=== PATIENT | male | born 1975 | race Caucasian/White ===

== ENCOUNTER 2022-12-26 18:18 | Emergency (ER) | payer OTHER, SELFPAY ==
--- NOTE | ~2022-12-26 | XR_ITS ---
EXAMINATION: XR ELBOW, LEFT CLINICAL INFORMATION: Left elbow pain COMPARISON: None available. TECHNIQUE: AP, lateral, and oblique views of the left elbow. XR/XR elbow LT min 3V FINDINGS/IMPRESSION: Cortical irregularity is noted of the olecranon process with the small ossific densities and overlying soft tissue swelling. In the setting of underlying trauma findings would represent avulsion fracture. If there is no history of trauma finding would be concerning for osteomyelitis. No evidence of elbow joint effusion. No evidence of radiopaque foreign body.
[2022-12-26 18:22] VITALS: BP 140/80; PULSE 100; PULSE 98; RESP 18; TEMP 36.8; O2SAT 95; O2SAT 98; BMI 27.4
[2022-12-26 19:09] LABS: Lactic Acid 1.5 mmol/L (0.5-2.0)
[2022-12-26 19:10] LABS: MANUAL DIFF FLAG NO
[2022-12-26 19:11] LABS: Basophils Absolute Auto 0.1 X10*3/uL (0.0-0.2); Basophils Percent Auto 0.9 % (0-2); Eosinophils Absolute Auto 0.2 X10*3/uL (0.0-0.4); Eosinophils Percent Auto 3.5 % (0-4); Hematocrit 36.6 % (42.0-52.0); Hemoglobin 12.1 g/dl (14.0-18.0); Imm Gran Abs Auto 0.01 X10*3/uL (0.00-0.03); Imm Gran Pct Auto 0.2 % (0.0-0.4); Lymphocytes Absolute Auto 0.8 X10*3/uL (1.2-4.9); Lymphocytes Percent Auto 15.3 % (20-40); Mean Corpuscular HGB Conc 33.1 g/dl (31.0-36.0); Mean Corpuscular Hemoglobin 30.6 pg (27.0-33.0); Mean Corpuscular Volume 92.4 fL (80.0-98.0); Mean Platelet Volume 9.9 fL (9.4-12.4); Monocytes Absolute Auto 0.5 X10*3/uL (0.1-1.2); Monocytes Percent Auto 8.9 % (2-11); Neutrophils Absolute Auto 3.8 x10*3/uL (2.0-8.3); Neutrophils Percent Auto 71.2 % (45-73); Platelet Count 228 X10*3/uL (160-400); Red Blood Count 3.96 X10*6/uL (4.60-5.80); Red Cell Distribution Width 14.9 % (11.0-16.0); White Blood Count 5.4 X10*3/uL (4.8-10.8)
[2022-12-26 19:14] LABS: Alanine Aminotransferase 12 U/L (0-40); Albumin Level 4.3 g/dL (3.5-5.0); Alkaline Phosphatase 55 U/L (39-117); Anion Gap 15 (12-20); Aspartate Amino Transferase 15 U/L (5-37); Bilirubin Total 0.4 mg/dL (0.0-1.0); Blood Urea Nitrogen 22 mg/dL (9-16); Calcium 9.4 mg/dL (8.4-10.2); Carbon Dioxide 24 mmol/L (22-29); Chloride 106 mmol/L (96-108); Creatinine Clr Calc Pharmacy 44.5; Estimated Glomerular Filt Rate 32; Ethanol 249 mg/dL; Glucose Random 83 mg/dL (60-115); Magnesium 2.1 mg/dL (1.6-2.6); Sodium 141 mmol/L (135-145); Total Protein 6.8 g/dL (6.5-8.0)
[2022-12-26 19:16] LABS: COVID-19 Test Negative (Negative); IDNOW Serial# 08D9AD1C
--- NOTE | 2022-12-26 19:45 | MHC.EDTECH ---
Pt is highly imtoxicated and refusin labs and vitals
--- NOTE | 2022-12-26 19:59 | ED_ITS ---
HPI - Alcohol General Chief Complaint: ETOH/Substance Use Stated Complaint: etoh Time Seen by Provider: 12/26/22 18:24 Source: patient, EMS and police Mode of arrival: EMS Limitations: no limitations History of Present Illness HPI narrative: This is a 47-year-old male presenting to the emergency department with EMS and police with acute alcohol intoxication, patient was sober for 6 months, was dropped off at [facility] by a friend for detox, he was noted to be intoxicated so they called EMS to take patient to the hospital. Patient reports he had approximately 4 nips of hard liquor just prior to arrival. Denies suicidal and homicidal ideation. He is also complaining of left elbow pain, he states his left elbow was swollen, painful, red and there is pus coming out of it. He reports he hit his elbow on something a few days ago and ever since then and has been worsening. He also reports that he had surgery to this left elbow a few months ago. Patient denies visual, auditory and tactile hallucinations. Denies drugs. Denies homicidal and suicidal ideation. States he seeking detox. Related Data Previous Rx's Medication Instructions Recorded amoxicillin 875 mg-potassium 1 tab PO BID 10 days #20 tabs 12/26/22 clavulanate 125 mg tablet Allergies Allergy/AdvReac Type Severity Reaction Status Date / Time hydroxyzine [From Vistaril] Allergy Hives Verified 12/26/22 18:32 Review of Systems Review of Systems: Constitutional : No Weight loss, No Fever, No Chills, No Fatigue, No Malaise ENT/Mouth : No sore throat, No Rhinorrhea Eyes: No Eye Pain, No Swelling, No Redness Cardiovascular : No Chest Pain, No SOB, No Dyspnea on Exertion, No Orthopnea, No Edema, No Palpitations Respiratory : No Cough, No Sputum, No Wheezing Gastrointestinal : No Nausea, No Vomiting, No Diarrhea, No Constipation, No abdominal Pain, No Hematochezia, No Melena Genitourinary : No Dysuria, No Urinary Frequency, No Hematuria, Musculoskeletal : + joint pain, No Myalgias, + Joint Swelling Skin : No Skin Lesions, No rash Neuro : No Weakness, No Numbness, No Dizziness, No Headache Psych : No Anxiety/Panic, No Depression All other systems reviewed and are negative Yes all other systems are reviewed and are negative [facility] Past Medical History Attestation statement: The following information was validated with the patient. Source: old records reviewed and nursing notes reviewed Physical Exam ED Vital Signs: Vital Signs - 24 hr 12/26/22 18:22 12/26/22 20:12 Temperature 98.2 F Pulse Rate 98 Respiratory Rate 18 18 Pulse Oximetry 98 Oxygen Delivery Method Room Air BMI result Body Mass Index 27.4 vss Appearance: Alert.? Oriented X3.? No acute distress.? Head: Normocephalic, atraumatic, no step-offs or deformities Eyes: Pupils equal, round and reactive to light.? CVS: Normal heart rate and rhythm.? Pulses normal.? Respiratory: No respiratory distress.? Breath sounds normal.? Abdomen: Soft and nontender.? Skin: Skin warm and dry.? Normal skin color.? Normal skin turgor.? Extremities: No lower extremity edema.? No calf ttp. 5/5 strength to bilateral upper and lower extremities bilateral elbows with full range of motion, pain- free. Left elbow does have overlying cellulitis, warmth and what appears to be a draining abscess. Normal right elbow. 2+ radial pulses equal bilateral. No wrist drop. Back: No midline tenderness, no C-spine tenderness, full range of motion, no CVA tenderness bilaterally Neuro: Oriented X 3.? No motor deficit.? No sensory deficit. CN 2-12 intact . Ambulating with steady gait normal coordination. Course Reevaluation(s) Reevaluation #1: CBC with a normocytic anemia. This is likely patient's baseline. Chemistry with acute kidney injury. Patient requesting to leave, refusing fluids. Does not want detox. Is calling for safe ride home. My attending evaluated patient recommends Augmentin for elbow likely bursitis with overlying cellulitis. He recommends to discharge this patient home as he does not want anything done, my attending to DC him home. Educated patient on diagnosis and treatment plan, answered all question, patient verbalizes understanding. At this time patient will be discharged home, advised to return with new or worsening symptoms. Educated on worrisome signs and symptoms and when to return. At this time I feel comfortable discharge home. Patient refusing for nursing to attempt IV access again. Not allowing us to give iVF Time: 21:00 Reevaluation #2: patient now fighting with with security, screaming. Disrespectful toward staff members. Is being escorted out by security. Time: 21:01 Medical Decision Making Medical Decision Making [facility] Narrative: 1825 This is a 47-year-old male presenting with acute alcohol intoxication was found at [facility], also reporting left Mary Kay pain, swelling the past few days after hitting his elbow against something. Physical exam significant for No lower extremity edema.? No calf ttp. 5/5 strength to bilateral upper and lower extremities bilateral elbows with full range of motion, pain-free. Left elbow does have overlying cellulitis, warmth and what appears to be a draining abscess. Normal right elbow. 2+ radial pulses equal bilateral. No wrist drop. This is likely alcohol intoxication versus polysubstance abuse. Unlikely metabolic derangements. Left elbow likely cellulitis, no signs of threatened limb, septic joint. There is likely a developing abscess with overlying erythema and warmth concerning for cellulitis, no signs of gangrene. Plan at this time labs, imaging, blood cultures, lactic acid, substance use disorder evaluation Differential Diagnosis Differential Diagnoses: The differential diagnosis associated with the presentation includes This is likely alcohol intoxication versus polysubstance abuse. Unlikely metabolic derangements. Left elbow likely cellulitis, no signs of threatened limb, septic joint. There is likely a developing abscess with overlying erythema and warmth concerning for cellulitis, no signs of gangrene. Admission/Observation Consideration of admission/observation: Escalation of care including admission/observation considered Lab Data [facility] Lab Attestation statement: I reviewed the patient's lab results. 12/26/22 18:55 12/26/22 18:55 Labs: Lab Results 12/26/22 12/26/22 12/26/22 Range/Units 18:55 18:55 18:55 WBC 5.4 (4.8-10.8) X10*3/uL RBC 3.96 L (4.60-5.80) X10*6/uL Hgb 12.1 L (14.0-18.0) g/dl Hct 36.6 L (42.0-52.0) % MCV 92.4 (80.0-98.0) fL MCH 30.6 (27.0-33.0) pg MCHC 33.1 (31.0-36.0) g/dl RDW 14.9 (11.0-16.0) % Plt Count 228 (160-400) X10*3/uL MPV 9.9 (9.4-12.4) fL Immature Gran % (Auto) 0.2 (0.0-0.4) % Neut % (Auto) 71.2 (45-73) % Lymph % (Auto) 15.3 L (20-40) % [place] % (Auto) 8.9 (2-11) % Eos % (Auto) 3.5 (0-4) % Baso % (Auto) 0.9 (0-2) % Lymph # (Auto) 0.8 L (1.2-4.9) X10*3/uL [place] # (Auto) 0.5 (0.1-1.2) X10*3/uL Eos # (Auto) 0.2 (0.0-0.4) X10*3/uL Baso # (Auto) 0.1 (0.0-0.2) X10*3/uL Abs Immat Gran (auto) 0.01 (0.00-0.03) X10*3/uL Absolute Neuts (auto) 3.8 (2.0-8.3) x10*3/uL Absolute Nucleated RBC 0.000 (0.0-0.012) X10*3/uL Nucleated RBC % (auto) 0.0 (0.0-0.2) /100WBC Sodium 141 (135-145) mmol/L Potassium 4.0 (3.3-5.1) mmol/L Chloride 106 (96-108) mmol/L Carbon Dioxide 24 (22-29) mmol/L Anion Gap 15 (12-20) BUN 22 H (9-16) mg/dL Creatinine 2.17 H (0.5-1.4) mg/dL Estim Creat Clear Calc 44.5 Estimated GFR 32 Random Glucose 83 (60-115) mg/dL Lactic Acid 1.5 (0.5-2.0) mmol/L Calcium 9.4 (8.4-10.2) mg/dL Magnesium 2.1 (1.6-2.6) mg/dL Total Bilirubin 0.4 (0.0-1.0) mg/dL AST 15 (5-37) U/L ALT 12 (0-40) U/L Alkaline Phosphatase 55 (39-117) U/L Total Protein 6.8 (6.5-8.0) g/dL Albumin 4.3 (3.5-5.0) g/dL Ethyl Alcohol 249 mg/dL COVID-19 (JONNIE) (Negative) COVID-19 Clin Com 12/26/22 Range/Units 18:55 WBC (4.8-10.8) X10*3/uL RBC (4.60-5.80) X10*6/uL Hgb (14.0-18.0) g/dl Hct (42.0-52.0) % MCV (80.0-98.0) fL MCH (27.0-33.0) pg MCHC (31.0-36.0) g/dl RDW (11.0-16.0) % Plt Count (160-400) X10*3/uL MPV (9.4-12.4) fL Immature Gran % (Auto) (0.0-0.4) % Neut % (Auto) (45-73) % Lymph % (Auto) (20-40) % [place] % (Auto) (2-11) % Eos % (Auto) (0-4) % Baso % (Auto) (0-2) % Lymph # (Auto) (1.2-4.9) X10*3/uL [place] # (Auto) (0.1-1.2) X10*3/uL Eos # (Auto) (0.0-0.4) X10*3/uL Baso # (Auto) (0.0-0.2) X10*3/uL Abs Immat Gran (auto) (0.00-0.03) X10*3/uL Absolute Neuts (auto) (2.0-8.3) x10*3/uL Absolute Nucleated RBC (0.0-0.012) X10*3/uL Nucleated RBC % (auto) (0.0-0.2) /100WBC Sodium (135-145) mmol/L Potassium (3.3-5.1) mmol/L Chloride (96-108) mmol/L Carbon Dioxide (22-29) mmol/L Anion Gap (12-20) BUN (9-16) mg/dL Creatinine (0.5-1.4) mg/dL Estim Creat Clear Calc Estimated GFR Random Glucose (60-115) mg/dL Lactic Acid (0.5-2.0) mmol/L Calcium (8.4-10.2) mg/dL Magnesium (1.6-2.6) mg/dL Total Bilirubin (0.0-1.0) mg/dL AST (5-37) U/L ALT (0-40) U/L Alkaline Phosphatase (39-117) U/L Total Protein (6.5-8.0) g/dL Albumin (3.5-5.0) g/dL Ethyl Alcohol mg/dL COVID-19 (JONNIE) Negative (Negative) COVID-19 Clin Com See Note Independent Interpretation I performed an independent interpretation of an: Plain X-Ray Core Measures AMI core measures followed: Yes Measure exclusions: not indicated Critical Care Time Critical Care Time Critical Care Time: No Discharge Plan Discharge Clinical Impression: Alcoholic intoxication, Cellulitis, Bursitis of elbow, CY (acute kidney injury) Patient Disposition: Home, Self-Care Instructions: Elbow Bursitis (ED), Abuse of Alcohol (ED) Additional Instructions: Take your medications as prescribed. If you were prescribed antibiotics today, it is important that you take your medication to their entirety, do not skip any doses, do not finish them early. Follow-up with your primary care provider this week. Follow-up with the orthopedic team. Return to the emergency department with new or worsening symptoms. Such as fevers, chills, chest pain, shortness of breath, nausea, vomiting, dizziness, headache, vision changes, lethargy In case of emergency call 911 You were noted to have an acute kidney injury drink plenty of fluids and follow up with PCP for repeat labs Prescriptions: New amoxicillin-pot clavulanate 875-125 mg tablet 1 tab PO BID 10 Days Qty: 20 0RF Referrals: [facility] [Provider Group] - 2 days [facility] [Provider Group] - 3 days Stand Alone Forms: Work/School Release
[2022-12-26 20:12] VITALS: RESP 18
--- NOTE | 2022-12-26 20:58 | PC.NURSE ---
Patient being belligerent stating that there is blood from another patient in his room. He was looking at betadine swabs that were used for blood cultures. Refused blood draw from cardiovascular technologist. Patient states he hasn't been drinking found two empty nips of [place].
--- NOTE | 2022-12-26 21:06 | PC.NURSE ---
Patient refused IV (hard stick) didn't want anyone to try again MD notified. stated he could go home with antibiotics. Security called because patient became belligerent.
--- NOTE | 2022-12-26 21:14 | PC.NURSE ---
pt was using inapprop lang. loud, not willing to lower his voice or change the words he uses. security called and pt is ready for discharge.
--- NOTE | 2022-12-26 21:16 | PC.NURSE ---
pt had 2 nips that where found in his room empty. pt was searched by security and pt had them hidden in his briefs. pt has been walked out of the ed with security present. steady gait. alert oriented but verbally inappropriate with all the staff. pt refusing iv, and being diffucult with care provided.
== END 2022-12-26 21:34 | disposition home or self-care (01) ==
PROVIDERS: Physician Assistant; Emergency Provider Internal Medicine
DX: F10.220 Alcohol dependence with intoxication, uncomplicated (principal); Y90.8 Blood alcohol level of 240 mg/100 ml or more; N17.9 Acute kidney failure, unspecified; L03.114 Cellulitis of left upper limb; M70.32 Other bursitis of elbow, left elbow; Y93.9 Activity, unspecified; M25.522 Pain in left elbow; Z20.822 Contact with and (suspected) exposure to COVID-19
CPT/HCPCS: 73080; 80053; 80307; 82550; 83605; 83735; 85025; 87040; 87635; 99283; 99284

== ENCOUNTER 2022-12-27 07:19 | Inpatient (IN) | payer OTHER, SELFPAY ==
[2022-12-27 07:26] VITALS: BP 116/75; PULSE 101; RESP 18; TEMP 36.4; O2SAT 97; BMI 28.1
--- NOTE | 2022-12-27 08:19 | ED.GENADULT ---
HPI - General Adult General Chief complaint: Psychiatric Symptoms Stated complaint: evaluation? Time Seen by Provider: 12/27/22 07:33 Source: patient and RN notes reviewed Mode of arrival: ambulatory Limitations: no limitations History of Present Illness HPI narrative: This is a 47-year-old male, with a past medical history of ETOH abuse and cocaine abuse, who presents emergency department today as he is ?not feeling right in the head . Patient was seen in the emergency department yesterday, found to be in acute kidney injury however refused IV fluids and further workup and was escorted out of the emergency department. Patient reports that he recently relocated from [place] several weeks ago and has been in this area looking for a place to live with his roommate. Patient reports that he does have suicidal ideations without a plan, but reports that if he was back in [place] he would have a suicidal plan set. He denies any homicidal ideations. Denies any auditory or visual hallucinations. He admits that he has been drinking alcohol over the last couple of days, typically drinking several naps per day last drink was last night. He denies history of alcohol withdrawal and he does not feel as though he is in alcohol withdrawal right now. He admits to smoking marijuana and admits to also using cocaine several days ago. Patient reports that several months ago he fell onto his left elbow, unsure if he had a fracture but he was sent to the OR to have it drained in a hospital at [facility] in [place]. Patient reports that over the last several days he has noticed increased redness and swelling as well as some drainage expressed from the surgical site. Denies any fevers or chills. No chest pain, or shortness of breath. No abdominal pain, nausea, vomiting, diarrhea, constipation, or urinary symptoms. No other complaints or concerns at this time. MD complaint: Suicidal Ideations, ?Right elbow infection Onset (ago): day(s) Location: upper extremity Severity: moderate Quality: aching Pain Consistency: constant Relieving factors: none Exacerbating factors: none Associated symptoms: denies other symptoms Treatments prior to arrival: none Related Data Home Medications Medication Instructions Recorded Confirmed buspirone 15 mg tablet 15 mg PO BID 12/27/22 12/27/22 clonazepam 0.5 mg tablet 0.5 mg PO BID PRN anxiety 12/27/22 12/27/22 clonidine HCl 0.1 mg tablet 0.1 mg PO BID PRN Anxiety 12/27/22 12/27/22 duloxetine 60 mg capsule,delayed 60 mg PO BID 12/27/22 12/27/22 release lamotrigine 100 mg tablet 100 mg PO DAILY 12/27/22 12/27/22 lisinopril 40 mg tablet 40 mg PO DAILY 12/27/22 12/27/22 meloxicam 7.5 mg tablet 7.5 mg PO BID 12/27/22 12/27/22 quetiapine 25 mg tablet 25 mg PO BEDTIME 12/27/22 12/27/22 tizanidine 4 mg tablet 4 mg PO BID 12/27/22 12/27/22 topiramate 50 mg tablet 50 mg PO BID 12/27/22 12/27/22 Allergies Allergy/AdvReac Type Severity Reaction Status Date / Time hydroxyzine [From Vistaril] Allergy Hives Verified 12/26/22 18:32 Review of Systems Review of Systems: Constitutional: No Weight loss, No Fever, No Chills, No Night Sweats, No Fatigue, No Malaise ENT/Mouth: No Hearing loss, No Ear Pain, No Nasal Congestion, No Sinus Pain, No Hoarseness, No sore throat, No Rhinorrhea, No Swallowing Difficulty Eyes: No Eye Pain, No Swelling, No Redness, No Foreign Body, No Discharge, No Vision Changes Cardiovascular: No Chest Pain, No SOB, No Dyspnea on Exertion, No Orthopnea, No Edema, No Palpitations Respiratory: No Cough, No Sputum, No Wheezing, No Smoke Exposure, No Dyspnea Gastrointestinal: No Nausea, No Vomiting, No Diarrhea, No Constipation, No Abdominal pain, No Hematochezia, No Melena Genitourinary: No irregular bleeding, No Dysuria, No Urinary Frequency, No Hematuria, No Urinary Incontinence/retention, No Urgency, No Flank Pain, No Urinary Flow Changes, No Hesitancy Musculoskeletal: + joint pain, No Myalgias, No Joint Swelling Skin: No Skin Lesions, No rash Neuro: No Weakness, No Numbness, No Paresthesias, No Loss of Consciousness, No Dizziness, No Headache Psych: +SI, No Anxiety/Panic, No Depression, No HI/AH/VH, No Social Issues, Heme/Lymph: No Bruising, No Bleeding,No Lymphadenopathy Endocrine: No Polyuria, No Polydipsia, No Temperature Intolerance Yes all other systems are reviewed and are negative Constitutional: Constitutional: Reports as per [facility] Past Medical History Medical History HTN (hypertension) Major depression, recurrent Septic arthritis of elbow, right Social History Social History Household Members: Friend(s) Housing: Other Housing Other:: staying w friend. looking for housing Do you presently have visiting nurse or other home services: No Alcohol intake: current Alcohol intake frequency: 3 or more drinks per day Alcohol type: beer and hard liquor Patient Tobacco Use Status: Never used Tobacco Smoked in Last 30 Days: No Use of substances other than those prescribed or required for medical reasons: Yes Substance Use Type: Marijuana Substance Use Frequency: Daily Last Used Substance: Just Prior to Admission Have you been hit, kicked, punched, or otherwise hurt by someone within the past year? If so, by whom?: No Do you feel safe in your current relationship?: No Is there a partner from a previous relationship who is making you feel unsafe now?: No Are you made to feel afraid or neglected: No Advance Directives: No Advance Directives Information Provided: No Do you have thoughts of harming others: None Do you have a plan to hurt others: No Plan Recently lost weight without trying: No Eating poorly because of decreased appetite: No Nutrition Risks: No Nutritional Risk Poor oral hygiene: No Physical Exam ED Vital Signs: Vital Signs - 24 hr 12/27/22 07:26 12/27/22 11:05 Temperature 97.5 F 98.5 F Pulse Rate 101 H 97 Respiratory Rate 18 16 Blood Pressure 116/75 128/88 Pulse Oximetry 97 96 Oxygen Delivery Method Room Air Room Air BMI result Body Mass Index 28.1 Const General: cooperative, comfortable and no acute distress Orientation/consciousness: patient oriented x3 Limitations: no limitations HENMT Head: Yes normal to inspection, Yes normocephalic and Yes atraumatic Ears: hearing grossly normal bilaterally General nose exam: Normal external nose present Face and sinus: Yes normal facial exam Mouth: Normal oral and palatal mucosa present, oropharynx normal and moist mucous membranes Throat: Yes posterior oropharynx normal Eyes General: appearance normal, both eyes and all related structures Eyelids: Yes eyelids normal Conjunctivae: conjunctivae normal Sclerae: sclerae normal Pupils: Equal, round and reactive pupils present EOM: EOMs intact bilaterally Neck Neck: Yes normal visual inspection, Yes full ROM and Yes no lymphadenopathy Lymphatic: no lymphadenopathy noted Chest Chest palpation & inspection: normal inspection of the chest Resp Effort & Inspection: normal respiratory effort and able to speak in complete sentences Auscultation: clear to auscultation bilaterally, no crackles, no rales, no rhonchi and no wheezes Cardio Rate: regular rate Rhythm: regular rhythm Heart sounds: S1 normal heart sound present and S2 normal heart sound present GI Inspection: Yes normal to inspection Skin General skin exam: no rashes or lesions noted Trauma: no lacerations or abrasions Wounds: no wounds Neuro General: patient oriented x3 and moves all extremities Cranial nerves: Yes Equal, round and reactive pupils present Extrem Other: Full range of motion of the left elbow, radial pulses 2+. Sensation intact. +serosanguineous drainage expressed from wound. General: Yes normal to inspection Right upper extremity: normal to inspection Left upper extremity: normal to inspection Right lower extremity: normal to inspection Left lower extremity: normal to inspection Course Reevaluation(s) Reevaluation #1: Elevated lactic acid 3.1, white blood cell count 11.3. Creatinine improved from 2.17 yesterday to 1.52 today. BUN 26. Random glucose 58, patient given food. Patient moved from Psychiatric pod to main ED. 2 L of IV fluids, Zosyn started intravenously. 1:1 safety check placed due to suicidal ideations. Time: 09:30 Reevaluation #2: Discussed case with hospitalist, Dr. Oscar, who accepts transfer of care. Time: 09:51 Medications Administered Generic Name Dose Route Start Last Admin Trade Name Freq PRN Reason Stop Dose Admin Enoxaparin Sodium 40 mg 12/27/22 13:00 12/27/22 12:59 Enoxaparin Sodium 40 Mg/0.4 Ml Syringe SUBCUT 40 mg Q24H MURPHY Administration Sodium Chloride 1,000 mls @ 100 mls/hr 12/27/22 12:45 12/27/22 12:59 Ns IVCONT 100 mls/hr .Q10H MURPHY Administration Discontinued Medications Generic Name Dose Route Start Last Admin Trade Name Freq PRN Reason Stop Dose Admin Sodium Chloride 1,000 mls @ 999 mls/hr 12/27/22 09:22 12/27/22 10:34 Ns IVCONT 12/27/22 10:22 Infused .Q1H1M ONE Infusion Piperacillin Sod/Tazobactam 50 mls @ 100 mls/hr 12/27/22 09:20 12/27/22 10:00 Sod 3.375 gm/ Sodium Chloride IV 12/27/22 09:49 Infused ONCE ONE Infusion Vancomycin HCl 2,000 mg in 500 mls @ 250 mls/hr 12/27/22 12:45 12/27/22 15:09 Vancomycin/Ns IV 12/27/22 14:44 Infused ONCE ONE Infusion Medical Decision Making Medical Decision Making [facility] Narrative: 47-year-old male with past history of etoh and cocaine abuse, hypertension, who presents to the emergency department for feeling ?not feeling right in the head . Patient endorses SI without a plan. No HI. No auditory or visual hallucinations. On examination, patient is compliant, alert and oriented x3, vital signs within normal limits. Patient is afebrile. He also has a left elbow area erythema and tenderness, with full flexion and extension, concern for cellulitis. Patient was seen in the emergency department yesterday and was found to have a creatinine of 2.17. X-ray of the left elbow showed cortical irregularity of the olecranon process with small ossific densities in overlying soft tissue swelling. In the setting of underlying trauma findings would represent avulsion fracture. If there is no history of trauma finding would be concerning for osteomyelitis. No evidence of elbow joint effusion. No evidence of radiopaque foreign body. He refused IV fluids and became aggressive and he was escorted off the hospital property. Patient has never been seen at this hospital before therefore we are unable to determine whether not this is baseline. He was prescribed oral Augmentin however denies picking this up at the pharmacy last night after being discharged. Plan: Repeat labs, CIWA scale Differential Diagnosis Differential Diagnoses: The differential diagnosis associated with the presentation includes Depression, anxiety, suicidal ideation, homicidal ideation, left elbow osteomyelitis, cellulitis, acute kidney injury Admission/Observation Consideration of admission/observation: Escalation of care including admission/observation considered Lab Data [facility] Lab Attestation statement: I reviewed the patient's lab results. 12/27/22 08:41 12/27/22 08:41 Labs: Lab Results 12/27/22 12/27/22 12/27/22 Range/Units 08:25 08:25 08:41 WBC 11.3 H (4.8-10.8) X10*3/uL RBC 4.39 L (4.60-5.80) X10*6/uL Hgb 13.2 L (14.0-18.0) g/dl Hct 40.6 L (42.0-52.0) % MCV 92.5 (80.0-98.0) fL MCH 30.1 (27.0-33.0) pg MCHC 32.5 (31.0-36.0) g/dl RDW 15.0 (11.0-16.0) % Plt Count 248 (160-400) X10*3/uL MPV 9.8 (9.4-12.4) fL Immature Gran % (Auto) 0.4 (0.0-0.4) % Neut % (Auto) 90.4 H (45-73) % Lymph % (Auto) 4.8 L (20-40) % Luna % (Auto) 2.8 (2-11) % Eos % (Auto) 0.9 (0-4) % Baso % (Auto) 0.7 (0-2) % Lymph # (Auto) 0.5 L (1.2-4.9) X10*3/uL Luna # (Auto) 0.3 (0.1-1.2) X10*3/uL Eos # (Auto) 0.1 (0.0-0.4) X10*3/uL Baso # (Auto) 0.1 (0.0-0.2) X10*3/uL Abs Immat Gran (auto) 0.04 H (0.00-0.03) X10*3/uL Absolute Neuts (auto) 10.2 H (2.0-8.3) x10*3/uL Absolute Nucleated RBC 0.000 (0.0-0.012) X10*3/uL Nucleated RBC % (auto) 0.0 (0.0-0.2) /100WBC Smear Tech's Comments VERIFIED ESR (0-15) MM/HR PT (10.0-13.1) SEC INR (0.9-1.1) APTT (26.0-36.4) SEC Sodium (135-145) mmol/L Potassium (3.3-5.1) mmol/L Chloride (96-108) mmol/L Carbon Dioxide (22-29) mmol/L Anion Gap (12-20) BUN (9-16) mg/dL Creatinine (0.5-1.4) mg/dL Estim Creat Clear Calc Estimated GFR Random Glucose (60-115) mg/dL Lactic Acid (0.5-2.0) mmol/L Lactic Acid F/U @ 2Hr (0.5-2.0) mmol/L Calcium (8.4-10.2) mg/dL Magnesium (1.6-2.6) mg/dL Total Bilirubin (0.0-1.0) mg/dL Direct Bilirubin (0.0-0.5) mg/dL AST (5-37) U/L ALT (0-40) U/L Alkaline Phosphatase (39-117) U/L C-Reactive Protein (< or = 0.50) mg/dL Total Protein (6.5-8.0) g/dL Albumin (3.5-5.0) g/dL Lipase (8-78) U/L Urine Color Dark Yellow Urine Appearance Cloudy Urine pH 5.5 (5.0-9.0) Ur Specific [place] 1.020 (1.005-1.025) Urine Protein 30 (1+) H (Neg-Trace) mg/dL Urine Glucose (UA) Negative (Negative) mg/dL Urine Ketones Trace (Negative) mg/dL Urine Blood Negative (Negative) Urine Nitrite Negative (Negative) Ur Leukocyte Esterase Negative (Negative) Urine RBC 0-2 (0-2) /HPF Urine WBC 0-5 (0-5) /HPF Ur Squamous Epith Cells 3-5 (0-2) /HPF Urine Bacteria None Seen (None Seen) Epithelial Casts Present Hyaline Casts 11-20 (0-2) /LPF Urine Opiates Screen Not Detected (Not Detect) Urine Fentanyl Screen POSITIVE H (Not Detect) Ur Barbiturates Screen Not Detected (Not Detect) Ur Phencyclidine Scrn Not Detected (Not Detect) Ur Amphetamines Screen Not Detected (Not Detect) U Benzodiazepines Scrn Not Detected (Not Detect) Urine Cocaine Screen POSITIVE H (Not Detect) U Marijuana (THC) Screen POSITIVE H (Not Detect) Ethyl Alcohol mg/dL 12/27/22 12/27/22 12/27/22 Range/Units 08:41 08:41 08:41 WBC (4.8-10.8) X10*3/uL RBC (4.60-5.80) X10*6/uL Hgb (14.0-18.0) g/dl Hct (42.0-52.0) % MCV (80.0-98.0) fL MCH (27.0-33.0) pg MCHC (31.0-36.0) g/dl RDW (11.0-16.0) % Plt Count (160-400) X10*3/uL MPV (9.4-12.4) fL Immature Gran % (Auto) (0.0-0.4) % Neut % (Auto) (45-73) % Lymph % (Auto) (20-40) % Luna % (Auto) (2-11) % Eos % (Auto) (0-4) % Baso % (Auto) (0-2) % Lymph # (Auto) (1.2-4.9) X10*3/uL Luna # (Auto) (0.1-1.2) X10*3/uL Eos # (Auto) (0.0-0.4) X10*3/uL Baso # (Auto) (0.0-0.2) X10*3/uL Abs Immat Gran (auto) (0.00-0.03) X10*3/uL Absolute Neuts (auto) (2.0-8.3) x10*3/uL Absolute Nucleated RBC (0.0-0.012) X10*3/uL Nucleated RBC % (auto) (0.0-0.2) /100WBC Smear Tech's Comments ESR 14 (0-15) MM/HR PT 13.0 (10.0-13.1) SEC INR 1.1 (0.9-1.1) APTT 29.0 (26.0-36.4) SEC Sodium 144 (135-145) mmol/L Potassium 4.2 (3.3-5.1) mmol/L Chloride 106 (96-108) mmol/L Carbon Dioxide 22 (22-29) mmol/L Anion Gap 20 (12-20) BUN 26 H (9-16) mg/dL Creatinine 1.52 H (0.5-1.4) mg/dL Estim Creat Clear Calc 63.9 Estimated GFR 49 Random Glucose 58 L* (60-115) mg/dL Lactic Acid (0.5-2.0) mmol/L Lactic Acid F/U @ 2Hr (0.5-2.0) mmol/L Calcium 9.8 (8.4-10.2) mg/dL Magnesium 1.8 (1.6-2.6) mg/dL Total Bilirubin 0.5 (0.0-1.0) mg/dL Direct Bilirubin 0.2 (0.0-0.5) mg/dL AST 19 (5-37) U/L ALT 15 (0-40) U/L Alkaline Phosphatase 59 (39-117) U/L C-Reactive Protein 1.49 H (< or = 0.50) mg/dL Total Protein 7.4 (6.5-8.0) g/dL Albumin 4.6 (3.5-5.0) g/dL Lipase 47 (8-78) U/L Urine Color Urine Appearance Urine pH (5.0-9.0) Ur Specific [place] (1.005-1.025) Urine Protein (Neg-Trace) mg/dL Urine Glucose (UA) (Negative) mg/dL Urine Ketones (Negative) mg/dL Urine Blood (Negative) Urine Nitrite (Negative) Ur Leukocyte Esterase (Negative) Urine RBC (0-2) /HPF Urine WBC (0-5) /HPF Ur Squamous Epith Cells (0-2) /HPF Urine Bacteria (None Seen) Epithelial Casts Hyaline Casts (0-2) /LPF Urine Opiates Screen (Not Detect) Urine Fentanyl Screen (Not Detect) Ur Barbiturates Screen (Not Detect) Ur Phencyclidine Scrn (Not Detect) Ur Amphetamines Screen (Not Detect) U Benzodiazepines Scrn (Not Detect) Urine Cocaine Screen (Not Detect) U Marijuana (THC) Screen (Not Detect) Ethyl Alcohol 50 mg/dL 12/27/22 12/27/22 Range/Units 08:41 11:11 WBC (4.8-10.8) X10*3/uL RBC (4.60-5.80) X10*6/uL Hgb (14.0-18.0) g/dl Hct (42.0-52.0) % MCV (80.0-98.0) fL MCH (27.0-33.0) pg MCHC (31.0-36.0) g/dl RDW (11.0-16.0) % Plt Count (160-400) X10*3/uL MPV (9.4-12.4) fL Immature Gran % (Auto) (0.0-0.4) % Neut % (Auto) (45-73) % Lymph % (Auto) (20-40) % Luna % (Auto) (2-11) % Eos % (Auto) (0-4) % Baso % (Auto) (0-2) % Lymph # (Auto) (1.2-4.9) X10*3/uL Luna # (Auto) (0.1-1.2) X10*3/uL Eos # (Auto) (0.0-0.4) X10*3/uL Baso # (Auto) (0.0-0.2) X10*3/uL Abs Immat Gran (auto) (0.00-0.03) X10*3/uL Absolute Neuts (auto) (2.0-8.3) x10*3/uL Absolute Nucleated RBC (0.0-0.012) X10*3/uL Nucleated RBC % (auto) (0.0-0.2) /100WBC Smear Tech's Comments ESR (0-15) MM/HR PT (10.0-13.1) SEC INR (0.9-1.1) APTT (26.0-36.4) SEC Sodium (135-145) mmol/L Potassium (3.3-5.1) mmol/L Chloride (96-108) mmol/L Carbon Dioxide (22-29) mmol/L Anion Gap (12-20) BUN (9-16) mg/dL Creatinine (0.5-1.4) mg/dL Estim Creat Clear Calc Estimated GFR Random Glucose (60-115) mg/dL Lactic Acid 3.1 H* (0.5-2.0) mmol/L Lactic Acid F/U @ 2Hr 1.9 (0.5-2.0) mmol/L Calcium (8.4-10.2) mg/dL Magnesium (1.6-2.6) mg/dL Total Bilirubin (0.0-1.0) mg/dL Direct Bilirubin (0.0-0.5) mg/dL AST (5-37) U/L ALT (0-40) U/L Alkaline Phosphatase (39-117) U/L C-Reactive Protein (< or = 0.50) mg/dL Total Protein (6.5-8.0) g/dL Albumin (3.5-5.0) g/dL Lipase (8-78) U/L Urine Color Urine Appearance Urine pH (5.0-9.0) Ur Specific [place] (1.005-1.025) Urine Protein (Neg-Trace) mg/dL Urine Glucose (UA) (Negative) mg/dL Urine Ketones (Negative) mg/dL Urine Blood (Negative) Urine Nitrite (Negative) Ur Leukocyte Esterase (Negative) Urine RBC (0-2) /HPF Urine WBC (0-5) /HPF Ur Squamous Epith Cells (0-2) /HPF Urine Bacteria (None Seen) Epithelial Casts Hyaline Casts (0-2) /LPF Urine Opiates Screen (Not Detect) Urine Fentanyl Screen (Not Detect) Ur Barbiturates Screen (Not Detect) Ur Phencyclidine Scrn (Not Detect) Ur Amphetamines Screen (Not Detect) U Benzodiazepines Scrn (Not Detect) Urine Cocaine Screen (Not Detect) U Marijuana (THC) Screen (Not Detect) Ethyl Alcohol mg/dL Radiology Impression Discussion of test interpretation with radiology: I have reviewed the radiologist's reading. Radiologist Impression: X-ray of left elbow performed on 12/26/2022 at 10:52 p.m. EXAMINATION: XR ELBOW, LEFT CLINICAL INFORMATION: Left elbow pain? COMPARISON: None available.? TECHNIQUE: AP, lateral, and oblique views of the left elbow. XR/XR elbow LT min 3V FINDINGS/IMPRESSION: Cortical irregularity is noted of the olecranon process with the small ossific densities and overlying soft tissue swelling. In the setting of underlying trauma findings would represent avulsion fracture. If there is no history of trauma finding would be concerning for osteomyelitis. No evidence of elbow joint effusion. No evidence of radiopaque foreign body. ? External Record Review External record reviewed: Inpatient record, Office record, Outpatient record, Prior outpatient labs, Prior outpatient radiology, Primary care record and Outside ED record Critical Care Time Critical Care Time Critical Care Time: Yes Total Critical Care Time: 35 Attestation: I have personally provided critical care time exclusive of time spent on separately billable procedures. Time includes review of lab data, radiology results, discussion with consultants, and monitoring for potential decompensation. Intervention performed as documented. Discharge Plan Discharge Clinical Impression: Cellulitis, Acute kidney injury Patient Disposition: Admitted As Inpatient Interventions: [place]-Suicide Risk Severity Scale Last Done: 12/27/22 09:38 Admission Worksheet (ED) Last Done: 12/27/22 13:12 Discharge Date/Time: 12/27/22 13:37
[2022-12-27 08:52] LABS: Basophils Absolute Auto 0.1 X10*3/uL (0.0-0.2); Basophils Percent Auto 0.7 % (0-2); Eosinophils Absolute Auto 0.1 X10*3/uL (0.0-0.4); Eosinophils Percent Auto 0.9 % (0-4); Hematocrit 40.6 % (42.0-52.0); Hemoglobin 13.2 g/dl (14.0-18.0); Imm Gran Abs Auto 0.04 X10*3/uL (0.00-0.03); Imm Gran Pct Auto 0.4 % (0.0-0.4); Lymphocytes Absolute Auto 0.5 X10*3/uL (1.2-4.9); Lymphocytes Percent Auto 4.8 % (20-40); Mean Corpuscular HGB Conc 32.5 g/dl (31.0-36.0); Mean Corpuscular Hemoglobin 30.1 pg (27.0-33.0); Mean Corpuscular Volume 92.5 fL (80.0-98.0); Mean Platelet Volume 9.8 fL (9.4-12.4); Monocytes Absolute Auto 0.3 X10*3/uL (0.1-1.2); Monocytes Percent Auto 2.8 % (2-11); Neutrophils Absolute Auto 10.2 x10*3/uL (2.0-8.3); Neutrophils Percent Auto 90.4 % (45-73); Platelet Count 248 X10*3/uL (160-400); Red Blood Count 4.39 X10*6/uL (4.60-5.80); SCAN SMEAR FLAG 1; White Blood Count 11.3 X10*3/uL (4.8-10.8)
[2022-12-27 08:57] LABS: INTERNATIONAL NORM RATIO 1.1 (0.9-1.1)
[2022-12-27 09:05] LABS: Appearance Urine Cloudy; Color Urine Dark Yellow; Glucose Urine UA Negative (Negative); Leukocyte Esterase Urine Negative (Negative); Nitrite Urine Negative (Negative); PH 5.5 (5.0-9.0); UMIC TRIGGER UACC YES; Urine Blood Negative (Negative); Urine Ketones Trace mg/dL (Negative); Urine Protein 30 (1+) mg/dL (Neg-Trace)
[2022-12-27 09:08] LABS: MANUAL DIFF FLAG SCAN; SLIDE REVIEW VERIFIED
[2022-12-27 09:09] LABS: Lactic Acid 3.1 mmol/L (0.5-2.0)
[2022-12-27 09:14] LABS: Alanine Aminotransferase 15 U/L (0-40); Albumin Level 4.6 g/dL (3.5-5.0); Alkaline Phosphatase 59 U/L (39-117); Anion Gap 20 (12-20); Aspartate Amino Transferase 19 U/L (5-37); Bilirubin Direct 0.2 mg/dL (0.0-0.5); Bilirubin Total 0.5 mg/dL (0.0-1.0); Blood Urea Nitrogen 26 mg/dL (9-16); C Reactive Protein 1.49 mg/dL (< or = 0.50); Calcium 9.8 mg/dL (8.4-10.2); Carbon Dioxide 22 mmol/L (22-29); Chloride 106 mmol/L (96-108); Creatinine Clr Calc Pharmacy 63.9; Estimated Glomerular Filt Rate 49; Ethanol 50 mg/dL; Glucose Random 58 mg/dL (60-115); Lipase 47 U/L (8-78); Magnesium 1.8 mg/dL (1.6-2.6); Potassium 4.2 mmol/L (3.3-5.1); Sodium 144 mmol/L (135-145); Total Protein 7.4 g/dL (6.5-8.0)
[2022-12-27 09:15] LABS: Amphetamine Screen Urine Not Detected (Not Detect); Barbiturates, Urine Not Detected (Not Detect); Benzodiazepines Screen Urine Not Detected (Not Detect); Cannabinoid Screen Urine POSITIVE (Not Detect); Cocaine Screen Urine POSITIVE (Not Detect); Fentanyl, urine POSITIVE (Not Detect); Opiate Screen Urine Not Detected (Not Detect); Phencyclidine Screen Urine Not Detected (Not Detect)
[2022-12-27 09:17] LABS: Bacteria Urine None Seen (None Seen); Epith (RTE) Cast Present; RBC Urine 0-2 /HPF (0-2); WBC Urine 0-5 /HPF (0-5)
[2022-12-27 09:28] LABS: Erythrocyte Sedimentation Rate 14 MM/HR (0-15)
[2022-12-27] MEDS: Piperacillin Sodium/Tazobactam 3.375 GM in 0.9 % Sodium Chloride 50 ML IV (09:29)
[2022-12-27] MEDS: 0.9 % Sodium Chloride 1,000 ML 999 ML IVCONT (09:29)
[2022-12-27 10:49] LABS: Reflex Lactate? Lactic Acid Added
--- NOTE | 2022-12-27 10:55 | PHA.MEDREC ---
Pharmacy Consult ? Medication Reconciliation Pharmacy has completed the medication reconciliation. spoke with patient and was able to verify his medications. he was prescribed Augmentin last night upon discharge but he said he never got them. He was unsure about which pharmacy he normally uses for his prescriptions and said he did not have a preference.
[2022-12-27 11:05] VITALS: BP 128/88; PULSE 97; RESP 16; TEMP 36.9; O2SAT 96
[2022-12-27 11:30] LABS: ~Lactic Acid-LAB USE ONLY 1.9 mmol/L (0.5-2.0)
--- NOTE | 2022-12-27 12:39 | P.HPHOSP_ITS ---
History of Present Illness Date of Service: 12/27/22 Attending physician on admission: David Crowe Chief Complaint: right elbow infection, not feeling myself 47 year old male with history htn, depression, intermittent cocaine abuse, septic joint L elbow treated at [facility] 3 months ago presented to the ED for evaluation stating he is not feeling right in the head . Endorsing worsening depression and passive SI x 4 days. Denies any active plan. No current AH/VH. He was seen in the ED yesterday found to be in CY but refused IV fluids and left AMA. Patient reports that he recently relocated from [place] several weeks ago and has been in this area looking for a place to live with his roommate.? Patient reports that he does have suicidal ideations without a plan, but reports that if he was back in [place] he would have a suicidal plan set.? He denies any homicidal ideations. Has consumed 8 nips last two days but states he is not a regular drinker besides this. He smokes MJ regularly and states he snorted a few lines of cocaine but is not a regular user. Urine tox screen positive for THC, cocaine, and fentanyl. Denies opiate abuse/IVDA. No cigarettes. He is also complaining of pain in the right elbow. Several months ago was hospitalized at [facility] for what sounds like a septic left elbow based on patient history, though records have been requested. He states this healed completely but 1 week ago bumped the left elbow on a bureau and since then has had purulent drainage, increasing erythema, warmth, and swelling. Denies fevers or chills. Mild pain. States he has been using warm compresses on the area. On arrival, patient afebrile, mildly tachycardic to 101. Mild leukocytosis of 11.3. Creatinine 1.52 (baseline unknown, was 2.17 yesterday). BUN 26. Glucose 58. Lactic acid 3.1, repeat 1.9. Hepatic function within normal limits. CRP 1.49, ESR 14. Urinalysis unremarkable. X-ray of the left elbow yesterday noting cortical irregularity in the olecranon process with the small osteophytic densities and overlying soft tissue swelling. In the setting of underlying trauma findings would represent avulsion fracture otherwise concerning for osteomyelitis. No evidence of elbow joint effusion. In the ED, given 1 L IVF, and IV zosyn. Review of Systems Review of Systems: General: No fevers, malaise, unintentional weight loss HEENT: No blurred vision, diplopia. No sore throat, nasal congestion, rhinorrhea, sinus pain, ear pain Cardiovascular: No chest pain, palpitations, or leg edema Respiratory: No shortness of breath, wheezing, cough GI: No abdominal pain, nausea, vomiting, diarrhea, constipation, melena, hematochezia : No dysuria, hematuria, increased urinary frequency, decreased urinary output MSK: No myalgia, back pain. +L elbow pain, swelling, redness Neuro: No headaches, weakness, paresthesias Psych: +passive SI, +depressed Skin: No rashes or lesions PMFSH Medical History HTN (hypertension) Major depression, recurrent Septic arthritis of elbow, right Social History Alcohol intake: current Alcohol intake frequency: 3 or more drinks per day Alcohol type: beer and hard liquor Smoked in Last 30 Days: No Use of substances other than those prescribed or required for medical reasons: Yes Substance Use Type: Marijuana Advance Directives: No Advance Directives Information Provided: No Meds Allergies Allergy/AdvReac Type Severity Reaction Status Date / Time hydroxyzine [From Vistaril] Allergy Hives Verified 12/26/22 18:32 Active Medications: Current Medications Acetaminophen (Acetaminophen 325 Mg Tablet) 650 mg PO Q6H PRN PRN Reason: Pain, Mild (Pain Scale 1-3) Docusate Sodium (Docusate Sodium 100 Mg Capsule) 100 mg PO DAILY PRN PRN Reason: Constipation Enoxaparin Sodium (Enoxaparin Sodium 40 Mg/0.4 Ml Syringe) 40 mg SUBCUT Q24H MURPHY Vancomycin HCl (Vancomycin/Ns) 2,000 mg in 500 mls @ 250 mls/hr IV ONCE ONE Stop: 12/27/22 14:44 Sodium Chloride (Ns) 1,000 mls @ 100 mls/hr IVCONT .Q10H MURPHY Ondansetron HCl (Ondansetron Hcl 4 Mg/2 Ml Vial) 4 mg IVPUSH Q8H PRN PRN Reason: Nausea and Vomiting Pharmacy Consult (Consult Rx Perform Med Rec) 1 each MISCELLANE ONCE PRN PRN Reason: Consult order Pharmacy Consult (Consult Rx Vancomycin Dosing) 1 each MISCELLANE DAILY PRN PRN Reason: Consult order Sodium Chloride (0.9 % Sodium Chloride Flush 3 Ml Syringe) 3 ml IVFLUSH [facility] Home Medications Medication Instructions Recorded Confirmed Last Taken Type buspirone 15 mg tablet 15 mg PO BID 12/27/22 12/27/22 Unknown History clonazepam 0.5 mg tablet 0.5 mg PO BID PRN anxiety 12/27/22 12/27/22 Unknown History clonidine HCl 0.1 mg tablet 0.1 mg PO BID PRN Anxiety 12/27/22 12/27/22 Unknown History duloxetine 60 mg capsule,delayed 60 mg PO BID 12/27/22 12/27/22 Unknown History release lamotrigine 100 mg tablet 100 mg PO DAILY 12/27/22 12/27/22 Unknown History lisinopril 40 mg tablet 40 mg PO DAILY 12/27/22 12/27/22 Unknown History meloxicam 7.5 mg tablet 7.5 mg PO BID 12/27/22 12/27/22 Unknown History quetiapine 25 mg tablet 25 mg PO BEDTIME 12/27/22 12/27/22 Unknown History tizanidine 4 mg tablet 4 mg PO BID 12/27/22 12/27/22 Unknown History topiramate 50 mg tablet 50 mg PO BID 12/27/22 12/27/22 Unknown History Physical Exam Vital Signs and Narrative: Vital Signs: Last Vital Signs Temp 98.5 F 12/27/22 11:05 Pulse 97 12/27/22 11:05 Resp 16 12/27/22 11:05 BP 128/88 12/27/22 11:05 Pulse Ox 96 12/27/22 11:05 O2 Del Method Room Air 12/27/22 11:05 BMI result Body Mass Index 28.1 Constitutional - Awake and Alert, No apparent distress Eyes - PERRLA, EOMI Cardiovascular - S1S2, RRR, No edema Respiratory - Normal lung expansion, Normal respiratory effort, No respiratory distress, CTA bilaterally Gastrointestinal - NT / ND; +BS; No rebound or guarding Extremities - no calf tenderness bilaterally, no swelling Musculoskeletal - Full ROM left elbow with tenderness to palpation Skin - Warm/Dry. Erythema of the left olecranon with central scabbing. No purulent drainage. No fluctuance appreciated. See photo Neurological - Alert & oriented x3, 5/5 strength BUE and BLE Psychological - depressed mood, flat affect Results Labs 12/27/22 08:41 12/27/22 08:41 Labs: Laboratory Results - last 24 hr 12/27/22 12/27/22 12/27/22 08:25 08:25 08:41 MCV 92.5 MCH 30.1 MCHC 32.5 RDW 15.0 Plt Count 248 MPV 9.8 Immature Gran % (Auto) 0.4 Neut % (Auto) 90.4 H Lymph % (Auto) 4.8 L [place] % (Auto) 2.8 Eos % (Auto) 0.9 Baso % (Auto) 0.7 Lymph # (Auto) 0.5 L [place] # (Auto) 0.3 Eos # (Auto) 0.1 Baso # (Auto) 0.1 Abs Immat Gran (auto) 0.04 H Absolute Neuts (auto) 10.2 H Absolute Nucleated RBC 0.000 Nucleated RBC % (auto) 0.0 Smear Tech's Comments VERIFIED ESR PT INR APTT Anion Gap Estim Creat Clear Calc Estimated GFR Random Glucose Lactic Acid Lactic Acid F/U @ 2Hr Calcium Magnesium Total Bilirubin Direct Bilirubin AST ALT Alkaline Phosphatase C-Reactive Protein Total Protein Albumin Lipase Urine Color Dark Yellow Urine Appearance Cloudy Urine pH 5.5 Ur Specific [place] 1.020 Urine Protein 30 (1+) H Urine Glucose (UA) Negative Urine Ketones Trace Urine Blood Negative Urine Nitrite Negative Ur Leukocyte Esterase Negative Urine RBC 0-2 Urine WBC 0-5 Ur Squamous Epith Cells 3-5 Urine Bacteria None Seen Epithelial Casts Present Hyaline Casts 11-20 Urine Opiates Screen Not Detected Urine Fentanyl Screen POSITIVE H Ur Barbiturates Screen Not Detected Ur Phencyclidine Scrn Not Detected Ur Amphetamines Screen Not Detected U Benzodiazepines Scrn Not Detected Urine Cocaine Screen POSITIVE H U Marijuana (THC) Screen POSITIVE H Ethyl Alcohol 12/27/22 12/27/22 12/27/22 08:41 08:41 08:41 MCV MCH MCHC RDW Plt Count MPV Immature Gran % (Auto) Neut % (Auto) Lymph % (Auto) [place] % (Auto) Eos % (Auto) Baso % (Auto) Lymph # (Auto) [place] # (Auto) Eos # (Auto) Baso # (Auto) Abs Immat Gran (auto) Absolute Neuts (auto) Absolute Nucleated RBC Nucleated RBC % (auto) Smear Tech's Comments ESR 14 PT 13.0 INR 1.1 APTT 29.0 Anion Gap 20 Estim Creat Clear Calc 63.9 Estimated GFR 49 Random Glucose 58 L* Lactic Acid Lactic Acid F/U @ 2Hr Calcium 9.8 Magnesium 1.8 Total Bilirubin 0.5 Direct Bilirubin 0.2 AST 19 ALT 15 Alkaline Phosphatase 59 C-Reactive Protein 1.49 H Total Protein 7.4 Albumin 4.6 Lipase 47 Urine Color Urine Appearance Urine pH Ur Specific [place] Urine Protein Urine Glucose (UA) Urine Ketones Urine Blood Urine Nitrite Ur Leukocyte Esterase Urine RBC Urine WBC Ur Squamous Epith Cells Urine Bacteria Epithelial Casts Hyaline Casts Urine Opiates Screen Urine Fentanyl Screen Ur Barbiturates Screen Ur Phencyclidine Scrn Ur Amphetamines Screen U Benzodiazepines Scrn Urine Cocaine Screen U Marijuana (THC) Screen Ethyl Alcohol 50 12/27/22 12/27/22 08:41 11:11 MCV MCH MCHC RDW Plt Count MPV Immature Gran % (Auto) Neut % (Auto) Lymph % (Auto) [place] % (Auto) Eos % (Auto) Baso % (Auto) Lymph # (Auto) [place] # (Auto) Eos # (Auto) Baso # (Auto) Abs Immat Gran (auto) Absolute Neuts (auto) Absolute Nucleated RBC Nucleated RBC % (auto) Smear Tech's Comments ESR PT INR APTT Anion Gap Estim Creat Clear Calc Estimated GFR Random Glucose Lactic Acid 3.1 H* Lactic Acid F/U @ 2Hr 1.9 Calcium Magnesium Total Bilirubin Direct Bilirubin AST ALT Alkaline Phosphatase C-Reactive Protein Total Protein Albumin Lipase Urine Color Urine Appearance Urine pH Ur Specific [place] Urine Protein Urine Glucose (UA) Urine Ketones Urine Blood Urine Nitrite Ur Leukocyte Esterase Urine RBC Urine WBC Ur Squamous Epith Cells Urine Bacteria Epithelial Casts Hyaline Casts Urine Opiates Screen Urine Fentanyl Screen Ur Barbiturates Screen Ur Phencyclidine Scrn Ur Amphetamines Screen U Benzodiazepines Scrn Urine Cocaine Screen U Marijuana (THC) Screen Ethyl Alcohol Assessment and Plan (1) Cellulitis: Status: Acute (2) Acute kidney injury: Status: Acute (3) Passive suicidal ideations: Status: Acute (4) Major depression, recurrent: Status: Acute Plan 47 year old male with history htn, depression, intermittent cocaine abuse, septic joint L elbow treated at [facility] 3 months ago admitted for acute cellulitis left elbow with CY and SI #Acute cellulitis L olecranon with severe sepsis -ESR normal, CRP 1.49. WBC 11.3 (yesterday 5.4), with tachycardia with lactic acidosis and CY -XRay with possible avulsion fracture given trauma history. Low suspicion for osteomyelitis -IV cefepime and vanco (initiated 12/27) -Appreciate ID assistance -Appreciate ortho assistance. Had septic joint L elbow about 3 months ago. Notes requested from [facility] -Follow cbc, cultures #Depression with passive SI -Consult for sitter -Crisis evaluation once medically cleared -continue home meds #Acute kidney injury -related to sepsis -continue IVF -As above -Avoid nephrotoxins -Follow BMP #HTN- bp reasonably controlled -hold lisinopril in setting of sepsis and CY # intermittent cocaine abuse -declines addiction medicine consult # alcohol abuse -reports consuming 8 nips in the last 2 days but states he is not a regular drinker -will monitor on CIWA DVT prophylaxis-Lovenox Full code Patient requires inpatient stay of at least 2 midnights for management of acute cellulitis of the left olecranon with severe sepsis and depression with SI requiring IV antibiotics, close monitoring, expert consultation, and crisis evaluation once medically cleared for placement to psychiatric admission Time Spent With Patient Time: Total time managing care of this patient today ____ minutes. Quality Stroke Does the patient have a stroke diagnosis?: No VTE Prior VTE?: No VTE Risk Level:: Medical - moderate - high VTE Device Contraindication: Treatment Not Indicated VTE Drug Contraindication: N/A - Med Ordered
[2022-12-27] MEDS: vancomycin/NS 2,000 MG/500 ML PLAST..BAG 250 MG IV (12:59)
[2022-12-27] MEDS: Enoxaparin Sodium 40 MG/0.4 ML SYRINGE SUBCUT (12:59)
[2022-12-27] MEDS: 0.9 % Sodium Chloride 1,000 ML 100 ML IVCONT ×2 (12:59→22:44)
--- NOTE | 2022-12-27 13:02 | PHA.PROG ---
Admission Date/Time: December 27, 2022 12:34 Indication: Cellulitis Weight in k.183 kg Adjusted body weight in K kg [place] body weight in K.7 kg Obesity Dosing Indication % IBW: 121% Serum Creatinine - Last 168 Hours 12/27/22 08:41 Creatinine 1.52 H Estimated CrCl and GFR - Last 168 Hours 12/27/22 08:41 Estim Creat Clear Calc 63.9 Estimated GFR 49 Vancomycin Loading Dose: 2000 mg Current Vancomycin Dosing Regimen: 750 mg Q12H Date and Time for next Vancomycin Level to be drawn: 12/28 @ 1100 Pharmacist Comments on Vancomycin Plan: patient receiving load dose now, 12/27 @ 1259 Maintenance dose vanco 750 mg Q12H is scheduled to start 12/28 @ 0100 Patient currently in CY, with renal function slightly improving from yesterday in the ED (2.17). Renal function most likely to continue improve therefore pharmacy will closely monitor and adjust dose as necessary. Level scheduled prior to 3rd dose to be monitor for safety and efficacy while pharmacy is in house. Bora Santana Vancomycin dosing will take advantage of [employer] as a clinical decision support tool that uses Bayesian modeling to calculate individual patient's pharmacokinetic parameters and forecast the patient's drug concentration time course with the target goal AUC 24 range of 400 - 600 mg/L/hr.
[2022-12-27 14:01] VITALS: BMI 27.9
[2022-12-27 14:45] VITALS: BMI 28.0
[2022-12-27 15:33] VITALS: BP 140/88; PULSE 92; RESP 20; TEMP 36.8; O2SAT 96
[2022-12-27] MEDS: cefEPime HCl 2 GM in 0.9 % Sodium Chloride 50 ML IV ×2 (15:37→22:44)
[2022-12-27 15:47] VITALS: BP 140/88; PULSE 88; RESP 20; TEMP 36.6; O2SAT 98
[2022-12-27] MEDS: clonazePAM 0.5 MG TABLET PO ×2 (16:11→20:27)
[2022-12-27 19:23] VITALS: BP 136/82; PULSE 79; RESP 18; TEMP 36.3; O2SAT 98
[2022-12-27] MEDS: DULoxetine HCl 60 MG CAPSULE.DR PO (20:24)
[2022-12-27] MEDS: busPIRone HCl 5 MG TABLET 15 MG PO (20:24)
[2022-12-27] MEDS: TiZANidine HCL 4 MG TABLET PO (20:24)
[2022-12-27] MEDS: QUEtiapine Fumarate 25 MG TABLET PO (20:25)
[2022-12-27] MEDS: cloNIDine HCL 0.1 MG TABLET PO (20:26)
[2022-12-27] MEDS: Topiramate 25 MG TABLET 50 MG PO (20:27)
[2022-12-28] MEDS: vancomycin HCL 750 MG in 0.9 % Sodium Chloride 250 ML 265 MG IV (00:52)
[2022-12-28 03:57] VITALS: BP 127/80; PULSE 88; RESP 18; TEMP 36.6; O2SAT 97
[2022-12-28] MEDS: cefEPime HCl 2 GM in 0.9 % Sodium Chloride 50 ML IV (06:00)
[2022-12-28 06:25] LABS: MANUAL DIFF FLAG NO
[2022-12-28 06:28] LABS: Basophils Percent Auto 1.2 % (0-2); Eosinophils Absolute Auto 0.2 X10*3/uL (0.0-0.4); Eosinophils Percent Auto 5.9 % (0-4); Hematocrit 33.8 % (42.0-52.0); Hemoglobin 11.2 g/dl (14.0-18.0); Imm Gran Abs Auto 0.01 X10*3/uL (0.00-0.03); Imm Gran Pct Auto 0.3 % (0.0-0.4); Lymphocytes Absolute Auto 0.5 X10*3/uL (1.2-4.9); Lymphocytes Percent Auto 15.1 % (20-40); Mean Corpuscular HGB Conc 33.1 g/dl (31.0-36.0); Mean Corpuscular Hemoglobin 30.9 pg (27.0-33.0); Mean Corpuscular Volume 93.1 fL (80.0-98.0); Mean Platelet Volume 10.1 fL (9.4-12.4); Monocytes Absolute Auto 0.3 X10*3/uL (0.1-1.2); Monocytes Percent Auto 10.1 % (2-11); Neutrophils Absolute Auto 2.3 x10*3/uL (2.0-8.3); Neutrophils Percent Auto 67.4 % (45-73); Platelet Count 187 X10*3/uL (160-400); Red Blood Count 3.63 X10*6/uL (4.60-5.80); Red Cell Distribution Width 14.7 % (11.0-16.0); White Blood Count 3.4 X10*3/uL (4.8-10.8)
[2022-12-28 06:51] LABS: Chloride 110 mmol/L (96-108); Potassium 3.9 mmol/L (3.3-5.1); Sodium 140 mmol/L (135-145)
[2022-12-28 06:52] LABS: Anion Gap 12 (12-20); Blood Urea Nitrogen 20 mg/dL (9-16); Calcium 8.2 mg/dL (8.4-10.2); Carbon Dioxide 22 mmol/L (22-29); Creatinine Clr Calc Pharmacy 116.9; Estimated Glomerular Filt Rate > 60; Glucose Random 85 mg/dL (60-115)
[2022-12-28 08:00] VITALS: BP 117/75; PULSE 90; RESP 20; TEMP 36.4; O2SAT 98
[2022-12-28] MEDS: Topiramate 25 MG TABLET 50 MG PO ×2 (08:12→20:48)
[2022-12-28] MEDS: busPIRone HCl 5 MG TABLET 15 MG PO ×2 (08:12→20:48)
[2022-12-28] MEDS: DULoxetine HCl 60 MG CAPSULE.DR PO ×2 (08:12→20:49)
[2022-12-28] MEDS: TiZANidine HCL 4 MG TABLET PO ×2 (08:12→20:49)
[2022-12-28] MEDS: lamoTRIgine 100 MG TABLET PO (08:12)
--- NOTE | 2022-12-28 08:24 | P.CONOP_ITS ---
History of Present Illness HPI Consult date: 12/28/22 Chief complaint: Cellulitis R Elbow Severe Sepsis CY SI Narrative: 47 year old male with history htn, depression, intermittent cocaine abuse, left olecranon bursitis treated at [facility] 3 months ago presented to the ED for evaluation stating he is not feeling right in the head . Endorsing worsening depression and passive SI x 4 days. Denies any active plan. No current AH/VH. He was seen in the ED yesterday found to be in CY but refused IV fluids and left AMA. Patient reports that he recently relocated from [place] several weeks ago and has been in this area looking for a place to live with his roommate.? Patient reports that he does have suicidal ideations without a plan, but reports that if he was back in [place] he would have a suicidal plan set.? He denies any homicidal ideations. Has consumed 8 nips last two days but states he is not a regular drinker besides this. He smokes MJ regularly and states he snorted a few lines of cocaine but is not a regular user. Urine tox screen positive for THC, cocaine, and fentanyl. Denies opiate abuse/IVDA. No cigarettes. He is also complaining of pain in the left elbow. Several months ago was hospitalized at [facility] for what I believe is a olecranon bursa irrigation and debridement. Records have been requested. He states this healed completely but 1 week ago bumped the left elbow on a bureau and since then has had purulent drainage, increasing erythema, warmth, and swelling. He was admitted to the medicine service with orthopedic consult for further evaluation and treatment. Review of Systems Review of Systems: Yes all other systems are reviewed and are negative PMFSH Past Medical History Medical History HTN (hypertension) Major depression, recurrent Septic arthritis of elbow, right Social History Social History Household Members: Friend(s) Housing: Other Housing Other:: staying w friend. looking for housing Do you presently have visiting nurse or other home services: No Alcohol intake: current Alcohol intake frequency: 3 or more drinks per day Alcohol type: beer and hard liquor Patient Tobacco Use Status: Never used Tobacco Smoked in Last 30 Days: No Use of substances other than those prescribed or required for medical reasons: Yes Substance Use Type: Marijuana Substance Use Frequency: Daily Last Used Substance: Just Prior to Admission Currently Displaying Signs/Symptoms of Drug Intoxication Withdrawal: No Have you been hit, kicked, punched, or otherwise hurt by someone within the past year? If so, by whom?: No Do you feel safe in your current relationship?: No Is there a partner from a previous relationship who is making you feel unsafe now?: No Are you made to feel afraid or neglected: No Advance Directives: No Advance Directives Information Provided: No Do you have thoughts of harming others: None Do you have a plan to hurt others: No Plan Recently lost weight without trying: No Eating poorly because of decreased appetite: No Nutrition Risks: No Nutritional Risk Poor oral hygiene: No Meds Allergies Allergy/AdvReac Type Severity Reaction Status Date / Time hydroxyzine [From Vistaril] Allergy Hives Verified 12/26/22 18:32 Active Medications: Current Medications Acetaminophen (Acetaminophen 325 Mg Tablet) 650 mg PO Q6H PRN PRN Reason: Pain, Mild (Pain Scale 1-3) Buspirone HCl (Buspirone Hcl 5 Mg Tablet) 15 mg PO BID COUNT INCLUDES THE [facility] Last Admin: 12/28/22 08:12 Dose: 15 mg Clonazepam (Clonazepam 0.5 Mg Tablet) 0.5 mg PO BID PRN PRN Reason: anxiety Last Admin: 12/27/22 20:27 Dose: 0.5 mg Clonidine HCl (Clonidine Hcl 0.1 Mg Tablet) 0.1 mg PO BID PRN; Protocol PRN Reason: Anxiety Last Admin: 12/27/22 20:26 Dose: 0.1 mg Docusate Sodium (Docusate Sodium 100 Mg Capsule) 100 mg PO DAILY PRN PRN Reason: Constipation Duloxetine HCl (Duloxetine Hcl 60 Mg Capsule.Dr) 60 mg PO BID COUNT INCLUDES THE [facility] Last Admin: 12/28/22 08:12 Dose: 60 mg Enoxaparin Sodium (Enoxaparin Sodium 40 Mg/0.4 Ml Syringe) 40 mg SUBCUT Q24H COUNT INCLUDES THE [facility] Last Admin: 12/27/22 12:59 Dose: 40 mg Sodium Chloride (Ns) 1,000 mls @ 100 mls/hr IVCONT .Q10H COUNT INCLUDES THE [facility] Last Infusion: 12/28/22 06:31 Dose: 100 mls/hr Cefepime HCl 2 gm/ Sodium (Chloride) 50 mls @ 100 mls/hr IV Q8H COUNT INCLUDES THE [facility] Last Infusion: 12/28/22 06:31 Dose: Infused Vancomycin HCl 750 mg/ Sodium (Chloride) 265 mls @ 265 mls/hr IV Q12H COUNT INCLUDES THE [facility] Last Infusion: 12/28/22 01:53 Dose: Infused Lamotrigine (Lamotrigine 100 Mg Tablet) 100 mg PO DAILY COUNT INCLUDES THE [facility] Last Admin: 12/28/22 08:12 Dose: 100 mg Ondansetron HCl (Ondansetron Hcl 4 Mg/2 Ml Vial) 4 mg IVPUSH Q8H PRN PRN Reason: Nausea and Vomiting Pharmacy Consult (Consult Rx Perform Med Rec) 1 each MISCELLANE ONCE PRN PRN Reason: Consult order Pharmacy Consult (Consult Rx Vancomycin Dosing) 1 each MISCELLANE DAILY PRN PRN Reason: Consult order Quetiapine Fumarate (Quetiapine Fumarate 25 Mg Tablet) 25 mg PO BEDTIME COUNT INCLUDES THE [facility] Last Admin: 12/27/22 20:25 Dose: 25 mg Sodium Chloride (0.9 % Sodium Chloride Flush 3 Ml Syringe) 3 ml IVFLUSH QSHIFT COUNT INCLUDES THE [facility] Last Admin: 12/28/22 07:02 Dose: Not Given Tizanidine HCl (Tizanidine Hcl 4 Mg Tablet) 4 mg PO BID COUNT INCLUDES THE [facility] Last Admin: 12/28/22 08:12 Dose: 4 mg Topiramate (Topiramate 25 Mg Tablet) 50 mg PO BID COUNT INCLUDES THE [facility] Last Admin: 12/28/22 08:12 Dose: 50 mg Home Medications Medication Instructions Recorded Confirmed Last Taken Type buspirone 15 mg tablet 15 mg PO BID 12/27/22 12/27/22 Unknown History clonazepam 0.5 mg tablet 0.5 mg PO BID PRN anxiety 12/27/22 12/27/22 Unknown History clonidine HCl 0.1 mg tablet 0.1 mg PO BID PRN Anxiety 12/27/22 12/27/22 Unknown History duloxetine 60 mg capsule,delayed 60 mg PO BID 12/27/22 12/27/22 Unknown History release lamotrigine 100 mg tablet 100 mg PO DAILY 12/27/22 12/27/22 Unknown History lisinopril 40 mg tablet 40 mg PO DAILY 12/27/22 12/27/22 Unknown History meloxicam 7.5 mg tablet 7.5 mg PO BID 12/27/22 12/27/22 Unknown History quetiapine 25 mg tablet 25 mg PO BEDTIME 12/27/22 12/27/22 Unknown History tizanidine 4 mg tablet 4 mg PO BID 12/27/22 12/27/22 Unknown History topiramate 50 mg tablet 50 mg PO BID 12/27/22 12/27/22 Unknown History Physical Exam Vital Signs: Vital Signs: Last Vital Signs Temp 97.5 F 12/28/22 08:00 Pulse 90 12/28/22 08:00 Resp 20 12/28/22 08:00 BP 117/75 12/28/22 08:00 Pulse Ox 98 12/28/22 08:00 O2 Del Method Room Air 12/28/22 08:00 BMI result Body Mass Index 28.0 Const: General: cooperative, healthy appearing and no acute distress Resp: Effort & Inspection: normal respiratory effort and able to speak in complete sentences Cardio: Rate: regular rate Peripheral pulses: Peripheral pulses 2+ throughout GI: Palpation (GI): Soft to palpation Skin: Lesions: no lesions Rashes: no rashes Extrem: Other: Left elbow lacking about 10 degrees of full extension. Full flexion. Olecranon bursa has mild redness and clear/yellow fluid. No purulent discharge. Able to pronate and supinate. NVI. Results Labs 12/28/22 05:56 12/28/22 05:56 Labs: Abnormal lab results 12/27/22 12/27/22 12/27/22 Range/Units 08:25 08:25 08:41 WBC 11.3 H (4.8-10.8) X10*3/uL RBC 4.39 L (4.60-5.80) X10*6/uL Hgb 13.2 L (14.0-18.0) g/dl Hct 40.6 L (42.0-52.0) % Neut % (Auto) 90.4 H (45-73) % Lymph % (Auto) 4.8 L (20-40) % Eos % (Auto) (0-4) % Lymph # (Auto) 0.5 L (1.2-4.9) X10*3/uL Abs Immat Gran (auto) 0.04 H (0.00-0.03) X10*3/uL Absolute Neuts (auto) 10.2 H (2.0-8.3) x10*3/uL Chloride (96-108) mmol/L BUN (9-16) mg/dL Creatinine (0.5-1.4) mg/dL Random Glucose (60-115) mg/dL Lactic Acid (0.5-2.0) mmol/L Calcium (8.4-10.2) mg/dL C-Reactive Protein (< or = 0.50) mg/dL Urine Protein 30 (1+) H (Neg-Trace) mg/dL Urine Fentanyl Screen POSITIVE H (Not Detect) Urine Cocaine Screen POSITIVE H (Not Detect) U Marijuana (THC) Screen POSITIVE H (Not Detect) 12/27/22 12/27/22 12/28/22 Range/Units 08:41 08:41 05:56 WBC (4.8-10.8) X10*3/uL RBC (4.60-5.80) X10*6/uL Hgb (14.0-18.0) g/dl Hct (42.0-52.0) % Neut % (Auto) (45-73) % Lymph % (Auto) (20-40) % Eos % (Auto) (0-4) % Lymph # (Auto) (1.2-4.9) X10*3/uL Abs Immat Gran (auto) (0.00-0.03) X10*3/uL Absolute Neuts (auto) (2.0-8.3) x10*3/uL Chloride 110 H (96-108) mmol/L BUN 26 H 20 H (9-16) mg/dL Creatinine 1.52 H (0.5-1.4) mg/dL Random Glucose 58 L* (60-115) mg/dL Lactic Acid 3.1 H* (0.5-2.0) mmol/L Calcium 8.2 L D (8.4-10.2) mg/dL C-Reactive Protein 1.49 H (< or = 0.50) mg/dL Urine Protein (Neg-Trace) mg/dL Urine Fentanyl Screen (Not Detect) Urine Cocaine Screen (Not Detect) U Marijuana (THC) Screen (Not Detect) 12/28/22 Range/Units 05:56 WBC 3.4 L (4.8-10.8) X10*3/uL RBC 3.63 L (4.60-5.80) X10*6/uL Hgb 11.2 L (14.0-18.0) g/dl Hct 33.8 L (42.0-52.0) % Neut % (Auto) (45-73) % Lymph % (Auto) 15.1 L (20-40) % Eos % (Auto) 5.9 H (0-4) % Lymph # (Auto) 0.5 L (1.2-4.9) X10*3/uL Abs Immat Gran (auto) (0.00-0.03) X10*3/uL Absolute Neuts (auto) (2.0-8.3) x10*3/uL Chloride (96-108) mmol/L BUN (9-16) mg/dL Creatinine (0.5-1.4) mg/dL Random Glucose (60-115) mg/dL Lactic Acid (0.5-2.0) mmol/L Calcium (8.4-10.2) mg/dL C-Reactive Protein (< or = 0.50) mg/dL Urine Protein (Neg-Trace) mg/dL Urine Fentanyl Screen (Not Detect) Urine Cocaine Screen (Not Detect) U Marijuana (THC) Screen (Not Detect) H & H 12/27/22 12/28/22 Range/Units 08:41 05:56 Hgb 13.2 L 11.2 L (14.0-18.0) g/dl Hct 40.6 L 33.8 L (42.0-52.0) % Coagulation 12/27/22 Range/Units 08:41 INR 1.1 (0.9-1.1) All other labs normal. Assessment and Plan (1) Cellulitis: Status: Acute Apply dressing to the left olecranon: -Xeroform -Gauze -ABD -JASON wrap Continue IV abx No surgical intervention needed at this time No evidence of septic joint (2) Acute kidney injury: Status: Acute (3) Passive suicidal ideations: Status: Acute (4) Major depression, recurrent: Status: Acute Time Spent With Patient Time: Total time managing care of this patient today ____ minutes. Procedures Date of Service Date of Service: 12/28/22
--- NOTE | 2022-12-28 08:47 | HO.PM.IMPN ---
Subjective Subjective Date of Service: 12/28/22 Interval History: left elbow pain Physical Exam Vital Signs: Vital Signs: Last Vital Signs Temp 97.5 F 12/28/22 08:00 Pulse 90 12/28/22 08:00 Resp 20 12/28/22 08:00 BP 117/75 12/28/22 08:00 Pulse Ox 98 12/28/22 08:00 O2 Del Method Room Air 12/28/22 08:00 BMI result Body Mass Index 28.0 left elbow erythema, no obvious fluctuance Objective Data Active Medications Acetaminophen (Acetaminophen 325 Mg Tablet) 650 mg PO Q6H PRN PRN Reason: Pain, Mild (Pain Scale 1-3) Buspirone HCl (Buspirone Hcl 5 Mg Tablet) 15 mg PO BID [facility] Last Admin: 12/28/22 08:12 Dose: 15 mg Documented By: EMILE Clonazepam (Clonazepam 0.5 Mg Tablet) 0.5 mg PO BID PRN PRN Reason: anxiety Last Admin: 12/27/22 20:27 Dose: 0.5 mg Documented By: MARCE Clonidine HCl (Clonidine Hcl 0.1 Mg Tablet) 0.1 mg PO BID PRN; Protocol PRN Reason: Anxiety Last Admin: 12/27/22 20:26 Dose: 0.1 mg Documented By: MARCE Docusate Sodium (Docusate Sodium 100 Mg Capsule) 100 mg PO DAILY PRN PRN Reason: Constipation Duloxetine HCl (Duloxetine Hcl 60 Mg Capsule.Dr) 60 mg PO BID [facility] Last Admin: 12/28/22 08:12 Dose: 60 mg Documented By: EMILE Enoxaparin Sodium (Enoxaparin Sodium 40 Mg/0.4 Ml Syringe) 40 mg SUBCUT Q24H [facility] Last Admin: 12/27/22 12:59 Dose: 40 mg Documented By: STEVE Sodium Chloride (Ns) 1,000 mls @ 100 mls/hr IVCONT .Q10H [facility] Last Infusion: 12/28/22 06:31 Dose: 100 mls/hr Documented By: MARCE Cefepime HCl 2 gm/ Sodium (Chloride) 50 mls @ 100 mls/hr IV Q8H [facility] Last Infusion: 12/28/22 06:31 Dose: 0 mls/hr Documented By: MARCE Vancomycin HCl 750 mg/ Sodium (Chloride) 265 mls @ 265 mls/hr IV Q12H [facility] Last Infusion: 12/28/22 01:53 Dose: 0 mls/hr Documented By: MARCE Lamotrigine (Lamotrigine 100 Mg Tablet) 100 mg PO DAILY [facility] Last Admin: 12/28/22 08:12 Dose: 100 mg Documented By: EMILE Ondansetron HCl (Ondansetron Hcl 4 Mg/2 Ml Vial) 4 mg IVPUSH Q8H PRN PRN Reason: Nausea and Vomiting Pharmacy Consult (Consult Rx Perform Med Rec) 1 each MISCELLANE ONCE PRN PRN Reason: Consult order Pharmacy Consult (Consult Rx Vancomycin Dosing) 1 each MISCELLANE DAILY PRN PRN Reason: Consult order Quetiapine Fumarate (Quetiapine Fumarate 25 Mg Tablet) 25 mg PO BEDTIME [facility] Last Admin: 12/27/22 20:25 Dose: 25 mg Documented By: MARCE Sodium Chloride (0.9 % Sodium Chloride Flush 3 Ml Syringe) 3 ml IVFLUSH QSHIFT [facility] Last Admin: 12/28/22 07:02 Dose: Not Given Documented By: EMILE Non-Admin Reason: IV Running Tizanidine HCl (Tizanidine Hcl 4 Mg Tablet) 4 mg PO BID [facility] Last Admin: 12/28/22 08:12 Dose: 4 mg Documented By: EMILE Topiramate (Topiramate 25 Mg Tablet) 50 mg PO BID [facility] Last Admin: 12/28/22 08:12 Dose: 50 mg Documented By: EMILE Labs 12/28/22 05:56 12/28/22 05:56 Labs: Laboratory Results - last 24 hr 12/27/22 12/27/22 12/27/22 08:25 08:25 08:41 MCV 92.5 MCH 30.1 MCHC 32.5 RDW 15.0 Plt Count 248 MPV 9.8 Immature Gran % (Auto) 0.4 Neut % (Auto) 90.4 H Lymph % (Auto) 4.8 L [place] % (Auto) 2.8 Eos % (Auto) 0.9 Baso % (Auto) 0.7 Lymph # (Auto) 0.5 L [place] # (Auto) 0.3 Eos # (Auto) 0.1 Baso # (Auto) 0.1 Abs Immat Gran (auto) 0.04 H Absolute Neuts (auto) 10.2 H Absolute Nucleated RBC 0.000 Nucleated RBC % (auto) 0.0 Smear Tech's Comments VERIFIED ESR PT INR APTT Anion Gap Estim Creat Clear Calc Estimated GFR Random Glucose Lactic Acid Lactic Acid F/U @ 2Hr Calcium Magnesium Total Bilirubin Direct Bilirubin AST ALT Alkaline Phosphatase C-Reactive Protein Total Protein Albumin Lipase Urine Color Dark Yellow Urine Appearance Cloudy Urine pH 5.5 Ur Specific [place] 1.020 Urine Protein 30 (1+) H Urine Glucose (UA) Negative Urine Ketones Trace Urine Blood Negative Urine Nitrite Negative Ur Leukocyte Esterase Negative Urine RBC 0-2 Urine WBC 0-5 Ur Squamous Epith Cells 3-5 Urine Bacteria None Seen Epithelial Casts Present Hyaline Casts 11-20 Urine Opiates Screen Not Detected Urine Fentanyl Screen POSITIVE H Ur Barbiturates Screen Not Detected Ur Phencyclidine Scrn Not Detected Ur Amphetamines Screen Not Detected U Benzodiazepines Scrn Not Detected Urine Cocaine Screen POSITIVE H U Marijuana (THC) Screen POSITIVE H Ethyl Alcohol 12/27/22 12/27/22 12/27/22 08:41 08:41 08:41 MCV MCH MCHC RDW Plt Count MPV Immature Gran % (Auto) Neut % (Auto) Lymph % (Auto) [place] % (Auto) Eos % (Auto) Baso % (Auto) Lymph # (Auto) [place] # (Auto) Eos # (Auto) Baso # (Auto) Abs Immat Gran (auto) Absolute Neuts (auto) Absolute Nucleated RBC Nucleated RBC % (auto) Smear Tech's Comments ESR 14 PT 13.0 INR 1.1 APTT 29.0 Anion Gap 20 Estim Creat Clear Calc 63.9 Estimated GFR 49 Random Glucose 58 L* Lactic Acid Lactic Acid F/U @ 2Hr Calcium 9.8 Magnesium 1.8 Total Bilirubin 0.5 Direct Bilirubin 0.2 AST 19 ALT 15 Alkaline Phosphatase 59 C-Reactive Protein 1.49 H Total Protein 7.4 Albumin 4.6 Lipase 47 Urine Color Urine Appearance Urine pH Ur Specific [place] Urine Protein Urine Glucose (UA) Urine Ketones Urine Blood Urine Nitrite Ur Leukocyte Esterase Urine RBC Urine WBC Ur Squamous Epith Cells Urine Bacteria Epithelial Casts Hyaline Casts Urine Opiates Screen Urine Fentanyl Screen Ur Barbiturates Screen Ur Phencyclidine Scrn Ur Amphetamines Screen U Benzodiazepines Scrn Urine Cocaine Screen U Marijuana (THC) Screen Ethyl Alcohol 50 05/14/23 05/14/23 05/15/23 08:41 11:11 05:56 MCV MCH MCHC RDW Plt Count MPV Immature Gran % (Auto) Neut % (Auto) Lymph % (Auto) [place] % (Auto) Eos % (Auto) Baso % (Auto) Lymph # (Auto) [place] # (Auto) Eos # (Auto) Baso # (Auto) Abs Immat Gran (auto) Absolute Neuts (auto) Absolute Nucleated RBC Nucleated RBC % (auto) Smear Tech's Comments ESR PT INR APTT Anion Gap 12 Estim Creat Clear Calc 116.9 Estimated GFR > 60 Random Glucose 85 Lactic Acid 3.1 H* Lactic Acid F/U @ 2Hr 1.9 Calcium 8.2 L D Magnesium Total Bilirubin Direct Bilirubin AST ALT Alkaline Phosphatase C-Reactive Protein Total Protein Albumin Lipase Urine Color Urine Appearance Urine pH Ur Specific [place] Urine Protein Urine Glucose (UA) Urine Ketones Urine Blood Urine Nitrite Ur Leukocyte Esterase Urine RBC Urine WBC Ur Squamous Epith Cells Urine Bacteria Epithelial Casts Hyaline Casts Urine Opiates Screen Urine Fentanyl Screen Ur Barbiturates Screen Ur Phencyclidine Scrn Ur Amphetamines Screen U Benzodiazepines Scrn Urine Cocaine Screen U Marijuana (THC) Screen Ethyl Alcohol 12/28/22 05:56 MCV 93.1 MCH 30.9 MCHC 33.1 RDW 14.7 Plt Count 187 MPV 10.1 Immature Gran % (Auto) 0.3 Neut % (Auto) 67.4 Lymph % (Auto) 15.1 L [place] % (Auto) 10.1 Eos % (Auto) 5.9 H Baso % (Auto) 1.2 Lymph # (Auto) 0.5 L [place] # (Auto) 0.3 Eos # (Auto) 0.2 Baso # (Auto) 0.0 Abs Immat Gran (auto) 0.01 Absolute Neuts (auto) 2.3 Absolute Nucleated RBC 0.000 Nucleated RBC % (auto) 0.0 Smear Tech's Comments ESR PT INR APTT Anion Gap Estim Creat Clear Calc Estimated GFR Random Glucose Lactic Acid Lactic Acid F/U @ 2Hr Calcium Magnesium Total Bilirubin Direct Bilirubin AST ALT Alkaline Phosphatase C-Reactive Protein Total Protein Albumin Lipase Urine Color Urine Appearance Urine pH Ur Specific [place] Urine Protein Urine Glucose (UA) Urine Ketones Urine Blood Urine Nitrite Ur Leukocyte Esterase Urine RBC Urine WBC Ur Squamous Epith Cells Urine Bacteria Epithelial Casts Hyaline Casts Urine Opiates Screen Urine Fentanyl Screen Ur Barbiturates Screen Ur Phencyclidine Scrn Ur Amphetamines Screen U Benzodiazepines Scrn Urine Cocaine Screen U Marijuana (THC) Screen Ethyl Alcohol Assessment and Plan (1) Cellulitis: Status: Acute Plan 47 year old male with history htn, depression, intermittent cocaine abuse, septic joint L elbow treated at [facility] 3 months ago admitted for acute cellulitis left elbow with CY and SI Acute cellulitis L olecranon (doubt sepsis) -XRay with possible avulsion fracture given trauma history. Low suspicion for osteomyelitis -IV vanco (initiated 12/27) ID eval ortho appreciated, no evidence of septic joint Depression with passive SI sitter -Crisis evaluation once medically cleared lamictal, seroquel, buspar Acute kidney injury resolved HTN hodling acei for cy intermittent cocaine abuse -declines addiction medicine consult alcohol dependence reports consuming 8 nips in the last 2 days but states he is not a regular drinker monitor on CIWA DVT prophylaxis-Lovenox Full code reason for continued hospitalization:iv abx for cellulitis, concern for progression to sepsis Time Spent With Patient Time: Total time managing care of this patient today ____ minutes. Quality Stroke Does the patient have a stroke diagnosis?: No VTE Prior VTE?: No VTE Risk Level:: Medical - moderate - high VTE Device Contraindication: Treatment Not Indicated VTE Drug Contraindication: N/A - Med Ordered
[2022-12-28] MEDS: 0.9 % Sodium Chloride 1,000 ML 100 ML IVCONT ×2 (10:43→20:49)
[2022-12-28 11:41] LABS: Vancomycin Random 11.4 mcg/mL (15-20)
--- NOTE | 2022-12-28 11:48 | HE.PHANOTE ---
Vancomcying Dosing Level 11.4 today. Scr has improved from 1.52 to 0.83. With improvement in renal function, at current regimen patient is subtherapetuic once at steady state. Will increase dose to vancomycin 1250 mg Q12H. Expected AUC 485 with a trough of 14.7. Sana SantanaD
--- NOTE | 2022-12-28 11:49 | MHC.CM.PN ---
Met w/pt to review d/c planning needs: pt states he came to [place] from [place] w/a friend to look for housing approximately one month ago but hasn't been successful. He states he was working with [facility] for respite programs and placement when he was brought to [facility] for ? SI - subsequently he needed medical admission for a chronic elbow infection. Pt quiet, guarded, very concerned w/missing cell phone and wallet. Call placed to [facility] for assistance - [employer] customer service number given to pt for missing phone. Per discussion w/MD at rounds, pt will need psych consult once medically cleared and possible inpt psych placement. Pt w/unknown PCP in [place], no services and no DME. Declined HCP completion at this time. CM to follow for finalization of d/c needs. IMM in chart
[2022-12-28] MEDS: Enoxaparin Sodium 40 MG/0.4 ML SYRINGE SUBCUT (12:32)
[2022-12-28] MEDS: vancomycin HCL 1,250 MG in 0.9 % Sodium Chloride 250 ML 166.67 MG IV (12:32)
--- NOTE | 2022-12-28 14:20 | W.PM.IDCN ---
History of Present Illness Data of Consult Service Date: 12/28/22 Requesting physician: David Crowe Primary Care Provider: Unknown Physician HPI Reason for consult: cellulitis right elbow He presents with acute alcohol intoxication on 12/26 and complained pus from left elbow. He was discharged on po Augmentin. He comes back on 12/27 and said elbow still painful. He had CY and says he pulled out some bone from his elbow. He said he had surgery at [facility] (records pending) but there is no hardware in place. XRay is unremarkable for osteomyelitis. He has no fever or chills and WBC is 11.3 He was started on Vancomycin and now says area less red. Review of Systems Review of Systems: Yes all other systems are reviewed and are negative PMFSH Past Medical History Medical History HTN (hypertension) Major depression, recurrent Septic arthritis of elbow, right Family History Family history: reviewed and not pertinent Social History Social History Household Members: Friend(s) Housing: Other Housing Other:: staying w friend. looking for housing Do you presently have visiting nurse or other home services: No Alcohol intake: current Alcohol intake frequency: 3 or more drinks per day Alcohol type: beer and hard liquor Patient Tobacco Use Status: Never used Tobacco Smoked in Last 30 Days: No Use of substances other than those prescribed or required for medical reasons: Yes Substance Use Type: Marijuana Substance Use Frequency: Daily Last Used Substance: Just Prior to Admission Currently Displaying Signs/Symptoms of Drug Intoxication Withdrawal: No Have you been hit, kicked, punched, or otherwise hurt by someone within the past year? If so, by whom?: No Do you feel safe in your current relationship?: No Is there a partner from a previous relationship who is making you feel unsafe now?: No Are you made to feel afraid or neglected: No Advance Directives: No Advance Directives Information Provided: No Do you have thoughts of harming others: None Do you have a plan to hurt others: No Plan Recently lost weight without trying: No Eating poorly because of decreased appetite: No Nutrition Risks: No Nutritional Risk Poor oral hygiene: No service: No Current occupational status: unemployed Meds Allergies Allergy/AdvReac Type Severity Reaction Status Date / Time hydroxyzine [From Vistaril] Allergy Hives Verified 12/26/22 18:32 Active Medications: Current Medications Acetaminophen (Acetaminophen 325 Mg Tablet) 650 mg PO Q6H PRN PRN Reason: Pain, Mild (Pain Scale 1-3) Buspirone HCl (Buspirone Hcl 5 Mg Tablet) 15 mg PO BID [facility] Last Admin: 12/28/22 08:12 Dose: 15 mg Clonazepam (Clonazepam 0.5 Mg Tablet) 0.5 mg PO BID PRN PRN Reason: anxiety Last Admin: 12/27/22 20:27 Dose: 0.5 mg Clonidine HCl (Clonidine Hcl 0.1 Mg Tablet) 0.1 mg PO BID PRN; Protocol PRN Reason: Anxiety Last Admin: 12/27/22 20:26 Dose: 0.1 mg Docusate Sodium (Docusate Sodium 100 Mg Capsule) 100 mg PO DAILY PRN PRN Reason: Constipation Duloxetine HCl (Duloxetine Hcl 60 Mg Capsule.Dr) 60 mg PO BID [facility] Last Admin: 12/28/22 08:12 Dose: 60 mg Enoxaparin Sodium (Enoxaparin Sodium 40 Mg/0.4 Ml Syringe) 40 mg SUBCUT Q24H [facility] Last Admin: 12/28/22 12:32 Dose: 40 mg Sodium Chloride (Ns) 1,000 mls @ 100 mls/hr IVCONT .Q10H [facility] Last Admin: 12/28/22 10:43 Dose: 100 mls/hr Vancomycin HCl 1,250 mg/ (Sodium Chloride) 250 mls @ 166.667 mls/hr IV Q12H [facility] Last Admin: 12/28/22 12:32 Dose: 166.67 mls/hr Lamotrigine (Lamotrigine 100 Mg Tablet) 100 mg PO DAILY [facility] Last Admin: 12/28/22 08:12 Dose: 100 mg Naproxen (Naproxen 500 Mg Tablet) 500 mg PO BID [facility] Ondansetron HCl (Ondansetron Hcl 4 Mg/2 Ml Vial) 4 mg IVPUSH Q8H PRN PRN Reason: Nausea and Vomiting Pharmacy Consult (Consult Rx Perform Med Rec) 1 each MISCELLANE ONCE PRN PRN Reason: Consult order Pharmacy Consult (Consult Rx Vancomycin Dosing) 1 each MISCELLANE DAILY PRN PRN Reason: Consult order Quetiapine Fumarate (Quetiapine Fumarate 25 Mg Tablet) 25 mg PO BEDTIME [facility] Last Admin: 12/27/22 20:25 Dose: 25 mg Sodium Chloride (0.9 % Sodium Chloride Flush 3 Ml Syringe) 3 ml IVFLUSH QSHIFT [facility] Last Admin: 12/28/22 07:02 Dose: Not Given Tizanidine HCl (Tizanidine Hcl 4 Mg Tablet) 4 mg PO BID [facility] Last Admin: 12/28/22 08:12 Dose: 4 mg Topiramate (Topiramate 25 Mg Tablet) 50 mg PO BID [facility] Last Admin: 12/28/22 08:12 Dose: 50 mg Home Medications Medication Instructions Recorded Confirmed Last Taken Type buspirone 15 mg tablet 15 mg PO BID 12/27/22 12/27/22 Unknown History clonazepam 0.5 mg tablet 0.5 mg PO BID PRN anxiety 12/27/22 12/27/22 Unknown History clonidine HCl 0.1 mg tablet 0.1 mg PO BID PRN Anxiety 12/27/22 12/27/22 Unknown History duloxetine 60 mg capsule,delayed 60 mg PO BID 12/27/22 12/27/22 Unknown History release lamotrigine 100 mg tablet 100 mg PO DAILY 12/27/22 12/27/22 Unknown History lisinopril 40 mg tablet 40 mg PO DAILY 12/27/22 12/27/22 Unknown History meloxicam 7.5 mg tablet 7.5 mg PO BID 12/27/22 12/27/22 Unknown History quetiapine 25 mg tablet 25 mg PO BEDTIME 12/27/22 12/27/22 Unknown History tizanidine 4 mg tablet 4 mg PO BID 12/27/22 12/27/22 Unknown History topiramate 50 mg tablet 50 mg PO BID 12/27/22 12/27/22 Unknown History Physical Exam Vital Signs: Vital Signs: Last Vital Signs Temp 97.5 F 12/28/22 08:00 Pulse 90 12/28/22 08:00 Resp 20 12/28/22 08:00 BP 117/75 12/28/22 08:00 Pulse Ox 98 12/28/22 08:00 O2 Del Method Room Air 12/28/22 08:00 BMI result Body Mass Index 28.0 Const: General: cooperative HEENT: Head: Yes normal to inspection Face and sinus: Yes normal facial exam Mouth: Normal oral and palatal mucosa present Teeth and gingiva: dentition normal Eyes: General: appearance normal, both eyes and all related structures Pupils: Equal, round and reactive pupils present Resp: Effort & Inspection: normal respiratory effort Cardio: Rate: regular rate Rhythm: regular rhythm GI: Palpation (GI): Soft to palpation and nontender : General: Yes no CVA tenderness Back/Spine/Pelvis: Back: no CVA tenderness Skin: General skin exam: no rashes or lesions noted Neuro: General: moves all extremities Cranial nerves: Yes Equal, round and reactive pupils present Extrem: Other: left elbow slight erythema Psych: Appearance: grossly normal Results Labs 12/28/22 05:56 12/28/22 05:56 Labs: Short CBC 12/28/22 Range/Units 05:56 WBC 3.4 L (4.8-10.8) X10*3/uL Hgb 11.2 L (14.0-18.0) g/dl Hct 33.8 L (42.0-52.0) % Plt Count 187 (160-400) X10*3/uL BMP 12/28/22 05:56 Sodium 140 Potassium 3.9 Chloride 110 H Carbon Dioxide 22 BUN 20 H Creatinine 0.83 Calcium 8.2 L D Microbiology Microbiology Results: Microbiology 12/27/22 08:41 Blood - Venous Blood Culture - Preliminary No growth after 24 hours. Assessment and Plan (1) Cellulitis: Status: Acute There is no active abscess or osteomyelitis seen Orthopedics reported no surgical intervention needed. Plan Change ot po Doxycycline for two weeks. If fails to improve on oral MRI evaluated bone infection. Time Spent With Patient Time: Total time managing care of this patient today ____ minutes.
[2022-12-28 16:00] VITALS: BP 145/60; PULSE 90; RESP 20; TEMP 37.2; O2SAT 100
[2022-12-28 20:00] VITALS: BP 162/96; PULSE 66; RESP 18; TEMP 36.8; O2SAT 100
[2022-12-28] MEDS: cloNIDine HCL 0.1 MG TABLET PO (20:48)
[2022-12-28] MEDS: clonazePAM 0.5 MG TABLET PO (20:48)
[2022-12-28] MEDS: QUEtiapine Fumarate 25 MG TABLET PO (23:33)
[2022-12-29] MEDS: vancomycin HCL 1,250 MG in 0.9 % Sodium Chloride 250 ML 166.67 MG IV (00:41)
[2022-12-29 04:00] VITALS: BP 139/98; PULSE 77; RESP 18; TEMP 36.6; O2SAT 98
[2022-12-29 06:53] LABS: Hematocrit 33.3 % (42.0-52.0); Mean Corpuscular Hemoglobin 30.8 pg (27.0-33.0); Mean Corpuscular Volume 93.3 fL (80.0-98.0); Mean Platelet Volume 10.3 fL (9.4-12.4); Platelet Count 179 X10*3/uL (160-400); Red Blood Count 3.57 X10*6/uL (4.60-5.80); Red Cell Distribution Width 14.3 % (11.0-16.0); White Blood Count 3.3 X10*3/uL (4.8-10.8)
[2022-12-29 07:11] LABS: Anion Gap 13 (12-20); Blood Urea Nitrogen 8 mg/dL (9-16); Calcium 8.8 mg/dL (8.4-10.2); Carbon Dioxide 23 mmol/L (22-29); Chloride 111 mmol/L (96-108); Creatinine Clr Calc Pharmacy 115.5; Estimated Glomerular Filt Rate > 60; Glucose Fasting 91 mg/dL (60-99); Potassium 4.2 mmol/L (3.3-5.1); Sodium 143 mmol/L (135-145)
[2022-12-29 07:57] VITALS: BP 151/100; PULSE 75; RESP 20; TEMP 36.6; O2SAT 100
--- NOTE | 2022-12-29 08:53 | HO.PM.IMPN ---
Subjective Subjective Date of Service: 12/29/22 Interval History: sI Physical Exam Vital Signs: Vital Signs: Last Vital Signs Temp 97.8 F 12/29/22 07:57 Pulse 75 12/29/22 07:57 Resp 20 12/29/22 07:57 BP 151/100 H 12/29/22 07:57 Pulse Ox 100 12/29/22 07:57 O2 Del Method Room Air 12/29/22 07:57 BMI result Body Mass Index 28.0 Const: General: cooperative HEENT: Head: Yes normal to inspection Face and sinus: Yes normal facial exam Mouth: Normal oral and palatal mucosa present Teeth and gingiva: dentition normal Eyes: General: appearance normal, both eyes and all related structures Pupils: Equal, round and reactive pupils present Resp: Effort & Inspection: normal respiratory effort Cardio: Rate: regular rate Rhythm: regular rhythm GI: Palpation (GI): Soft to palpation and nontender : General: Yes no CVA tenderness Back/Spine/Pelvis: Back: no CVA tenderness Skin: General skin exam: no rashes or lesions noted Neuro: General: moves all extremities Cranial nerves: Yes Equal, round and reactive pupils present Extrem: Other: left elbow slight erythema Psych: Appearance: grossly normal Objective Data Active Medications Acetaminophen (Acetaminophen 325 Mg Tablet) 650 mg PO Q6H PRN PRN Reason: Pain, Mild (Pain Scale 1-3) Buspirone HCl (Buspirone Hcl 5 Mg Tablet) 15 mg PO BID [facility] Last Admin: 12/28/22 20:48 Dose: 15 mg Documented By: JELANI Clonazepam (Clonazepam 0.5 Mg Tablet) 0.5 mg PO BID PRN PRN Reason: anxiety Last Admin: 12/28/22 20:48 Dose: 0.5 mg Documented By: JELANI Clonidine HCl (Clonidine Hcl 0.1 Mg Tablet) 0.1 mg PO BID PRN; Protocol PRN Reason: Anxiety Last Admin: 12/28/22 20:48 Dose: 0.1 mg Documented By: JELANI Docusate Sodium (Docusate Sodium 100 Mg Capsule) 100 mg PO DAILY PRN PRN Reason: Constipation Duloxetine HCl (Duloxetine Hcl 60 Mg Capsule.Dr) 60 mg PO BID [facility] Last Admin: 12/28/22 20:49 Dose: 60 mg Documented By: JELANI Enoxaparin Sodium (Enoxaparin Sodium 40 Mg/0.4 Ml Syringe) 40 mg SUBCUT Q24H [facility] Last Admin: 12/28/22 12:32 Dose: 40 mg Documented By: EMILE Sodium Chloride (Ns) 1,000 mls @ 100 mls/hr IVCONT .Q10H [facility] Last Infusion: 12/29/22 02:53 Dose: 100 mls/hr Documented By: JELANI Vancomycin HCl 1,250 mg/ (Sodium Chloride) 250 mls @ 166.667 mls/hr IV Q12H [facility] Last Infusion: 12/29/22 02:52 Dose: 0 mls/hr Documented By: JELANI Lamotrigine (Lamotrigine 100 Mg Tablet) 100 mg PO DAILY [facility] Last Admin: 12/28/22 08:12 Dose: 100 mg Documented By: EMILE Naproxen (Naproxen 500 Mg Tablet) 500 mg PO BID [facility] Last Admin: 12/28/22 20:50 Dose: Not Given Documented By: JELANI Non-Admin Reason: Patient Refused Ondansetron HCl (Ondansetron Hcl 4 Mg/2 Ml Vial) 4 mg IVPUSH Q8H PRN PRN Reason: Nausea and Vomiting Pharmacy Consult (Consult Rx Perform Med Rec) 1 each MISCELLANE ONCE PRN PRN Reason: Consult order Pharmacy Consult (Consult Rx Vancomycin Dosing) 1 each MISCELLANE DAILY PRN PRN Reason: Consult order Quetiapine Fumarate (Quetiapine Fumarate 25 Mg Tablet) 25 mg PO BEDTIME [facility] Last Admin: 12/28/22 23:33 Dose: 25 mg Documented By: AVERY Sodium Chloride (0.9 % Sodium Chloride Flush 3 Ml Syringe) 3 ml IVFLUSH QSHIFT [facility] Last Admin: 12/29/22 07:14 Dose: Not Given Documented By: EMILE Non-Admin Reason: IV Running Tizanidine HCl (Tizanidine Hcl 4 Mg Tablet) 4 mg PO BID [facility] Last Admin: 12/28/22 20:49 Dose: 4 mg Documented By: JELANI Topiramate (Topiramate 25 Mg Tablet) 50 mg PO BID [facility] Last Admin: 12/28/22 20:48 Dose: 50 mg Documented By: JELANI Labs 12/29/22 06:38 12/29/22 06:38 Labs: Laboratory Results - last 24 hr 12/28/22 12/29/22 12/29/22 11:14 06:38 06:38 MCV 93.3 MCH 30.8 MCHC 33.0 RDW 14.3 Plt Count 179 MPV 10.3 Absolute Nucleated RBC 0.000 Nucleated RBC % (auto) 0.0 Anion Gap 13 Estim Creat Clear Calc 115.5 Estimated GFR > 60 Fasting Glucose 91 Calcium 8.8 D Random Vancomycin 11.4 L Microbiology Microbiology Results: Microbiology 12/27/22 08:41 Blood Culture - Preliminary Blood - Venous No growth after 24 hours. Assessment and Plan (1) Cellulitis: Status: Acute Plan 47 year old male with history htn, depression, intermittent cocaine abuse, septic joint L elbow treated at [facility] 3 months ago admitted for acute cellulitis left elbow with CY and SI Acute cellulitis L olecranon (doubt sepsis) -XRay with possible avulsion fracture given trauma history. Low suspicion for osteomyelitis was on IV vanco (initiated 12/27) ID appreciated, will change to po doxy for 2 weeks, mri if no improvement ortho appreciated, no evidence of septic joint Depression with passive SI sitter -Crisis evaluation (medically cleared) lamictal, seroquel, buspar Acute kidney injury resolved HTN hodling acei for cy intermittent cocaine abuse -declines addiction medicine consult alcohol dependence reports consuming 8 nips in the last 2 days but states he is not a regular drinker monitor on CIWA DVT prophylaxis-Lovenox Full code reason for continued hospitalization: crisis eval Time Spent With Patient Time: Total time managing care of this patient today ____ minutes. Quality Stroke Does the patient have a stroke diagnosis?: No VTE Prior VTE?: No VTE Risk Level:: Medical - moderate - high VTE Device Contraindication: Treatment Not Indicated VTE Drug Contraindication: N/A - Med Ordered
[2022-12-29] MEDS: DULoxetine HCl 60 MG CAPSULE.DR PO ×2 (09:06→22:02)
[2022-12-29] MEDS: lamoTRIgine 100 MG TABLET PO (09:06)
[2022-12-29] MEDS: Topiramate 25 MG TABLET 50 MG PO ×2 (09:06→22:02)
[2022-12-29] MEDS: busPIRone HCl 5 MG TABLET 15 MG PO ×2 (09:06→22:03)
[2022-12-29] MEDS: Doxycycline Monohydrate 100 MG CAPSULE PO ×2 (09:06→22:03)
[2022-12-29] MEDS: TiZANidine HCL 4 MG TABLET PO ×2 (09:06→22:01)
[2022-12-29] MEDS: lisinopriL 40 MG TABLET PO (10:34)
[2022-12-29] MEDS: Enoxaparin Sodium 40 MG/0.4 ML SYRINGE SUBCUT (12:09)
--- NOTE | 2022-12-29 13:40 | MHC.CARE ---
Patient evaluated by CARE Team and will need inpatient psychiatric treatment, he is voluntary for an admission and currently not on a Section 12A. and RN updated
[2022-12-29] MEDS: clonazePAM 0.5 MG TABLET PO (15:24)
[2022-12-29] MEDS: cloNIDine HCL 0.1 MG TABLET PO (15:24)
[2022-12-29] MEDS: 0.9 % Sodium Chloride Flush 3 ML SYRINGE IVFLUSH (15:25)
[2022-12-29 15:31] VITALS: BP 148/91; PULSE 68; RESP 18; TEMP 36.8; O2SAT 97
--- NOTE | 2022-12-29 17:46 | MHC.CARE ---
Inpatient unit unable to accommodate patient admission today.
[2022-12-29 19:20] VITALS: BP 147/96; PULSE 70; RESP 18; TEMP 36.6; O2SAT 97
[2022-12-29] MEDS: QUEtiapine Fumarate 25 MG TABLET PO (23:37)
--- NOTE | 2022-12-30 | ECG_ITS ---
Test Reason : baseline, pending discharge Blood Pressure : / mmHG Vent. Rate : 066 BPM Atrial Rate : 066 BPM P-R Int : 136 ms QRS Dur : 096 ms QT Int : 432 ms P-R-T Axes : 035 018 037 degrees QTc Int : 452 ms Normal sinus rhythm Normal ECG No previous ECGs available Referred By: Jackie Austin Electronically Signed By:Oliver Daniels
[2022-12-30] MEDS: 0.9 % Sodium Chloride Flush 3 ML SYRINGE IVFLUSH ×2 (00:10→07:17)
[2022-12-30] MEDS: cloNIDine HCL 0.1 MG TABLET PO (00:10)
[2022-12-30] MEDS: clonazePAM 0.5 MG TABLET PO (00:10)
[2022-12-30 04:00] VITALS: BP 131/90; PULSE 72; RESP 18; TEMP 36.6; O2SAT 97
[2022-12-30] MEDS: Doxycycline Monohydrate 100 MG CAPSULE PO (07:15)
[2022-12-30] MEDS: busPIRone HCl 5 MG TABLET 15 MG PO (07:15)
[2022-12-30] MEDS: TiZANidine HCL 4 MG TABLET PO (07:15)
[2022-12-30] MEDS: DULoxetine HCl 60 MG CAPSULE.DR PO (07:15)
[2022-12-30] MEDS: NaPROXEN 500 MG TABLET PO (07:15)
[2022-12-30] MEDS: lamoTRIgine 100 MG TABLET PO (07:16)
[2022-12-30] MEDS: Topiramate 25 MG TABLET 50 MG PO (07:16)
[2022-12-30] MEDS: lisinopriL 40 MG TABLET PO (07:16)
[2022-12-30 07:40] VITALS: BP 132/88; PULSE 68; RESP 18; TEMP 36.1; O2SAT 97
--- NOTE | 2022-12-30 07:57 | PM.PNORT ---
Subjective Subjective Date of Service: 12/30/22 Interval history: Patient sitting in bed comfortably. C/o left elbow pain. Rosalino wrap applied. No additional complaints Physical Exam Vital Signs: Vital Signs: Last Vital Signs Temp 97.0 F 12/30/22 07:40 Pulse 68 12/30/22 07:40 Resp 18 12/30/22 07:40 BP 132/88 12/30/22 07:40 Pulse Ox 97 12/30/22 07:40 O2 Del Method Room Air 12/30/22 07:40 BMI result Body Mass Index 28.0 Const: General: cooperative, healthy appearing and no acute distress Resp: Effort & Inspection: normal respiratory effort and able to speak in complete sentences Cardio: Rate: regular rate Peripheral pulses: Peripheral pulses 2+ throughout GI: Palpation (GI): Soft to palpation Skin: Lesions: no lesions Rashes: no rashes Extrem: Other: Left elbow lacking about 10 degrees of full extension. Full flexion. Olecranon bursa erythema redness and clear/yellow fluid. No purulent discharge. Able to pronate and supinate. NVI. Procedures Date of Service Date of Service: 12/30/22 Progress Note: A&P Assessment and plan (1) Cellulitis: Status: Acute Assessment and Plan: Continue PO abx Pain management as appropriate Work on ROM Wash with saline hydrogen peroxide solution No additional orthopedic intervention needed at this time - December f/u in the out patient office (2) Acute kidney injury: Status: Acute (3) Passive suicidal ideations: Status: Acute (4) Major depression, recurrent: Status: Acute Time Spent With Patient Time: Total time managing care of this patient today ____ minutes. Quality Stroke Does the patient have a stroke diagnosis?: No VTE Prior VTE?: No VTE Risk Level:: Medical - moderate - high VTE Device Contraindication: Treatment Not Indicated VTE Drug Contraindication: N/A - Med Ordered
--- NOTE | 2022-12-30 09:34 | PC.NURSE ---
Left Elbow Dressing changed, no drainage, no odor, slight tenderness, 2/10, sridevi wound red. Tolerated well.
[2022-12-30 09:36] LABS: COVID-19 Test Negative (Negative); IDNOW Serial# BCCEAD1C
--- NOTE | 2022-12-30 12:01 | P.DS_ITS ---
DS: Providers Provider Date of Service: 12/30/22 Date of admission: 12/27/22 12:34 Primary care physician: Unknown Physician Consults: 12/27/22 12:32 Consult for Sitter Routine Reason for consultation: passive si Consult to Orthopedics Routine Consulting Provider: [facility] [place] Orthopedic Surgeons Reason for consultation: cellulitis R elbow w/ septic joint treated surgically 3m ago at [facility] 12/27/22 12:37 Consult to Infectious Diseases Routine Consulting Provider: [facility] [place] Infectious Disease Reason for consultation: cellulitis R elbow w/ septic joint treated surgically 3m ago at [facility] 12/29/22 07:53 Consult to Crisis Stat Reason for consultation: SI, medically cleared DS: Diagnosis Discharge Diagnosis (1) Cellulitis: Status: Acute (2) Acute kidney injury: Status: Acute (3) Passive suicidal ideations: Status: Acute (4) Major depression, recurrent: Status: Acute DS: Summary Hospital Course Hospital Course: Admission note HPI 47 year old male with history htn, depression, intermittent cocaine abuse, septic joint L elbow treated at [facility] 3 months ago presented to the ED for evaluation stating he is not feeling right in the head . Endorsing worsening depression and passive SI x 4 days. Denies any active plan. No current AH/VH. He was seen in the ED yesterday found to be in CY but refused IV fluids and left AMA. Patient reports that he recently relocated from [place] several weeks ago and has been in this area looking for a place to live with his roommate.? Patient reports that he does have suicidal ideations without a plan, but reports that if he was back in [place] he would have a suicidal plan set.? He denies any homicidal ideations. Has consumed 8 nips last two days but states he is not a regular drinker besides this. He smokes MJ regularly and states he snorted a few lines of cocaine but is not a regular user. Urine tox screen positive for THC, cocaine, and fentanyl. Denies opiate abuse/IVDA. No cigarettes. He is also complaining of pain in the right elbow. Several months ago was hospitalized at [facility] for what sounds like a septic left elbow based on patient history, though records have been requested. He states this healed completely but 1 week ago bumped the left elbow on a bureau and since then has had purulent drainage, increasing erythema, warmth, and swelling. Denies fevers or chills. Mild pain. States he has been using warm compresses on the area.? On arrival, patient afebrile, mildly tachycardic to 101.? Mild leukocytosis of 11.3.? Creatinine 1.52 (baseline unknown, was 2.17 yesterday). BUN 26.? Glucose 58.? Lactic acid 3.1, repeat 1.9.? Hepatic function within normal limits.? CRP 1.49, ESR 14.? Urinalysis unremarkable.? X-ray of the left elbow yesterday noting cortical irregularity in the olecranon process with the small osteophytic densities and overlying soft tissue swelling.? In the setting of underlying trauma findings would represent avulsion fracture otherwise concerning for osteomyelitis.? No evidence of elbow joint effusion. In the ED, given 1 L IVF, and IV zosyn. Hospital course Admitted for acute cellulitis L olecranon as XRay with possible avulsion fracture given trauma history. Low suspicion for osteomyelitis. Evaluated by Orthopedic team who recommended local care and PO antibiotics as no evidence of septic joint. treated with IV vancomycin on admission. evaluated by ID who recommended to change to po doxy for 2 weeks. to be finished by 01/11. Depression with passive SI has a sitter in his room. evaluated by Crisis team who recommended inpatient psych admission. Continue lamictal, seroquel, buspar Acute kidney injury Presented with Cr of 2.17. improved back to normal baseline with IV fluids. likely a result of dehydration. Hx of alcohol dependence. 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 Monitored on [facility] with no evidence of withdrawal. Time Spent with Patient Time attestation: Total time managing care of this patient today ____ minutes. Discharge coordination time: Greater than 30 minutes Quality: Safe Use of Opioids Does Pt have an Active Cancer Diagnosis on the Problem List?: No Quality: Stroke Does the patient have a stroke diagnosis?: No Physical Exam Vital Signs: Vital Signs: Last Vital Signs Temp 97.0 F 12/30/22 07:40 Pulse 68 12/30/22 07:40 Resp 18 12/30/22 07:40 BP 132/88 12/30/22 07:40 Pulse Ox 97 12/30/22 07:40 O2 Del Method Room Air 12/30/22 07:40 BMI result Body Mass Index 28.0 Const: Other: Constitutional : Awake, interactive, not in distress Neck : Normal inspection, Supple Cardiovascular : RRR, no JVP, no lower extremity edema Respiratory : good bilateral air entry, no crackles, wheezes or rhonchi Gastrointestinal: soft, lax, Normal bowel sounds, Non tender Skin : Warm, Dry, left elbow in dressing with less erythema and no purulency. Neurological : Alert & oriented x3, No focal deficit Psych: has insight, no hallucination, fluent with no pressure of speech DS: Data Data Completed and Pending Labs on day of discharge: Laboratory Results - last 24 hr 12/30/22 09:10 COVID-19 (JONNIE) Negative COVID-19 Clin Com See Note Preliminary micro results at discharge 12/27/22 08:41 Blood Culture - Preliminary Blood - Venous No growth after 48 hours. Discharge Plan Discharge Patient Disposition: Xfer Psychiatric Hosp Referrals: Physician,Unknown J [Primary Care Provider] - 1 Week Discharge Medications: Continued quetiapine 25 mg tablet 25 mg PO BEDTIME clonidine HCl 0.1 mg tablet 0.1 mg PO BID PRN (Reason: Anxiety) tizanidine 4 mg tablet 4 mg PO BID clonazepam 0.5 mg tablet 0.5 mg PO BID PRN (Reason: anxiety) meloxicam 7.5 mg tablet 7.5 mg PO BID lisinopril 40 mg tablet 40 mg PO DAILY lamotrigine 100 mg tablet 100 mg PO DAILY buspirone 15 mg tablet 15 mg PO BID topiramate 50 mg tablet 50 mg PO BID duloxetine 60 mg capsule,delayed release(DR/EC) 60 mg PO BID Discharge Orders: Discharge Order (Routine); Ordered 12/30/22 Ordered By: Jackie Austin Activity on Discharge: As tolerated Stand Alone Forms: Patient Portal Discharge page Discharge Date/Time: 12/30/22 14:35
--- NOTE | 2022-12-30 12:03 | MHC.CM.PN ---
per rounds pt being placed by psych pt is ready for dc when bed avlaiable
[2022-12-30] MEDS: Enoxaparin Sodium 40 MG/0.4 ML SYRINGE SUBCUT (13:12)
== END 2022-12-30 14:35 | DRG 603 ==
LOC: HO.ED 09:47 → HO.EDOVER 12:44 → HO.S3 12:54 → HO.EDOVER 13:14 → HO.S3 14:35
PROVIDERS: Internal Medicine; Physician Assistant Medical; Admitting Provider Physician Assistant; Emergency Provider Emergency Medicine; Visit Provider Student in an Organized Health Care Education/Training Program
DX: L03.114 Cellulitis of left upper limb (principal); N17.9 Acute kidney failure, unspecified; R45.851 Suicidal ideations; F33.9 Major depressive disorder, recurrent, unspecified; I10 Essential (primary) hypertension; Y90.2 Blood alcohol level of 40-59 mg/100 ml; F14.10 Cocaine abuse, uncomplicated; F10.20 Alcohol dependence, uncomplicated; E86.0 Dehydration; Z79.899 Other long term (current) drug therapy
CPT/HCPCS: 36415; 80048; 80076; 80202; 80307; 81001; 81003; 83605; 83690; 83735; 85025; 85027; 85610; 85652; 85730; 86140; 87040; 87635; 93005; 99285; J0692; J1650; J2543; J3370; J3371; S9485

== ENCOUNTER 2022-12-30 15:54 | Inpatient (IN) | payer OTHER, SELFPAY ==
[2022-12-30 16:30] VITALS: BP 165/100; PULSE 77; TEMP 36.3
[2022-12-30] MEDS: clonazePAM 0.5 MG TABLET PO ×2 (16:33→22:27)
--- NOTE | 2022-12-30 18:38 | PC.ADMIT ---
Pt is a 47 year old male admitted from [facility] for SI with plan and depression. Pt is anxious and depressed. Pt is A+OX3. Pt is COVID negative, tox screen positive for opiates, cocaine, THC, and alcohol (BAL of 50). Pt had been hospitalized for cellulitis of the left elbow and was on IV antibiotics on S3. Pt reported falling and cutting arm open, cut got infected badly, had a surgery to reduce the infection, which then got reinfected. Pt has been cleared by MD and ortho for his arm. Pt has xeroform, gauze, abd, and jason wrap for the left elbow cellulitis. Pt is now on doxycycline 100 mg PO for the cellulitis. Pt said he is going through a lot, feeling useless and depressed since his breakup (together for 28 years) 6 months ago. Pt also states thinking about his ex is a trigger to him. Pt can seek out help when needed, reports passive SI. Pt has a history of IPLOC, 2 in , and CSS this year. Pt has a hx of substance and alcohol abuse. Pt is calm and cooperative with a flat, sad affect. During admission pt is tearful at times. Pt states he can come to staff if he needs help, is endorsing SI or HI. Pt has had no behavioral concerns, and doesn't use assistive devices. Pt is on 5 minute checks for JASON wrap and vague passive SI. MD aware of admission, orders placed, monitor for safety and begin treatment plan.
[2022-12-30 18:59] VITALS: BP 127/90; PULSE 82
[2022-12-30] MEDS: DULoxetine HCl 60 MG CAPSULE.DR PO (20:18)
[2022-12-30] MEDS: busPIRone HCl 5 MG TABLET 15 MG PO (20:18)
[2022-12-30] MEDS: Doxycycline Monohydrate 100 MG CAPSULE PO (20:19)
[2022-12-30] MEDS: TiZANidine HCL 4 MG TABLET PO (20:19)
[2022-12-30] MEDS: Topiramate 25 MG TABLET 50 MG PO (20:19)
[2022-12-30 22:23] VITALS: BP 146/96; PULSE 68
[2022-12-30] MEDS: QUEtiapine Fumarate 25 MG TABLET PO (22:27)
[2022-12-30] MEDS: cloNIDine HCL 0.1 MG TABLET PO (22:27)
[2022-12-31] MEDS: lamoTRIgine 100 MG TABLET PO (08:06)
[2022-12-31] MEDS: Doxycycline Monohydrate 100 MG CAPSULE PO ×2 (08:06→20:24)
[2022-12-31] MEDS: busPIRone HCl 5 MG TABLET 15 MG PO ×2 (08:06→20:24)
[2022-12-31] MEDS: lisinopriL 40 MG TABLET PO (08:06)
[2022-12-31] MEDS: DULoxetine HCl 60 MG CAPSULE.DR PO ×2 (08:06→20:24)
[2022-12-31] MEDS: TiZANidine HCL 4 MG TABLET PO ×2 (08:07→20:24)
[2022-12-31] MEDS: Topiramate 25 MG TABLET 50 MG PO ×2 (08:07→20:24)
[2022-12-31 09:37] VITALS: BP 124/88; PULSE 82; RESP 18; TEMP 36.1; O2SAT 99
[2022-12-31] MEDS: clonazePAM 0.5 MG TABLET PO ×2 (11:16→22:28)
[2022-12-31] MEDS: cloNIDine HCL 0.1 MG TABLET PO ×2 (11:16→22:28)
--- NOTE | 2022-12-31 13:51 | P.HPPS_ITS ---
HPI Date of Service: 12/31/22 Chief Complaint: depression Sources of Information: patient interviewed, chart reviewed and crisis/core team assessment reviewed HPI Subjective Notes: Brooke Warning and Conditional Voluntary Healthcare Proxy: No Guardianship: No Medical Problems Affecting Mental Status: No Narrative: 47 yo male, self presented with elbow pain, increase in depression and SI. Several stressors. It was found that he had a cellulitis of his elbow and was medically admitted for antibiotics and treatment of CY. He will take doxycycline until 01/11/23. In interview today, pt is forthcoming and tearful, I am feeling like I have nothing to give, like I am useless. Reports a 28 years marital breakup, with 3 kids, 29,25, 17 and 2 grandchildren, 7 and 2. I need the help, I am unsafe out there. Reports precipitous separation at [facility] from partner, missed holidays with children and grandchildren and is moving to this area to begin again. Will have a female room-mate. Stresses this is friends only, no romantic relationship whatsoever. Currently all of the holidays and celebrations are difficult, Easter, Mother's Day, son to graduate from high school next month and he is missing being a part of it all. 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 States he hopes to find peace in live, start over and feel like I did five years ago. It has been a bad few years. 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 Social History: Born in [place], raised in [place]. Graduated high school 1990. Has worked in various jobs but is now disabled due to back and neck injuries. Dad when pt was 15, Mom in 2007. One brother whom he is estranged from. 28 years-, she found someone else . 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 Trauma History: Affirms Diagnostics Vital Signs (24Hr): Vital Signs - 24 hr 12/30/22 16:30 12/30/22 18:59 12/30/22 22:23 Temperature 97.3 F Pulse Rate 77 82 68 Respiratory Rate Blood Pressure 165/100 H 127/90 H 146/96 H Pulse Oximetry Oxygen Delivery Method 12/31/22 09:37 Temperature 96.9 F Pulse Rate 82 Respiratory Rate 18 Blood Pressure 124/88 Pulse Oximetry 99 Oxygen Delivery Method Room Air Meds/Allergies Meds Home Medications Medication Instructions Recorded Confirmed Type buspirone 15 mg tablet 15 mg PO BID 12/27/22 12/27/22 History clonazepam 0.5 mg tablet 0.5 mg PO BID PRN anxiety 12/27/22 12/27/22 History clonidine HCl 0.1 mg tablet 0.1 mg PO BID PRN Anxiety 12/27/22 12/27/22 History duloxetine 60 mg capsule,delayed 60 mg PO BID 12/27/22 12/27/22 History release lamotrigine 100 mg tablet 100 mg PO DAILY 12/27/22 12/27/22 History lisinopril 40 mg tablet 40 mg PO DAILY 12/27/22 12/27/22 History meloxicam 7.5 mg tablet 7.5 mg PO BID 12/27/22 12/27/22 History quetiapine 25 mg tablet 25 mg PO BEDTIME 12/27/22 12/27/22 History tizanidine 4 mg tablet 4 mg PO BID 12/27/22 12/27/22 History topiramate 50 mg tablet 50 mg PO BID 12/27/22 12/27/22 History Allergies Allergies Allergy/AdvReac Type Severity Reaction Status Date / Time hydroxyzine [From Vistaril] Allergy Hives Verified 12/26/22 18:32 Mental Status Exam Mental Status Exam Patient Appearance: Appropriate Patient Orientation: Person, Place, Time and Situation Level of Consciousness: Alert Patient Behavior: Appropriate, Talkative, Cooperative and Good Eye Contact Mood Description: Depressed Affect Description: Flat Patient Cognition Impaired: No Ability to Follow Directions: Good Speech Pattern: Spontaneous Speech Memory Description: Intact Hallucinations: None Delusions: Not Present Perceptual Disturbances: Derealization Thought Process: Distracted and Rumination Thought Content: positive for Circumstantial and positive for Perseveration Depressive Symptoms: Increased Irritability, Crying Spells and Thoughts of /Suicide Judgement: Fair Assessment & Plan Assessment & Plan (1) Major depression, recurrent: Status: Acute Code(s): F33.9 - Major depressive disorder, recurrent, unspecified (2) Alcohol use disorder: Status: Acute Code(s): F10.90 - Alcohol use, unspecified, uncomplicated (3) Cannabis use disorder: Status: Acute Code(s): F12.90 - Cannabis use, unspecified, uncomplicated Plan 47 yo male, history of alcohol use disorder, with sobriety until brief relapse 12/25, cannabis use disorder and recurrent major depression as a result of the loss of a 28 year marriage in Jun 2022. Pt with SI, feelings of hopelessness. Pt in process of moving to this area to begin his life again, has a room-mate who is looking for an apartment and is wanting to pursue treatment to gain strength to make this change and begin to live again. Plan: Continue current regime today, as pt has found it helpful. Will connect with OP team to review. Collateral contact Local resource planning as pt is moving to the area. Patient educated on: medication risk/benefits and therapeutic strategies Informed Consent: understands Reason for continued inpatient stay Substantial Risk for: harm to self, inability to function and rapid decompensation Statement Statement: I have reviewed the history and physical and performed a pertinent examination on my patient. No changes have occurred unless specified. If the History and Physical was not performed prior to admission, the Hospitalist's service will be consulted for completing the admission physical. Time Spent With Patient Time: Total time managing care of this patient today ____ minutes.
--- NOTE | 2022-12-31 16:38 | PC.NURSE ---
Wound dressing changed, cleaned with normal saline, dressed with gauze and xeroform with stockinette over. Wound has no drainage, no redness no s/s of infection. Skin is intact.
[2022-12-31] MEDS: NaPROXEN 500 MG TABLET PO (20:23)
[2022-12-31 22:15] VITALS: BP 137/94; PULSE 65; TEMP 36.4
[2022-12-31] MEDS: QUEtiapine Fumarate 25 MG TABLET PO (22:28)
[2023-01-01] MEDS: QUEtiapine Fumarate 25 MG TABLET PO (01:15)
[2023-01-01] MEDS: TiZANidine HCL 4 MG TABLET PO ×2 (08:03→20:37)
[2023-01-01] MEDS: lisinopriL 40 MG TABLET PO (08:04)
[2023-01-01] MEDS: busPIRone HCl 5 MG TABLET 15 MG PO ×2 (08:04→20:37)
[2023-01-01] MEDS: lamoTRIgine 100 MG TABLET PO (08:04)
[2023-01-01] MEDS: Topiramate 25 MG TABLET 50 MG PO ×2 (08:04→20:37)
[2023-01-01] MEDS: DULoxetine HCl 60 MG CAPSULE.DR PO ×2 (08:04→20:37)
[2023-01-01] MEDS: Doxycycline Monohydrate 100 MG CAPSULE PO ×2 (08:04→20:37)
[2023-01-01 08:17] VITALS: BP 124/77; PULSE 92; RESP 18; TEMP 36.6; O2SAT 99
--- NOTE | 2023-01-01 10:10 | HO.PSYCHPN ---
Subjective Subjective Date of Service: 01/01/23 Reason For Visit: depression Subjective Notes: Conditional Voluntary and 3 Day Healthcare Proxy: No Guardianship: No Medical Problems Affecting Mental Status: No Interim History: Reviewed in team. TDN to 01/06. Pt believes he has found an apartment with his friend and needs to interview next week and apply. He reports feeling some relief of sx-Seroquel increase last night he found helpful. Full review of regime, efficacy. Discussed augmentation-found Lamictal and Cymbalta very helpful. Discussed Lamictal titration and he will consider. Reviewed previous hospital stays, what was useful and what was not. Reviewed group attendance and focus for the weekend. Discussed [facility] and a possible referral. Talking about the importance of structure to help him move forward. Medication Compliance: Yes Side effects from medications: No Attending Groups: Yes Review of Systems Acute medical concerns: No Medical Review of Systems: unchanged Mental Status Exam Mental Status Exam Patient Appearance: Appropriate Patient Orientation: Person, Place, Time and Situation Level of Consciousness: Alert Patient Behavior: Appropriate, Talkative, Cooperative and Good Eye Contact Mood Description: Depressed Affect Description: Flat Patient Cognition Impaired: No Ability to Follow Directions: Good Speech Pattern: Spontaneous Speech Memory Description: Intact Hallucinations: None Delusions: Not Present Perceptual Disturbances: Derealization Thought Process: Distracted and Rumination Thought Content: positive for Circumstantial and positive for Perseveration Depressive Symptoms: Increased Irritability, Crying Spells and Thoughts of /Suicide (denies) Judgement: Fair Diagnostics Vital Signs (24Hr): Vital Signs - 24 hr 12/31/22 22:15 01/01/23 08:17 Temperature 97.6 F 97.9 F Pulse Rate 65 92 Respiratory Rate 18 Blood Pressure 137/94 H 124/77 Pulse Oximetry 99 Oxygen Delivery Method Room Air Medications Medications Current Medications Acetaminophen (Acetaminophen 325 Mg Tablet) 650 mg PO Q6H PRN PRN Reason: Pain, Mild (Pain Scale 1-3) Al Hydroxide/Mg Hydroxide (Magnesium Hydrox/Alum Hydrox 30 Ml Oral.Susp) 30 ml PO Q6H PRN PRN Reason: Heartburn/Nausea Buspirone HCl (Buspirone Hcl 5 Mg Tablet) 15 mg PO BID MURPHY Last Admin: 01/01/23 08:04 Dose: 15 mg Clonazepam (Clonazepam 0.5 Mg Tablet) 0.5 mg PO BID PRN PRN Reason: anxiety Last Admin: 12/31/22 22:28 Dose: 0.5 mg Clonidine HCl (Clonidine Hcl 0.1 Mg Tablet) 0.1 mg PO BID PRN; Protocol PRN Reason: Anxiety Last Admin: 12/31/22 22:28 Dose: 0.1 mg Docusate Sodium (Docusate Sodium 100 Mg Capsule) 100 mg PO DAILY PRN PRN Reason: Constipation Doxycycline Monohydrate (Doxycycline Monohydrate 100 Mg Capsule) 100 mg PO Q12H [facility] Last Admin: 01/01/23 08:04 Dose: 100 mg Duloxetine HCl (Duloxetine Hcl 60 Mg Capsule.Dr) 60 mg PO BID [facility] Last Admin: 01/01/23 08:04 Dose: 60 mg Lamotrigine (Lamotrigine 100 Mg Tablet) 100 mg PO DAILY [facility] Last Admin: 01/01/23 08:04 Dose: 100 mg Lisinopril (Lisinopril 40 Mg Tablet) 40 mg PO DAILY [facility]; Protocol Last Admin: 01/01/23 08:04 Dose: 40 mg Magnesium Hydroxide (Milk Of Magnesia 30 Ml Oral.Susp) 30 ml PO DAILY PRN PRN Reason: Constipation Naproxen (Naproxen 500 Mg Tablet) 500 mg PO BID [facility] Last Admin: 01/01/23 08:05 Dose: Not Given Nicotine Polacrilex (Nicotine Polacrilex 2 Mg Gum) 4 mg BUCCAL Q2H PRN PRN Reason: Nicotine Cravings Quetiapine Fumarate (Quetiapine Fumarate 25 Mg Tablet) 25 mg PO BEDTIME@2300 [facility] Last Admin: 12/31/22 22:28 Dose: 25 mg Quetiapine Fumarate (Quetiapine Fumarate 25 Mg Tablet) 25 mg PO BEDTIME PRN PRN Reason: insomnia Last Admin: 01/01/23 01:15 Dose: 25 mg Tizanidine HCl (Tizanidine Hcl 4 Mg Tablet) 4 mg PO BID [facility] Last Admin: 01/01/23 08:03 Dose: 4 mg Topiramate (Topiramate 25 Mg Tablet) 50 mg PO BID [facility] Last Admin: 01/01/23 08:04 Dose: 50 mg Trazodone HCl (Trazodone Hcl 50 Mg Tablet) 50 mg PO BEDTIME MRX1 PRN PRN Reason: Insomnia Allergies Allergies Allergy/AdvReac Type Severity Reaction Status Date / Time hydroxyzine [From Vistaril] Allergy Hives Verified 12/26/22 18:32 Assessment & Plan Assessment & Plan (1) Major depression, recurrent: Status: Acute Code(s): F33.9 - Major depressive disorder, recurrent, unspecified (2) Alcohol use disorder: Status: Acute Code(s): F10.90 - Alcohol use, unspecified, uncomplicated (3) Cannabis use disorder: Status: Acute Code(s): F12.90 - Cannabis use, unspecified, uncomplicated Plan 47 yo male, history of alcohol use disorder, with sobriety until brief relapse 12/25, cannabis use disorder and recurrent major depression as a result of the loss of a 28 year marriage in Jun 2022. Pt with SI, feelings of hopelessness. Pt in process of moving to this area to begin his life again, has a room-mate who is looking for an apartment and is wanting to pursue treatment to gain strength to make this change and begin to live again. Plan: Continue current regime today, as pt has found it helpful. Will connect with OP team to review. Collateral contact Local resource planning as pt is moving to the area. 01/01/23: Increase Seroquel to 50 mg HS with 25 mg HS prn. Three day notice to 01/06/23. Patient educated on: medication risk/benefits and therapeutic strategies Informed Consent: understands Reason for continued inpatient stay Substantial Risk for: rapid decompensation Time Spent With Patient Time: Total time managing care of this patient today ____ minutes.
[2023-01-01 16:33] VITALS: BP 138/99; PULSE 87; TEMP 36.1
[2023-01-01] MEDS: cloNIDine HCL 0.1 MG TABLET PO ×2 (16:35→22:28)
[2023-01-01] MEDS: clonazePAM 0.5 MG TABLET PO ×2 (16:35→22:29)
[2023-01-01] MEDS: NaPROXEN 500 MG TABLET PO (20:37)
[2023-01-01 22:26] VITALS: BP 128/82; PULSE 83
[2023-01-01] MEDS: QUEtiapine Fumarate 50 MG TABLET PO (22:28)
[2023-01-01] MEDS: traZODone HCL 50 MG TABLET PO (23:48)
[2023-01-02] MEDS: QUEtiapine Fumarate 25 MG TABLET PO (03:50)
[2023-01-02] MEDS: clonazePAM 0.5 MG TABLET PO ×3 (03:50→22:50)
[2023-01-02] MEDS: TiZANidine HCL 4 MG TABLET PO ×2 (08:41→20:45)
[2023-01-02] MEDS: busPIRone HCl 5 MG TABLET 15 MG PO ×2 (08:41→20:47)
[2023-01-02] MEDS: Doxycycline Monohydrate 100 MG CAPSULE PO ×2 (08:41→20:45)
[2023-01-02] MEDS: lisinopriL 40 MG TABLET PO (08:41)
[2023-01-02] MEDS: lamoTRIgine 100 MG TABLET PO (08:42)
[2023-01-02] MEDS: Topiramate 25 MG TABLET 50 MG PO ×2 (08:42→20:45)
[2023-01-02] MEDS: NaPROXEN 500 MG TABLET PO ×2 (08:42→20:46)
[2023-01-02] MEDS: DULoxetine HCl 60 MG CAPSULE.DR PO ×2 (08:42→20:47)
[2023-01-02 08:45] VITALS: BP 122/86; PULSE 92; RESP 18; TEMP 36.4; O2SAT 99
--- NOTE | 2023-01-02 08:57 | P.PNPSI_ITS ---
Subjective Subjective Date of Service: 01/02/23 Reason For Visit: depression Subjective Notes: Conditional Voluntary and 3 Day Interim History: Pt seen, reviewed with the team. Finds Seroquel helpful, recent increase for sleep Discussed [facility]- will fill out paperwork Pt has signed a three day notice as he has apartments to view next week and is wanting to secure his housing. Medication Compliance: Yes Side effects from medications: No Attending Groups: Yes Review of Systems Acute medical concerns: No Medical Review of Systems: unchanged Mental Status Exam Mental Status Exam Patient Appearance: Appropriate Patient Orientation: Person, Place, Time and Situation Level of Consciousness: Alert Patient Behavior: Appropriate, Talkative, Cooperative and Good Eye Contact Mood Description: Depressed Affect Description: Flat Patient Cognition Impaired: No Ability to Follow Directions: Good Speech Pattern: Spontaneous Speech Memory Description: Intact Hallucinations: None Delusions: Not Present Perceptual Disturbances: Derealization Thought Process: Distracted and Rumination Thought Content: positive for Circumstantial and positive for Perseveration Depressive Symptoms: Increased Irritability, Crying Spells and Thoughts of /Suicide (denies) Judgement: Fair Diagnostics Vital Signs (24Hr): Vital Signs - 24 hr 01/01/23 16:33 01/01/23 22:26 01/02/23 08:45 Temperature 97 F 97.6 F Pulse Rate 87 83 92 Respiratory Rate 18 Blood Pressure 138/99 H 128/82 122/86 Pulse Oximetry 99 Oxygen Delivery Method Room Air Medications Medications Current Medications Acetaminophen (Acetaminophen 325 Mg Tablet) 650 mg PO Q6H PRN PRN Reason: Pain, Mild (Pain Scale 1-3) Al Hydroxide/Mg Hydroxide (Magnesium Hydrox/Alum Hydrox 30 Ml Oral.Susp) 30 ml PO Q6H PRN PRN Reason: Heartburn/Nausea Buspirone HCl (Buspirone Hcl 5 Mg Tablet) 15 mg PO BID [facility] Last Admin: 01/02/23 08:41 Dose: 15 mg Clonazepam (Clonazepam 0.5 Mg Tablet) 0.5 mg PO TID PRN PRN Reason: anxiety Last Admin: 01/02/23 03:50 Dose: 0.5 mg Clonidine HCl (Clonidine Hcl 0.1 Mg Tablet) 0.1 mg PO BID PRN; Protocol PRN Reason: Anxiety Last Admin: 01/01/23 22:28 Dose: 0.1 mg Docusate Sodium (Docusate Sodium 100 Mg Capsule) 100 mg PO DAILY PRN PRN Reason: Constipation Doxycycline Monohydrate (Doxycycline Monohydrate 100 Mg Capsule) 100 mg PO Q12H [facility] Last Admin: 01/02/23 08:41 Dose: 100 mg Duloxetine HCl (Duloxetine Hcl 60 Mg Capsule.Dr) 60 mg PO BID [facility] Last Admin: 01/02/23 08:42 Dose: 60 mg Lamotrigine (Lamotrigine 100 Mg Tablet) 100 mg PO DAILY [facility] Last Admin: 01/02/23 08:42 Dose: 100 mg Lisinopril (Lisinopril 40 Mg Tablet) 40 mg PO DAILY [facility]; Protocol Last Admin: 01/02/23 08:41 Dose: 40 mg Magnesium Hydroxide (Milk Of Magnesia 30 Ml Oral.Susp) 30 ml PO DAILY PRN PRN Reason: Constipation Naproxen (Naproxen 500 Mg Tablet) 500 mg PO BID [facility] Last Admin: 01/02/23 08:42 Dose: 500 mg Nicotine Polacrilex (Nicotine Polacrilex 2 Mg Gum) 4 mg BUCCAL Q2H PRN PRN Reason: Nicotine Cravings Quetiapine Fumarate (Quetiapine Fumarate 25 Mg Tablet) 25 mg PO BEDTIME PRN PRN Reason: insomnia Last Admin: 01/02/23 03:50 Dose: 25 mg Quetiapine Fumarate (Quetiapine Fumarate 50 Mg Tablet) 50 mg PO BEDTIME@2300 [facility] Last Admin: 01/01/23 22:28 Dose: 50 mg Tizanidine HCl (Tizanidine Hcl 4 Mg Tablet) 4 mg PO BID [facility] Last Admin: 01/02/23 08:41 Dose: 4 mg Topiramate (Topiramate 25 Mg Tablet) 50 mg PO BID [facility] Last Admin: 01/02/23 08:42 Dose: 50 mg Trazodone HCl (Trazodone Hcl 50 Mg Tablet) 50 mg PO BEDTIME MRX1 PRN PRN Reason: Insomnia Last Admin: 01/01/23 23:48 Dose: 50 mg Allergies Allergies Allergy/AdvReac Type Severity Reaction Status Date / Time hydroxyzine [From Vistaril] Allergy Hives Verified 12/26/22 18:32 Assessment & Plan Assessment & Plan (1) Major depression, recurrent: Status: Acute Code(s): F33.9 - Major depressive disorder, recurrent, unspecified (2) Alcohol use disorder: Status: Acute Code(s): F10.90 - Alcohol use, unspecified, uncomplicated (3) Cannabis use disorder: Status: Acute Code(s): F12.90 - Cannabis use, unspecified, uncomplicated Plan 47 yo male, history of alcohol use disorder, with sobriety until brief relapse 12/25, cannabis use disorder and recurrent major depression as a result of the loss of a 28 year marriage in Jun 2022. Pt with SI, feelings of hopelessness. Pt in process of moving to this area to begin his life again, has a room-mate who is looking for an apartment and is wanting to pursue treatment to gain strength to make this change and begin to live again. Plan: Continue current regime today, as pt has found it helpful. Will connect with OP team to review. Collateral contact Local resource planning as pt is moving to the area. 01/01/23: Increase Seroquel to 50 mg HS with 25 mg HS prn. Three day notice to 01/06/23. 01/02/23: Continue current plan Patient educated on: therapeutic strategies and other Informed Consent: understands Reason for continued inpatient stay Substantial Risk for: rapid decompensation Time Spent With Patient Time: Total time managing care of this patient today ____ minutes.
[2023-01-02 16:30] VITALS: BP 142/94; PULSE 86; TEMP 36.4; O2SAT 99
[2023-01-02] MEDS: cloNIDine HCL 0.1 MG TABLET PO ×2 (16:48→22:51)
--- NOTE | 2023-01-02 21:31 | PC.NURSE ---
pt wound dressing on left elbow changed with gauze and sterile dressing on 01/02 at 1800. pt wound is healing and there is no drainage. pt reports no pain.
[2023-01-02] MEDS: QUEtiapine Fumarate 50 MG TABLET PO (22:52)
[2023-01-03] MEDS: QUEtiapine Fumarate 25 MG TABLET PO (02:29)
[2023-01-03] MEDS: traZODone HCL 50 MG TABLET PO (02:29)
[2023-01-03 06:00] VITALS: BP 103/65; PULSE 80; RESP 18
[2023-01-03] MEDS: NaPROXEN 500 MG TABLET PO ×2 (08:22→20:53)
[2023-01-03] MEDS: Topiramate 25 MG TABLET 50 MG PO ×2 (08:22→20:53)
[2023-01-03] MEDS: Doxycycline Monohydrate 100 MG CAPSULE PO ×2 (08:23→20:53)
[2023-01-03] MEDS: TiZANidine HCL 4 MG TABLET PO ×2 (08:23→20:53)
[2023-01-03] MEDS: busPIRone HCl 5 MG TABLET 15 MG PO ×2 (08:23→20:53)
[2023-01-03] MEDS: lamoTRIgine 100 MG TABLET PO (08:23)
[2023-01-03] MEDS: DULoxetine HCl 60 MG CAPSULE.DR PO ×2 (08:23→20:53)
[2023-01-03] MEDS: lisinopriL 40 MG TABLET PO (08:23)
[2023-01-03 18:00] VITALS: BP 127/80; PULSE 79; TEMP 36.6; O2SAT 99
--- NOTE | 2023-01-03 18:04 | P.PNPSI_ITS ---
Subjective Subjective Date of Service: 01/03/23 Reason For Visit: depression Subjective Notes: Conditional Voluntary and 3 Day Healthcare Proxy: No Guardianship: No Medical Problems Affecting Mental Status: No Interim History: Reviewed with team. Well engaged and participating in the milieu No issues of concern today Three day notice to 01/06 Medication Compliance: Yes Side effects from medications: No Attending Groups: Yes Review of Systems Acute medical concerns: No Medical Review of Systems: unchanged Mental Status Exam Mental Status Exam Patient Appearance: Appropriate Patient Orientation: Person, Place, Time and Situation Level of Consciousness: Alert Patient Behavior: Appropriate, Talkative, Cooperative and Good Eye Contact Mood Description: Depressed Affect Description: Flat Patient Cognition Impaired: No Ability to Follow Directions: Good Speech Pattern: Spontaneous Speech Memory Description: Intact Hallucinations: None Delusions: Not Present Perceptual Disturbances: Derealization Thought Process: Distracted and Rumination Thought Content: positive for Circumstantial and positive for Perseveration Depressive Symptoms: Increased Irritability, Crying Spells and Thoughts of /Suicide (denies) Judgement: Fair Diagnostics Vital Signs (24Hr): Vital Signs - 24 hr 01/03/23 06:00 Pulse Rate 80 Respiratory Rate 18 Blood Pressure 103/65 Oxygen Delivery Method Room Air Medications Medications Current Medications Acetaminophen (Acetaminophen 325 Mg Tablet) 650 mg PO Q6H PRN PRN Reason: Pain, Mild (Pain Scale 1-3) Al Hydroxide/Mg Hydroxide (Magnesium Hydrox/Alum Hydrox 30 Ml Oral.Susp) 30 ml PO Q6H PRN PRN Reason: Heartburn/Nausea Buspirone HCl (Buspirone Hcl 5 Mg Tablet) 15 mg PO BID [facility] Last Admin: 01/03/23 08:23 Dose: 15 mg Clonazepam (Clonazepam 0.5 Mg Tablet) 0.5 mg PO TID PRN PRN Reason: anxiety Last Admin: 01/02/23 22:50 Dose: 0.5 mg Clonidine HCl (Clonidine Hcl 0.1 Mg Tablet) 0.1 mg PO BID PRN; Protocol PRN Reason: Anxiety Last Admin: 01/02/23 22:51 Dose: 0.1 mg Docusate Sodium (Docusate Sodium 100 Mg Capsule) 100 mg PO DAILY PRN PRN Reason: Constipation Doxycycline Monohydrate (Doxycycline Monohydrate 100 Mg Capsule) 100 mg PO Q12H [facility] Last Admin: 01/03/23 08:23 Dose: 100 mg Duloxetine HCl (Duloxetine Hcl 60 Mg Capsule.Dr) 60 mg PO BID [facility] Last Admin: 01/03/23 08:23 Dose: 60 mg Lamotrigine (Lamotrigine 100 Mg Tablet) 100 mg PO DAILY [facility] Last Admin: 01/03/23 08:23 Dose: 100 mg Lisinopril (Lisinopril 40 Mg Tablet) 40 mg PO DAILY [facility]; Protocol Last Admin: 01/03/23 08:23 Dose: 40 mg Magnesium Hydroxide (Milk Of Magnesia 30 Ml Oral.Susp) 30 ml PO DAILY PRN PRN Reason: Constipation Naproxen (Naproxen 500 Mg Tablet) 500 mg PO BID [facility] Last Admin: 01/03/23 08:22 Dose: 500 mg Nicotine Polacrilex (Nicotine Polacrilex 2 Mg Gum) 4 mg BUCCAL Q2H PRN PRN Reason: Nicotine Cravings Quetiapine Fumarate (Quetiapine Fumarate 25 Mg Tablet) 25 mg PO BEDTIME PRN PRN Reason: insomnia Last Admin: 01/03/23 02:29 Dose: 25 mg Quetiapine Fumarate (Quetiapine Fumarate 50 Mg Tablet) 50 mg PO BEDTIME@2300 [facility] Last Admin: 01/02/23 22:52 Dose: 50 mg Tizanidine HCl (Tizanidine Hcl 4 Mg Tablet) 4 mg PO BID [facility] Last Admin: 01/03/23 08:23 Dose: 4 mg Topiramate (Topiramate 25 Mg Tablet) 50 mg PO BID [facility] Last Admin: 01/03/23 08:22 Dose: 50 mg Trazodone HCl (Trazodone Hcl 50 Mg Tablet) 50 mg PO BEDTIME MRX1 PRN PRN Reason: Insomnia Last Admin: 01/03/23 02:29 Dose: 50 mg Allergies Allergies Allergy/AdvReac Type Severity Reaction Status Date / Time hydroxyzine [From Vistaril] Allergy Hives Verified 12/26/22 18:32 Assessment & Plan Assessment & Plan (1) Major depression, recurrent: Status: Acute Code(s): F33.9 - Major depressive disorder, recurrent, unspecified (2) Alcohol use disorder: Status: Acute Code(s): F10.90 - Alcohol use, unspecified, uncomplicated (3) Cannabis use disorder: Status: Acute Code(s): F12.90 - Cannabis use, unspecified, uncomplicated Plan 47 yo male, history of alcohol use disorder, with sobriety until brief relapse 12/25, cannabis use disorder and recurrent major depression as a result of the loss of a 28 year marriage in Jun 2022. Pt with SI, feelings of hopelessness. Pt in process of moving to this area to begin his life again, has a room-mate who is looking for an apartment and is wanting to pursue treatment to gain strength to make this change and begin to live again. Plan: Continue current regime today, as pt has found it helpful. Will connect with OP team to review. Collateral contact Local resource planning as pt is moving to the area. 01/01/23: Increase Seroquel to 50 mg HS with 25 mg HS prn. Three day notice to 01/06/23. 01/03/23: Continue current regime and plan of care Informed Consent: understands Reason for continued inpatient stay Substantial Risk for: rapid decompensation Time Spent With Patient Time: Total time managing care of this patient today ____ minutes.
[2023-01-03] MEDS: cloNIDine HCL 0.1 MG TABLET PO ×2 (18:33→23:03)
[2023-01-03] MEDS: clonazePAM 0.5 MG TABLET PO ×2 (18:34→23:03)
--- NOTE | 2023-01-03 19:53 | PC.NURSE ---
left elbow wound dressing changed on 01/03/23 on 1800. wound is not draining, wound is pink and intact and healing nicely. pt reports no pain from the wound.
[2023-01-03] MEDS: QUEtiapine Fumarate 50 MG TABLET PO (23:03)
[2023-01-04] MEDS: QUEtiapine Fumarate 25 MG TABLET PO (01:44)
[2023-01-04] MEDS: traZODone HCL 50 MG TABLET PO ×3 (01:44→23:35)
[2023-01-04 08:20] VITALS: BP 116/66; PULSE 87; RESP 18; TEMP 36.1; O2SAT 99
[2023-01-04] MEDS: NaPROXEN 500 MG TABLET PO ×2 (08:33→20:53)
[2023-01-04] MEDS: TiZANidine HCL 4 MG TABLET PO ×2 (08:34→20:54)
[2023-01-04] MEDS: Doxycycline Monohydrate 100 MG CAPSULE PO ×2 (08:34→20:54)
[2023-01-04] MEDS: lisinopriL 40 MG TABLET PO (08:34)
[2023-01-04] MEDS: DULoxetine HCl 60 MG CAPSULE.DR PO ×2 (08:34→20:54)
[2023-01-04] MEDS: Topiramate 25 MG TABLET 50 MG PO ×2 (08:35→20:54)
[2023-01-04] MEDS: busPIRone HCl 5 MG TABLET 15 MG PO ×2 (08:35→20:53)
[2023-01-04] MEDS: lamoTRIgine 100 MG TABLET PO (08:35)
--- NOTE | 2023-01-04 10:28 | P.PNPSI_ITS ---
Subjective Subjective Date of Service: 01/04/23 Reason For Visit: depression Interim History: Met with patient; discussed with team pt says mood is better, though he's still depressed; no SI; pt shared hx that resulted in depressive episode; pt shared plans he's working on for after-care. Given continued depression, discussed meds and pt agrees to increase in Lamictal to 150mg. Also discussed struggles with insomnia; he agrees to switch to scheduled Trazodone (and prn) to see if this can help instead of Seroquel (due to preferred side-effect/risk profile) Mental Status Exam Mental Status Exam Patient Appearance: Appropriate Patient Orientation: Person, Place, Time and Situation Level of Consciousness: Alert Patient Behavior: Appropriate, Talkative, Cooperative and Good Eye Contact Mood Description: Depressed (but better ) Affect Description: Depressed Patient Cognition Impaired: No Ability to Follow Directions: Good Speech Pattern: Spontaneous Speech Memory Description: Intact Hallucinations: None Delusions: Not Present Perceptual Disturbances: Derealization Thought Process: Distracted and Goal Oriented Thought Content: positive for Intact (No SI/HI) Judgement: Fair Diagnostics Vital Signs (24Hr): Vital Signs - 24 hr 01/03/23 18:00 01/04/23 08:20 Temperature 98 F 97.0 F Pulse Rate 79 87 Respiratory Rate 18 Blood Pressure 127/80 116/66 Pulse Oximetry 99 99 Oxygen Delivery Method Room Air Room Air Medications Medications Current Medications Acetaminophen (Acetaminophen 325 Mg Tablet) 650 mg PO Q6H PRN PRN Reason: Pain, Mild (Pain Scale 1-3) Al Hydroxide/Mg Hydroxide (Magnesium Hydrox/Alum Hydrox 30 Ml Oral.Susp) 30 ml PO Q6H PRN PRN Reason: Heartburn/Nausea Buspirone HCl (Buspirone Hcl 5 Mg Tablet) 15 mg PO BID [facility] Last Admin: 01/04/23 08:35 Dose: 15 mg Clonazepam (Clonazepam 0.5 Mg Tablet) 0.5 mg PO TID PRN PRN Reason: anxiety Last Admin: 01/03/23 23:03 Dose: 0.5 mg Clonidine HCl (Clonidine Hcl 0.1 Mg Tablet) 0.1 mg PO BID PRN; Protocol PRN Reason: Anxiety Last Admin: 01/03/23 23:03 Dose: 0.1 mg Docusate Sodium (Docusate Sodium 100 Mg Capsule) 100 mg PO DAILY PRN PRN Reason: Constipation Doxycycline Monohydrate (Doxycycline Monohydrate 100 Mg Capsule) 100 mg PO Q12H [facility] Last Admin: 01/04/23 08:34 Dose: 100 mg Duloxetine HCl (Duloxetine Hcl 60 Mg Capsule.Dr) 60 mg PO BID [facility] Last Admin: 01/04/23 08:34 Dose: 60 mg Lamotrigine (Lamotrigine 100 Mg Tablet) 100 mg PO DAILY [facility] Last Admin: 01/04/23 08:35 Dose: 100 mg Lisinopril (Lisinopril 40 Mg Tablet) 40 mg PO DAILY [facility]; Protocol Last Admin: 01/04/23 08:34 Dose: 40 mg Magnesium Hydroxide (Milk Of Magnesia 30 Ml Oral.Susp) 30 ml PO DAILY PRN PRN Reason: Constipation Naproxen (Naproxen 500 Mg Tablet) 500 mg PO BID [facility] Last Admin: 01/04/23 08:33 Dose: 500 mg Nicotine Polacrilex (Nicotine Polacrilex 2 Mg Gum) 4 mg BUCCAL Q2H PRN PRN Reason: Nicotine Cravings Quetiapine Fumarate (Quetiapine Fumarate 25 Mg Tablet) 25 mg PO BEDTIME PRN PRN Reason: insomnia Last Admin: 01/04/23 01:44 Dose: 25 mg Quetiapine Fumarate (Quetiapine Fumarate 50 Mg Tablet) 50 mg PO BEDTIME@2300 [facility] Last Admin: 01/03/23 23:03 Dose: 50 mg Tizanidine HCl (Tizanidine Hcl 4 Mg Tablet) 4 mg PO BID [facility] Last Admin: 01/04/23 08:34 Dose: 4 mg Topiramate (Topiramate 25 Mg Tablet) 50 mg PO BID [facility] Last Admin: 01/04/23 08:35 Dose: 50 mg Trazodone HCl (Trazodone Hcl 50 Mg Tablet) 50 mg PO BEDTIME MRX1 PRN PRN Reason: Insomnia Last Admin: 01/04/23 01:44 Dose: 50 mg Allergies Allergies Allergy/AdvReac Type Severity Reaction Status Date / Time hydroxyzine [From Vistaril] Allergy Hives Verified 12/26/22 18:32 Assessment & Plan Assessment & Plan (1) Major depression, recurrent: Status: Acute Code(s): F33.9 - Major depressive disorder, recurrent, unspecified (2) Alcohol use disorder: Status: Acute Code(s): F10.90 - Alcohol use, unspecified, uncomplicated (3) Cannabis use disorder: Status: Acute Code(s): F12.90 - Cannabis use, unspecified, uncomplicated Plan 47 yo male, history of alcohol use disorder, with sobriety until brief relapse 12/25, cannabis use disorder and recurrent major depression as a result of the loss of a 28 year marriage in Jun 2022. Pt with SI, feelings of hopelessness. Pt in process of moving to this area to begin his life again, has a room-mate who is looking for an apartment and is wanting to pursue treatment to gain strength to make this change and begin to live again. Plan: Continue current regime today, as pt has found it helpful. Will connect with OP team to review. Collateral contact Local resource planning as pt is moving to the area. 01/01/23: Increase Seroquel to 50 mg HS with 25 mg HS prn. Three day notice to 01/06/23. 01/03/23: Continue current regime and plan of care 01/04/23: Increased Lamictal to 150mg Switched to scheduled trazodone qhs for insomnia (will try instead of seroquel to avoid risks of antipsychotics) Patient educated on: diagnosis and medication risk/benefits Informed Consent: understands Reason for continued inpatient stay Substantial Risk for: stable for discharge Time Spent With Patient Time: Total time managing care of this patient today ____ minutes.
[2023-01-04] MEDS: lamoTRIgine 25 MG TABLET PO (12:47)
[2023-01-04 15:43] VITALS: BP 133/85; PULSE 83; TEMP 36.1
[2023-01-04] MEDS: cloNIDine HCL 0.1 MG TABLET PO ×2 (15:45→21:01)
[2023-01-04] MEDS: clonazePAM 0.5 MG TABLET PO ×2 (15:45→21:00)
[2023-01-04 20:35] VITALS: BP 132/90; PULSE 91
[2023-01-05] MEDS: QUEtiapine Fumarate 50 MG TABLET PO (02:26)
[2023-01-05 08:10] VITALS: BP 109/71; PULSE 82; RESP 18; TEMP 36.3; O2SAT 98
[2023-01-05] MEDS: Topiramate 25 MG TABLET 50 MG PO ×2 (08:35→21:51)
[2023-01-05] MEDS: lisinopriL 40 MG TABLET PO (08:35)
[2023-01-05] MEDS: Doxycycline Monohydrate 100 MG CAPSULE PO ×2 (08:36→21:36)
[2023-01-05] MEDS: TiZANidine HCL 4 MG TABLET PO ×2 (08:36→21:37)
[2023-01-05] MEDS: busPIRone HCl 5 MG TABLET 15 MG PO ×2 (08:36→21:36)
[2023-01-05] MEDS: DULoxetine HCl 60 MG CAPSULE.DR PO ×2 (08:36→21:37)
[2023-01-05] MEDS: NaPROXEN 500 MG TABLET PO ×2 (08:37→21:34)
[2023-01-05] MEDS: lamoTRIgine 25 MG TABLET 150 MG PO (08:37)
[2023-01-05 17:00] VITALS: BP 115/75; PULSE 90; TEMP 19.1
[2023-01-05] MEDS: cloNIDine HCL 0.1 MG TABLET PO (17:13)
[2023-01-05] MEDS: clonazePAM 0.5 MG TABLET PO ×2 (17:13→22:58)
--- NOTE | 2023-01-05 18:25 | P.PNPSI_ITS ---
Subjective Subjective Date of Service: 01/05/23 Reason For Visit: depression Subjective Notes: Conditional Voluntary and 3 Day Healthcare Proxy: No Guardianship: No Medical Problems Affecting Mental Status: No Interim History: Preparing for discharge, three day notice to 01/06/23. Review of meds, resources for discharge and current plans. At this time, pt will plan to re-locate in this area, moving from the [facility]. Medication Compliance: Yes Side effects from medications: No Attending Groups: Yes Review of Systems Acute medical concerns: No Medical Review of Systems: unchanged Mental Status Exam Mental Status Exam Patient Appearance: Appropriate Patient Orientation: Person, Place, Time and Situation Level of Consciousness: Alert Patient Behavior: Appropriate, Talkative, Cooperative and Good Eye Contact Mood Description: Appropriate and Anxious Affect Description: Appropriate Patient Cognition Impaired: No Ability to Follow Directions: Good Speech Pattern: Spontaneous Speech Memory Description: Intact Hallucinations: None Delusions: Not Present Thought Process: Intact and Goal Oriented Thought Content: positive for Intact and positive for Goal Oriented Depressive Symptoms: Low Self Esteem Judgement: Good Diagnostics Vital Signs (24Hr): Vital Signs - 24 hr 01/04/23 20:35 01/05/23 08:10 01/05/23 17:00 Temperature 97.3 F 66.3 F L Pulse Rate 91 82 90 Respiratory Rate 18 Blood Pressure 132/90 H 109/71 115/75 Pulse Oximetry 98 Oxygen Delivery Method Room Air Medications Medications Current Medications Acetaminophen (Acetaminophen 325 Mg Tablet) 650 mg PO Q6H PRN PRN Reason: Pain, Mild (Pain Scale 1-3) Al Hydroxide/Mg Hydroxide (Magnesium Hydrox/Alum Hydrox 30 Ml Oral.Susp) 30 ml PO Q6H PRN PRN Reason: Heartburn/Nausea Buspirone HCl (Buspirone Hcl 5 Mg Tablet) 15 mg PO BID [facility] Last Admin: 01/05/23 08:36 Dose: 15 mg Clonazepam (Clonazepam 0.5 Mg Tablet) 0.5 mg PO TID PRN PRN Reason: anxiety Last Admin: 01/05/23 17:13 Dose: 0.5 mg Clonidine HCl (Clonidine Hcl 0.1 Mg Tablet) 0.1 mg PO BID PRN; Protocol PRN Reason: Anxiety Last Admin: 01/05/23 17:13 Dose: 0.1 mg Docusate Sodium (Docusate Sodium 100 Mg Capsule) 100 mg PO DAILY PRN PRN Reason: Constipation Doxycycline Monohydrate (Doxycycline Monohydrate 100 Mg Capsule) 100 mg PO Q12H [facility] Last Admin: 01/05/23 08:36 Dose: 100 mg Duloxetine HCl (Duloxetine Hcl 60 Mg Capsule.Dr) 60 mg PO BID [facility] Last Admin: 01/05/23 08:36 Dose: 60 mg Lamotrigine (Lamotrigine 25 Mg Tablet) 150 mg PO DAILY [facility] Last Admin: 01/05/23 08:37 Dose: 150 mg Lisinopril (Lisinopril 40 Mg Tablet) 40 mg PO DAILY [facility]; Protocol Last Admin: 01/05/23 08:35 Dose: 40 mg Magnesium Hydroxide (Milk Of Magnesia 30 Ml Oral.Susp) 30 ml PO DAILY PRN PRN Reason: Constipation Naproxen (Naproxen 500 Mg Tablet) 500 mg PO BID [facility] Last Admin: 01/05/23 08:37 Dose: 500 mg Nicotine Polacrilex (Nicotine Polacrilex 2 Mg Gum) 4 mg BUCCAL Q2H PRN PRN Reason: Nicotine Cravings Quetiapine Fumarate (Quetiapine Fumarate 25 Mg Tablet) 25 mg PO BEDTIME PRN PRN Reason: insomnia Last Admin: 01/04/23 01:44 Dose: 25 mg Quetiapine Fumarate (Quetiapine Fumarate 50 Mg Tablet) 50 mg PO BEDTIME PRN PRN Reason: insomnia Last Admin: 01/05/23 02:26 Dose: 50 mg Tizanidine HCl (Tizanidine Hcl 4 Mg Tablet) 4 mg PO BID [facility] Last Admin: 01/05/23 08:36 Dose: 4 mg Topiramate (Topiramate 25 Mg Tablet) 50 mg PO BID [facility] Last Admin: 01/05/23 08:35 Dose: 50 mg Trazodone HCl (Trazodone Hcl 50 Mg Tablet) 50 mg PO BEDTIME [facility] Last Admin: 01/04/23 20:54 Dose: 50 mg Trazodone HCl (Trazodone Hcl 50 Mg Tablet) 50 mg PO BEDTIME PRN PRN Reason: continued insomnia Last Admin: 01/04/23 23:35 Dose: 50 mg Allergies Allergies Allergy/AdvReac Type Severity Reaction Status Date / Time hydroxyzine [From Vistaril] Allergy Hives Verified 12/26/22 18:32 Assessment & Plan Assessment & Plan (1) Major depression, recurrent: Status: Acute Code(s): F33.9 - Major depressive disorder, recurrent, unspecified (2) Alcohol use disorder: Status: Acute Code(s): F10.90 - Alcohol use, unspecified, uncomplicated (3) Cannabis use disorder: Status: Acute Code(s): F12.90 - Cannabis use, unspecified, uncomplicated Plan 47 yo male, history of alcohol use disorder, with sobriety until brief relapse 12/25, cannabis use disorder and recurrent major depression as a result of the loss of a 28 year marriage in Jun 2022. Pt with SI, feelings of hopelessness. Pt in process of moving to this area to begin his life again, has a room-mate who is looking for an apartment and is wanting to pursue treatment to gain strength to make this change and begin to live again. Plan: Continue current regime today, as pt has found it helpful. Will connect with OP team to review. Collateral contact Local resource planning as pt is moving to the area. 01/01/23: Increase Seroquel to 50 mg HS with 25 mg HS prn. Three day notice to 01/06/23. 01/03/23: Continue current regime and plan of care 01/04/23: Increased Lamictal to 150mg Switched to scheduled trazodone qhs for insomnia (will try instead of seroquel to avoid risks of antipsychotics) 01/05/23: Discharge 01/06. Patient educated on: medication risk/benefits and therapeutic strategies Informed Consent: understands Reason for continued inpatient stay Substantial Risk for: rapid decompensation Time Spent With Patient Time: Total time managing care of this patient today ____ minutes.
[2023-01-05] MEDS: traZODone HCL 50 MG TABLET PO (22:57)
[2023-01-05] MEDS: QUEtiapine Fumarate 25 MG TABLET PO (22:58)
[2023-01-06] MEDS: Doxycycline Monohydrate 100 MG CAPSULE PO (08:05)
[2023-01-06] MEDS: DULoxetine HCl 60 MG CAPSULE.DR PO (08:05)
[2023-01-06] MEDS: busPIRone HCl 5 MG TABLET 15 MG PO (08:05)
[2023-01-06] MEDS: lisinopriL 40 MG TABLET PO (08:05)
[2023-01-06] MEDS: lamoTRIgine 25 MG TABLET 150 MG PO (08:06)
[2023-01-06] MEDS: TiZANidine HCL 4 MG TABLET PO (08:06)
[2023-01-06] MEDS: Topiramate 25 MG TABLET 50 MG PO (08:06)
[2023-01-06] MEDS: NaPROXEN 500 MG TABLET PO (08:06)
[2023-01-06 08:15] VITALS: BP 108/70; PULSE 89; RESP 18; TEMP 36; O2SAT 98
--- NOTE | 2023-01-06 13:43 | P.DS_ITS ---
DS: Providers Provider Date of Service: 01/06/23 Date of admission: 12/30/22 15:54 Date of discharge: 01/06/23 Primary care physician: Unknown Physician Admitting clinician: Staci Vega Attending physician on admission: Yoav Connelly Attending physician on discharge: Yoav Connelly Discharging clinician: Staci Vega DS: Diagnosis Discharge Diagnosis (1) Major depression, recurrent: Status: Acute (2) Alcohol use disorder: Status: Acute (3) Cannabis use disorder: Status: Acute DS: Medications Discharge Medications Home Medications: Previous Rx's Medication Instructions Recorded bismuth tribrom-petrolatum,wh 4 X #36 ea 01/05/23 3 yard bandage (Xeroform Petrolatum Dressing) docusate sodium 100 mg capsule 100 mg PO DAILY PRN Constipation 01/05/23 #30 caps doxycycline monohydrate 100 mg 100 mg PO Q12H #18 caps 01/05/23 capsule lamotrigine 150 mg tablet 150 mg PO DAILY #30 tabs 01/05/23 (Lamictal) trazodone 50 mg tablet 50 mg PO BEDTIME #60 tabs 01/05/23 buspirone 15 mg tablet 15 mg PO BID #60 tabs 01/06/23 clonazepam 0.5 mg tablet 0.5 mg PO BID PRN anxiety #60 tabs 01/06/23 clonidine HCl 0.1 mg tablet 0.1 mg PO BID PRN Anxiety #60 tabs 01/06/23 duloxetine 60 mg capsule,delayed 60 mg PO BID #60 caps 01/06/23 release lisinopril 40 mg tablet 40 mg PO DAILY #30 tabs 01/06/23 meloxicam 7.5 mg tablet 7.5 mg PO BID #60 tabs 01/06/23 tizanidine 4 mg tablet 4 mg PO BID #60 tabs 01/06/23 topiramate 50 mg tablet 50 mg PO BID #60 tabs 01/06/23 Mental Status Exam Mental Status Exam Patient Appearance: Appropriate Patient Orientation: Person, Place, Time and Situation Level of Consciousness: Alert Patient Behavior: Appropriate, Talkative, Cooperative and Good Eye Contact Mood Description: Appropriate and Anxious Affect Description: Appropriate Patient Cognition Impaired: No Ability to Follow Directions: Good Speech Pattern: Spontaneous Speech Memory Description: Intact Hallucinations: None Delusions: Not Present Thought Process: Intact and Goal Oriented Thought Content: positive for Intact and positive for Goal Oriented Depressive Symptoms: Low Self Esteem Judgement: Good DS: Summary Hospital Course Hospital Course: Admission to adult psychiatry in transfer from medicine after an elbow cellulitis and CY for exacerbation of recurrent major depression with SI, alcohol and cannabis use disorder. This in response to loss of relationship/family of 28 years due to pt's report of his partner finding another relationship. Relationships with his children are distraught, 3 kids, 2 grandchildren. Recent holidays have been difficult and youngest son is scheduled to graduate high school/Associate Degree in January. Court date for dropping of restraining order is at the end of december. Pt with intermittent SI. Planning to leave his home area of [place], [place] and move to [place] with a room-mate. Pt utilized milieu and made few medication adjustments to assist with improving sleep quality. He signed a three day notice and leaves to formalize an agreement for housing in this area. Time spent discussing smoking cessation with patient: 3 to 10 minutes Status at Discharge Functional status at discharge: independent ambulation Overall status at discharge: patient is progressing back to baseline Time Spent with Patient Time attestation: Total time managing care of this patient today ____ minutes. Time spent: Greater than 30 minutes Discharge Plan Discharge Anticipated Discharge Date/Time: 01/06/23 12:00 Patient Disposition: Home, Self-Care Discharge Diagnosis: Recurrent Major Depression Cannabis Use Disorder Alcohol Use Disorder Referrals: Psychiatric Prescriber: Brenda Ge ([place]) [Other] - 02/02/23 11:00 am (Appointment is in person at the office ) Vocational & Educational Services: [facility] [Other] - 3 Weeks (You will receive a call from [facility] in two to three weeks to schedule an appointment for services. If you have not heard from them in three weeks, please call them at the above number, select 1 for Greek and then Prompt 3. ) Therapist: Elroy ([facility]) [Other] - 1 Week (Elroy was notified you need a follow up appointment but has not called back to provide an appointment. Please call her to follow up. ) [facility] [Other] - 01/07/23 1:30 pm (IN OFFICE) Discharge Medications: Continued clonazepam 0.5 mg tablet 0.5 mg PO BID PRN (Reason: anxiety) Qty: 60 0RF Discontinued quetiapine 25 mg tablet 25 mg PO BEDTIME clonidine HCl 0.1 mg tablet 0.1 mg PO BID PRN (Reason: Anxiety) tizanidine 4 mg tablet 4 mg PO BID meloxicam 7.5 mg tablet 7.5 mg PO BID lisinopril 40 mg tablet 40 mg PO DAILY lamotrigine 100 mg tablet 100 mg PO DAILY buspirone 15 mg tablet 15 mg PO BID topiramate 50 mg tablet 50 mg PO BID duloxetine 60 mg capsule,delayed release(DR/EC) 60 mg PO BID No Action clonidine HCl 0.1 mg tablet 0.1 mg PO BID PRN (Reason: anxiety) trazodone 50 mg tablet 75 mg PO BEDTIME tizanidine 4 mg tablet 4 mg PO BID meloxicam 7.5 mg tablet 7.5 mg PO BID docusate sodium 100 mg capsule 100 mg PO DAILY PRN (Reason: constipation) lisinopril 40 mg tablet 40 mg PO DAILY buspirone 15 mg tablet 15 mg PO BID duloxetine 60 mg capsule,delayed release(DR/EC) 60 mg PO BID lamotrigine 150 mg tablet 150 mg PO DAILY doxycycline monohydrate 100 mg capsule 100 mg PO Q12H Discharge Orders: Discharge Order (Routine); Ordered 01/06/23 Ordered By: Luisito Workman Diet: Advance to usual diet Activity on Discharge: As tolerated Stand Alone Forms: Patient Portal Discharge page, Community Support Care Plan Goals: Mood and Behavioral Stabilization Maintain sobriety Health Concerns: Mood and Behavioral Stabilization Maintain sobriety Continue with elbow dressing changes daily Plan of Treatment: Attend follow up appointments Take medications as directed Elbow dressing changes daily Assessment: Pt interviewed prior to discharge and found to be fully oriented and without SI/HI Pt has insight and demonstrates good judgment in terms of wanting to pursue treatment. Pt is not in imminent risk of harm to self or others and has a safety plan that includes presenting to the closest ER or calling 911 if feeling unsafe. Pt has been observed closely by nursing and unit staff throughout admission. Pt has not engaged in any behaviors that suggest dangerousness to self or others and has demonstrated appropriate behaviors and impulse control. Discharge Date/Time: 01/06/23 10:35
== END 2023-01-06 10:35 | disposition home or self-care (01) | DRG 885 ==
PROVIDERS: Admitting Provider Psychiatry & Neurology Psychiatry; Visit Provider Clinical Nurse Specialist Psychiatric/Mental Health, Adult
DX: F33.9 Major depressive disorder, recurrent, unspecified (principal); R45.851 Suicidal ideations; F10.10 Alcohol abuse, uncomplicated; F12.10 Cannabis abuse, uncomplicated; I10 Essential (primary) hypertension; Z59.01 Sheltered homelessness; Z79.899 Other long term (current) drug therapy

== ENCOUNTER 2023-01-09 16:43 | Emergency (ER) | payer OTHER, SELFPAY ==
[2023-01-09 16:54] VITALS: BP 106/70; PULSE 102; RESP 20; TEMP 36.9; O2SAT 97; BMI 28.5
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
[2023-01-09 17:43] LABS: Amphetamine Screen Urine Not Detected (Not Detect); Barbiturates, Urine Not Detected (Not Detect); Benzodiazepines Screen Urine Not Detected (Not Detect); Cannabinoid Screen Urine POSITIVE (Not Detect); Cocaine Screen Urine POSITIVE (Not Detect); Fentanyl, urine Not Detected (Not Detect); Opiate Screen Urine Not Detected (Not Detect); Phencyclidine Screen Urine Not Detected (Not Detect)
[2023-01-09 17:45] LABS: MANUAL DIFF FLAG NO
[2023-01-09 17:45] LABS: COVID-19 Test Negative (Negative); IDNOW Serial# 08D9AD1C
[2023-01-09 17:47] LABS: Basophils Absolute Auto 0.1 X10*3/uL (0.0-0.2); Basophils Percent Auto 1.1 % (0-2); Eosinophils Absolute Auto 0.1 X10*3/uL (0.0-0.4); Eosinophils Percent Auto 2.9 % (0-4); Hematocrit 34.1 % (42.0-52.0); Imm Gran Abs Auto 0.02 X10*3/uL (0.00-0.03); Imm Gran Pct Auto 0.4 % (0.0-0.4); Lymphocytes Absolute Auto 0.7 X10*3/uL (1.2-4.9); Lymphocytes Percent Auto 14.9 % (20-40); Mean Corpuscular HGB Conc 32.3 g/dl (31.0-36.0); Mean Corpuscular Hemoglobin 30.4 pg (27.0-33.0); Mean Corpuscular Volume 94.2 fL (80.0-98.0); Mean Platelet Volume 9.4 fL (9.4-12.4); Monocytes Absolute Auto 0.4 X10*3/uL (0.1-1.2); Monocytes Percent Auto 8.4 % (2-11); Neutrophils Absolute Auto 3.3 x10*3/uL (2.0-8.3); Neutrophils Percent Auto 72.3 % (45-73); Platelet Count 213 X10*3/uL (160-400); Red Blood Count 3.62 X10*6/uL (4.60-5.80); Red Cell Distribution Width 14.5 % (11.0-16.0); White Blood Count 4.5 X10*3/uL (4.8-10.8)
[2023-01-09 18:10] LABS: Ethanol < 10 mg/dL
[2023-01-09 18:26] LABS: Alanine Aminotransferase 14 U/L (0-40); Albumin Level 4.1 g/dL (3.5-5.0); Alkaline Phosphatase 45 U/L (39-117); Anion Gap 14 (12-20); Aspartate Amino Transferase 15 U/L (5-37); Bilirubin Total 0.4 mg/dL (0.0-1.0); Blood Urea Nitrogen 27 mg/dL (9-16); Calcium 9.7 mg/dL (8.4-10.2); Carbon Dioxide 23 mmol/L (22-29); Chloride 110 mmol/L (96-108); Creatinine Clr Calc Pharmacy 81.5; Estimated Glomerular Filt Rate > 60; Glucose Random 119 mg/dL (60-115); Potassium 4.6 mmol/L (3.3-5.1); Sodium 142 mmol/L (135-145); Total Protein 6.6 g/dL (6.5-8.0)
[2023-01-10 05:43] VITALS: BP 110/62; PULSE 74; RESP 16; TEMP 36.6; O2SAT 97
--- NOTE | 2023-01-10 05:45 | PC.NURSE ---
Patient slept through the night, no distress observed/reported, behavior on concerning, med rec completed/pending provider's approval, disposition per care team is Respite bed search, VSS, will continue to monitor.
--- NOTE | 2023-01-10 13:06 | PC.NURSE ---
[facility] AT BEDSIDE AND POSSIBLY TAKING PT BACK TO SHORT TERM RESPITE PROGRAM. PT REQUESTING MEDS, MED REC COMPLETED IN CHART, WILL CONTACT COVERING PROVIDER FOR ORDERS.
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
[2023-01-10 15:41] VITALS: BP 105/72; PULSE 84; RESP 19; TEMP 36.5; O2SAT 97
--- NOTE | 2023-01-10 15:51 | PC.NURSE ---
Patient resting on bed calm and cooperative no s/s of distress at this time. Patient has no complaints at this time.
--- NOTE | 2023-01-10 16:18 | PHA.MEDREC ---
Pharmacy Consult ? Medication Reconciliation Pharmacy has completed the medication reconciliation. spoke with patient. He claims he missed two doses of the doxycycline after arrival to the ED. He reports that his trazodone was recently increased to 75mg. Also added lamotrigine to his home medication list.
--- NOTE | 2023-01-10 17:52 | PC.NURSE ---
Patient resting on bed calm and cooperative. breathing evenly and without difficulty. No s/s of distress.
--- NOTE | 2023-01-10 18:09 | PC.NURSE ---
Care team spoke with patient regarding plan. Patient refused respite placement in [place] and will be getting discharged.
--- NOTE | 2023-01-10 18:18 | PC.NURSE ---
Patient given dinner tray and will be discharged after dinner.
== END 2023-01-10 18:48 | disposition home or self-care (01) ==
PROVIDERS: Physician Assistant; Emergency Provider Emergency Medicine
DX: R45.851 Suicidal ideations (principal); F32.A Depression, unspecified; Z20.822 Contact with and (suspected) exposure to COVID-19; F12.10 Cannabis abuse, uncomplicated; F10.10 Alcohol abuse, uncomplicated; Y90.0 Blood alcohol level of less than 20 mg/100 ml; I10 Essential (primary) hypertension; Z79.899 Other long term (current) drug therapy
CPT/HCPCS: 36415; 80053; 80307; 85025; 87635; 99284; S9485

== ENCOUNTER 2023-01-10 19:31 | Inpatient (IN) | payer OTHER, SELFPAY ==
[2023-01-10 19:36] VITALS: BP 136/90; PULSE 94; RESP 18; TEMP 36.8; O2SAT 97; BMI 28.1
--- NOTE | 2023-01-10 20:06 | PC.NURSE ---
pt assessed, recently d/c from POD, pt reported he refused transfer to another facility. Pt reported he came back he is +SI, . Pt reported he needs help and wants to be admitted to hospital
[2023-01-10 20:15] LABS: Appearance Urine Clear; Color Urine Yellow; Glucose Urine UA Negative (Negative); Leukocyte Esterase Urine Negative (Negative); Nitrite Urine Negative (Negative); PH 5.5 (5.0-9.0); Urine Blood Negative (Negative); Urine Ketones Negative (Negative); Urine Protein Negative (Neg-Trace)
[2023-01-10 20:28] LABS: COVID-19 Test Negative (Negative); IDNOW Serial# 08D9AD1C
[2023-01-10 20:31] LABS: Amphetamine Screen Urine Not Detected (Not Detect); Barbiturates, Urine Not Detected (Not Detect); Benzodiazepines Screen Urine Not Detected (Not Detect); Cannabinoid Screen Urine POSITIVE (Not Detect); Cocaine Screen Urine POSITIVE (Not Detect); Fentanyl, urine Not Detected (Not Detect); Opiate Screen Urine Not Detected (Not Detect); Phencyclidine Screen Urine Not Detected (Not Detect)
--- NOTE | 2023-01-10 20:42 | ED.GENADULT ---
HPI - General Adult General Chief complaint: Psychiatric Symptoms Stated complaint: Crisis/thoughts of selfharm Time Seen by Provider: 01/10/23 20:26 Source: patient, RN notes reviewed and old records reviewed Mode of arrival: ambulatory Limitations: no limitations History of Present Illness HPI narrative: 47-year-old male presents for evaluation of ?issues. ? Patient was just discharged from here last an hour prior to every presentation He was seen for depression with suicidal ideation and substance abuse. Patient was initially presented to [facility] but apparently was rejected from there due to a previous issue involving altercation with a staff member. He was then offered a similar bed in [place] which he declined The patient was ultimately discharged Upon re-evaluation today he states ?I called my legal john who said there is no way you can be discharged. They told me to come right back in here because I do not feel better. ? He also reports that he spoke to nursing staff on the psych floor upstairs and was told that there was a bed available Related Data Home Medications Medication Instructions Recorded Confirmed buspirone 15 mg tablet 15 mg PO BID 01/09/23 01/10/23 clonidine HCl 0.1 mg tablet 0.1 mg PO BID PRN anxiety 01/09/23 01/10/23 docusate sodium 100 mg capsule 100 mg PO DAILY PRN constipation 01/09/23 01/10/23 duloxetine 60 mg capsule,delayed 60 mg PO BID 01/09/23 01/10/23 release lisinopril 40 mg tablet 40 mg PO DAILY 01/09/23 01/10/23 meloxicam 7.5 mg tablet 7.5 mg PO BID 01/09/23 01/10/23 tizanidine 4 mg tablet 4 mg PO BID 01/09/23 01/10/23 trazodone 50 mg tablet 75 mg PO BEDTIME 01/09/23 01/10/23 doxycycline monohydrate 100 mg 100 mg PO Q12H 01/10/23 01/10/23 capsule lamotrigine 150 mg tablet 150 mg PO DAILY 01/10/23 01/10/23 Previous Rx's Medication Instructions Recorded clonazepam 0.5 mg tablet 0.5 mg PO BID PRN anxiety #60 tabs 01/06/23 Allergies Allergy/AdvReac Type Severity Reaction Status Date / Time hydroxyzine [From Vistaril] Allergy Hives Verified 12/26/22 18:32 Review of Systems Constitutional: Constitutional: Reports as per HPI, Denies chills, Denies fatigue, Denies fever(s) and Denies headache(s) ENT: Denies headache(s) Cardiovascular: Cardiovascular: Denies chest pain and Denies dyspnea Respiratory: Respiratory: Denies cough and Denies dyspnea Gastrointestinal: Gastrointestinal: Denies abdominal pain, Denies constipation and Denies vomiting Genitourinary: Genitourinary: Denies difficulty urinating and Denies dysuria Neurologic: Denies headache(s) and Denies focal weakness Psychiatric: Psychiatric: Reports depression and Reports suicidal ideation Endocrine: Endocrine: Denies fatigue PMFSH Past Medical History Medical History (Updated 01/10/23 @ 20:47 by Arya Rush) Alcohol use disorder Cannabis use disorder HTN (hypertension) Major depression, recurrent Septic arthritis of elbow, right Social History Social History Household Members: None Housing: Homeless Housing Other:: staying w friend. looking for housing Do you presently have visiting nurse or other home services: No Alcohol intake: current Alcohol intake frequency: does not drink Alcohol type: beer Patient Tobacco Use Status: Never used Tobacco Smoked in Last 30 Days: No Use of substances other than those prescribed or required for medical reasons: No Substance Use Type: Marijuana Substance Use Frequency: Daily Last Used Substance: Hours (ago) Any prior treatment program specific to substance use: No Advance Directives: No Advance Directives Information Provided: No service: No Current occupational status: unemployed Sexual orientation: Straight/Heterosexual Physical Exam ED Vital Signs: Vital Signs - 24 hr 01/10/23 19:36 01/11/23 06:00 Temperature 98.2 F 98.2 F Pulse Rate 94 76 Respiratory Rate 18 16 Blood Pressure 136/90 H 136/106 H Pulse Oximetry 97 98 Oxygen Delivery Method Room Air Room Air BMI result Body Mass Index 28.1 Const General: healthy appearing, comfortable, no acute distress, alert and awake Nutritional Appearance: well nourished Orientation/consciousness: patient oriented x3 HENMT Head: Yes normocephalic and Yes atraumatic Eyes Eyelids: Yes eyelids normal Conjunctivae: conjunctivae normal Sclerae: sclerae normal Corneas: corneas normal Pupils: Equal, round and reactive pupils present EOM: EOMs intact bilaterally Neck Neck: Yes full ROM Resp Effort & Inspection: normal respiratory effort, able to speak in complete sentences and not labored GI Inspection: No distended Skin General skin exam: no rashes or lesions noted and elasticity normal Neuro General: patient oriented x3 Cranial nerves: Yes Equal, round and reactive pupils present and Yes Bilaterally intact EOM present Cognition (Neuro): normal cognition Extrem Other: Moving all extremities well without any obvious deformities Course Reevaluation(s) Reevaluation #1: The care team tried to evaluate the patient but he was unwilling to participate in exam. He will be re-evaluation in the morning. Time: 01:40 Reevaluation #2: Assumed care at 7 am. Performed medical reconcilliation. Medications Administered Generic Name Dose Route Start Last Admin Trade Name Freq PRN Reason Stop Dose Admin Buspirone HCl 15 mg 01/11/23 09:00 01/11/23 08:10 Buspirone Hcl 5 Mg Tablet PO 15 mg BID MURPHY Administration Clonazepam 0.5 mg 01/11/23 07:24 01/11/23 08:10 Clonazepam 0.5 Mg Tablet PO 0.5 mg BID PRN Administration anxiety Doxycycline Monohydrate 100 mg 01/11/23 08:00 01/11/23 08:11 Doxycycline Monohydrate 100 Mg Capsule PO 100 mg Q12H MURPHY Administration Duloxetine HCl 60 mg 01/11/23 09:00 01/11/23 08:11 Duloxetine Hcl 60 Mg Capsule.Dr PO 60 mg BID MURPHY Administration Lamotrigine 150 mg 01/11/23 09:00 01/11/23 08:11 Lamotrigine 100 Mg Tablet PO 150 mg DAILY MURPHY Administration Lisinopril 40 mg 01/11/23 09:00 01/11/23 08:11 Lisinopril 40 Mg Tablet PO 40 mg DAILY MURPHY Administration Protocol Naproxen 500 mg 01/11/23 09:00 01/11/23 08:10 Naproxen 500 Mg Tablet PO 500 mg BID MURPHY Administration Medical Decision Making Medical Decision Making MDM Narrative: Patient was just discharged from this facility and reports continued SI. He denies any addition no alcohol or drug abuse. He states that he has issues stemming from his ex- and is ?looking to get up stairs so that I can get the help that any. ? He will be referred to the care team Differential Diagnosis Depression Suicidal ideation Anxiety Substance abuse Lab Data Labs: Lab Results 01/10/23 01/10/23 01/10/23 Range/Units 20:05 20:05 20:05 Urine Color Yellow Urine Appearance Clear Urine pH 5.5 (5.0-9.0) Ur Specific [place] 1.020 (1.005-1.025) Urine Protein Negative (Neg-Trace) mg/dL Urine Glucose (UA) Negative (Negative) mg/dL Urine Ketones Negative (Negative) mg/dL Urine Blood Negative (Negative) Urine Nitrite Negative (Negative) Ur Leukocyte Esterase Negative (Negative) Urine Opiates Screen Not Detected (Not Detect) Urine Fentanyl Screen Not Detected (Not Detect) Ur Barbiturates Screen Not Detected (Not Detect) Ur Phencyclidine Scrn Not Detected (Not Detect) Ur Amphetamines Screen Not Detected (Not Detect) U Benzodiazepines Scrn Not Detected (Not Detect) Urine Cocaine Screen POSITIVE H (Not Detect) U Marijuana (THC) Screen POSITIVE H (Not Detect) COVID-19 (JONNIE) Negative (Negative) COVID-19 Clin Com See Note Discharge Plan Discharge Clinical Impression: Suicidal ideation Patient Disposition: Still a Patient Prescriptions: No Action clonazepam 0.5 mg tablet 0.5 mg PO BID PRN (Reason: anxiety) Qty: 60 0RF clonidine HCl 0.1 mg tablet 0.1 mg PO BID PRN (Reason: anxiety) trazodone 50 mg tablet 75 mg PO BEDTIME tizanidine 4 mg tablet 4 mg PO BID meloxicam 7.5 mg tablet 7.5 mg PO BID docusate sodium 100 mg capsule 100 mg PO DAILY PRN (Reason: constipation) lisinopril 40 mg tablet 40 mg PO DAILY buspirone 15 mg tablet 15 mg PO BID duloxetine 60 mg capsule,delayed release(DR/EC) 60 mg PO BID lamotrigine 150 mg tablet 150 mg PO DAILY doxycycline monohydrate 100 mg capsule 100 mg PO Q12H Interventions: [place]-Suicide Risk Severity Scale Last Done: 01/11/23 07:32
[2023-01-11 06:00] VITALS: BP 136/106; PULSE 76; RESP 16; TEMP 36.8; O2SAT 98
--- NOTE | 2023-01-11 06:15 | PC.NURSE ---
pt slept during the night. calm and coopertative
[2023-01-11] MEDS: NaPROXEN 500 MG TABLET PO ×2 (08:10→20:27)
[2023-01-11] MEDS: busPIRone HCl 5 MG TABLET 15 MG PO ×2 (08:10→20:27)
[2023-01-11] MEDS: clonazePAM 0.5 MG TABLET PO ×2 (08:10→20:30)
[2023-01-11] MEDS: lamoTRIgine 100 MG TABLET 150 MG PO (08:11)
[2023-01-11] MEDS: lisinopriL 40 MG TABLET PO (08:11)
[2023-01-11] MEDS: DULoxetine HCl 60 MG CAPSULE.DR PO ×2 (08:11→20:27)
[2023-01-11] MEDS: Doxycycline Monohydrate 100 MG CAPSULE PO ×2 (08:11→20:28)
--- NOTE | 2023-01-11 08:47 | ECG_ITS ---
Test Reason : CHECK FOR PROLONG QT Blood Pressure : / mmHG Vent. Rate : 070 BPM Atrial Rate : 070 BPM P-R Int : 132 ms QRS Dur : 094 ms QT Int : 408 ms P-R-T Axes : 020 021 025 degrees QTc Int : 440 ms Normal sinus rhythm Normal ECG When compared with ECG of 30-DEC-2022 08:50, No significant change was found Referred By: Galo Carlton Electronically Signed By:RAMLIA SOTO MD
--- NOTE | 2023-01-11 08:56 | MHC.CARE ---
patient seen by CARE team this morning, patient pending acceptance to inpatient psychiatric unit
--- NOTE | 2023-01-11 09:03 | PC.NURSE ---
Pt calm and cooperative, EKG obtained.
[2023-01-11] MEDS: TiZANidine HCL 4 MG TABLET PO ×2 (09:08→20:28)
[2023-01-11 12:30] VITALS: BP 145/94; PULSE 88; TEMP 37; O2SAT 97
--- NOTE | 2023-01-11 14:41 | PC.ADMIT ---
pt is a 47 year old male who presented to [facility] ED with SI with plan. pt reported that the stress with his ex- and children makes him feel depressed. pt has past medical history of inpatient hospitalizations, cellulitis, substance use disorder, cocaine use disorder, alcoholic use disorder, and depressive disorder. during admission, pt signed all legals and answered all questions. pt reports back pain and neck from surgery and herniated disk in his lumbar back. pt has a left elbow injury that was infected with sepsis in early December. pt would like it covered up, because he keeps on bumping it. pt reports that he think M5 can help him get back on track with his life. start treatment plan and promote safety.
[2023-01-11] MEDS: cloNIDine HCL 0.1 MG TABLET PO (15:41)
--- NOTE | 2023-01-11 19:48 | PC.NURSE ---
wound dressing to left elbow was put on 01/11/23 at 1630. wound is healed and closed. no drainage or swelling present. pt wanted protection from hitting the wound on objects.
[2023-01-12] MEDS: traZODone HCL 25 MG HALFTAB 75 MG PO ×2 (00:04→02:06)
[2023-01-12 08:00] VITALS: BP 127/86; PULSE 79; RESP 18; TEMP 36.4; O2SAT 99
[2023-01-12] MEDS: Doxycycline Monohydrate 100 MG CAPSULE PO ×2 (08:04→20:49)
[2023-01-12] MEDS: lamoTRIgine 100 MG TABLET 150 MG PO (08:04)
[2023-01-12] MEDS: busPIRone HCl 5 MG TABLET 15 MG PO ×2 (08:05→20:49)
[2023-01-12] MEDS: DULoxetine HCl 60 MG CAPSULE.DR PO ×2 (08:06→20:49)
[2023-01-12] MEDS: TiZANidine HCL 4 MG TABLET PO ×2 (08:06→20:49)
[2023-01-12] MEDS: lisinopriL 40 MG TABLET PO (08:06)
[2023-01-12] MEDS: NaPROXEN 500 MG TABLET PO ×2 (08:06→20:49)
[2023-01-12 14:55] VITALS: BP 174/111
[2023-01-12] MEDS: clonazePAM 0.5 MG TABLET PO ×2 (14:58→20:54)
[2023-01-12] MEDS: cloNIDine HCL 0.1 MG TABLET PO ×2 (14:58→20:54)
--- NOTE | 2023-01-12 17:24 | HO.PSYCHPN ---
Subjective Subjective Date of Service: 01/12/23 Reason For Visit: Suicidal ideation Subjective Notes: Conditional Voluntary Healthcare Proxy: No Guardianship: No Medical Problems Affecting Mental Status: No Interim History: Met with pt and Zaynab RANDLE. Discussed precipitants to readmission. Pt reports, after discharge, he returned to his home area, resolved court/restraining order issues and was informed that his son, who will graduate 01/16 had been engaging in adolescent behaviors without significant limit setting from his mom. Son told pt he did not want him to attend his graduation and he did not want to have an ongoing relationship with him moving forward. This news sent pt into crisis. He became suicidal and friends supported him returning for help vs making an attempt. Pt reviewed this and his feelings and approach to the situation. Medication Compliance: Yes Side effects from medications: No Attending Groups: Yes Review of Systems Acute medical concerns: No Medical Review of Systems: unchanged Mental Status Exam Mental Status Exam Patient Appearance: Appropriate Patient Orientation: Person, Place, Time and Situation Level of Consciousness: Alert Patient Behavior: Appropriate, Talkative, Cooperative and Good Eye Contact Mood Description: Depressed Affect Description: Flat Ability to Follow Directions: Good Speech Pattern: Spontaneous Speech Memory Description: Intact Hallucinations: None Delusions: Not Present Thought Process: Rumination Thought Content: positive for Intact and positive for Suicidal Ideation Depressive Symptoms: Crying Spells, Feelings of Worthlessness, Low Self Esteem and Difficulty Concentrating Judgement: Fair Diagnostics Vital Signs (24Hr): Vital Signs - 24 hr 01/12/23 08:00 01/12/23 14:55 Temperature 97.5 F Pulse Rate 79 Respiratory Rate 18 Blood Pressure 127/86 174/111 H Pulse Oximetry 99 Oxygen Delivery Method Room Air BMI result Body Mass Index 28.1 Labs Labs: Laboratory Results - last 48 hr 01/10/23 01/10/23 01/10/23 20:05 20:05 20:05 Urine Color Yellow Urine Appearance Clear Urine pH 5.5 Ur Specific [place] 1.020 Urine Protein Negative Urine Glucose (UA) Negative Urine Ketones Negative Urine Blood Negative Urine Nitrite Negative Ur Leukocyte Esterase Negative Urine Opiates Screen Not Detected Urine Fentanyl Screen Not Detected Ur Barbiturates Screen Not Detected Ur Phencyclidine Scrn Not Detected Ur Amphetamines Screen Not Detected U Benzodiazepines Scrn Not Detected Urine Cocaine Screen POSITIVE H U Marijuana (THC) Screen POSITIVE H COVID-19 (JONNIE) Negative COVID-19 Clin Com See Note Medications Medications Current Medications Acetaminophen (Acetaminophen 325 Mg Tablet) 650 mg PO Q6H PRN PRN Reason: Headache/Pain Mild Scale (1-3) Al Hydroxide/Mg Hydroxide (Magnesium Hydrox/Alum Hydrox 30 Ml Oral.Susp) 30 ml PO Q6H PRN PRN Reason: Heartburn/Nausea Buspirone HCl (Buspirone Hcl 5 Mg Tablet) 15 mg PO BID [facility] Last Admin: 01/12/23 08:05 Dose: 15 mg Clonazepam (Clonazepam 0.5 Mg Tablet) 0.5 mg PO BID PRN PRN Reason: anxiety Last Admin: 01/12/23 14:58 Dose: 0.5 mg Clonidine HCl (Clonidine Hcl 0.1 Mg Tablet) 0.1 mg PO BID PRN; Protocol PRN Reason: anxiety Last Admin: 01/12/23 14:58 Dose: 0.1 mg Docusate Sodium (Docusate Sodium 100 Mg Capsule) 100 mg PO DAILY PRN PRN Reason: constipation Doxycycline Monohydrate (Doxycycline Monohydrate 100 Mg Capsule) 100 mg PO Q12H [facility] Last Admin: 01/12/23 08:04 Dose: 100 mg Duloxetine HCl (Duloxetine Hcl 60 Mg Capsule.Dr) 60 mg PO BID [facility] Last Admin: 01/12/23 08:06 Dose: 60 mg Lamotrigine (Lamotrigine 100 Mg Tablet) 150 mg PO DAILY [facility] Last Admin: 01/12/23 08:04 Dose: 150 mg Lidocaine (Lidocaine 4 % Patch Adh..Patch) 2 patch TRANSDERMA DAILY [facility]; Protocol Lisinopril (Lisinopril 40 Mg Tablet) 40 mg PO DAILY [facility]; Protocol Last Admin: 01/12/23 08:06 Dose: 40 mg Magnesium Hydroxide (Milk Of Magnesia 30 Ml Oral.Susp) 30 ml PO DAILY PRN PRN Reason: Constipation Naproxen (Naproxen 500 Mg Tablet) 500 mg PO BID [facility] Last Admin: 01/12/23 08:06 Dose: 500 mg Tizanidine HCl (Tizanidine Hcl 4 Mg Tablet) 4 mg PO BID [facility] Last Admin: 01/12/23 08:06 Dose: 4 mg Trazodone HCl (Trazodone Hcl 25 Mg Halftab) 75 mg PO BEDTIME [facility] Last Admin: 01/12/23 02:06 Dose: 75 mg Trazodone HCl (Trazodone Hcl 50 Mg Tablet) 50 mg PO BEDTIME MRX1 PRN PRN Reason: Insomnia Allergies Allergies Allergy/AdvReac Type Severity Reaction Status Date / Time hydroxyzine [From Vistaril] Allergy Hives Verified 12/26/22 18:32 Assessment & Plan Assessment & Plan (1) Major depression, recurrent: Status: Acute Code(s): F33.9 - Major depressive disorder, recurrent, unspecified Informed Consent: understands Reason for continued inpatient stay Substantial Risk for: harm to self and rapid decompensation Time Spent With Patient Time: Total time managing care of this patient today ____ minutes.
[2023-01-12 18:00] VITALS: BP 155/92; PULSE 89; TEMP 36.2; O2SAT 97
--- NOTE | 2023-01-12 18:13 | HO.PSYADMNOT ---
HPI Date of Service: 01/12/23 Chief Complaint: Suicidal ideation Sources of Information: patient interviewed, chart reviewed and crisis/core team assessment reviewed HPI Subjective Notes: Conditional Voluntary Healthcare Proxy: No Guardianship: No Medical Problems Affecting Mental Status: No Narrative: 47 yo male, recent discharge from . Pt returned home after discharge, was able to straighten out his legal issues with and restraining order. While at home, he learned of some behaviors his son was engaging in which were adolescent and without parental limits. Son, who will graduate high school with an AD on 01/16 informed pt that he was not welcome at the graduation and he did not want to continue to have a relationship with him any longer which triggered pt to have SI with plan and intent. 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 Graduated high school 1990. Has worked in various jobs but is now disabled due to back and neck injuries. Dad when pt was 15, Mom in 2007. One brother whom he is estranged from. 28 years-, she found someone else . 3 children, 2 grandchildren Substance History: Toxicology + THC and Cocaine Trauma History: Affirms Diagnostics Vital Signs (24Hr): Vital Signs - 24 hr 01/12/23 08:00 01/12/23 14:55 Temperature 97.5 F Pulse Rate 79 Respiratory Rate 18 Blood Pressure 127/86 174/111 H Pulse Oximetry 99 Oxygen Delivery Method Room Air BMI result Body Mass Index 28.1 Labs 01/17/23 09:28 01/17/23 09:28 Labs: Laboratory Results - last 48 hr 01/10/23 01/10/23 01/10/23 20:05 20:05 20:05 Urine Color Yellow Urine Appearance Clear Urine pH 5.5 Ur Specific [place] 1.020 Urine Protein Negative Urine Glucose (UA) Negative Urine Ketones Negative Urine Blood Negative Urine Nitrite Negative Ur Leukocyte Esterase Negative Urine Opiates Screen Not Detected Urine Fentanyl Screen Not Detected Ur Barbiturates Screen Not Detected Ur Phencyclidine Scrn Not Detected Ur Amphetamines Screen Not Detected U Benzodiazepines Scrn Not Detected Urine Cocaine Screen POSITIVE H U Marijuana (THC) Screen POSITIVE H COVID-19 (JONNIE) Negative COVID-19 Clin Com See Note Meds/Allergies Meds Home Medications Medication Instructions Recorded Confirmed Type buspirone 15 mg tablet 15 mg PO BID 01/09/23 01/10/23 History clonidine HCl 0.1 mg tablet 0.1 mg PO BID PRN anxiety 01/09/23 01/10/23 History docusate sodium 100 mg capsule 100 mg PO DAILY PRN constipation 01/09/23 01/10/23 History duloxetine 60 mg capsule,delayed 60 mg PO BID 01/09/23 01/10/23 History release lisinopril 40 mg tablet 40 mg PO DAILY 01/09/23 01/10/23 History meloxicam 7.5 mg tablet 7.5 mg PO BID 01/09/23 01/10/23 History tizanidine 4 mg tablet 4 mg PO BID 01/09/23 01/10/23 History trazodone 50 mg tablet 75 mg PO BEDTIME 01/09/23 01/10/23 History doxycycline monohydrate 100 mg 100 mg PO Q12H 01/10/23 01/10/23 History capsule lamotrigine 150 mg tablet 150 mg PO DAILY 01/10/23 01/10/23 History Allergies Allergies Allergy/AdvReac Type Severity Reaction Status Date / Time hydroxyzine [From Vistaril] Allergy Hives Verified 12/26/22 18:32 Mental Status Exam Mental Status Exam Patient Appearance: Appropriate Patient Orientation: Person, Place, Time and Situation Level of Consciousness: Alert Patient Behavior: Appropriate, Talkative, Cooperative and Good Eye Contact Mood Description: Depressed Affect Description: Flat Patient Cognition Impaired: No Ability to Follow Directions: Good Speech Pattern: Spontaneous Speech Memory Description: Intact Hallucinations: None Delusions: Not Present Perceptual Disturbances: Depersonalization Thought Process: Rumination Thought Content: positive for Circumstantial and positive for Suicidal Ideation Depressive Symptoms: Crying Spells, Unhappiness, Thoughts of /Suicide and Low Self Esteem Judgement: Fair Assessment & Plan Assessment & Plan (1) Suicidal ideation: Status: Acute Code(s): R45.851 - Suicidal ideations (2) Cannabis use disorder: Status: Acute Code(s): F12.90 - Cannabis use, unspecified, uncomplicated (3) Alcohol use disorder: Status: Acute Code(s): F10.90 - Alcohol use, unspecified, uncomplicated (4) Major depression, recurrent: Status: Acute Code(s): F33.9 - Major depressive disorder, recurrent, unspecified Plan 47 yo male, recent discharge, readmit for SI with plan, substance use due to his son telling him he was not welcome at his graduation and he no longer wanted a relationship with him. Plan: Increase Buspar to 15 mg tid Consider PHP referral for ongoing therapy to continue to work with loss of marriage and estrangement of son. Patient educated on: therapeutic strategies Informed Consent: understands Reason for continued inpatient stay Substantial Risk for: harm to self and rapid decompensation Statement Statement: I have reviewed the history and physical and performed a pertinent examination on my patient. No changes have occurred unless specified. If the History and Physical was not performed prior to admission, the Hospitalist's service will be consulted for completing the admission physical. Time Spent With Patient Time: Total time managing care of this patient today ____ minutes.
[2023-01-13] MEDS: traZODone HCL 50 MG TABLET PO (00:41)
[2023-01-13] MEDS: traZODone HCL 25 MG HALFTAB 75 MG PO (00:41)
[2023-01-13] MEDS: lamoTRIgine 100 MG TABLET 150 MG PO (08:29)
[2023-01-13] MEDS: NaPROXEN 500 MG TABLET PO ×2 (08:31→20:35)
[2023-01-13] MEDS: DULoxetine HCl 60 MG CAPSULE.DR PO ×2 (08:31→20:36)
[2023-01-13] MEDS: lisinopriL 40 MG TABLET PO (08:31)
[2023-01-13] MEDS: busPIRone HCl 5 MG TABLET 15 MG PO ×3 (08:31→20:35)
[2023-01-13] MEDS: TiZANidine HCL 4 MG TABLET PO ×2 (08:32→20:36)
[2023-01-13] MEDS: Doxycycline Monohydrate 100 MG CAPSULE PO ×2 (08:32→20:36)
[2023-01-13 08:35] VITALS: BP 124/86; PULSE 81; RESP 18; TEMP 36.1; O2SAT 99
--- NOTE | 2023-01-13 15:33 | P.PNPSI_ITS ---
Subjective Subjective Date of Service: 01/13/23 Reason For Visit: Suicidal ideation Subjective Notes: Conditional Voluntary Healthcare Proxy: No Guardianship: No Medical Problems Affecting Mental Status: No Interim History: Phu processed his concerns about his son and their change in relationship status, the pain he experienced when his son told him he no longer wanted a relationship with him and did not want him to attend his graduation. Reviewed his concerns with the differences in parenting between he and his and the activities his son is currently engaging in and potential consequences. Discussed how this led to suicidality as he worries there are several potential life long consequences for his son that if they occur will change his life forever. Discussed having some resources to refer to if these occur. Discussed developing a resource list for increased support and education when issues arise. Medication Compliance: Yes Side effects from medications: No Attending Groups: Yes Review of Systems Acute medical concerns: No Medical Review of Systems: unchanged Mental Status Exam Mental Status Exam Patient Appearance: Appropriate Patient Orientation: Person, Place, Time and Situation Level of Consciousness: Alert Patient Behavior: Appropriate, Talkative, Cooperative and Good Eye Contact Mood Description: Depressed Affect Description: Flat Patient Cognition Impaired: No Ability to Follow Directions: Good Speech Pattern: Spontaneous Speech Memory Description: Intact Hallucinations: None Delusions: Not Present Perceptual Disturbances: Depersonalization Thought Process: Rumination Thought Content: positive for Circumstantial and positive for Suicidal Ideation Depressive Symptoms: Crying Spells, Unhappiness, Thoughts of /Suicide and Low Self Esteem Judgement: Fair Diagnostics Vital Signs (24Hr): Vital Signs - 24 hr 01/12/23 18:00 01/13/23 08:35 Temperature 97.1 F 97.0 F Pulse Rate 89 81 Respiratory Rate 18 Blood Pressure 155/92 H 124/86 Pulse Oximetry 97 99 Oxygen Delivery Method Room Air Room Air BMI result Body Mass Index 28.1 Medications Medications Current Medications Acetaminophen (Acetaminophen 325 Mg Tablet) 650 mg PO Q6H PRN PRN Reason: Headache/Pain Mild Scale (1-3) Al Hydroxide/Mg Hydroxide (Magnesium Hydrox/Alum Hydrox 30 Ml Oral.Susp) 30 ml PO Q6H PRN PRN Reason: Heartburn/Nausea Buspirone HCl (Buspirone Hcl 5 Mg Tablet) 15 mg PO TID [facility] Last Admin: 01/13/23 15:06 Dose: 15 mg Clonazepam (Clonazepam 0.5 Mg Tablet) 0.5 mg PO BID PRN PRN Reason: anxiety Last Admin: 01/12/23 20:54 Dose: 0.5 mg Clonidine HCl (Clonidine Hcl 0.1 Mg Tablet) 0.1 mg PO BID PRN; Protocol PRN Reason: anxiety Last Admin: 01/12/23 20:54 Dose: 0.1 mg Docusate Sodium (Docusate Sodium 100 Mg Capsule) 100 mg PO DAILY PRN PRN Reason: constipation Doxycycline Monohydrate (Doxycycline Monohydrate 100 Mg Capsule) 100 mg PO Q12H [facility] Last Admin: 01/13/23 08:32 Dose: 100 mg Duloxetine HCl (Duloxetine Hcl 60 Mg Capsule.Dr) 60 mg PO BID [facility] Last Admin: 01/13/23 08:31 Dose: 60 mg Lamotrigine (Lamotrigine 100 Mg Tablet) 150 mg PO DAILY [facility] Last Admin: 01/13/23 08:29 Dose: 150 mg Lidocaine (Lidocaine 4 % Patch Adh..Patch) 2 patch TRANSDERMA DAILY [facility]; Protocol Lisinopril (Lisinopril 40 Mg Tablet) 40 mg PO DAILY [facility]; Protocol Last Admin: 01/13/23 08:31 Dose: 40 mg Magnesium Hydroxide (Milk Of Magnesia 30 Ml Oral.Susp) 30 ml PO DAILY PRN PRN Reason: Constipation Naproxen (Naproxen 500 Mg Tablet) 500 mg PO BID [facility] Last Admin: 01/13/23 08:31 Dose: 500 mg Tizanidine HCl (Tizanidine Hcl 4 Mg Tablet) 4 mg PO BID [facility] Last Admin: 01/13/23 08:32 Dose: 4 mg Trazodone HCl (Trazodone Hcl 25 Mg Halftab) 75 mg PO BEDTIME [facility] Last Admin: 01/13/23 00:41 Dose: 75 mg Trazodone HCl (Trazodone Hcl 50 Mg Tablet) 50 mg PO BEDTIME MRX1 PRN PRN Reason: Insomnia Last Admin: 01/13/23 00:41 Dose: 50 mg Allergies Allergies Allergy/AdvReac Type Severity Reaction Status Date / Time hydroxyzine [From Vistaril] Allergy Hives Verified 12/26/22 18:32 Assessment & Plan Assessment & Plan (1) Suicidal ideation: Status: Acute Code(s): R45.851 - Suicidal ideations (2) Cannabis use disorder: Status: Acute Code(s): F12.90 - Cannabis use, unspecified, uncomplicated (3) Alcohol use disorder: Status: Acute Code(s): F10.90 - Alcohol use, unspecified, uncomplicated (4) Major depression, recurrent: Status: Acute Code(s): F33.9 - Major depressive disorder, recurrent, unspecified Plan 47 yo male, recent discharge, readmit for SI with plan, substance use due to his son telling him he was not welcome at his graduation and he no longer wanted a relationship with him. Plan: Increase Buspar to 15 mg tid Consider PHP referral for ongoing therapy to continue to work with loss of marriage and estrangement of son. 01/13/23 Increase Trazodone to 150 mg hs, will use 75 mg standing and prn as needed tonight. Patient educated on: medication risk/benefits and therapeutic strategies Informed Consent: understands Reason for continued inpatient stay Substantial Risk for: rapid decompensation Time Spent With Patient Time: Total time managing care of this patient today ____ minutes.
[2023-01-13] MEDS: Lidocaine 4 % Patch ADH..PATCH 2 PATCH TRANSDERMA (17:16)
[2023-01-13 20:35] VITALS: BP 156/99; PULSE 83; TEMP 36.4
[2023-01-13] MEDS: clonazePAM 0.5 MG TABLET PO (20:36)
[2023-01-13] MEDS: cloNIDine HCL 0.1 MG TABLET PO (20:36)
[2023-01-14] MEDS: traZODone HCL 25 MG HALFTAB 75 MG PO (00:33)
[2023-01-14] MEDS: traZODone HCL 50 MG TABLET PO (00:39)
[2023-01-14 07:00] VITALS: BMI 28.8
[2023-01-14 08:00] VITALS: BP 118/79; PULSE 95; RESP 18; TEMP 36.4; O2SAT 100
[2023-01-14] MEDS: NaPROXEN 500 MG TABLET PO ×2 (08:00→19:53)
[2023-01-14] MEDS: lamoTRIgine 100 MG TABLET 150 MG PO (08:00)
[2023-01-14] MEDS: DULoxetine HCl 60 MG CAPSULE.DR PO ×2 (08:00→19:53)
[2023-01-14] MEDS: lisinopriL 40 MG TABLET PO (08:01)
[2023-01-14] MEDS: busPIRone HCl 5 MG TABLET 15 MG PO ×3 (08:01→19:52)
[2023-01-14] MEDS: TiZANidine HCL 4 MG TABLET PO ×2 (08:02→19:54)
[2023-01-14] MEDS: Doxycycline Monohydrate 100 MG CAPSULE PO ×2 (08:02→19:52)
[2023-01-14] MEDS: Lidocaine 4 % Patch ADH..PATCH 2 PATCH TRANSDERMA (11:38)
--- NOTE | 2023-01-14 16:00 | P.PNPSI_ITS ---
Subjective Subjective Date of Service: 01/14/23 Reason For Visit: Suicidal ideation Subjective Notes: Conditional Voluntary Healthcare Proxy: No Guardianship: No Medical Problems Affecting Mental Status: No Interim History: A difficult time for pt as son's graduation is 01/16/23. Working in milieu and on coping. Sleep is an issue. Trazodone increase to 150 mg hs with prn Identification of parenting resources pt may use upon discharge (on his discharge sheet) Medication Compliance: Yes Side effects from medications: No Attending Groups: Yes Review of Systems Acute medical concerns: No Medical Review of Systems: unchanged Mental Status Exam Mental Status Exam Patient Appearance: Appropriate Patient Orientation: Person, Place, Time and Situation Level of Consciousness: Alert Patient Behavior: Appropriate, Talkative, Cooperative and Good Eye Contact Mood Description: Depressed Affect Description: Flat Patient Cognition Impaired: No Ability to Follow Directions: Good Speech Pattern: Spontaneous Speech Memory Description: Intact Hallucinations: None Delusions: Not Present Perceptual Disturbances: Depersonalization Thought Process: Rumination Thought Content: positive for Circumstantial and positive for Suicidal Ideation Depressive Symptoms: Crying Spells, Unhappiness, Thoughts of /Suicide and Low Self Esteem Judgement: Fair Diagnostics Vital Signs (24Hr): Vital Signs - 24 hr 01/13/23 20:35 01/14/23 08:00 Temperature 97.6 F 97.5 F Pulse Rate 83 95 Respiratory Rate 18 Blood Pressure 156/99 H 118/79 Pulse Oximetry 100 Oxygen Delivery Method Room Air BMI result Body Mass Index 28.8 Medications Medications Current Medications Acetaminophen (Acetaminophen 325 Mg Tablet) 650 mg PO Q6H PRN PRN Reason: Headache/Pain Mild Scale (1-3) Al Hydroxide/Mg Hydroxide (Magnesium Hydrox/Alum Hydrox 30 Ml Oral.Susp) 30 ml PO Q6H PRN PRN Reason: Heartburn/Nausea Buspirone HCl (Buspirone Hcl 5 Mg Tablet) 15 mg PO TID [facility] Last Admin: 01/14/23 14:11 Dose: 15 mg Clonazepam (Clonazepam 0.5 Mg Tablet) 0.5 mg PO BID PRN PRN Reason: anxiety Last Admin: 01/13/23 20:36 Dose: 0.5 mg Clonidine HCl (Clonidine Hcl 0.1 Mg Tablet) 0.1 mg PO BID PRN; Protocol PRN Reason: anxiety Last Admin: 01/13/23 20:36 Dose: 0.1 mg Docusate Sodium (Docusate Sodium 100 Mg Capsule) 100 mg PO DAILY PRN PRN Reason: constipation Doxycycline Monohydrate (Doxycycline Monohydrate 100 Mg Capsule) 100 mg PO Q12H [facility] Last Admin: 01/14/23 08:02 Dose: 100 mg Duloxetine HCl (Duloxetine Hcl 60 Mg Capsule.Dr) 60 mg PO BID [facility] Last Admin: 01/14/23 08:00 Dose: 60 mg Lamotrigine (Lamotrigine 100 Mg Tablet) 150 mg PO DAILY [facility] Last Admin: 01/14/23 08:00 Dose: 150 mg Lidocaine (Lidocaine 4 % Patch Adh..Patch) 2 patch TRANSDERMA DAILY [facility]; Protocol Last Admin: 01/14/23 11:38 Dose: 1 patch Lisinopril (Lisinopril 40 Mg Tablet) 40 mg PO DAILY [facility]; Protocol Last Admin: 01/14/23 08:01 Dose: 40 mg Magnesium Hydroxide (Milk Of Magnesia 30 Ml Oral.Susp) 30 ml PO DAILY PRN PRN Reason: Constipation Naproxen (Naproxen 500 Mg Tablet) 500 mg PO BID [facility] Last Admin: 01/14/23 08:00 Dose: 500 mg Tizanidine HCl (Tizanidine Hcl 4 Mg Tablet) 4 mg PO BID [facility] Last Admin: 01/14/23 08:02 Dose: 4 mg Topiramate (Topiramate 25 Mg Tablet) 25 mg PO BID [facility] Trazodone HCl (Trazodone Hcl 50 Mg Tablet) 50 mg PO BEDTIME MRX1 PRN PRN Reason: Insomnia Last Admin: 01/14/23 00:39 Dose: 50 mg Trazodone HCl (Trazodone Hcl 50 Mg Tablet) 150 mg PO BEDTIME [facility] Allergies Allergies Allergy/AdvReac Type Severity Reaction Status Date / Time hydroxyzine [From Vistaril] Allergy Hives Verified 12/26/22 18:32 Assessment & Plan Assessment & Plan (1) Suicidal ideation: Status: Acute Code(s): R45.851 - Suicidal ideations (2) Cannabis use disorder: Status: Acute Code(s): F12.90 - Cannabis use, unspecified, uncomplicated (3) Alcohol use disorder: Status: Acute Code(s): F10.90 - Alcohol use, unspecified, uncomplicated (4) Major depression, recurrent: Status: Acute Code(s): F33.9 - Major depressive disorder, recurrent, unspecified Plan 47 yo male, recent discharge, readmit for SI with plan, substance use due to his son telling him he was not welcome at his graduation and he no longer wanted a relationship with him. Plan: Increase Buspar to 15 mg tid Consider PHP referral for ongoing therapy to continue to work with loss of marriage and estrangement of son. 01/13/23 Increase Trazodone to 150 mg hs, will use 75 mg standing and prn as needed tonight. 01/14/23: Continue current regime Patient educated on: medication risk/benefits and therapeutic strategies Informed Consent: understands Reason for continued inpatient stay Substantial Risk for: harm to self and rapid decompensation Time Spent With Patient Time: Total time managing care of this patient today ____ minutes.
[2023-01-14] MEDS: cloNIDine HCL 0.1 MG TABLET PO (16:23)
[2023-01-14] MEDS: clonazePAM 0.5 MG TABLET PO (16:23)
[2023-01-14 16:28] VITALS: BP 116/85; PULSE 84; RESP 16; TEMP 36.4; O2SAT 99
[2023-01-14] MEDS: Topiramate 25 MG TABLET PO (19:52)
[2023-01-15] MEDS: traZODone HCL 50 MG TABLET 150 MG PO (00:05)
[2023-01-15] MEDS: DULoxetine HCl 60 MG CAPSULE.DR PO ×2 (08:17→20:20)
[2023-01-15] MEDS: busPIRone HCl 5 MG TABLET 15 MG PO ×3 (08:17→20:20)
[2023-01-15] MEDS: TiZANidine HCL 4 MG TABLET PO ×2 (08:17→20:20)
[2023-01-15] MEDS: lisinopriL 40 MG TABLET PO (08:18)
[2023-01-15] MEDS: lamoTRIgine 100 MG TABLET 150 MG PO (08:18)
[2023-01-15 08:19] LABS: Estimated Average Glucose 100 mg/dL; Hemoglobin A1c % 5.1 %
[2023-01-15] MEDS: Doxycycline Monohydrate 100 MG CAPSULE PO ×2 (08:19→20:20)
[2023-01-15] MEDS: Topiramate 25 MG TABLET PO ×2 (08:19→20:19)
[2023-01-15] MEDS: NaPROXEN 500 MG TABLET PO ×2 (08:19→20:19)
[2023-01-15 08:22] VITALS: BP 132/76; PULSE 91; RESP 18; TEMP 36.4; O2SAT 97
[2023-01-15 08:27] LABS: Iron 41 mcg/dL (45-160); Percent Iron Saturation 16 % (15-50); Total Iron Binding Capacity 252 mcg/dL (228-428); Unsaturated Iron Binding 211 ug/dL
[2023-01-15 08:56] LABS: Folate 5.4 ng/mL (> or = 4.0); Thyroid Stimulating Hormone 0.68 uIU/mL (0.32-4.0); Vitamin B12 236 pg/mL (200-900)
--- NOTE | 2023-01-15 10:04 | P.PNPSI_ITS ---
Subjective Subjective Date of Service: 01/15/23 Reason For Visit: Suicidal ideation Interim History: met with patient; discussed with team Patient says he is feeling little better and that he slept well last night with trazodone. Intermittently tearful when talking about relationship with his son however patient is trying to get perspective and not be in such emotional term albert and his sons bad behavior. No SI Mental Status Exam Mental Status Exam Patient Appearance: Appropriate Patient Orientation: Person, Place, Time and Situation Level of Consciousness: Alert Patient Behavior: Appropriate, Talkative, Cooperative and Good Eye Contact Mood Description: Depressed Affect Description: Constricted Patient Cognition Impaired: No Ability to Follow Directions: Good Speech Pattern: Spontaneous Speech Memory Description: Intact Hallucinations: None Delusions: Not Present Thought Process: Rumination Thought Content: positive for Intact (no SI/HI) and positive for Circumstantial Depressive Symptoms: Crying Spells, Unhappiness and Low Self Esteem Judgement: Fair Diagnostics Vital Signs (24Hr): Vital Signs - 24 hr 01/14/23 16:28 01/15/23 08:22 Temperature 97.5 F 97.5 F Pulse Rate 84 91 Respiratory Rate 16 18 Blood Pressure 116/85 132/76 Pulse Oximetry 99 97 Oxygen Delivery Method Room Air Room Air BMI result Body Mass Index 28.8 Labs Labs: Laboratory Results - last 48 hr 01/15/23 01/15/23 07:42 07:42 Estimat Average Glucose 100 Hemoglobin A1c % 5.1 Iron 41 L TIBC 252 % Saturation 16 Unsat Iron Binding 211 Vitamin B12 236 Folate 5.4 TSH 0.68 Medications Medications Current Medications Acetaminophen (Acetaminophen 325 Mg Tablet) 650 mg PO Q6H PRN PRN Reason: Headache/Pain Mild Scale (1-3) Al Hydroxide/Mg Hydroxide (Magnesium Hydrox/Alum Hydrox 30 Ml Oral.Susp) 30 ml PO Q6H PRN PRN Reason: Heartburn/Nausea Buspirone HCl (Buspirone Hcl 5 Mg Tablet) 15 mg PO TID [facility] Last Admin: 01/15/23 08:17 Dose: 15 mg Clonazepam (Clonazepam 0.5 Mg Tablet) 0.5 mg PO BID PRN PRN Reason: anxiety Last Admin: 01/14/23 16:23 Dose: 0.5 mg Clonidine HCl (Clonidine Hcl 0.1 Mg Tablet) 0.1 mg PO BID PRN; Protocol PRN Reason: anxiety Last Admin: 01/14/23 16:23 Dose: 0.1 mg Docusate Sodium (Docusate Sodium 100 Mg Capsule) 100 mg PO DAILY PRN PRN Reason: constipation Doxycycline Monohydrate (Doxycycline Monohydrate 100 Mg Capsule) 100 mg PO Q12H [facility] Last Admin: 01/15/23 08:19 Dose: 100 mg Duloxetine HCl (Duloxetine Hcl 60 Mg Capsule.Dr) 60 mg PO BID [facility] Last Admin: 01/15/23 08:17 Dose: 60 mg Lamotrigine (Lamotrigine 100 Mg Tablet) 150 mg PO DAILY [facility] Last Admin: 01/15/23 08:18 Dose: 150 mg Lidocaine (Lidocaine 4 % Patch Adh..Patch) 2 patch TRANSDERMA DAILY [facility]; Protocol Last Admin: 01/15/23 08:23 Dose: Not Given Lisinopril (Lisinopril 40 Mg Tablet) 40 mg PO DAILY [facility]; Protocol Last Admin: 01/15/23 08:18 Dose: 40 mg Magnesium Hydroxide (Milk Of Magnesia 30 Ml Oral.Susp) 30 ml PO DAILY PRN PRN Reason: Constipation Naproxen (Naproxen 500 Mg Tablet) 500 mg PO BID [facility] Last Admin: 01/15/23 08:19 Dose: 500 mg Tizanidine HCl (Tizanidine Hcl 4 Mg Tablet) 4 mg PO BID [facility] Last Admin: 01/15/23 08:17 Dose: 4 mg Topiramate (Topiramate 25 Mg Tablet) 25 mg PO BID [facility] Last Admin: 01/15/23 08:19 Dose: 25 mg Trazodone HCl (Trazodone Hcl 50 Mg Tablet) 50 mg PO BEDTIME MRX1 PRN PRN Reason: Insomnia Last Admin: 01/14/23 00:39 Dose: 50 mg Trazodone HCl (Trazodone Hcl 50 Mg Tablet) 150 mg PO BEDTIME [facility] Last Admin: 01/15/23 00:05 Dose: 150 mg Allergies Allergies Allergy/AdvReac Type Severity Reaction Status Date / Time hydroxyzine [From Vistaril] Allergy Hives Verified 12/26/22 18:32 Assessment & Plan Assessment & Plan (1) Suicidal ideation: Status: Acute Code(s): R45.851 - Suicidal ideations (2) Cannabis use disorder: Status: Acute Code(s): F12.90 - Cannabis use, unspecified, uncomplicated (3) Alcohol use disorder: Status: Acute Code(s): F10.90 - Alcohol use, unspecified, uncomplicated (4) Major depression, recurrent: Status: Acute Code(s): F33.9 - Major depressive disorder, recurrent, unspecified Plan 47 yo male, recent discharge, readmit for SI with plan, substance use due to his son telling him he was not welcome at his graduation and he no longer wanted a relationship with him. Plan: Increase Buspar to 15 mg tid Consider [facility] referral for ongoing therapy to continue to work with loss of marriage and estrangement of son. 01/13/23 Increase Trazodone to 150 mg hs, will use 75 mg standing and prn as needed tonight. 01/14/23: Continue current regime 01/15/23: pt stabilizing; Continue current regime Patient educated on: diagnosis, medication risk/benefits and therapeutic strategies Informed Consent: understands Reason for continued inpatient stay Substantial Risk for: rapid decompensation Time Spent With Patient Time: Total time managing care of this patient today ____ minutes.
[2023-01-15] MEDS: clonazePAM 0.5 MG TABLET PO ×2 (15:40→20:20)
[2023-01-15] MEDS: cloNIDine HCL 0.1 MG TABLET PO ×2 (15:40→20:20)
[2023-01-15 19:35] VITALS: BP 130/86; PULSE 85; TEMP 36.1; O2SAT 99
[2023-01-16] MEDS: traZODone HCL 50 MG TABLET 150 MG PO (00:42)
[2023-01-16] MEDS: NaPROXEN 500 MG TABLET PO ×2 (08:30→19:47)
[2023-01-16] MEDS: busPIRone HCl 5 MG TABLET 15 MG PO ×3 (08:31→19:46)
[2023-01-16] MEDS: lamoTRIgine 100 MG TABLET 150 MG PO (08:31)
[2023-01-16] MEDS: Doxycycline Monohydrate 100 MG CAPSULE PO ×2 (08:31→19:46)
[2023-01-16] MEDS: lisinopriL 40 MG TABLET PO (08:31)
[2023-01-16] MEDS: Topiramate 25 MG TABLET PO ×2 (08:31→19:48)
[2023-01-16] MEDS: DULoxetine HCl 60 MG CAPSULE.DR PO ×2 (08:32→19:46)
[2023-01-16] MEDS: TiZANidine HCL 4 MG TABLET PO ×2 (08:32→19:48)
[2023-01-16 09:12] VITALS: BP 112/76; PULSE 76; RESP 18; TEMP 36.2; O2SAT 100
[2023-01-16] MEDS: clonazePAM 0.5 MG TABLET PO ×2 (14:54→20:03)
[2023-01-16] MEDS: cloNIDine HCL 0.1 MG TABLET PO ×2 (15:02→20:04)
--- NOTE | 2023-01-16 15:46 | HO.PSYCHPN ---
Subjective Subjective Date of Service: 01/16/23 Reason For Visit: Suicidal ideation Subjective Notes: Conditional Voluntary Interim History: met with patient;Patient says he is feeling little better and that he slept well last night with trazodone. Pt irritable about another patient on unit who is loud; pt needing encouragement to use coping skills and take breaks from milieu if needed. No SI Medication Compliance: Yes Side effects from medications: No Attending Groups: Yes Review of Systems Acute medical concerns: No Medical Review of Systems: unchanged Review of Systems Constitutional: Reports as per HPI, Denies chills, Denies fatigue, Denies fever(s) and Denies headache(s) Denies headache(s) Cardiovascular: Denies chest pain and Denies dyspnea Respiratory: Denies cough and Denies dyspnea Gastrointestinal: Denies abdominal pain, Denies constipation and Denies vomiting Genitourinary: Denies difficulty urinating and Denies dysuria Reports behavioral changes, Denies headache(s) and Denies focal weakness Psychiatric: Reports anxiety, Reports behavioral changes, Reports depression, Reports hopelessness, Reports anhedonia and Reports suicidal ideation Endocrine: Denies fatigue Mental Status Exam Mental Status Exam Patient Appearance: Appropriate Patient Orientation: Person, Place, Time and Situation Level of Consciousness: Alert Patient Behavior: Appropriate, Talkative, Cooperative and Good Eye Contact Mood Description: Depressed Affect Description: Constricted Patient Cognition Impaired: No Ability to Follow Directions: Good Speech Pattern: Spontaneous Speech Memory Description: Intact Hallucinations: None Delusions: Not Present Thought Process: Intact Thought Content: positive for Intact Depressive Symptoms: Increased Anxiety, Diff. Making Decisions, Increased Irritability, Loss of Int. in Activity, Feelings of Worthlessness, Loss of Energy and Difficulty Concentrating Judgement: Fair Diagnostics Vital Signs (24Hr): Vital Signs - 24 hr 01/15/23 19:35 01/16/23 09:12 Temperature 97 F 97.2 F Pulse Rate 85 76 Respiratory Rate 18 Blood Pressure 130/86 112/76 Pulse Oximetry 99 100 Oxygen Delivery Method Room Air Room Air BMI result Body Mass Index 28.8 Labs Labs: Laboratory Results - last 48 hr 01/15/23 01/15/23 07:42 07:42 Estimat Average Glucose 100 Hemoglobin A1c % 5.1 Iron 41 L TIBC 252 % Saturation 16 Unsat Iron Binding 211 Vitamin B12 236 Folate 5.4 TSH 0.68 Medications Medications Current Medications Acetaminophen (Acetaminophen 325 Mg Tablet) 650 mg PO Q6H PRN PRN Reason: Headache/Pain Mild Scale (1-3) Al Hydroxide/Mg Hydroxide (Magnesium Hydrox/Alum Hydrox 30 Ml Oral.Susp) 30 ml PO Q6H PRN PRN Reason: Heartburn/Nausea Buspirone HCl (Buspirone Hcl 5 Mg Tablet) 15 mg PO TID [facility] Last Admin: 01/16/23 14:54 Dose: 15 mg Clonazepam (Clonazepam 0.5 Mg Tablet) 0.5 mg PO BID PRN PRN Reason: Anxiety Last Admin: 01/16/23 14:54 Dose: 0.5 mg Clonidine HCl (Clonidine Hcl 0.1 Mg Tablet) 0.1 mg PO BID PRN; Protocol PRN Reason: anxiety Last Admin: 01/16/23 15:02 Dose: 0.1 mg Docusate Sodium (Docusate Sodium 100 Mg Capsule) 100 mg PO DAILY PRN PRN Reason: constipation Doxycycline Monohydrate (Doxycycline Monohydrate 100 Mg Capsule) 100 mg PO Q12H [facility] Last Admin: 01/16/23 08:31 Dose: 100 mg Duloxetine HCl (Duloxetine Hcl 60 Mg Capsule.Dr) 60 mg PO BID [facility] Last Admin: 01/16/23 08:32 Dose: 60 mg Lamotrigine (Lamotrigine 100 Mg Tablet) 150 mg PO DAILY [facility] Last Admin: 01/16/23 08:31 Dose: 150 mg Lidocaine (Lidocaine 4 % Patch Adh..Patch) 2 patch TRANSDERMA DAILY [facility]; Protocol Last Admin: 01/16/23 08:33 Dose: Not Given Lisinopril (Lisinopril 40 Mg Tablet) 40 mg PO DAILY [facility]; Protocol Last Admin: 01/16/23 08:31 Dose: 40 mg Magnesium Hydroxide (Milk Of Magnesia 30 Ml Oral.Susp) 30 ml PO DAILY PRN PRN Reason: Constipation Naproxen (Naproxen 500 Mg Tablet) 500 mg PO BID [facility] Last Admin: 01/16/23 08:30 Dose: 500 mg Tizanidine HCl (Tizanidine Hcl 4 Mg Tablet) 4 mg PO BID [facility] Last Admin: 01/16/23 08:32 Dose: 4 mg Topiramate (Topiramate 25 Mg Tablet) 25 mg PO BID [facility] Last Admin: 01/16/23 08:31 Dose: 25 mg Trazodone HCl (Trazodone Hcl 50 Mg Tablet) 50 mg PO BEDTIME MRX1 PRN PRN Reason: Insomnia Last Admin: 01/14/23 00:39 Dose: 50 mg Trazodone HCl (Trazodone Hcl 50 Mg Tablet) 150 mg PO BEDTIME [facility] Last Admin: 01/16/23 00:42 Dose: 150 mg Allergies Allergies Allergy/AdvReac Type Severity Reaction Status Date / Time hydroxyzine [From Vistaril] Allergy Hives Verified 12/26/22 18:32 Assessment & Plan Assessment & Plan (1) Suicidal ideation: Status: Acute Code(s): R45.851 - Suicidal ideations (2) Cannabis use disorder: Status: Acute Code(s): F12.90 - Cannabis use, unspecified, uncomplicated (3) Alcohol use disorder: Status: Acute Code(s): F10.90 - Alcohol use, unspecified, uncomplicated (4) Major depression, recurrent: Status: Acute Code(s): F33.9 - Major depressive disorder, recurrent, unspecified Plan 47 yo male, recent discharge, readmit for SI with plan, substance use due to his son telling him he was not welcome at his graduation and he no longer wanted a relationship with him. Plan: Increase Buspar to 15 mg tid Consider [facility] referral for ongoing therapy to continue to work with loss of marriage and estrangement of son. 01/13/23 Increase Trazodone to 150 mg hs, will use 75 mg standing and prn as needed tonight. 01/14/23: Continue current regime 01/15/23: pt stabilizing; Continue current regime 01/16/23 continue current treatment plan Patient educated on: medication risk/benefits and therapeutic strategies Informed Consent: understands and further education needed Reason for continued inpatient stay Substantial Risk for: harm to self, inability to function and rapid decompensation Time Spent With Patient Time: Total time managing care of this patient today ___15_ minutes.
[2023-01-16 18:00] VITALS: BP 95/59; PULSE 86; RESP 16; TEMP 36.4; O2SAT 98
[2023-01-17] VITALS (7 sets, daily range): BP systolic 72–117; BP diastolic 42–61; PULSE 83–85; RESP 16–18; TEMP 36.6; O2SAT 96–98
[2023-01-17] MEDS: traZODone HCL 50 MG TABLET 150 MG PO (00:42)
--- NOTE | 2023-01-17 08:40 | PC.NURSE ---
Patient wake around 07:00 and was very sedated. BP was obtained X3. 78/47, 73/49 & 72/42 manual. orthostatic 72/42 & 82/52. Notified clinical coordinator and covering [employer]. Suspect that he may have taken outside substances due to swaying, nodding off and low bp's.
[2023-01-17 09:23] LABS: Glucose, Whole Blood 235 mg/dL (60-115)
[2023-01-17 09:33] LABS: MANUAL DIFF FLAG NO
[2023-01-17 09:36] LABS: Basophils Absolute Auto 0.1 X10*3/uL (0.0-0.2); Basophils Percent Auto 0.9 % (0-2); Eosinophils Absolute Auto 0.2 X10*3/uL (0.0-0.4); Hemoglobin 11.7 g/dl (14.0-18.0); Imm Gran Abs Auto 0.01 X10*3/uL (0.00-0.03); Imm Gran Pct Auto 0.2 % (0.0-0.4); Lymphocytes Absolute Auto 0.7 X10*3/uL (1.2-4.9); Lymphocytes Percent Auto 12.2 % (20-40); Mean Corpuscular HGB Conc 32.5 g/dl (31.0-36.0); Mean Corpuscular Volume 95.5 fL (80.0-98.0); Mean Platelet Volume 9.7 fL (9.4-12.4); Monocytes Absolute Auto 0.5 X10*3/uL (0.1-1.2); Neutrophils Absolute Auto 4.3 x10*3/uL (2.0-8.3); Neutrophils Percent Auto 74.7 % (45-73); Platelet Count 209 X10*3/uL (160-400); Red Blood Count 3.77 X10*6/uL (4.60-5.80); Red Cell Distribution Width 14.3 % (11.0-16.0); White Blood Count 5.8 X10*3/uL (4.8-10.8)
[2023-01-17 09:53] LABS: Creatinine Clr Calc Pharmacy 90.1; Estimated Glomerular Filt Rate > 60
[2023-01-17 10:03] LABS: Troponin-I High Sensitivity < 2.7 ng/L (<3.5-35.0)
[2023-01-17 10:11] LABS: Amphetamine Screen Urine Not Detected (Not Detect); Barbiturates, Urine Not Detected (Not Detect); Benzodiazepines Screen Urine Not Detected (Not Detect); Cannabinoid Screen Urine POSITIVE (Not Detect); Cocaine Screen Urine Not Detected (Not Detect); Fentanyl, urine Not Detected (Not Detect); Opiate Screen Urine Not Detected (Not Detect); Phencyclidine Screen Urine Not Detected (Not Detect)
--- NOTE | 2023-01-17 11:27 | HO.PSYCHPN ---
Subjective Subjective Date of Service: 01/17/23 Reason For Visit: Suicidal ideation Subjective Notes: Conditional Voluntary Medical Problems Affecting Mental Status: Yes Interim History: hypotensive Medication Compliance: Yes Side effects from medications: Yes (question of hypotension) Attending Groups: Yes Review of Systems hypotension Medical Review of Systems: unchanged Review of Systems Review of Systems hypotension Yes all other systems are reviewed and are negative Constitutional: Reports as per HPI, Denies fatigue and Denies headache(s) Eyes: Reports as per HPI Denies headache(s) Cardiovascular: Denies chest pain and Denies dyspnea Respiratory: Denies cough and Denies dyspnea Gastrointestinal: Denies abdominal pain, Denies constipation and Denies vomiting Genitourinary: Denies difficulty urinating and Denies dysuria Reports behavioral changes, Denies headache(s) and Denies focal weakness Psychiatric: Reports anxiety, Reports behavioral changes, Reports depression, Reports hopelessness, Reports anhedonia and Reports suicidal ideation Endocrine: Denies fatigue Mental Status Exam Mental Status Exam Patient Appearance: Appropriate Patient Orientation: Person, Place, Time and Situation Level of Consciousness: Drowsy and Sedated Patient Behavior: Appropriate, Cooperative and Good Eye Contact Mood Description: Depressed Affect Description: Constricted Patient Cognition Impaired: No Ability to Follow Directions: Good Speech Pattern: Soft-Spoken Memory Description: Intact Hallucinations: None Delusions: Not Present Thought Process: Slowed Thinking Thought Content: positive for Intact Judgement: Fair Diagnostics Vital Signs (24Hr): Vital Signs - 24 hr 01/16/23 18:00 01/17/23 06:00 01/17/23 08:05 Temperature 97.6 F 97.8 F Pulse Rate 86 85 Respiratory Rate 16 16 Blood Pressure 95/59 L 72/42 L 78/47 L Pulse Oximetry 98 96 Oxygen Delivery Method Room Air Room Air 01/17/23 08:10 01/17/23 08:15 01/17/23 08:15 Temperature Pulse Rate Respiratory Rate Blood Pressure 73/49 L 72/42 L 82/52 L Pulse Oximetry Oxygen Delivery Method 01/17/23 10:14 Temperature Pulse Rate Respiratory Rate Blood Pressure 99/61 Pulse Oximetry Oxygen Delivery Method BMI result Body Mass Index 28.8 Labs 01/17/23 09:28 01/17/23 09:28 Labs: Laboratory Results - last 48 hr 01/17/23 01/17/23 01/17/23 09:19 09:28 09:28 WBC 5.8 RBC 3.77 L Hgb 11.7 L Hct 36.0 L MCV 95.5 MCH 31.0 MCHC 32.5 RDW 14.3 Plt Count 209 MPV 9.7 Immature Gran % (Auto) 0.2 Neut % (Auto) 74.7 H Lymph % (Auto) 12.2 L [place] % (Auto) 9.0 Eos % (Auto) 3.0 Baso % (Auto) 0.9 Lymph # (Auto) 0.7 L [place] # (Auto) 0.5 Eos # (Auto) 0.2 Baso # (Auto) 0.1 Abs Immat Gran (auto) 0.01 Absolute Neuts (auto) 4.3 Absolute Nucleated RBC 0.000 Nucleated RBC % (auto) 0.0 Creatinine Estim Creat Clear Calc Estimated GFR POC Glucose 235 H Troponin I High Sens < 2.7 Urine Opiates Screen Urine Fentanyl Screen Ur Barbiturates Screen Ur Phencyclidine Scrn Ur Amphetamines Screen U Benzodiazepines Scrn Urine Cocaine Screen U Marijuana (THC) Screen 01/17/23 01/17/23 09:28 09:40 WBC RBC Hgb Hct MCV MCH MCHC RDW Plt Count MPV Immature Gran % (Auto) Neut % (Auto) Lymph % (Auto) [place] % (Auto) Eos % (Auto) Baso % (Auto) Lymph # (Auto) [place] # (Auto) Eos # (Auto) Baso # (Auto) Abs Immat Gran (auto) Absolute Neuts (auto) Absolute Nucleated RBC Nucleated RBC % (auto) Creatinine 1.09 Estim Creat Clear Calc 90.1 Estimated GFR > 60 POC Glucose Troponin I High Sens Urine Opiates Screen Not Detected Urine Fentanyl Screen Not Detected Ur Barbiturates Screen Not Detected Ur Phencyclidine Scrn Not Detected Ur Amphetamines Screen Not Detected U Benzodiazepines Scrn Not Detected Urine Cocaine Screen Not Detected U Marijuana (THC) Screen POSITIVE H Medications Medications Current Medications Acetaminophen (Acetaminophen 325 Mg Tablet) 650 mg PO Q6H PRN PRN Reason: Headache/Pain Mild Scale (1-3) Al Hydroxide/Mg Hydroxide (Magnesium Hydrox/Alum Hydrox 30 Ml Oral.Susp) 30 ml PO Q6H PRN PRN Reason: Heartburn/Nausea Buspirone HCl (Buspirone Hcl 5 Mg Tablet) 15 mg PO TID [facility] Last Admin: 01/16/23 19:46 Dose: 15 mg Clonazepam (Clonazepam 0.5 Mg Tablet) 0.5 mg PO BID PRN PRN Reason: Anxiety Last Admin: 01/16/23 20:03 Dose: 0.5 mg Clonidine HCl (Clonidine Hcl 0.1 Mg Tablet) 0.1 mg PO BID PRN; Protocol PRN Reason: anxiety Last Admin: 01/16/23 20:04 Dose: 0.1 mg Docusate Sodium (Docusate Sodium 100 Mg Capsule) 100 mg PO DAILY PRN PRN Reason: constipation Doxycycline Monohydrate (Doxycycline Monohydrate 100 Mg Capsule) 100 mg PO Q12H [facility] Last Admin: 01/16/23 19:46 Dose: 100 mg Duloxetine HCl (Duloxetine Hcl 60 Mg Capsule.Dr) 60 mg PO BID [facility] Last Admin: 01/16/23 19:46 Dose: 60 mg Lamotrigine (Lamotrigine 100 Mg Tablet) 150 mg PO DAILY [facility] Last Admin: 01/16/23 08:31 Dose: 150 mg Lidocaine (Lidocaine 4 % Patch Adh..Patch) 2 patch TRANSDERMA DAILY [facility]; Protocol Last Admin: 01/16/23 08:33 Dose: Not Given Lisinopril (Lisinopril 40 Mg Tablet) 40 mg PO DAILY [facility]; Protocol Last Admin: 01/16/23 08:31 Dose: 40 mg Magnesium Hydroxide (Milk Of Magnesia 30 Ml Oral.Susp) 30 ml PO DAILY PRN PRN Reason: Constipation Naproxen (Naproxen 500 Mg Tablet) 500 mg PO BID [facility] Last Admin: 01/16/23 19:47 Dose: 500 mg Tizanidine HCl (Tizanidine Hcl 4 Mg Tablet) 4 mg PO BID [facility] Last Admin: 01/16/23 19:48 Dose: 4 mg Topiramate (Topiramate 25 Mg Tablet) 25 mg PO BID [facility] Last Admin: 01/16/23 19:48 Dose: 25 mg Trazodone HCl (Trazodone Hcl 50 Mg Tablet) 50 mg PO BEDTIME MRX1 PRN PRN Reason: Insomnia Last Admin: 01/14/23 00:39 Dose: 50 mg Trazodone HCl (Trazodone Hcl 50 Mg Tablet) 150 mg PO BEDTIME [facility] Last Admin: 01/17/23 00:42 Dose: 150 mg Allergies Allergies Allergy/AdvReac Type Severity Reaction Status Date / Time hydroxyzine [From Vistaril] Allergy Hives Verified 12/26/22 18:32 Assessment & Plan Assessment & Plan (1) Suicidal ideation: Status: Acute Code(s): R45.851 - Suicidal ideations (2) Cannabis use disorder: Status: Acute Code(s): F12.90 - Cannabis use, unspecified, uncomplicated (3) Alcohol use disorder: Status: Acute Code(s): F10.90 - Alcohol use, unspecified, uncomplicated (4) Major depression, recurrent: Status: Acute Code(s): F33.9 - Major depressive disorder, recurrent, unspecified Plan 47 yo male, recent discharge, readmit for SI with plan, substance use due to his son telling him he was not welcome at his graduation and he no longer wanted a relationship with him. Plan: Increase Buspar to 15 mg tid Consider PHP referral for ongoing therapy to continue to work with loss of marriage and estrangement of son. 01/13/23 Increase Trazodone to 150 mg hs, will use 75 mg standing and prn as needed tonight. 01/14/23: Continue current regime 01/15/23: pt stabilizing; Continue current regime 01/16/23 continue current treatment plan 01/17/23 due to hypotensive episode this am d/c clonidine 0.1 mg bid prn d/c clonazepam 0.5 mg bid prn reduce trazodone from 150 mg at hs to 100mg at hs encourage fluids Reason for continued inpatient stay Substantial Risk for: harm to self, inability to function and rapid decompensation Time Spent With Patient Time: Total time managing care of this patient today ____ minutes.
[2023-01-17] MEDS: busPIRone HCl 5 MG TABLET 15 MG PO ×2 (14:32→20:33)
[2023-01-17] MEDS: Doxycycline Monohydrate 100 MG CAPSULE PO (20:33)
[2023-01-17] MEDS: Topiramate 25 MG TABLET PO (20:33)
[2023-01-17] MEDS: TiZANidine HCL 4 MG TABLET PO (20:34)
[2023-01-17] MEDS: clonazePAM 0.5 MG TABLET PO (20:34)
[2023-01-17] MEDS: NaPROXEN 500 MG TABLET PO (20:34)
[2023-01-17] MEDS: DULoxetine HCl 60 MG CAPSULE.DR PO (20:34)
[2023-01-18] MEDS: traZODone HCL 100 MG TABLET PO (00:13)
[2023-01-18] MEDS: traZODone HCL 50 MG TABLET PO (00:13)
[2023-01-18] MEDS: lamoTRIgine 100 MG TABLET 150 MG PO (08:01)
[2023-01-18] MEDS: Topiramate 25 MG TABLET PO ×2 (08:02→21:09)
[2023-01-18] MEDS: TiZANidine HCL 4 MG TABLET PO ×2 (08:02→21:10)
[2023-01-18] MEDS: busPIRone HCl 5 MG TABLET 15 MG PO ×3 (08:03→21:10)
[2023-01-18] MEDS: lisinopriL 40 MG TABLET PO (08:03)
[2023-01-18] MEDS: Doxycycline Monohydrate 100 MG CAPSULE PO ×2 (08:03→21:10)
[2023-01-18] MEDS: DULoxetine HCl 60 MG CAPSULE.DR PO ×2 (08:03→21:09)
[2023-01-18] MEDS: NaPROXEN 500 MG TABLET PO ×2 (08:03→21:09)
[2023-01-18 08:11] VITALS: BP 117/74; PULSE 97; RESP 16; TEMP 36.3; O2SAT 98
--- NOTE | 2023-01-18 10:15 | P.PNPSI_ITS ---
Subjective Subjective Date of Service: 01/18/23 Reason For Visit: Suicidal ideation Interim History: met with patient; discussed with team pt said it was a tough weekend, given that his son graduated. However he said he's learning to cope with it. Talking about aftercare continuing with treatment. Mental Status Exam Mental Status Exam Patient Appearance: Appropriate Patient Orientation: Person, Place, Time and Situation Level of Consciousness: Alert Patient Behavior: Appropriate, Talkative, Cooperative and Good Eye Contact Mood Description: Depressed (But less so) Affect Description: Calm Patient Cognition Impaired: No Ability to Follow Directions: Good Speech Pattern: Spontaneous Speech Memory Description: Intact Hallucinations: None Delusions: Not Present Thought Process: Rumination Thought Content: positive for Intact (no SI/HI) and positive for Circumstantial Judgement: Fair Diagnostics Vital Signs (24Hr): Vital Signs - 24 hr 01/17/23 14:38 01/17/23 20:01 01/18/23 08:11 Temperature 98 F 97.3 F Pulse Rate 83 97 Respiratory Rate 18 16 Blood Pressure 98/54 L 117/60 117/74 Pulse Oximetry 98 98 Oxygen Delivery Method Room Air Room Air BMI result Body Mass Index 28.8 Labs 01/17/23 09:28 01/17/23 09:28 Labs: Laboratory Results - last 48 hr 01/17/23 01/17/23 01/17/23 09:19 09:28 09:28 WBC 5.8 RBC 3.77 L Hgb 11.7 L Hct 36.0 L MCV 95.5 MCH 31.0 MCHC 32.5 RDW 14.3 Plt Count 209 MPV 9.7 Immature Gran % (Auto) 0.2 Neut % (Auto) 74.7 H Lymph % (Auto) 12.2 L [place] % (Auto) 9.0 Eos % (Auto) 3.0 Baso % (Auto) 0.9 Lymph # (Auto) 0.7 L [place] # (Auto) 0.5 Eos # (Auto) 0.2 Baso # (Auto) 0.1 Abs Immat Gran (auto) 0.01 Absolute Neuts (auto) 4.3 Absolute Nucleated RBC 0.000 Nucleated RBC % (auto) 0.0 Creatinine Estim Creat Clear Calc Estimated GFR POC Glucose 235 H Troponin I High Sens < 2.7 Urine Opiates Screen Urine Fentanyl Screen Ur Barbiturates Screen Ur Phencyclidine Scrn Ur Amphetamines Screen U Benzodiazepines Scrn Urine Cocaine Screen U Marijuana (THC) Screen 01/17/23 01/17/23 09:28 09:40 WBC RBC Hgb Hct MCV MCH MCHC RDW Plt Count MPV Immature Gran % (Auto) Neut % (Auto) Lymph % (Auto) [place] % (Auto) Eos % (Auto) Baso % (Auto) Lymph # (Auto) [place] # (Auto) Eos # (Auto) Baso # (Auto) Abs Immat Gran (auto) Absolute Neuts (auto) Absolute Nucleated RBC Nucleated RBC % (auto) Creatinine 1.09 Estim Creat Clear Calc 90.1 Estimated GFR > 60 POC Glucose Troponin I High Sens Urine Opiates Screen Not Detected Urine Fentanyl Screen Not Detected Ur Barbiturates Screen Not Detected Ur Phencyclidine Scrn Not Detected Ur Amphetamines Screen Not Detected U Benzodiazepines Scrn Not Detected Urine Cocaine Screen Not Detected U Marijuana (THC) Screen POSITIVE H Medications Medications Current Medications Acetaminophen (Acetaminophen 325 Mg Tablet) 650 mg PO Q6H PRN PRN Reason: Headache/Pain Mild Scale (1-3) Al Hydroxide/Mg Hydroxide (Magnesium Hydrox/Alum Hydrox 30 Ml Oral.Susp) 30 ml PO Q6H PRN PRN Reason: Heartburn/Nausea Buspirone HCl (Buspirone Hcl 5 Mg Tablet) 15 mg PO TID [facility] Last Admin: 01/18/23 08:03 Dose: 15 mg Clonazepam (Clonazepam 0.5 Mg Tablet) 0.5 mg PO DAILY PRN PRN Reason: Anxiety Last Admin: 01/17/23 20:34 Dose: 0.5 mg Docusate Sodium (Docusate Sodium 100 Mg Capsule) 100 mg PO DAILY PRN PRN Reason: constipation Doxycycline Monohydrate (Doxycycline Monohydrate 100 Mg Capsule) 100 mg PO Q12H [facility] Last Admin: 01/18/23 08:03 Dose: 100 mg Duloxetine HCl (Duloxetine Hcl 60 Mg Capsule.Dr) 60 mg PO BID [facility] Last Admin: 01/18/23 08:03 Dose: 60 mg Lamotrigine (Lamotrigine 100 Mg Tablet) 150 mg PO DAILY [facility] Last Admin: 01/18/23 08:01 Dose: 150 mg Lidocaine (Lidocaine 4 % Patch Adh..Patch) 2 patch TRANSDERMA DAILY [facility]; Protocol Last Admin: 01/18/23 08:24 Dose: Not Given Lisinopril (Lisinopril 40 Mg Tablet) 40 mg PO DAILY [facility]; Protocol Last Admin: 01/18/23 08:03 Dose: 40 mg Magnesium Hydroxide (Milk Of Magnesia 30 Ml Oral.Susp) 30 ml PO DAILY PRN PRN Reason: Constipation Naproxen (Naproxen 500 Mg Tablet) 500 mg PO BID [facility] Last Admin: 01/18/23 08:03 Dose: 500 mg Tizanidine HCl (Tizanidine Hcl 4 Mg Tablet) 4 mg PO BID [facility] Last Admin: 01/18/23 08:02 Dose: 4 mg Topiramate (Topiramate 25 Mg Tablet) 25 mg PO BID [facility] Last Admin: 01/18/23 08:02 Dose: 25 mg Trazodone HCl (Trazodone Hcl 50 Mg Tablet) 50 mg PO BEDTIME MRX1 PRN PRN Reason: Insomnia Last Admin: 01/18/23 00:13 Dose: 50 mg Trazodone HCl (Trazodone Hcl 100 Mg Tablet) 100 mg PO BEDTIME [facility] Last Admin: 01/18/23 00:13 Dose: 100 mg Allergies Allergies Allergy/AdvReac Type Severity Reaction Status Date / Time hydroxyzine [From Vistaril] Allergy Hives Verified 12/26/22 18:32 Assessment & Plan Assessment & Plan (1) Suicidal ideation: Status: Acute Code(s): R45.851 - Suicidal ideations (2) Cannabis use disorder: Status: Acute Code(s): F12.90 - Cannabis use, unspecified, uncomplicated (3) Alcohol use disorder: Status: Acute Code(s): F10.90 - Alcohol use, unspecified, uncomplicated (4) Major depression, recurrent: Status: Acute Code(s): F33.9 - Major depressive disorder, recurrent, unspecified Plan 47 yo male, recent discharge, readmit for SI with plan, substance use due to his son telling him he was not welcome at his graduation and he no longer wanted a relationship with him. Plan: Increase Buspar to 15 mg tid Consider [facility] referral for ongoing therapy to continue to work with loss of marriage and estrangement of son. 01/13/23 Increase Trazodone to 150 mg hs, will use 75 mg standing and prn as needed tonight. 01/14/23: Continue current regime 01/15/23: pt stabilizing; Continue current regime 01/16/23 continue current treatment plan 01/17/23 due to hypotensive episode this am d/c clonidine 0.1 mg bid prn d/c clonazepam 0.5 mg bid prn reduce trazodone from 150 mg at hs to 100mg at hs encourage fluids 01/18 patient remains stable; continue with aftercare planning Patient educated on: diagnosis Reason for continued inpatient stay Substantial Risk for: stable for discharge Time Spent With Patient Time: Total time managing care of this patient today ____ minutes.
[2023-01-18] MEDS: clonazePAM 0.5 MG TABLET PO ×2 (16:58→21:10)
[2023-01-18 18:55] VITALS: BP 126/68; PULSE 102; TEMP 36.2
[2023-01-19] MEDS: traZODone HCL 100 MG TABLET PO (00:44)
[2023-01-19] MEDS: traZODone HCL 50 MG TABLET PO (00:45)
[2023-01-19] MEDS: DULoxetine HCl 60 MG CAPSULE.DR PO ×2 (08:32→21:33)
[2023-01-19] MEDS: Topiramate 25 MG TABLET PO ×2 (08:32→21:35)
[2023-01-19] MEDS: TiZANidine HCL 4 MG TABLET PO ×2 (08:32→21:34)
[2023-01-19] MEDS: lisinopriL 40 MG TABLET PO (08:32)
[2023-01-19] MEDS: Doxycycline Monohydrate 100 MG CAPSULE PO ×2 (08:32→21:34)
[2023-01-19] MEDS: busPIRone HCl 5 MG TABLET 15 MG PO ×3 (08:32→21:34)
[2023-01-19] MEDS: lamoTRIgine 100 MG TABLET 150 MG PO (08:33)
[2023-01-19] MEDS: NaPROXEN 500 MG TABLET PO ×2 (08:33→21:34)
[2023-01-19 08:36] VITALS: BP 118/76; PULSE 83; RESP 18; TEMP 36.1
--- NOTE | 2023-01-19 15:43 | HO.PSYCHPN ---
Subjective Subjective Date of Service: 01/19/23 Reason For Visit: Suicidal ideation Subjective Notes: Conditional Voluntary Healthcare Proxy: No Interim History: Patient's case reviewed in treatment team more future oriented problem-solving active in the milieu Engage with discharge planning denies active SI Medication Compliance: Yes Side effects from medications: Yes (question of hypotension) Attending Groups: Yes Review of Systems Medical Review of Systems: unchanged Mental Status Exam Mental Status Exam Patient Appearance: Appropriate Patient Orientation: Person, Place, Time and Situation Level of Consciousness: Alert Patient Behavior: Appropriate, Talkative, Cooperative and Good Eye Contact Mood Description: Depressed (But less so) Affect Description: Calm Patient Cognition Impaired: No Ability to Follow Directions: Good Speech Pattern: Spontaneous Speech Memory Description: Intact Hallucinations: None Delusions: Not Present Thought Process: Rumination Thought Content: positive for Intact (no SI/HI) and positive for Circumstantial Depressive Symptoms: Increased Anxiety, Diff. Making Decisions, Increased Irritability and Increased Fatigue Diagnostics Vital Signs (24Hr): Vital Signs - 24 hr 01/18/23 18:55 01/19/23 08:36 Temperature 97.2 F 97.0 F Pulse Rate 102 H 83 Respiratory Rate 18 Blood Pressure 126/68 118/76 Oxygen Delivery Method Room Air BMI result Body Mass Index 28.8 Labs 01/17/23 09:28 01/17/23 09:28 Medications Medications Current Medications Acetaminophen (Acetaminophen 325 Mg Tablet) 650 mg PO Q6H PRN PRN Reason: Headache/Pain Mild Scale (1-3) Al Hydroxide/Mg Hydroxide (Magnesium Hydrox/Alum Hydrox 30 Ml Oral.Susp) 30 ml PO Q6H PRN PRN Reason: Heartburn/Nausea Buspirone HCl (Buspirone Hcl 5 Mg Tablet) 15 mg PO TID [facility] Last Admin: 01/19/23 15:01 Dose: 15 mg Clonazepam (Clonazepam 0.5 Mg Tablet) 0.5 mg PO BID PRN PRN Reason: Anxiety Last Admin: 01/18/23 21:10 Dose: 0.5 mg Docusate Sodium (Docusate Sodium 100 Mg Capsule) 100 mg PO DAILY PRN PRN Reason: constipation Doxycycline Monohydrate (Doxycycline Monohydrate 100 Mg Capsule) 100 mg PO Q12H [facility] Last Admin: 01/19/23 08:32 Dose: 100 mg Duloxetine HCl (Duloxetine Hcl 60 Mg Capsule.) 60 mg PO BID [facility] Last Admin: 01/19/23 08:32 Dose: 60 mg Lamotrigine (Lamotrigine 100 Mg Tablet) 150 mg PO DAILY [facility] Last Admin: 01/19/23 08:33 Dose: 150 mg Lidocaine (Lidocaine 4 % Patch Adh..Patch) 2 patch TRANSDERMA DAILY [facility]; Protocol Last Admin: 01/19/23 08:35 Dose: Not Given Lisinopril (Lisinopril 40 Mg Tablet) 40 mg PO DAILY [facility]; Protocol Last Admin: 01/19/23 08:32 Dose: 40 mg Magnesium Hydroxide (Milk Of Magnesia 30 Ml Oral.Susp) 30 ml PO DAILY PRN PRN Reason: Constipation Naproxen (Naproxen 500 Mg Tablet) 500 mg PO BID [facility] Last Admin: 01/19/23 08:33 Dose: 500 mg Tizanidine HCl (Tizanidine Hcl 4 Mg Tablet) 4 mg PO BID [facility] Last Admin: 01/19/23 08:32 Dose: 4 mg Topiramate (Topiramate 25 Mg Tablet) 25 mg PO BID [facility] Last Admin: 01/19/23 08:32 Dose: 25 mg Trazodone HCl (Trazodone Hcl 50 Mg Tablet) 50 mg PO BEDTIME MRX1 PRN PRN Reason: Insomnia Last Admin: 01/19/23 00:45 Dose: 50 mg Trazodone HCl (Trazodone Hcl 100 Mg Tablet) 100 mg PO BEDTIME [facility] Last Admin: 01/19/23 00:44 Dose: 100 mg Allergies Allergies Allergy/AdvReac Type Severity Reaction Status Date / Time hydroxyzine [From Vistaril] Allergy Hives Verified 12/26/22 18:32 Assessment & Plan Assessment & Plan (1) Major depression, recurrent: Status: Acute Code(s): F33.9 - Major depressive disorder, recurrent, unspecified (2) Suicidal ideation: Status: Acute Code(s): R45.851 - Suicidal ideations (3) Cannabis use disorder: Status: Acute Code(s): F12.90 - Cannabis use, unspecified, uncomplicated (4) Alcohol use disorder: Status: Acute Code(s): F10.90 - Alcohol use, unspecified, uncomplicated Plan 47 yo male, recent discharge, readmit for SI with plan, substance use due to his son telling him he was not welcome at his graduation and he no longer wanted a relationship with him. Plan: Increase Buspar to 15 mg tid Consider PHP referral for ongoing therapy to continue to work with loss of marriage and estrangement of son. 01/19/2023 Patient seen in psychiatric follow-up case reviewed with treatment team patient seen Patient future oriented seems to have better perspective hoping to go to partial at some point post discharge no active SI seems improved with Cymbalta Lamictal BuSpar Discharge planning Patient educated on: diagnosis and medication risk/benefits Informed Consent: understands Reason for continued inpatient stay Substantial Risk for: rapid decompensation Time Spent With Patient Time: Total time managing care of this patient today _27__ minutes.
[2023-01-19] MEDS: clonazePAM 0.5 MG TABLET PO ×2 (16:06→21:34)
[2023-01-19 16:11] VITALS: BP 134/94; PULSE 81
[2023-01-20] MEDS: traZODone HCL 100 MG TABLET PO (00:11)
[2023-01-20] MEDS: traZODone HCL 50 MG TABLET PO (00:11)
[2023-01-20] MEDS: lisinopriL 40 MG TABLET PO (08:12)
[2023-01-20] MEDS: Topiramate 25 MG TABLET PO ×2 (08:12→20:40)
[2023-01-20] MEDS: Doxycycline Monohydrate 100 MG CAPSULE PO ×2 (08:12→20:38)
[2023-01-20] MEDS: DULoxetine HCl 60 MG CAPSULE.DR PO ×2 (08:13→20:38)
[2023-01-20] MEDS: NaPROXEN 500 MG TABLET PO ×2 (08:13→20:39)
[2023-01-20] MEDS: busPIRone HCl 5 MG TABLET 15 MG PO ×3 (08:13→20:37)
[2023-01-20] MEDS: lamoTRIgine 100 MG TABLET 150 MG PO (08:13)
[2023-01-20] MEDS: TiZANidine HCL 4 MG TABLET PO ×2 (08:13→20:39)
[2023-01-20 08:18] VITALS: BP 113/72; RESP 18; O2SAT 98
--- NOTE | 2023-01-20 13:49 | P.PNPSI_ITS ---
Subjective Subjective Date of Service: 01/20/23 Reason For Visit: Suicidal ideation Subjective Notes: Conditional Voluntary Healthcare Proxy: No Interim History: The patient was increasingly anxious irritable dysphoric when discussing possib ility of discharge tomorrow had intrusive thoughts that he would not be able to manage self-harming impulses became increasingly anxious agitated reactive more intrusive thoughts of his ability or inability to handle his emotional state Mental Status Exam Mental Status Exam Patient Appearance: Appropriate Patient Orientation: Person, Place, Time and Situation Level of Consciousness: Alert Patient Behavior: Appropriate, Talkative, Anxious, Distractible and Impulsive Mood Description: Constricted, Depressed (But less so), Labile, Angry and Apprehensive Affect Description: Depressed, Anxious and Angry Patient Cognition Impaired: No Ability to Follow Directions: Good Speech Pattern: Spontaneous Speech Memory Description: Intact Hallucinations: None Delusions: Not Present Thought Process: Rumination Thought Content: positive for Intact (no SI/HI) and positive for Circumstantial Depressive Symptoms: Increased Anxiety, Diff. Making Decisions, Increased Irritability, Hopelessness, Increased Fatigue and Thoughts of /Suicide Diagnostics Vital Signs (24Hr): Vital Signs - 24 hr 01/19/23 16:11 01/20/23 08:18 Pulse Rate 81 Respiratory Rate 18 Blood Pressure 134/94 H 113/72 Pulse Oximetry 98 Oxygen Delivery Method Room Air BMI result Body Mass Index 28.8 Labs 01/17/23 09:28 01/17/23 09:28 Medications Medications Current Medications Acetaminophen (Acetaminophen 325 Mg Tablet) 650 mg PO Q6H PRN PRN Reason: Headache/Pain Mild Scale (1-3) Al Hydroxide/Mg Hydroxide (Magnesium Hydrox/Alum Hydrox 30 Ml Oral.Susp) 30 ml PO Q6H PRN PRN Reason: Heartburn/Nausea Buspirone HCl (Buspirone Hcl 5 Mg Tablet) 15 mg PO TID [facility] Last Admin: 01/20/23 08:13 Dose: 15 mg Clonazepam (Clonazepam 0.5 Mg Tablet) 0.5 mg PO BID PRN PRN Reason: Anxiety Last Admin: 01/19/23 21:34 Dose: 0.5 mg Docusate Sodium (Docusate Sodium 100 Mg Capsule) 100 mg PO DAILY PRN PRN Reason: constipation Doxycycline Monohydrate (Doxycycline Monohydrate 100 Mg Capsule) 100 mg PO Q12H [facility] Last Admin: 01/20/23 08:12 Dose: 100 mg Duloxetine HCl (Duloxetine Hcl 60 Mg Capsule.Dr) 60 mg PO BID [facility] Last Admin: 01/20/23 08:13 Dose: 60 mg Lamotrigine (Lamotrigine 100 Mg Tablet) 150 mg PO DAILY [facility] Last Admin: 01/20/23 08:13 Dose: 150 mg Lidocaine (Lidocaine 4 % Patch Adh..Patch) 2 patch TRANSDERMA DAILY [facility]; Protocol Last Admin: 01/20/23 08:23 Dose: Not Given Lisinopril (Lisinopril 40 Mg Tablet) 40 mg PO DAILY [facility]; Protocol Last Admin: 01/20/23 08:12 Dose: 40 mg Magnesium Hydroxide (Milk Of Magnesia 30 Ml Oral.Susp) 30 ml PO DAILY PRN PRN Reason: Constipation Naproxen (Naproxen 500 Mg Tablet) 500 mg PO BID [facility] Last Admin: 01/20/23 08:13 Dose: 500 mg Tizanidine HCl (Tizanidine Hcl 4 Mg Tablet) 4 mg PO BID [facility] Last Admin: 01/20/23 08:13 Dose: 4 mg Topiramate (Topiramate 25 Mg Tablet) 25 mg PO BID [facility] Last Admin: 01/20/23 08:12 Dose: 25 mg Trazodone HCl (Trazodone Hcl 50 Mg Tablet) 50 mg PO BEDTIME MRX1 PRN PRN Reason: Insomnia Last Admin: 01/20/23 00:11 Dose: 50 mg Trazodone HCl (Trazodone Hcl 100 Mg Tablet) 100 mg PO BEDTIME [facility] Last Admin: 01/20/23 00:11 Dose: 100 mg Allergies Allergies Allergy/AdvReac Type Severity Reaction Status Date / Time hydroxyzine [From Vistaril] Allergy Hives Verified 12/26/22 18:32 Assessment & Plan Assessment & Plan (1) Major depression, recurrent: Status: Acute Code(s): F33.9 - Major depressive disorder, recurrent, unspecified (2) Suicidal ideation: Status: Acute Code(s): R45.851 - Suicidal ideations (3) Cannabis use disorder: Status: Acute Code(s): F12.90 - Cannabis use, unspecified, uncomplicated (4) Alcohol use disorder: Status: Acute Code(s): F10.90 - Alcohol use, unspecified, uncomplicated Plan 47 yo male, recent discharge, readmit for SI with plan, substance use due to his son telling him he was not welcome at his graduation and he no longer wanted a relationship with him. Plan: Increase Buspar to 15 mg tid Consider PHP referral for ongoing therapy to continue to work with loss of marriage and estrangement of son. 01/19/2023 Patient seen in psychiatric follow-up case reviewed with treatment team patient seen Patient future oriented seems to have better perspective hoping to go to partial at some point post discharge no active SI seems improved with Cymbalta Lamictal BuSpar Discharge planning 01/20/2023 Patient became increasingly irritable agitated distraught stating fearful of discharge fearful self-harm denies in this setting. Increase Lamictal to 200 mg needed much reassurance continue Cymbalta 60 b.i.d. unclear has been helpful would benefit eventually from partial hospital step-down clonazepam 0.5 b.i.d. might benefit from consideration of lithium a patient/Seroquel Discussed differences between fear of suicide vs suicidal impulses Patient educated on: medication risk/benefits and therapeutic strategies Informed Consent: further education needed Reason for continued inpatient stay Substantial Risk for: harm to self Time Spent With Patient Time: Total time managing care of this patient today _35___ minutes.
[2023-01-20] MEDS: clonazePAM 0.5 MG TABLET PO ×2 (15:02→20:38)
[2023-01-20 20:40] VITALS: BP 146/87; PULSE 89; TEMP 36.9; O2SAT 97
[2023-01-21] MEDS: traZODone HCL 100 MG TABLET PO (01:13)
[2023-01-21] MEDS: traZODone HCL 50 MG TABLET PO (01:13)
[2023-01-21 07:00] VITALS: BMI 30.1
[2023-01-21 08:00] VITALS: BP 143/76; PULSE 91; RESP 18; TEMP 36.2; O2SAT 97
[2023-01-21] MEDS: busPIRone HCl 5 MG TABLET 15 MG PO ×3 (08:55→20:23)
[2023-01-21] MEDS: TiZANidine HCL 4 MG TABLET PO ×2 (08:55→20:24)
[2023-01-21] MEDS: lamoTRIgine 100 MG TABLET 200 MG PO (08:56)
[2023-01-21] MEDS: clonazePAM 0.5 MG TABLET PO ×2 (08:57→20:24)
[2023-01-21] MEDS: NaPROXEN 500 MG TABLET PO ×2 (08:57→20:23)
[2023-01-21] MEDS: lisinopriL 40 MG TABLET PO (08:57)
[2023-01-21] MEDS: Topiramate 25 MG TABLET PO ×2 (08:57→20:24)
[2023-01-21] MEDS: DULoxetine HCl 60 MG CAPSULE.DR PO ×2 (08:57→20:23)
[2023-01-21] MEDS: Lidocaine 4 % Patch ADH..PATCH 2 PATCH TRANSDERMA (08:57)
--- NOTE | 2023-01-21 10:07 | P.PNPSI_ITS ---
Subjective Subjective Date of Service: 01/21/23 Reason For Visit: Suicidal ideation Interim History: met with pt; discussed with team; reviewed notes pt reports doing better; said he had a rough day yesterday but reconciled w/ covering provider. No longer feels suicidal and is optimistic that he can stay stable post discharge. Patient expalins he still feels prone to getting overwhelmed and that his first triggered thought is to end his life, however, he shares how he's learning to take the thought captive, put it in perspective and no longer be dominated by it; cites groups as teaching coping skills. Sees difference between thoughts of SI and actual desire for SI. Also shared how he knows that when triggered post discharge, he'll likely keep having intermittently SI but that he's getting better prepared for it now. Pt talks about aftercare plans to continue treatment, get housing, get back in his sons life. Mental Status Exam Mental Status Exam Patient Appearance: Appropriate Patient Orientation: Person, Place, Time and Situation Level of Consciousness: Alert Patient Behavior: Appropriate, Talkative, Cooperative and Good Eye Contact Mood Description: Depressed (But less so) Affect Description: Calm Patient Cognition Impaired: No Ability to Follow Directions: Good Speech Pattern: Spontaneous Speech Memory Description: Intact Hallucinations: None Delusions: Not Present Thought Process: Rumination Thought Content: positive for Intact (no SI/HI) and positive for Circumstantial Judgement: Fair Diagnostics Vital Signs (24Hr): Vital Signs - 24 hr 01/20/23 20:40 01/21/23 08:00 Temperature 98.5 F 97.1 F Pulse Rate 89 91 Respiratory Rate 18 Blood Pressure 146/87 H 143/76 H Pulse Oximetry 97 97 Oxygen Delivery Method Room Air Room Air BMI result Body Mass Index 28.8 Labs 01/17/23 09:28 01/17/23 09:28 Medications Medications Current Medications Acetaminophen (Acetaminophen 325 Mg Tablet) 650 mg PO Q6H PRN PRN Reason: Headache/Pain Mild Scale (1-3) Al Hydroxide/Mg Hydroxide (Magnesium Hydrox/Alum Hydrox 30 Ml Oral.Susp) 30 ml PO Q6H PRN PRN Reason: Heartburn/Nausea Buspirone HCl (Buspirone Hcl 5 Mg Tablet) 15 mg PO TID [facility] Last Admin: 01/21/23 08:55 Dose: 15 mg Clonazepam (Clonazepam 0.5 Mg Tablet) 0.5 mg PO BID PRN PRN Reason: Anxiety Last Admin: 01/20/23 15:02 Dose: 0.5 mg Clonazepam (Clonazepam 0.5 Mg Tablet) 0.5 mg PO BID [facility] Last Admin: 01/21/23 08:57 Dose: 0.5 mg Docusate Sodium (Docusate Sodium 100 Mg Capsule) 100 mg PO DAILY PRN PRN Reason: constipation Duloxetine HCl (Duloxetine Hcl 60 Mg Capsule.Dr) 60 mg PO BID [facility] Last Admin: 01/21/23 08:57 Dose: 60 mg Lamotrigine (Lamotrigine 100 Mg Tablet) 200 mg PO DAILY [facility] Last Admin: 01/21/23 08:56 Dose: 200 mg Lidocaine (Lidocaine 4 % Patch Adh..Patch) 2 patch TRANSDERMA DAILY [facility]; Protocol Last Admin: 01/21/23 08:57 Dose: 1 patch Lisinopril (Lisinopril 40 Mg Tablet) 40 mg PO DAILY [facility]; Protocol Last Admin: 01/21/23 08:57 Dose: 40 mg Magnesium Hydroxide (Milk Of Magnesia 30 Ml Oral.Susp) 30 ml PO DAILY PRN PRN Reason: Constipation Naproxen (Naproxen 500 Mg Tablet) 500 mg PO BID [facility] Last Admin: 01/21/23 08:57 Dose: 500 mg Tizanidine HCl (Tizanidine Hcl 4 Mg Tablet) 4 mg PO BID [facility] Last Admin: 01/21/23 08:55 Dose: 4 mg Topiramate (Topiramate 25 Mg Tablet) 25 mg PO BID [facility] Last Admin: 01/21/23 08:57 Dose: 25 mg Trazodone HCl (Trazodone Hcl 50 Mg Tablet) 50 mg PO BEDTIME MRX1 PRN PRN Reason: Insomnia Last Admin: 01/21/23 01:13 Dose: 50 mg Trazodone HCl (Trazodone Hcl 100 Mg Tablet) 100 mg PO BEDTIME [facility] Last Admin: 01/21/23 01:13 Dose: 100 mg Allergies Allergies Allergy/AdvReac Type Severity Reaction Status Date / Time hydroxyzine [From Vistaril] Allergy Hives Verified 12/26/22 18:32 Assessment & Plan Assessment & Plan (1) Major depression, recurrent: Status: Acute Code(s): F33.9 - Major depressive disorder, recurrent, unspecified (2) Cannabis use disorder: Status: Acute Code(s): F12.90 - Cannabis use, unspecified, uncomplicated (3) Alcohol use disorder: Status: Acute Code(s): F10.90 - Alcohol use, unspecified, uncomplicated Plan 47 yo male, recent discharge, readmit for SI with plan, substance use due to his son telling him he was not welcome at his graduation and he no longer wanted a relationship with him. Plan: Increase Buspar to 15 mg tid Consider PHP referral for ongoing therapy to continue to work with loss of marriage and estrangement of son. 01/19/2023 Patient seen in psychiatric follow-up case reviewed with treatment team patient seen Patient future oriented seems to have better perspective hoping to go to partial at some point post discharge no active SI seems improved with Cymbalta Lamictal BuSpar Discharge planning 01/20/2023 Patient became increasingly irritable agitated distraught stating fearful of discharge fearful self-harm denies in this setting. Increase Lamictal to 200 mg needed much reassurance continue Cymbalta 60 b.i.d. unclear has been helpful would benefit eventually from partial hospital step-down clonazepam 0.5 b.i.d. might benefit from consideration of lithium a patient/Seroquel Discussed differences between fear of suicide vs suicidal impulses 01/21 feeling better today; more optimistic; feels better able to cope with thoughts, intermittent SI and able to stay safe. Asks for trazodone to be back to 150mg for sleep; not worried about BP. Discussed after care, dc next week Patient educated on: diagnosis, medication risk/benefits and therapeutic strategies Informed Consent: understands Reason for continued inpatient stay Substantial Risk for: med/psych decompensation Time Spent With Patient Time: Total time managing care of this patient today ____ minutes.
[2023-01-21 18:54] VITALS: BP 137/91; PULSE 97; RESP 18; TEMP 36.3; O2SAT 98
[2023-01-21] MEDS: traZODone HCL 50 MG TABLET 150 MG PO (23:48)
[2023-01-22 07:50] VITALS: BP 124/88; PULSE 96; RESP 18; TEMP 36.4; O2SAT 97
[2023-01-22] MEDS: lisinopriL 40 MG TABLET PO (07:52)
[2023-01-22] MEDS: busPIRone HCl 5 MG TABLET 15 MG PO ×3 (07:53→19:29)
[2023-01-22] MEDS: Topiramate 25 MG TABLET PO ×2 (07:53→19:27)
[2023-01-22] MEDS: DULoxetine HCl 60 MG CAPSULE.DR PO ×2 (07:54→19:27)
[2023-01-22] MEDS: TiZANidine HCL 4 MG TABLET PO ×2 (07:54→19:28)
[2023-01-22] MEDS: NaPROXEN 500 MG TABLET PO ×2 (07:54→19:27)
[2023-01-22] MEDS: lamoTRIgine 100 MG TABLET 200 MG PO (07:54)
[2023-01-22] MEDS: clonazePAM 0.5 MG TABLET PO ×3 (07:55→19:27)
--- NOTE | 2023-01-22 10:12 | P.PNPSI_ITS ---
Subjective Subjective Date of Service: 01/22/23 Reason For Visit: Suicidal ideation Interim History: Met with patient; discussed with team Patient reports that he is doing better and working on coping skills; doing coping skill work sheets. Talked about aftercare. Patient said he slept well Later in day patient had a visitor and was caught with vape in bathroom; no longer allow visitors Mental Status Exam Mental Status Exam Patient Appearance: Appropriate Patient Orientation: Person, Place, Time and Situation Level of Consciousness: Alert Patient Behavior: Appropriate, Talkative, Cooperative and Good Eye Contact Mood Description: Depressed (But less so) Affect Description: Calm Patient Cognition Impaired: No Ability to Follow Directions: Good Speech Pattern: Spontaneous Speech Memory Description: Intact Hallucinations: None Delusions: Not Present Thought Process: Rumination Thought Content: positive for Intact (no SI/HI) and positive for Circumstantial Judgement: Fair Diagnostics Vital Signs (24Hr): Vital Signs - 24 hr 01/21/23 18:54 01/22/23 07:50 Temperature 97.3 F 97.5 F Pulse Rate 97 96 Respiratory Rate 18 18 Blood Pressure 137/91 H 124/88 Pulse Oximetry 98 97 Oxygen Delivery Method Room Air Room Air BMI result Body Mass Index 30.1 Labs 01/17/23 09:28 01/17/23 09:28 Medications Medications Current Medications Acetaminophen (Acetaminophen 325 Mg Tablet) 650 mg PO Q6H PRN PRN Reason: Headache/Pain Mild Scale (1-3) Al Hydroxide/Mg Hydroxide (Magnesium Hydrox/Alum Hydrox 30 Ml Oral.Susp) 30 ml PO Q6H PRN PRN Reason: Heartburn/Nausea Buspirone HCl (Buspirone Hcl 5 Mg Tablet) 15 mg PO TID [facility] Last Admin: 01/22/23 07:53 Dose: 15 mg Clonazepam (Clonazepam 0.5 Mg Tablet) 0.5 mg PO BID PRN PRN Reason: Anxiety Last Admin: 01/20/23 15:02 Dose: 0.5 mg Clonazepam (Clonazepam 0.5 Mg Tablet) 0.5 mg PO BID [facility] Last Admin: 01/22/23 07:55 Dose: 0.5 mg Docusate Sodium (Docusate Sodium 100 Mg Capsule) 100 mg PO DAILY PRN PRN Reason: constipation Duloxetine HCl (Duloxetine Hcl 60 Mg Capsule.Dr) 60 mg PO BID [facility] Last Admin: 01/22/23 07:54 Dose: 60 mg Lamotrigine (Lamotrigine 100 Mg Tablet) 200 mg PO DAILY [facility] Last Admin: 01/22/23 07:54 Dose: 200 mg Lidocaine (Lidocaine 4 % Patch Adh..Patch) 2 patch TRANSDERMA DAILY [facility]; Protocol Last Admin: 01/22/23 08:15 Dose: Not Given Lisinopril (Lisinopril 40 Mg Tablet) 40 mg PO DAILY [facility]; Protocol Last Admin: 01/22/23 07:52 Dose: 40 mg Magnesium Hydroxide (Milk Of Magnesia 30 Ml Oral.Susp) 30 ml PO DAILY PRN PRN Reason: Constipation Naproxen (Naproxen 500 Mg Tablet) 500 mg PO BID [facility] Last Admin: 01/22/23 07:54 Dose: 500 mg Tizanidine HCl (Tizanidine Hcl 4 Mg Tablet) 4 mg PO BID [facility] Last Admin: 01/22/23 07:54 Dose: 4 mg Topiramate (Topiramate 25 Mg Tablet) 25 mg PO BID [facility] Last Admin: 01/22/23 07:53 Dose: 25 mg Trazodone HCl (Trazodone Hcl 50 Mg Tablet) 150 mg PO BEDTIME [facility] Last Admin: 01/21/23 23:48 Dose: 150 mg Trazodone HCl (Trazodone Hcl 50 Mg Tablet) 50 mg PO BEDTIME PRN PRN Reason: Insomnia Allergies Allergies Allergy/AdvReac Type Severity Reaction Status Date / Time hydroxyzine [From Vistaril] Allergy Hives Verified 12/26/22 18:32 Assessment & Plan Assessment & Plan (1) Major depression, recurrent: Status: Acute Code(s): F33.9 - Major depressive disorder, recurrent, unspecified (2) Cannabis use disorder: Status: Acute Code(s): F12.90 - Cannabis use, unspecified, uncomplicated (3) Alcohol use disorder: Status: Acute Code(s): F10.90 - Alcohol use, unspecified, uncomplicated Plan 47 yo male, recent discharge, readmit for SI with plan, substance use due to his son telling him he was not welcome at his graduation and he no longer wanted a relationship with him. Plan: NO VISITORS ALLOWED (recent visitor brought contraban) CV q15 Buspar to 15 mg tid Hospital course: 01/19/2023 Patient seen in psychiatric follow-up case reviewed with treatment team patient seen Patient future oriented seems to have better perspective hoping to go to partial at some point post discharge no active SI seems improved with Cymbalta Lamictal BuSpar Discharge planning 01/20/2023 Patient became increasingly irritable agitated distraught stating fearful of discharge fearful self-harm denies in this setting. Increase Lamictal to 200 mg needed much reassurance continue Cymbalta 60 b.i.d. unclear has been helpful would benefit eventually from partial hospital step-down clonazepam 0.5 b.i.d. might benefit from consideration of lithium a patient/Seroquel Discussed differences between fear of suicide vs suicidal impulses 01/21 feeling better today; more optimistic; feels better able to cope with thoughts, intermittent SI and able to stay safe. Asks for trazodone to be back to 150mg for sleep; not worried about BP. Discussed after care, dc next week 01/22 patient remains feeling better talking about aftercare plans; no SI; visitor brought in [employer] and patient no longer a lot of visitors Patient educated on: diagnosis and therapeutic strategies Informed Consent: understands Reason for continued inpatient stay Substantial Risk for: stable for discharge Time Spent With Patient Time: Total time managing care of this patient today ____ minutes.
[2023-01-22 18:00] VITALS: BP 119/74; PULSE 78; RESP 16; TEMP 36.8; O2SAT 97
--- NOTE | 2023-01-22 22:54 | PC.NURSE ---
Pt was seen in the kitchen socializing with peers. Pt appeared quiet and depressed. med and meal compliant.
[2023-01-23] MEDS: traZODone HCL 50 MG TABLET 150 MG PO (00:54)
[2023-01-23 08:48] VITALS: BP 122/60; PULSE 101; RESP 16; TEMP 36.5; O2SAT 97
[2023-01-23] MEDS: TiZANidine HCL 4 MG TABLET PO ×2 (09:29→20:03)
[2023-01-23] MEDS: busPIRone HCl 5 MG TABLET 15 MG PO ×3 (09:29→20:03)
[2023-01-23] MEDS: NaPROXEN 500 MG TABLET PO ×2 (09:30→20:03)
[2023-01-23] MEDS: DULoxetine HCl 60 MG CAPSULE.DR PO ×2 (09:31→20:03)
[2023-01-23] MEDS: clonazePAM 0.5 MG TABLET PO ×3 (09:31→20:03)
[2023-01-23] MEDS: lamoTRIgine 100 MG TABLET 200 MG PO (09:32)
[2023-01-23] MEDS: lisinopriL 40 MG TABLET PO (09:32)
[2023-01-23] MEDS: Topiramate 25 MG TABLET PO ×2 (09:32→20:03)
--- NOTE | 2023-01-23 15:13 | HO.PSYCHPN ---
Subjective Subjective Date of Service: 01/23/23 Reason For Visit: Suicidal ideation Interim History: Met with patient; discussed with team Patient reports that he is doing better. Working on securing housing after he leaves. I am getting sheets to help me with coping skills. Talked about aftercare. Patient said he slept well Review of Systems Review of Systems hypotension Yes all other systems are reviewed and are negative Constitutional: Reports as per HPI, Denies chills, Denies fatigue, Denies fever(s) and Denies headache(s) Eyes: Reports as per HPI Denies headache(s) Cardiovascular: Denies chest pain and Denies dyspnea Respiratory: Denies cough and Denies dyspnea Gastrointestinal: Denies abdominal pain, Denies constipation and Denies vomiting Genitourinary: Denies difficulty urinating and Denies dysuria Reports behavioral changes, Denies headache(s) and Denies focal weakness Psychiatric: Reports anxiety, Reports behavioral changes, Reports depression, Reports hopelessness, Reports anhedonia and Reports suicidal ideation Endocrine: Denies fatigue Mental Status Exam Mental Status Exam Patient Appearance: Appropriate Patient Orientation: Person, Place, Time and Situation Level of Consciousness: Alert Patient Behavior: Appropriate, Talkative, Cooperative and Good Eye Contact Mood Description: Depressed (But less so) Affect Description: Calm Patient Cognition Impaired: No Ability to Follow Directions: Good Speech Pattern: Spontaneous Speech Memory Description: Intact Diagnostics Vital Signs (24Hr): Vital Signs - 24 hr 01/22/23 18:00 01/23/23 08:48 Temperature 98.3 F 97.7 F Pulse Rate 78 101 H Respiratory Rate 16 16 Blood Pressure 119/74 122/60 Pulse Oximetry 97 97 Oxygen Delivery Method Room Air Room Air BMI result Body Mass Index 30.1 Labs 01/17/23 09:28 01/17/23 09:28 Medications Medications Current Medications Acetaminophen (Acetaminophen 325 Mg Tablet) 650 mg PO Q6H PRN PRN Reason: Headache/Pain Mild Scale (1-3) Al Hydroxide/Mg Hydroxide (Magnesium Hydrox/Alum Hydrox 30 Ml Oral.Susp) 30 ml PO Q6H PRN PRN Reason: Heartburn/Nausea Buspirone HCl (Buspirone Hcl 5 Mg Tablet) 15 mg PO TID [facility] Last Admin: 01/23/23 14:41 Dose: 15 mg Clonazepam (Clonazepam 0.5 Mg Tablet) 0.5 mg PO BID PRN PRN Reason: Anxiety Last Admin: 01/23/23 12:37 Dose: 0.5 mg Clonazepam (Clonazepam 0.5 Mg Tablet) 0.5 mg PO BID [facility] Last Admin: 01/23/23 09:31 Dose: 0.5 mg Docusate Sodium (Docusate Sodium 100 Mg Capsule) 100 mg PO DAILY PRN PRN Reason: constipation Duloxetine HCl (Duloxetine Hcl 60 Mg Capsule.Dr) 60 mg PO BID [facility] Last Admin: 01/23/23 09:31 Dose: 60 mg Lamotrigine (Lamotrigine 100 Mg Tablet) 200 mg PO DAILY [facility] Last Admin: 01/23/23 09:32 Dose: 200 mg Lidocaine (Lidocaine 4 % Patch Adh..Patch) 2 patch TRANSDERMA DAILY [facility]; Protocol Last Admin: 01/23/23 09:38 Dose: Not Given Lisinopril (Lisinopril 40 Mg Tablet) 40 mg PO DAILY [facility]; Protocol Last Admin: 01/23/23 09:32 Dose: 40 mg Magnesium Hydroxide (Milk Of Magnesia 30 Ml Oral.Susp) 30 ml PO DAILY PRN PRN Reason: Constipation Naproxen (Naproxen 500 Mg Tablet) 500 mg PO BID [facility] Last Admin: 01/23/23 09:30 Dose: 500 mg Tizanidine HCl (Tizanidine Hcl 4 Mg Tablet) 4 mg PO BID [facility] Last Admin: 01/23/23 09:29 Dose: 4 mg Topiramate (Topiramate 25 Mg Tablet) 25 mg PO BID [facility] Last Admin: 01/23/23 09:32 Dose: 25 mg Trazodone HCl (Trazodone Hcl 50 Mg Tablet) 150 mg PO BEDTIME [facility] Last Admin: 01/23/23 00:54 Dose: 150 mg Trazodone HCl (Trazodone Hcl 50 Mg Tablet) 50 mg PO BEDTIME PRN PRN Reason: Insomnia Allergies Allergies Allergy/AdvReac Type Severity Reaction Status Date / Time hydroxyzine [From Vistaril] Allergy Hives Verified 12/26/22 18:32 Assessment & Plan Assessment & Plan (1) Major depression, recurrent: Status: Acute Code(s): F33.9 - Major depressive disorder, recurrent, unspecified (2) Cannabis use disorder: Status: Acute Code(s): F12.90 - Cannabis use, unspecified, uncomplicated (3) Alcohol use disorder: Status: Acute Code(s): F10.90 - Alcohol use, unspecified, uncomplicated Plan 47 yo male, recent discharge, readmit for SI with plan, substance use due to his son telling him he was not welcome at his graduation and he no longer wanted a relationship with him. Plan: NO VISITORS ALLOWED (recent visitor brought contraban) CV q15 Buspar to 15 mg tid Hospital course: 01/19/2023 Patient seen in psychiatric follow-up case reviewed with treatment team patient seen Patient future oriented seems to have better perspective hoping to go to partial at some point post discharge no active SI seems improved with Cymbalta Lamictal BuSpar Discharge planning 01/20/2023 Patient became increasingly irritable agitated distraught stating fearful of discharge fearful self-harm denies in this setting. Increase Lamictal to 200 mg needed much reassurance continue Cymbalta 60 b.i.d. unclear has been helpful would benefit eventually from partial hospital step-down clonazepam 0.5 b.i.d. might benefit from consideration of lithium a patient/Seroquel Discussed differences between fear of suicide vs suicidal impulses 01/21 feeling better today; more optimistic; feels better able to cope with thoughts, intermittent SI and able to stay safe. Asks for trazodone to be back to 150mg for sleep; not worried about BP. Discussed after care, dc next week 01/22 patient remains feeling better talking about aftercare plans; no SI; visitor brought in [employer], vape and patient no longer a lot of visitors 01/23: Continue current plan. Reason for continued inpatient stay Substantial Risk for: harm to self Time Spent With Patient Time: Total time managing care of this patient today ____ minutes.
[2023-01-23 18:54] VITALS: BP 103/64; PULSE 98; TEMP 36.8
[2023-01-24] MEDS: traZODone HCL 50 MG TABLET 150 MG PO ×2 (00:21→23:56)
[2023-01-24 08:13] VITALS: BP 102/61; PULSE 82; RESP 18; TEMP 36.1; O2SAT 99
[2023-01-24] MEDS: DULoxetine HCl 60 MG CAPSULE.DR PO ×2 (08:43→20:30)
[2023-01-24] MEDS: lisinopriL 40 MG TABLET PO (08:44)
[2023-01-24] MEDS: busPIRone HCl 5 MG TABLET 15 MG PO ×3 (08:44→20:30)
[2023-01-24] MEDS: lamoTRIgine 100 MG TABLET 200 MG PO (08:45)
[2023-01-24] MEDS: Topiramate 25 MG TABLET PO ×2 (08:45→20:30)
[2023-01-24] MEDS: NaPROXEN 500 MG TABLET PO ×2 (08:45→20:30)
[2023-01-24] MEDS: clonazePAM 0.5 MG TABLET PO ×3 (08:46→20:30)
[2023-01-24] MEDS: TiZANidine HCL 4 MG TABLET PO ×2 (08:46→20:30)
[2023-01-24 16:08] VITALS: BP 101/59; PULSE 87; TEMP 36.4
--- NOTE | 2023-01-24 19:44 | P.PNPSI_ITS ---
Subjective Subjective Date of Service: 01/24/23 Reason For Visit: Suicidal ideation Interim History: Met with patient; discussed with team Patient reports that he is doing better. Continues to work on coping skills sheets in the evenings to help with his anger management and emotion regulation. Working on securing housing after he leaves. Slept well. Denies SI/HI. Denies AVH. Review of Systems Review of Systems hypotension Yes all other systems are reviewed and are negative Constitutional: Reports as per HPI, Denies chills, Denies fatigue, Denies fever(s) and Denies headache(s) Eyes: Reports as per HPI Denies headache(s) Cardiovascular: Denies chest pain and Denies dyspnea Respiratory: Denies cough and Denies dyspnea Gastrointestinal: Denies abdominal pain, Denies constipation and Denies vomiting Genitourinary: Denies difficulty urinating and Denies dysuria Reports behavioral changes, Denies headache(s) and Denies focal weakness Psychiatric: Reports anxiety, Reports behavioral changes, Reports depression, Reports hopelessness, Reports anhedonia and Reports suicidal ideation Endocrine: Denies fatigue Mental Status Exam Mental Status Exam Patient Appearance: Appropriate Patient Orientation: Person, Place, Time and Situation Level of Consciousness: Alert Patient Behavior: Appropriate, Talkative, Cooperative and Good Eye Contact Mood Description: Depressed (But less so) Affect Description: Calm Patient Cognition Impaired: No Ability to Follow Directions: Good Speech Pattern: Spontaneous Speech Memory Description: Intact Diagnostics Vital Signs (24Hr): Vital Signs - 24 hr 01/24/23 08:13 01/24/23 16:08 Temperature 97.0 F 97.6 F Pulse Rate 82 87 Respiratory Rate 18 Blood Pressure 102/61 101/59 L Pulse Oximetry 99 Oxygen Delivery Method Room Air BMI result Body Mass Index 30.1 Labs 01/17/23 09:28 01/17/23 09:28 Medications Medications Current Medications Acetaminophen (Acetaminophen 325 Mg Tablet) 650 mg PO Q6H PRN PRN Reason: Headache/Pain Mild Scale (1-3) Al Hydroxide/Mg Hydroxide (Magnesium Hydrox/Alum Hydrox 30 Ml Oral.Susp) 30 ml PO Q6H PRN PRN Reason: Heartburn/Nausea Buspirone HCl (Buspirone Hcl 5 Mg Tablet) 15 mg PO TID [facility] Last Admin: 01/24/23 14:35 Dose: 15 mg Clonazepam (Clonazepam 0.5 Mg Tablet) 0.5 mg PO BID [facility] Last Admin: 01/24/23 08:46 Dose: 0.5 mg Clonazepam (Clonazepam 0.5 Mg Tablet) 0.5 mg PO BID PRN PRN Reason: Anxiety Last Admin: 01/24/23 15:53 Dose: 0.5 mg Docusate Sodium (Docusate Sodium 100 Mg Capsule) 100 mg PO DAILY PRN PRN Reason: constipation Duloxetine HCl (Duloxetine Hcl 60 Mg Capsule.Dr) 60 mg PO BID [facility] Last Admin: 01/24/23 08:43 Dose: 60 mg Lamotrigine (Lamotrigine 100 Mg Tablet) 200 mg PO DAILY [facility] Last Admin: 01/24/23 08:45 Dose: 200 mg Lidocaine (Lidocaine 4 % Patch Adh..Patch) 2 patch TRANSDERMA DAILY [facility]; Protocol Last Admin: 01/24/23 08:43 Dose: Not Given Lisinopril (Lisinopril 40 Mg Tablet) 40 mg PO DAILY [facility]; Protocol Last Admin: 01/24/23 08:44 Dose: 40 mg Magnesium Hydroxide (Milk Of Magnesia 30 Ml Oral.Susp) 30 ml PO DAILY PRN PRN Reason: Constipation Naproxen (Naproxen 500 Mg Tablet) 500 mg PO BID [facility] Last Admin: 01/24/23 08:45 Dose: 500 mg Tizanidine HCl (Tizanidine Hcl 4 Mg Tablet) 4 mg PO BID [facility] Last Admin: 01/24/23 08:46 Dose: 4 mg Topiramate (Topiramate 25 Mg Tablet) 25 mg PO BID [facility] Last Admin: 01/24/23 08:45 Dose: 25 mg Trazodone HCl (Trazodone Hcl 50 Mg Tablet) 150 mg PO BEDTIME [facility] Last Admin: 01/24/23 00:21 Dose: 150 mg Trazodone HCl (Trazodone Hcl 50 Mg Tablet) 50 mg PO BEDTIME PRN PRN Reason: Insomnia Allergies Allergies Allergy/AdvReac Type Severity Reaction Status Date / Time hydroxyzine [From Vistaril] Allergy Hives Verified 12/26/22 18:32 Assessment & Plan Assessment & Plan (1) Major depression, recurrent: Status: Acute Code(s): F33.9 - Major depressive disorder, recurrent, unspecified (2) Cannabis use disorder: Status: Acute Code(s): F12.90 - Cannabis use, unspecified, uncomplicated (3) Alcohol use disorder: Status: Acute Code(s): F10.90 - Alcohol use, unspecified, uncomplicated Plan 47 yo male, recent discharge, readmit for SI with plan, substance use due to his son telling him he was not welcome at his graduation and he no longer wanted a relationship with him. Plan: NO VISITORS ALLOWED (recent visitor brought contraban) CV q15 Buspar to 15 mg tid Hospital course: 01/19/2023 Patient seen in psychiatric follow-up case reviewed with treatment team patient seen Patient future oriented seems to have better perspective hoping to go to partial at some point post discharge no active SI seems improved with Cymbalta Lamictal BuSpar Discharge planning 01/20/2023 Patient became increasingly irritable agitated distraught stating fearful of d ischarge fearful self-harm denies in this setting. Increase Lamictal to 200 mg needed much reassurance continue Cymbalta 60 b.i.d. unclear has been helpful would benefit eventually from partial hospital step-down clonazepam 0.5 b.i.d. might benefit from consideration of lithium a patient/Seroquel Discussed differences between fear of suicide vs suicidal impulses 01/21 feeling better today; more optimistic; feels better able to cope with thoughts, intermittent SI and able to stay safe. Asks for trazodone to be back to 150mg for sleep; not worried about BP. Discussed after care, dc next week 01/22 patient remains feeling better talking about aftercare plans; no SI; visitor brought in Contra band, vape and patient no longer a lot of visitors 01/23: Continue current plan. 01/24: Continue current treatment plan. Reason for continued inpatient stay Substantial Risk for: harm to self, inability to function and rapid decompensation Time Spent With Patient Time: Total time managing care of this patient today ____ minutes.
[2023-01-25] MEDS: busPIRone HCl 5 MG TABLET 15 MG PO ×3 (08:15→20:56)
[2023-01-25] MEDS: TiZANidine HCL 4 MG TABLET PO ×2 (08:15→20:57)
[2023-01-25] MEDS: DULoxetine HCl 60 MG CAPSULE.DR PO ×2 (08:16→20:57)
[2023-01-25] MEDS: lisinopriL 40 MG TABLET PO (08:16)
[2023-01-25] MEDS: Topiramate 25 MG TABLET PO ×2 (08:16→20:57)
[2023-01-25] MEDS: lamoTRIgine 100 MG TABLET 200 MG PO (08:16)
[2023-01-25] MEDS: NaPROXEN 500 MG TABLET PO ×2 (08:16→20:56)
[2023-01-25] MEDS: clonazePAM 0.5 MG TABLET PO ×3 (08:16→20:56)
[2023-01-25 08:25] VITALS: BP 137/70; PULSE 69; RESP 18; TEMP 36.1; O2SAT 97
--- NOTE | 2023-01-25 08:32 | HO.PSYCHPN ---
Subjective Subjective Date of Service: 01/25/23 Reason For Visit: Suicidal ideation Interim History: met w.patient, discussed with team pt in good mood; no SI, feels safe and ready for discharge; reiterates how helpful coping skills are Mental Status Exam Mental Status Exam Narrative: Pt is alert and oriented; behavior is cooperative, friendly and calm; patient is not in distress; dressed in casual attire with scruffy facial hair but adequate hygiene; mood is described as good and affect congruent; eye contact appropriate; Speech is normal rate, volume and prosody and not pressured; no psychomotor agitation/retardation present; thought process is organized and goal directed; Thought content is on tx; otherwise pertinent to relevant topics and without any delusional content, paranoid ideations or grandiosity; denies any SI/HI. There is no evidence of perceptual disturbance. Patients insight and judgment are intact. Diagnostics Vital Signs (24Hr): Vital Signs - 24 hr 01/24/23 16:08 Temperature 97.6 F Pulse Rate 87 Blood Pressure 101/59 L BMI result Body Mass Index 30.1 Labs 01/17/23 09:28 01/17/23 09:28 Medications Medications Current Medications Acetaminophen (Acetaminophen 325 Mg Tablet) 650 mg PO Q6H PRN PRN Reason: Headache/Pain Mild Scale (1-3) Al Hydroxide/Mg Hydroxide (Magnesium Hydrox/Alum Hydrox 30 Ml Oral.Susp) 30 ml PO Q6H PRN PRN Reason: Heartburn/Nausea Buspirone HCl (Buspirone Hcl 5 Mg Tablet) 15 mg PO TID [facility] Last Admin: 01/25/23 08:15 Dose: 15 mg Clonazepam (Clonazepam 0.5 Mg Tablet) 0.5 mg PO BID [facility] Last Admin: 01/25/23 08:16 Dose: 0.5 mg Clonazepam (Clonazepam 0.5 Mg Tablet) 0.5 mg PO BID PRN PRN Reason: Anxiety Last Admin: 01/24/23 15:53 Dose: 0.5 mg Docusate Sodium (Docusate Sodium 100 Mg Capsule) 100 mg PO DAILY PRN PRN Reason: constipation Duloxetine HCl (Duloxetine Hcl 60 Mg Capsule.Dr) 60 mg PO BID [facility] Last Admin: 01/25/23 08:16 Dose: 60 mg Lamotrigine (Lamotrigine 100 Mg Tablet) 200 mg PO DAILY [facility] Last Admin: 01/25/23 08:16 Dose: 200 mg Lidocaine (Lidocaine 4 % Patch Adh..Patch) 2 patch TRANSDERMA DAILY [facility]; Protocol Last Admin: 01/24/23 08:43 Dose: Not Given Lisinopril (Lisinopril 40 Mg Tablet) 40 mg PO DAILY [facility]; Protocol Last Admin: 01/25/23 08:16 Dose: 40 mg Magnesium Hydroxide (Milk Of Magnesia 30 Ml Oral.Susp) 30 ml PO DAILY PRN PRN Reason: Constipation Naproxen (Naproxen 500 Mg Tablet) 500 mg PO BID [facility] Last Admin: 01/25/23 08:16 Dose: 500 mg Tizanidine HCl (Tizanidine Hcl 4 Mg Tablet) 4 mg PO BID [facility] Last Admin: 01/25/23 08:15 Dose: 4 mg Topiramate (Topiramate 25 Mg Tablet) 25 mg PO BID [facility] Last Admin: 01/25/23 08:16 Dose: 25 mg Trazodone HCl (Trazodone Hcl 50 Mg Tablet) 150 mg PO BEDTIME [facility] Last Admin: 01/24/23 23:56 Dose: 150 mg Trazodone HCl (Trazodone Hcl 50 Mg Tablet) 50 mg PO BEDTIME PRN PRN Reason: Insomnia Allergies Allergies Allergy/AdvReac Type Severity Reaction Status Date / Time hydroxyzine [From Vistaril] Allergy Hives Verified 12/26/22 18:32 Assessment & Plan Assessment & Plan (1) Major depression, recurrent: Status: Acute Code(s): F33.9 - Major depressive disorder, recurrent, unspecified (2) Cannabis use disorder: Status: Acute Code(s): F12.90 - Cannabis use, unspecified, uncomplicated (3) Alcohol use disorder: Status: Acute Code(s): F10.90 - Alcohol use, unspecified, uncomplicated Plan 47 yo male, recent discharge, readmit for SI with plan, substance use due to his son telling him he was not welcome at his graduation and he no longer wanted a relationship with him. Plan: NO VISITORS ALLOWED (recent visitor brought contraban) CV q15 Buspar to 15 mg tid Hospital course: 01/19/2023 Patient seen in psychiatric follow-up case reviewed with treatment team patient seen Patient future oriented seems to have better perspective hoping to go to partial at some point post discharge no active SI seems improved with Cymbalta Lamictal BuSpar Discharge planning 01/20/2023 Patient became increasingly irritable agitated distraught stating fearful of discharge fearful self-harm denies in this setting. Increase Lamictal to 200 mg needed much reassurance continue Cymbalta 60 b.i.d. unclear has been helpful would benefit eventually from partial hospital step-down clonazepam 0.5 b.i.d. might benefit from consideration of lithium a patient/Seroquel Discussed differences between fear of suicide vs suicidal impulses 01/21 feeling better today; more optimistic; feels better able to cope with thoughts, intermittent SI and able to stay safe. Asks for trazodone to be back to 150mg for sleep; not worried about BP. Discussed after care, dc next week 01/22 patient remains feeling better talking about aftercare plans; no SI; visitor brought in Contra chante, christophere and patient no longer a lot of visitors 01/23: Continue current plan. 01/24: Continue current treatment plan. 01/25 stable, good mood, no SI; feels ready for discharge. Patient educated on: diagnosis Informed Consent: understands Reason for continued inpatient stay Substantial Risk for: stable for discharge Time Spent With Patient Time: Total time managing care of this patient today ____ minutes.
[2023-01-25 18:00] VITALS: BP 165/63; PULSE 96; RESP 18; TEMP 36.6; O2SAT 96
[2023-01-26] MEDS: traZODone HCL 50 MG TABLET 150 MG PO (01:17)
[2023-01-26] MEDS: busPIRone HCl 5 MG TABLET 15 MG PO (08:44)
[2023-01-26] MEDS: Topiramate 25 MG TABLET PO (08:44)
[2023-01-26] MEDS: lamoTRIgine 100 MG TABLET 200 MG PO (08:45)
[2023-01-26] MEDS: TiZANidine HCL 4 MG TABLET PO (08:45)
[2023-01-26] MEDS: DULoxetine HCl 60 MG CAPSULE.DR PO (08:45)
[2023-01-26] MEDS: lisinopriL 40 MG TABLET PO (08:45)
[2023-01-26] MEDS: clonazePAM 0.5 MG TABLET PO (08:45)
[2023-01-26] MEDS: NaPROXEN 500 MG TABLET PO (08:45)
[2023-01-26 08:50] VITALS: BP 141/79; PULSE 87; RESP 18; TEMP 36.4
--- NOTE | 2023-01-26 09:26 | PM.PSYDC ---
DS: Providers Provider Date of Service: 01/26/23 Date of admission: 01/11/23 11:55 Date of discharge: 01/26/23 Primary care physician: Unknown Physician Admitting clinician: Staci Vega Attending physician on discharge: Luisito Workman DS: Diagnosis Discharge Diagnosis (1) Major depression, recurrent: Status: Acute (2) Cannabis use disorder: Status: Acute (3) Alcohol use disorder: Status: Acute DS: Medications Discharge Medications Home Medications: Home Medications Medication Instructions Recorded Confirmed docusate sodium 100 mg capsule 100 mg PO DAILY PRN constipation 01/09/23 01/10/23 Previous Rx's Medication Instructions Recorded buspirone 15 mg tablet 15 mg PO BID 30 days #60 tabs 01/26/23 clonazepam 0.5 mg tablet 0.5 mg PO BID PRN anxiety 30 days 01/26/23 #60 tabs duloxetine 60 mg capsule,delayed 60 mg PO BID 30 days #60 caps 01/26/23 release lamotrigine 100 mg tablet 200 mg PO DAILY 30 days #60 tabs 01/26/23 lisinopril 40 mg tablet 40 mg PO DAILY 30 days #30 tabs 01/26/23 meloxicam 7.5 mg tablet 7.5 mg PO BID PRN mild pain (scale 01/26/23 score 1-4) 30 days #60 tabs tizanidine 4 mg tablet 4 mg PO BID 30 days #60 tabs 01/26/23 topiramate 25 mg tablet 25 mg PO BID 30 days #60 tabs 01/26/23 trazodone 50 mg tablet 150 mg PO BEDTIME PRN insomnia 30 01/26/23 days #90 tabs Mental Status Exam Mental Status Exam Narrative: Pt is alert and oriented; behavior is cooperative, friendly and calm; patient is not in distress; dressed in casual attire with scruffy facial hair but adequate hygiene; mood is described as good and affect congruent; eye contact appropriate; Speech is normal rate, volume and prosody and not pressured; no psychomotor agitation/retardation present; thought process is organized and goal directed; Thought content is on tx; otherwise pertinent to relevant topics and without any delusional content, paranoid ideations or grandiosity; denies any SI/HI. There is no evidence of perceptual disturbance. Patients insight and judgment are intact. DS: Summary Hospital Course Hospital Course: 47 yo male, recent discharge, readmit for SI with plan, substance use, with hx of MDD, characterlogical traits, who decompensated due to his son telling him he was not welcome at his graduation and he no longer wanted a relationship with him. On admission patient was depressed and distraught about his relationship with his son and expressed intermittent SI. His home medications were continued. He soon stabilized and shared gratitude about being able continue working on coping skills. Patient acknowledged that he has chronic intermittent SI and that whenever he is feeling emotional it is the 1st thought that pops into his mind; however over the course of his admission he shared that with the therapeutic help received, it crystallized for him that his SI is just a thought and that he has options and that the thought/feeling will pass. Patient understood that he will continue to have intermittent SI but he expressed resolve and confidence that he would be able to cope through that feeling and stay safe. Patient's depression fully resolved and he was in a good mood, future oriented and optimistic. He was engaged in treatment, attending all groups. On the unit patient demonstrated some axis II traits and was found with contraban after he smoked a vape in his bathroom and set off the alarm; intermittently making inappropriate comments to peers/staff. Otherwise patient remained in behavioral and impulse control. Patient was ready for discharge and will return to live with his friend's mother until the 2 of them find an apartment. While patient remains vulnerable to relapse and decompensation, he is not in imminent risk for harm to self or others and is appropriate to continue treatment in the community. Time spent discussing smoking cessation with patient: 3 to 10 minutes Status at Discharge Functional status at discharge: independent ambulation Overall status at discharge: patient is back to baseline Time Spent with Patient Time attestation: Total time managing care of this patient today ____ minutes. Time spent: Less than 30 minutes Discharge Plan Discharge Anticipated Discharge Date/Time: 01/26/23 11:30 Patient Disposition: Home, Self-Care Discharge Diagnosis: MDD, recurrent, severe in full remission Referrals: Psychiatric Prescriber: Brenda Ge ([facility]) [Other] - 02/02/23 11:00 am (Appointment is in person at the office ) PHP Intake:Alexandra Padilla([facility]) [Other] - 02/08/23 8:00 am ([facility] behind the main hospital. Follow the silver signs with blue writing for [facility]; enter from [address] (the walkway to the brick building connected to the red trailer building). Enter the building, take a left and at the end of the short hallway take a right to the offices. ) Therapy: [facility] ([facility]) [Other] - 01/26/23 2:00 pm (Telehealth- [facility] will call your phone at the appointment time) [facility] [Other] - 1 Week (If you have any issues or concerns, please call [facility] or Walk In appts are available. ) Discharge Medications: New lamotrigine 100 mg Tablet 200 mg PO DAILY 30 Days Qty: 60 0RF trazodone 50 mg Tablet 150 mg PO BEDTIME PRN (Reason: insomnia) 30 Days Qty: 90 0RF topiramate 25 mg Tablet 25 mg PO BID 30 Days Qty: 60 0RF Continued tizanidine 4 mg tablet 4 mg PO BID 30 Days Qty: 60 0RF clonazepam 0.5 mg tablet 0.5 mg PO BID PRN (Reason: anxiety) 30 Days Qty: 60 0RF lisinopril 40 mg tablet 40 mg PO DAILY 30 Days Qty: 30 0RF buspirone 15 mg tablet 15 mg PO BID 30 Days Qty: 60 0RF duloxetine 60 mg capsule,delayed release(DR/EC) 60 mg PO BID 30 Days Qty: 60 0RF docusate sodium 100 mg capsule 100 mg PO DAILY PRN (Reason: constipation) Changed meloxicam 7.5 mg tablet 7.5 mg PO BID PRN (Reason: mild pain (scale score 1-4)) 30 Days Qty: 60 0RF Discontinued clonidine HCl 0.1 mg tablet 0.1 mg PO BID PRN (Reason: anxiety) trazodone 50 mg tablet 75 mg PO BEDTIME lamotrigine 150 mg tablet 150 mg PO DAILY doxycycline monohydrate 100 mg capsule 100 mg PO Q12H Discharge Orders: Discharge Order (Routine); Ordered 01/26/23 Ordered By: Luisito Workman Diet: Regular diet Activity on Discharge: As tolerated Stand Alone Forms: Patient Portal Discharge page Care Plan Goals: Maintain mood and safe behaviors Take medications as prescribed Continue to pursue sobriety Practice coping skills Continue with outpatient providers and reach out to them as needed Health Concerns: Mood stability and behaviors Sobriety Plan of Treatment: Follow up with your PCP, psychiatric provider and other outpatient providers regarding above concerns Take medications as prescribed Parental Resources -[employer] Parent Helpline [phone] -Parent Stress Line -[employer] Support for Parents (on the Internet with Zoom meetings) -[employer] Support for Parents, [employer] [phone] Assessment: Risk assessment at time of discharge:? Patient was interviewed prior to discharge and found to be fully oriented and without any SI or HI. Patient has insight and demonstrates good judgment in terms of wanting to pursue treatment. Patient is not in imminent risk of harm to self or others and has a safety plan that includes presenting to the closest ER or calling 911 if feeling unsafe.? Patient has been observed closely by nursing and unit staff throughout admission; patient has not engaged in any behaviors that suggest dangerousness to self or others and has demonstrated appropriate behaviors and impulse control
[2023-01-26] MEDS: Naloxone HCl Nasal TAKE HOME 4 MG SPRAY NOSTRILALT (11:30)
== END 2023-01-26 11:51 | disposition home or self-care (01) | DRG 885 ==
LOC: HO.ED 01-11 01:41 → HO.PM5 01-11 12:09
PROVIDERS: Clinical Nurse Specialist Psychiatric/Mental Health; Admitting Provider Psychiatry & Neurology Psychiatry; Emergency Provider Emergency Medicine; Visit Provider Clinical Nurse Specialist Psychiatric/Mental Health, Adult
DX: F33.2 Major depressive disorder, recurrent severe without psychotic features (principal); R45.851 Suicidal ideations; I10 Essential (primary) hypertension; F10.10 Alcohol abuse, uncomplicated; F12.10 Cannabis abuse, uncomplicated; Z20.822 Contact with and (suspected) exposure to COVID-19; Z87.891 Personal history of nicotine dependence; Z79.899 Other long term (current) drug therapy
CPT/HCPCS: 36415; 80307; 81003; 82565; 82607; 82746; 82947; 83036; 83540; 84443; 84484; 85025; 87635; 93005; 99285

== ENCOUNTER → 2024-06-26 16:42 | Outpatient (BNV) | payer MEDICARE, SELFPAY | PROVIDERS: Emergency Provider Emergency Medicine; Visit Provider Internal Medicine Cardiovascular Disease | DX: R07.9 Chest pain, unspecified (principal) | CPT/HCPCS: 93010 ==

== ENCOUNTER 2024-06-26 16:44 | Emergency (ER) | payer MEDICARE, SELFPAY ==
--- NOTE | 2024-06-26 | ECG_ITS ---
Test Reason : cp Blood Pressure : / mmHG Vent. Rate : 095 BPM Atrial Rate : 095 BPM P-R Int : 140 ms QRS Dur : 078 ms QT Int : 362 ms P-R-T Axes : 033 -05 020 degrees QTc Int : 454 ms Normal sinus rhythm Normal ECG When compared with ECG of 11-JAN-2023 09:00, No significant change was found Referred By: Generic ED Physician Electronically Signed By:Oliver Daniels
--- NOTE | ~2024-06-26 | XR_ITS ---
EXAMINATION: XR chest 2V CLINICAL INFORMATION: chest pain COMPARISON: None TECHNIQUE: 2 views of the chest FINDINGS: Clear lungs. No pneumothorax. No pleural effusion. Borderline enlarged cardiac silhouette. XR/XR chest 2V IMPRESSION: Borderline enlarged cardiac silhouette. Electronically signed by: Lina Sidhu MD 06/26/2024 06:39 PM [facility] [place] [place]
--- NOTE | ~2024-06-26 | CT_ITS ---
EXAMINATION: CT ABDOMEN AND PELVIS WITHOUT AND WITH CONTRAST CLINICAL INFORMATION: Rectal bleed. Diffuse abdominal pain. COMPARISON: None available. TECHNIQUE: Multidetector volumetric imaging was performed of the abdomen and pelvis before and after the IV administration of 99 mL of Omnipaque 300 intravenous contrast. Sagittal and coronal reformatted images were obtained on the technologist's workstation. This CT examination was performed using dose optimization techniques as appropriate, variously including the following: *Automated exposure control *Adjustment of mA and/or kV according to patient size (this includes techniques or standardized protocols for targeted exams where dose is matched to indication/reason for exam; i.e. extremities or head) *Use of iterative reconstruction technique DLP: 2124 mGy-cm FINDINGS: LUNG BASES: The visualized lung bases are unremarkable. LIVER, GALLBLADDER, AND BILIARY TREE: Diffuse low-density liver on unenhanced images consistent with hepatic steatosis. 9 mm well-circumscribed low-density focus within the lateral segment of the left lobe the liver too small to specifically characterize but most likely representing a benign entity and not specifically warrant additional imaging follow-up on the basis of this examination. The gallbladder is unremarkable with no evidence of radiopaque gallstones, gallbladder wall thickening, or obvious pericholecystic inflammatory changes. PANCREAS: Unremarkable SPLEEN: Unremarkable ADRENAL GLANDS: Unremarkable KIDNEYS AND URETERS: The kidneys are normal in size, shape, and attenuation. No hydronephrosis, hydroureter, or calculi seen. No perinephric stranding. BLADDER: Unremarkable GASTROINTESTINAL TRACT: Marked sigmoid diverticulosis is present. Normal appearance of the appendix. No free intraperitoneal fluid or gas collections. No intestinal dilatation or mural thickening noted normal appearance of the sigmoid mesentery and small bowel mesentery. Normal appearance of the stomach and duodenum. Normal intraluminal opacification noted in the visualized components of the superior mesenteric artery. Close scrutiny of the intestinal system demonstrates no evidence of extraluminal extravasation of intravenous contrast agent to suggest findings to be associated with acute gastrointestinal hemorrhage. Delayed IV postcontrast enhanced images demonstrate no evidence of extraluminal accumulation of intravenous contrast agent. ABDOMINAL WALL: No significant hernia is appreciated. LYMPH NODES: Normal VASCULAR: Mild scattered calcific atherosclerosis PELVIC VISCERA: Normal appearance of the prostate and seminal vesicles OSSEOUS STRUCTURES: No suspicious skeletal abnormalities identified. Intervertebral disc space narrowing and vacuum phenomena at L4-L5 and L5-S1. CT/CT gi bleed abd pel wo/w IVcon IMPRESSION: 1. No acute abnormalities identified. No evidence of acute gastrointestinal hemorrhage. 2. Marked sigmoid diverticulosis. No evidence of acute diverticulitis. No free intraperitoneal fluid or gas collections. 3. Diffuse hepatic steatosis. Electronically signed by: Rony Short MD 06/27/2024 06:29 AM [facility]
[2024-06-26 16:55] VITALS: BP 186/122; PULSE 98; RESP 20; TEMP 36.6; O2SAT 98; BMI 41.2
--- NOTE | 2024-06-26 16:59 | ED.GENADULT ---
HPI - General Adult General Chief complaint: General Medical Stated complaint: Chest Pain, Blood when voiding rectum, HBP Time Seen by Provider: 06/27/24 03:52 Source: patient and old records reviewed Mode of arrival: ambulatory Limitations: no limitations History of Present Illness ED Provider: SUDHA STILES narrative: 49 yo male with PMH of ETOH abuse just relapsed and started drinking 3 weeks ago due to family stress, HTN off meds for 1.5 years, anxiety and depression who c/o abdominal distention, LUQ and RUQ pain, anxiety, intermittent atypical chest pain - sharp on L side but no recent travel or procedures. He presents shaky and nervous and states he has never felt like this before. He has no prior hx of CAD or VTE. He also notes intermittent rectal bleeding brb on toilet paper and in stool states when he goes to the bathroom it sometimes drips out. MD complaint: abdominal distention, anxiety Onset (ago): week(s) (few) Location: abdomen Radiation: non-radiation Severity: moderate Quality: aching Pain Consistency: intermittent Relieving factors: none Exacerbating factors: none Associated symptoms: other (feels he cannot catch his breath at times) Treatments prior to arrival: none Related Data Home Medications ?Medication ?Instructions ?Recorded ?Confirmed docusate sodium 100 mg capsule 100 mg PO DAILY PRN constipation 01/09/23 01/10/23 Previous Rx's ?Medication ?Instructions ?Recorded buspirone 15 mg tablet 15 mg PO BID 30 days #60 tabs 01/26/23 clonazepam 0.5 mg tablet 0.5 mg PO BID PRN anxiety 30 days 01/26/23 #60 tabs duloxetine 60 mg capsule,delayed 60 mg PO BID 30 days #60 caps 01/26/23 release lamotrigine 100 mg tablet 200 mg (2 x 100 mg) PO DAILY 30 01/26/23 days #60 tabs lisinopril 40 mg tablet 40 mg PO DAILY 30 days #30 tabs 01/26/23 meloxicam 7.5 mg tablet 7.5 mg PO BID PRN mild pain (scale 01/26/23 score 1-4) 30 days #60 tabs tizanidine 4 mg tablet 4 mg PO BID 30 days #60 tabs 01/26/23 topiramate 25 mg tablet 25 mg PO BID 30 days #60 tabs 01/26/23 trazodone 50 mg tablet 150 mg (3 x 50 mg) PO BEDTIME PRN 01/26/23 insomnia 30 days #90 tabs lorazepam 1 mg tablet 1 mg PO BID PRN anxiety #8 tabs 06/27/24 Allergies Allergy/AdvReac Type Severity Reaction Status Date / Time hydroxyzine [From Vistaril] Allergy Hives Verified 06/26/24 16:58 Review of Systems Review of Systems: Constitutional : No Weight loss, No Fever, No Chills ENT/Mouth : No sore throat, No Rhinorrhea Eyes: No Swelling, No Redness Cardiovascular : No Chest Pain, No SOB, No Edema Respiratory : No Cough, No Sputum, No Wheezing Gastrointestinal : Positive Nausea, no Vomiting, no Diarrhea, positive abdominal Pain, pos Hematochezia, No Melena Genitourinary : No Dysuria, No Urinary Frequency, No Hematuria, No Urgency Musculoskeletal : No joint pain, No Myalgias, No Joint Swelling Skin : No Skin Lesions, No rash Neuro : No Weakness, No Numbness, No Dizziness, No Headache Psych : pos Anxiety/Panic, No Depression All other systems reviewed and are negative. [facility] Past Medical History Attestation statement: The following information was validated with the patient. Source: old records reviewed Medical History Cannabis use disorder Alcohol use disorder Major depression, recurrent Septic arthritis of elbow, right HTN (hypertension) Social History Social History Household Members: None Housing: Homeless Housing Other:: staying w friend. looking for housing Do you presently have visiting nurse or other home services: No Alcohol intake: current Alcohol intake frequency: 0-2 drinks per day Alcohol type: beer Patient Tobacco Use Status: Former Tobacco user Smoked in Last 30 Days: No Second Hand Smoke Exposure: No Use of substances other than those prescribed or required for medical reasons: Yes Substance Use Type: Marijuana Advance Directives: No Advance Directives Information Provided: No service: No Current occupational status: unemployed Sexual orientation: Straight/Heterosexual Physical Exam ED Vital Signs: Vital Signs - 24 hr 06/26/24 23:38 06/27/24 04:43 06/27/24 08:00 Temperature 98.2 F 98.2 F 98.4 F Pulse Rate 81 95 99 Respiratory Rate 16 16 16 Blood Pressure 167/107 H 159/102 H 152/96 H Pulse Oximetry 97 98 99 Oxygen Delivery Method Room Air Room Air Room Air 06/27/24 15:52 Temperature 97.8 F Pulse Rate 98 Respiratory Rate 16 Blood Pressure 162/107 H Pulse Oximetry 97 Oxygen Delivery Method Room Air BMI result Body Mass Index 41.2 Appearance: Alert. Oriented X3. No acute distress. Eyes: Pupils equal, round and reactive to light. ENT: Pharynx normal. Neck: Normal inspection. Neck supple. CVS: Normal heart rate and rhythm. Pulses normal. Respiratory: No respiratory distress. Breath sounds normal. Abdomen: Soft and mild RUQ and LUQ it is distended Skin: Skin warm and dry. Normal skin color. Normal skin turgor. Extremities: No lower extremity edema. No calf ttp Neuro: Oriented X 3. No motor deficit. No sensory deficit. Tremor noted, tongue fasciculations Course Course Course Narrative: RME performed by Bernadette Bush PA-C. Patient is a 49 year old assigned male at presenting to the emergency department with chest pain, shortness of breath, and bright red blood in his stool. Detailed physical exam and review of systems are deferred to the mechanical engineering teacher. EKG, labs, imaging, and swabs ordered. Patient placed back in the waiting room pending room availability and results. Reevaluation(s) Reevaluation #1: 06/27/2024 we are waiting for care team eval,remained clinically stable.Pt will be signed out to dr Monet Time: 16:16 Reevaluation #2: The patient was signed out to me by the previous emergency physician pending the evaluation by the care team. Patient has been seen by the care team and the addiction team. The patient does not wish to go to an inpatient detox unit for alcohol. The patient does not seem to be acutely suicidal or require inpatient hospitalization for mental health. The patient says that he has made some improvements with his family and he is looking forward to the . He does not have a primary care doctor locally. He used to live in [facility] and he has not yet established a doctor in this area. He has requested a small prescription for some lorazepam. According to the state website the patient seems to often be prescribed clonazepam. I will prescribe a tablets of lorazepam. He will be discharged with plans to follow up with the [facility] for an outpatient program. Shakir Crowemary anne Time: 17:51 Medications Administered Generic Name Dose Route Start Last Admin Trade Name Freq PRN Reason Stop Dose Admin Lorazepam 2 mg 06/27/24 06:54 06/27/24 15:27 Lorazepam 1 Mg Tablet PO 2 mg Q3H PRN Administration Alcohol Withdrawal Discontinued Medications Generic Name Dose Route Start Last Admin Trade Name Freq PRN Reason Stop Dose Admin Iohexol 100 ml 06/27/24 05:38 06/27/24 05:39 Iohexol 350 Mg/Ml 100 Ml Infus..Btl IV 06/27/24 05:39 100 ml ONCE ONE Administration Lorazepam 1 mg 06/27/24 04:11 06/27/24 04:53 Lorazepam 2 Mg/Ml Vial IVPUSH 06/27/24 04:12 1 mg STAT STA Administration Medical Decision Making Medical Decision Making [facility] Narrative: 49 yo male with PMH of ETOH abuse just relapsed,, HTN off meds for 1.5 years, anxiety and depression here many complaints - rectal bleeding, anxiety, atypical L sided chest pain but no risk factors for VTE, and abdominal pain waxing and waning - at this time he also appears to have mild ETOH withdrawal - willl obtain labs, EKG, CT for GI bleed. Differential Diagnosis Differential Diagnoses: The differential diagnosis associated with the presentation includes internal hemorrhoids, colitis, ETOH use disorder, gastritis, atypical chest pain, non-compliance Admission/Observation Consideration of admission/observation: Escalation of care including admission/observation considered no acute findings, H/H stable no bleeding here wants to talk to addiction medicine about his ETOH abuse CIWA and PRN ativan ordered Lab Data [facility] Lab Attestation statement: I reviewed the patient's lab results. 06/26/24 17:17 06/26/24 17:17 Labs: Lab Results 06/26/24 06/26/24 Range/Units 17:17 23:42 WBC 4.6 L (4.8-10.8) X10*3/uL RBC 4.30 L (4.60-5.80) X10*6/uL Hgb 14.7 D (14.0-18.0) g/dl Hct 40.4 L (42.0-52.0) % MCV 94.0 (80.0-98.0) fL MCH 34.2 H (27.0-33.0) pg MCHC 36.4 H (31.0-36.0) g/dl RDW 12.7 (11.0-16.0) % Plt Count 166 (160-400) X10*3/uL MPV 9.5 (9.4-12.4) fL Immature Gran % (Auto) 0.4 (0.0-0.4) % Neut % (Auto) 67.8 (45-73) % Lymph % (Auto) 19.1 L (20-40) % Mobile % (Auto) 10.1 (2-11) % Eos % (Auto) 1.5 (0-4) % Baso % (Auto) 1.1 (0-2) % Lymph # (Auto) 0.9 L (1.2-4.9) X10*3/uL Mobile # (Auto) 0.5 (0.1-1.2) X10*3/uL Eos # (Auto) 0.1 (0.0-0.4) X10*3/uL Baso # (Auto) 0.1 (0.0-0.2) X10*3/uL Abs Immat Gran (auto) 0.02 (0.00-0.03) X10*3/uL Absolute Neuts (auto) 3.1 (2.0-8.3) x10*3/uL Absolute Nucleated RBC 0.000 (0.0-0.012) X10*3/uL Nucleated RBC % (auto) 0.0 (0.0-0.2) /100WBC Sodium 138 (135-145) mmol/L Potassium 3.5 (3.3-5.1) mmol/L Chloride 103 (96-108) mmol/L Carbon Dioxide 22 (22-29) mmol/L Anion Gap 17 (12-20) BUN 12 (9-16) mg/dL Creatinine 0.78 (0.5-1.4) mg/dL Estim Creat Clear Calc 134.0 Estimated GFR > 60 Random Glucose 105 (60-115) mg/dL Calcium 9.0 D (8.4-10.2) mg/dL Magnesium 1.6 (1.6-2.6) mg/dL Total Bilirubin 0.8 (0.0-1.0) mg/dL AST 93 H (5-37) U/L ALT 101 H (0-40) U/L Alkaline Phosphatase 77 (39-117) U/L Troponin I High Sens < 2.7 (<3.5-35.0) ng/L Total Protein 7.6 (6.5-8.0) g/dL Albumin 4.5 (3.5-5.0) g/dL Lipase 14 (8-78) U/L Urine Color Yellow Urine Appearance Clear Urine pH 6.5 (5.0-9.0) Ur Specific [place] 1.025 (1.005-1.025) Urine Protein 30 (1+) H (Neg-Trace) mg/dL Urine Glucose (UA) Negative (Negative) mg/dL Urine Ketones 15 (Negative) mg/dL Urine Blood Negative (Negative) Urine Nitrite Negative (Negative) Ur Leukocyte Esterase Negative (Negative) Urine RBC 0-2 (0-2) /HPF Urine WBC 0-5 (0-5) /HPF Ur Squamous Epith Cells 0-2 (0-2) /HPF Urine Bacteria None Seen (None Seen) Hyaline Casts 0-2 (0-2) /LPF Urine Opiates Screen Not Detected (Not Detect) Ur Buprenorphine Scrn Not Detected (Not Detect) ng/mL Ur Oxycodone Screen Not Detected (Not Detect) ng/mL Urine Methadone Screen Not Detected (Not Detect) ng/mL Urine Fentanyl Screen Not Detected (Not Detect) Ur Barbiturates Screen Not Detected (Not Detect) Ur Phencyclidine Scrn Not Detected (Not Detect) Ur Amphetamines Screen Not Detected (Not Detect) U Benzodiazepines Scrn Not Detected (Not Detect) Urine Cocaine Screen Not Detected (Not Detect) U Marijuana (THC) Screen POSITIVE H (Not Detect) Ethyl Alcohol 57 mg/dL Influenza Type A (PCR) NEGATIVE (Negative) Influenza Type B (PCR) NEGATIVE (Negative) RSV RNA Qual (PCR) NEGATIVE (Negative) SARS-CoV-2 RNA (RT-PCR) NEGATIVE (Negative) Independent Interpretation I performed an independent interpretation of an: EKG and CT Scan (normal ) Interpretation: Rate: 95 Rhythm: NSR [place]: left Normal P waves. Normal [place]. Normal QRS complex. ST T wave : nonspecific ST T wave changes inf leads, no JAQUI qTC: 454 prior studies: no acute ischemia The study has been interpreted contemporaneously by me. . Radiology Impression Discussion of test interpretation with radiology: I have reviewed the radiologist's reading. External Record Review External record reviewed: Office record Discharge Plan Discharge Clinical Impression: Encounter for behavioral health screening Patient Disposition: Home, Self-Care Instructions: Abuse of Alcohol (ED) Additional Instructions: Please contact the [facility] as discussed with the crisis team here to arrange outpatient services. Please continue your efforts to get a new local primary care doctor. Return to the emergency room if significantly worse. Prescriptions: New lorazepam 1 mg tablet 1 mg PO BID PRN (Reason: anxiety) Qty: 8 0RF No Action lamotrigine 100 mg Tablet 200 mg PO DAILY 30 Days Qty: 60 0RF trazodone 50 mg Tablet 150 mg PO BEDTIME PRN (Reason: insomnia) 30 Days Qty: 90 0RF topiramate 25 mg Tablet 25 mg PO BID 30 Days Qty: 60 0RF tizanidine 4 mg tablet 4 mg PO BID 30 Days Qty: 60 0RF clonazepam 0.5 mg tablet 0.5 mg PO BID PRN (Reason: anxiety) 30 Days Qty: 60 0RF meloxicam 7.5 mg tablet 7.5 mg PO BID PRN (Reason: mild pain (scale score 1-4)) 30 Days Qty: 60 0RF lisinopril 40 mg tablet 40 mg PO DAILY 30 Days Qty: 30 0RF buspirone 15 mg tablet 15 mg PO BID 30 Days Qty: 60 0RF duloxetine 60 mg capsule,delayed release(DR/EC) 60 mg PO BID 30 Days Qty: 60 0RF docusate sodium 100 mg capsule 100 mg PO DAILY PRN (Reason: constipation) Referrals: [facility] [Outside] Print Language: Croatian
[2024-06-26 17:21] LABS: MANUAL DIFF FLAG NO
[2024-06-26 17:32] LABS: Basophils Absolute Auto 0.1 X10*3/uL (0.0-0.2); Basophils Percent Auto 1.1 % (0-2); Eosinophils Absolute Auto 0.1 X10*3/uL (0.0-0.4); Eosinophils Percent Auto 1.5 % (0-4); Hematocrit 40.4 % (42.0-52.0); Hemoglobin 14.7 g/dl (14.0-18.0); Imm Gran Abs Auto 0.02 X10*3/uL (0.00-0.03); Imm Gran Pct Auto 0.4 % (0.0-0.4); Lymphocytes Absolute Auto 0.9 X10*3/uL (1.2-4.9); Lymphocytes Percent Auto 19.1 % (20-40); Mean Corpuscular HGB Conc 36.4 g/dl (31.0-36.0); Mean Corpuscular Hemoglobin 34.2 pg (27.0-33.0); Mean Platelet Volume 9.5 fL (9.4-12.4); Monocytes Absolute Auto 0.5 X10*3/uL (0.1-1.2); Monocytes Percent Auto 10.1 % (2-11); Neutrophils Absolute Auto 3.1 x10*3/uL (2.0-8.3); Neutrophils Percent Auto 67.8 % (45-73); Platelet Count 166 X10*3/uL (160-400); Red Cell Distribution Width 12.7 % (11.0-16.0); White Blood Count 4.6 X10*3/uL (4.8-10.8)
[2024-06-26 17:38] LABS: Alanine Aminotransferase 101 U/L (0-40); Albumin Level 4.5 g/dL (3.5-5.0); Alkaline Phosphatase 77 U/L (39-117); Anion Gap 17 (12-20); Aspartate Amino Transferase 93 U/L (5-37); Bilirubin Total 0.8 mg/dL (0.0-1.0); Blood Urea Nitrogen 12 mg/dL (9-16); Carbon Dioxide 22 mmol/L (22-29); Chloride 103 mmol/L (96-108); Estimated Glomerular Filt Rate > 60; Glucose Random 105 mg/dL (60-115); Magnesium 1.6 mg/dL (1.6-2.6); Potassium 3.5 mmol/L (3.3-5.1); Sodium 138 mmol/L (135-145); Total Protein 7.6 g/dL (6.5-8.0)
[2024-06-26 17:48] LABS: Troponin-I High Sensitivity < 2.7 ng/L (<3.5-35.0)
[2024-06-26 18:01] LABS: Influenza A PCR NEGATIVE (Negative); Influenza B PCR NEGATIVE (Negative); Resp Syncy Virus RNA Qual PCR NEGATIVE (Negative); SARS COV2 PCR INHOUSE NEGATIVE (Negative)
[2024-06-26 23:38] VITALS: BP 167/107; PULSE 81; RESP 16; TEMP 36.8; O2SAT 97
--- NOTE | 2024-06-26 23:43 | MHC.EDTECH ---
Patient urine sample collected and vitals recheck .
[2024-06-27 00:02] LABS: Appearance Urine Clear; Color Urine Yellow; Glucose Urine UA Negative (Negative); Leukocyte Esterase Urine Negative (Negative); Nitrite Urine Negative (Negative); PH 6.5 (5.0-9.0); Specific Gravity - Urine 1.025 (1.005-1.025); UMIC TRIGGER UACC YES; Urine Blood Negative (Negative); Urine Ketones 15 mg/dL (Negative); Urine Protein 30 (1+) mg/dL (Neg-Trace)
[2024-06-27 00:12] LABS: Bacteria Urine None Seen (None Seen); Hyaline Casts Urine 0-2 /LPF (0-2); RBC Urine 0-2 /HPF (0-2); Squamous Epithelial Cell Urine 0-2 /HPF (0-2); WBC Urine 0-5 /HPF (0-5)
[2024-06-27 04:22] LABS: Lipase 14 U/L (8-78)
[2024-06-27 04:43] VITALS: BP 159/102; PULSE 95; RESP 16; TEMP 36.8; O2SAT 98
[2024-06-27] MEDS: LORazepam 2 MG/ML VIAL 1 MG IVPUSH (04:53)
[2024-06-27] MEDS: iohexoL 350 MG/ML 100 ML INFUS..BTL IV (05:39)
[2024-06-27 08:00] VITALS: BP 152/96; PULSE 99; RESP 16; TEMP 36.9; O2SAT 99
[2024-06-27] MEDS: LORazepam 1 MG TABLET 2 MG PO ×2 (08:51→15:27)
[2024-06-27 08:54] LABS: Ethanol 57 mg/dL
[2024-06-27 08:56] LABS: Amphetamine Screen Urine Not Detected (Not Detect); Barbiturates, Urine Not Detected (Not Detect); Benzodiazepines Screen Urine Not Detected (Not Detect); Buprenorphine Scr Not Detected (Not Detect); Cannabinoid Screen Urine POSITIVE (Not Detect); Cocaine Screen Urine Not Detected (Not Detect); Fentanyl, urine Not Detected (Not Detect); Methadone Screen, Urine Not Detected (Not Detect); Opiate Screen Urine Not Detected (Not Detect); Oxycodone Screen Urine Not Detected (Not Detect); Phencyclidine Screen Urine Not Detected (Not Detect)
--- NOTE | 2024-06-27 10:16 | MHC.RECOVRN ---
Met with pt in ED16 after pt expressed interest in ATS. Pt sitting in bed, awake, alert, easily engages in conversation, appears comfortable. Pt reports he had been in recovery since last year until approx 5 weeks ago. Pt reports stress with family/kids precipitated pts recurrence with alcohol. Pt reports he has been drinking 5 days per week, 10 nips [employer] plus one or two 25 ounce beers. Pt informs t/w he had been on M5 last year and found it very helpful, would like to receive the same type of services. Pt reports the providers, staff, and groups were all very beneficial. Discussed different levels of care, including ATS, pt is interested in dual dx. Pt has not been to ATS in the past, does report other [facility] admissions. Pt tearful throughout conversation, reports he didn't realize how depressed he has been prior to talking to t/w. Pt denies SI. Pt denies other questions or concerns for t/w at this time. Provider notified pt would like dual dx. Discussed with CARE Team.
[2024-06-27 15:52] VITALS: BP 162/107; PULSE 98; RESP 16; TEMP 36.6; O2SAT 97
[2024-06-27 18:21] VITALS: BP 124/67; PULSE 91; RESP 16; TEMP 37.2; O2SAT 97
--- NOTE | 2024-06-27 22:43 | MHC.CARE ---
RAD Team completed a PHP referral for this pt via email. Will follow up tomorrow
== END 2024-06-27 18:22 | disposition home or self-care (01) ==
PROVIDERS: Emergency Medicine; Physician Assistant Medical; Emergency Provider Emergency Medicine
DX: R07.89 Other chest pain (principal); R06.02 Shortness of breath; R14.0 Abdominal distension (gaseous); F41.9 Anxiety disorder, unspecified; I25.10 Atherosclerotic heart disease of native coronary artery without angina pectoris; Z03.818 Encounter for observation for suspected exposure to other biological agents ruled out; Z79.899 Other long term (current) drug therapy; Z51.81 Encounter for therapeutic drug level monitoring
CPT/HCPCS: 0241U; 71046; 74178; 80053; 80307; 81001; 81003; 83690; 83735; 84484; 85025; 93005; 96374; 99285; J2060; Q9967; S9485

== ENCOUNTER 2024-07-10 18:45 | Inpatient (IN) | payer MEDICARE, SELFPAY ==
[2024-07-10 18:58] VITALS: BP 144/100; PULSE 123; RESP 24; TEMP 36.6; O2SAT 97; BMI 38.4
--- NOTE | 2024-07-10 19:00 | ED.GENADULT ---
HPI - General Adult General Chief complaint: ETOH/Substance Use Stated complaint: sob Time Seen by Provider: 07/10/24 19:53 Source: patient Mode of arrival: ambulatory Limitations: no limitations History of Present Illness ED Provider: Dr. Dari Mason HPI narrative: Patient comes to the emergency room reporting that he wants help to stop drinking. Patient complaining of SI, no HI. Patient states that he drank 3 nips of alcohol prior to arrival. Patient states that approximately drinks 16 to an 18 Southern comfort nips per day. Last year patient was admitted to , has not been on any psychiatric medications since then. Patient denies any GI bleed. Denies black stool. Denies any abdominal pain or GERD. Related Data Allergies Allergy/AdvReac Type Severity Reaction Status Date / Time hydroxyzine [From Vistaril] Allergy Hives Verified 07/10/24 19:02 Review of Systems Review of Systems: Constitutional : No Weight loss, No Fever, No Chills, No Night Sweats, No Fatigue, No Malaise ENT/Mouth : No Hearing loss, No Ear Pain, No Nasal Congestion, No Sinus Pain, No Hoarseness, No sore throat, No Rhinorrhea, No Swallowing Difficulty Eyes: No Eye Pain, No Swelling, No Redness, No Foreign Body, No Discharge, No Vision Changes Cardiovascular : No Chest Pain, No SOB, No Dyspnea on Exertion, No Orthopnea, No Edema, No Palpitations Respiratory : No Cough, No Sputum, No Wheezing, No Smoke Exposure, No Dyspnea Gastrointestinal : No Nausea, No Vomiting, No Diarrhea, No Constipation, No abdominal Pain, No Hematochezia, No Melena Genitourinary : no irregular bleeding, No Dysuria, No Urinary Frequency, No Hematuria, No Urinary Incontinence, No Urgency, No Flank Pain, No Urinary Flow Changes, No Hesitancy Musculoskeletal : No joint pain, No Myalgias, No Joint Swelling Skin : No Skin Lesions, No rash Neuro : No Weakness, No Numbness, No Paresthesias, No Loss of Consciousness, No Dizziness, No Headache Psych complaining of anxiety, depression, alcohol abuse and dependence Heme/Lymph: No Bruising, No Bleeding,No Lymphadenopathy Endocrine : No Polyuria, No Polydipsia, No Temperature Intolerance PMFSH Past Medical History Medical History Cannabis use disorder Alcohol use disorder Major depression, recurrent Septic arthritis of elbow, right HTN (hypertension) Social History Social History Household Members: None Housing: Homeless Housing Other:: staying w friend. looking for housing Do you presently have visiting nurse or other home services: No Alcohol intake: current Alcohol intake frequency: 3 or more drinks per day Alcohol type: hard liquor Patient Tobacco Use Status: Former Tobacco user Smoked in Last 30 Days: No Second Hand Smoke Exposure: No Use of substances other than those prescribed or required for medical reasons: No Substance Use Type: Marijuana Advance Directives: No Advance Directives Information Provided: No Do you have a plan to hurt others: No Plan service: No Current occupational status: unemployed Sexual orientation: Straight/Heterosexual Physical Exam ED Vital Signs: Vital Signs - 24 hr 07/10/24 18:58 07/10/24 20:07 07/10/24 23:37 Temperature 98 F 97.5 F 97.9 F Pulse Rate 123 H 94 100 Respiratory Rate 24 H 20 18 Blood Pressure 144/100 H 143/99 H 99/66 Pulse Oximetry 97 97 96 Oxygen Delivery Method Room Air Room Air Room Air 07/11/24 03:01 07/11/24 05:41 Temperature 98.4 F 98.1 F Pulse Rate 95 91 Respiratory Rate 14 16 Blood Pressure 108/70 132/96 H Pulse Oximetry 94 94 Oxygen Delivery Method Room Air Room Air BMI result Body Mass Index 38.4 Const Other: Appearance: Alert. Oriented X3. No acute distress. Eyes: Pupils equal, round and reactive to light. ENT: Pharynx normal. Neck: Normal inspection. Neck supple. No lymph nodes noted. No crepitus CVS: Normal heart rate and rhythm. Pulses normal. Normal S1 and S2 Respiratory: No respiratory distress. Breath sounds normal. No Wheezing. No rales Abdomen: Soft and nontender. No rigidity. No distention. Skin: Skin warm and dry. Normal skin color. Normal skin turgor. Extremities: No lower extremity edema. No Lacerations. No Rash Neuro: Oriented X 3. No motor deficit. No sensory deficit. Moving all extremities. No slurred speech. CN 2 through 12 grossly intact Psych: calm, cooperative, normal affect Course Course Course Narrative: RME performed by Bernadette Bush, PA-C. Patient is a 49 year old assigned male at presenting to the emergency department with alcohol abuse. Patient states that he has been on a drinking binge for 2 weeks (since the last time he was here) and he would like help with his drinking. Detailed physical exam and review of systems are deferred to the biometrics analyst. Labs ordered. Patient placed back in the waiting room pending room availability and results. Reevaluation(s) Reevaluation #1: DR. Worrell's note: VSS, no issue overnight reported by nursing, care team input is appreciated, dual diagnosis bed search is underway. Time: 08:49 Medications Administered Discontinued Medications Generic Name Dose Route Start Last Admin Trade Name Freq PRN Reason Stop Dose Admin Lorazepam 2 mg 07/10/24 20:48 07/10/24 20:52 Lorazepam 1 Mg Tablet PO 07/10/24 20:49 2 mg ONCE ONE Administration Medical Decision Making Medical Decision Making MDM Narrative: My interpretation of labs, at baseline hematology, at baseline chemistry, urine negative for UTI, toxicology positive for THC, ETOH level 244 -patient on a Section 12 -care team consult pending -physician observation started at 22:40 -sign-out given to my colleague Dr. Randolph Differential Diagnosis Differential Diagnoses: The differential diagnosis associated with the presentation includes (Polysubstance abuse, anxiety, depression, alcohol dependence) Admission/Observation Consideration of admission/observation: Escalation of care including admission/observation considered (Patient is on a Section 12 waiting to be seen by the care team) Lab Data [facility] Lab Attestation statement: I reviewed the patient's lab results. 07/10/24 19:14 07/10/24 19:14 Labs: Lab Results 07/10/24 07/10/24 Range/Units 19:14 20:22 WBC 5.0 (4.8-10.8) X10*3/uL RBC 4.24 L (4.60-5.80) X10*6/uL Hgb 14.6 (14.0-18.0) g/dl Hct 41.8 L (42.0-52.0) % MCV 98.6 H (80.0-98.0) fL MCH 34.4 H (27.0-33.0) pg MCHC 34.9 (31.0-36.0) g/dl RDW 13.1 (11.0-16.0) % Plt Count 222 D (160-400) X10*3/uL MPV 9.4 (9.4-12.4) fL Immature Gran % (Auto) 0.4 (0.0-0.4) % Neut % (Auto) 62.8 (45-73) % Lymph % (Auto) 23.3 (20-40) % [place] % (Auto) 9.3 (2-11) % Eos % (Auto) 2.8 (0-4) % Baso % (Auto) 1.4 (0-2) % Lymph # (Auto) 1.2 (1.2-4.9) X10*3/uL [place] # (Auto) 0.5 (0.1-1.2) X10*3/uL Eos # (Auto) 0.1 (0.0-0.4) X10*3/uL Baso # (Auto) 0.1 (0.0-0.2) X10*3/uL Abs Immat Gran (auto) 0.02 (0.00-0.03) X10*3/uL Absolute Neuts (auto) 3.1 (2.0-8.3) x10*3/uL Absolute Nucleated RBC 0.000 (0.0-0.012) X10*3/uL Nucleated RBC % (auto) 0.0 (0.0-0.2) /100WBC Sodium 140 (135-145) mmol/L Potassium 4.0 (3.3-5.1) mmol/L Chloride 105 (96-108) mmol/L Carbon Dioxide 22 (22-29) mmol/L Anion Gap 17 (12-20) BUN 13 (9-16) mg/dL Creatinine 1.15 (0.5-1.4) mg/dL Estim Creat Clear Calc 96.3 Estimated GFR > 60 Random Glucose 132 H (60-115) mg/dL Calcium 9.2 (8.4-10.2) mg/dL Total Bilirubin 0.3 (0.0-1.0) mg/dL AST 72 H (5-37) U/L ALT 118 H (0-40) U/L Alkaline Phosphatase 76 (39-117) U/L Total Protein 7.8 (6.5-8.0) g/dL Albumin 4.7 (3.5-5.0) g/dL Urine Color Yellow Urine Appearance Clear Urine pH 6.0 (5.0-9.0) Ur Specific [place] 1.010 (1.005-1.025) Urine Protein Negative (Neg-Trace) mg/dL Urine Glucose (UA) Negative (Negative) mg/dL Urine Ketones Negative (Negative) mg/dL Urine Blood Negative (Negative) Urine Nitrite Negative (Negative) Ur Leukocyte Esterase Negative (Negative) Salicylates < 5.0 L (15-30) mg/dL Urine Opiates Screen Not Detected (Not Detect) Ur Buprenorphine Scrn Not Detected (Not Detect) ng/mL Ur Oxycodone Screen Not Detected (Not Detect) ng/mL Urine Methadone Screen Not Detected (Not Detect) ng/mL Urine Fentanyl Screen Not Detected (Not Detect) Acetaminophen < 3 (<30) mcg/mL Ur Barbiturates Screen Not Detected (Not Detect) Ur Phencyclidine Scrn Not Detected (Not Detect) Ur Amphetamines Screen Not Detected (Not Detect) U Benzodiazepines Scrn Not Detected (Not Detect) Urine Cocaine Screen Not Detected (Not Detect) U Marijuana (THC) Screen POSITIVE H (Not Detect) Ethyl Alcohol 244 mg/dL Critical Care Time Critical Care Time Critical Care Time: Yes Total Critical Care Time: 45 Attestation: I have personally provided critical care time. Time includes review of lab data, radiology results, discussion with consultants, and monitoring for potential decompensation. Intervention performed as documented. Discharge Plan Discharge Clinical Impression: Suicidal ideation, Alcohol dependence Patient Disposition: Still a Patient Print Language: Indian
[2024-07-10 19:20] LABS: Basophils Absolute Auto 0.1 X10*3/uL (0.0-0.2); Basophils Percent Auto 1.4 % (0-2); Eosinophils Absolute Auto 0.1 X10*3/uL (0.0-0.4); Eosinophils Percent Auto 2.8 % (0-4); Hematocrit 41.8 % (42.0-52.0); Hemoglobin 14.6 g/dl (14.0-18.0); Imm Gran Abs Auto 0.02 X10*3/uL (0.00-0.03); Imm Gran Pct Auto 0.4 % (0.0-0.4); Lymphocytes Absolute Auto 1.2 X10*3/uL (1.2-4.9); Lymphocytes Percent Auto 23.3 % (20-40); MANUAL DIFF FLAG NO; Mean Corpuscular HGB Conc 34.9 g/dl (31.0-36.0); Mean Corpuscular Hemoglobin 34.4 pg (27.0-33.0); Mean Corpuscular Volume 98.6 fL (80.0-98.0); Mean Platelet Volume 9.4 fL (9.4-12.4); Monocytes Absolute Auto 0.5 X10*3/uL (0.1-1.2); Monocytes Percent Auto 9.3 % (2-11); Neutrophils Absolute Auto 3.1 x10*3/uL (2.0-8.3); Neutrophils Percent Auto 62.8 % (45-73); Platelet Count 222 X10*3/uL (160-400); Red Blood Count 4.24 X10*6/uL (4.60-5.80); Red Cell Distribution Width 13.1 % (11.0-16.0)
[2024-07-10 19:36] LABS: Acetaminophen LAB < 3 mcg/mL (<30); Alanine Aminotransferase 118 U/L (0-40); Albumin Level 4.7 g/dL (3.5-5.0); Alkaline Phosphatase 76 U/L (39-117); Anion Gap 17 (12-20); Aspartate Amino Transferase 72 U/L (5-37); Bilirubin Total 0.3 mg/dL (0.0-1.0); Blood Urea Nitrogen 13 mg/dL (9-16); Calcium 9.2 mg/dL (8.4-10.2); Carbon Dioxide 22 mmol/L (22-29); Chloride 105 mmol/L (96-108); Creatinine Clr Calc Pharmacy 96.3; Estimated Glomerular Filt Rate > 60; Ethanol 244 mg/dL; Glucose Random 132 mg/dL (60-115); Salicylate < 5.0 mg/dL (15-30); Sodium 140 mmol/L (135-145); Total Protein 7.8 g/dL (6.5-8.0)
[2024-07-10 20:07] VITALS: BP 143/99; PULSE 94; RESP 20; TEMP 36.4; O2SAT 97
--- NOTE | 2024-07-10 20:22 | MHC.EDTECH ---
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
[2024-07-10 20:36] LABS: Appearance Urine Clear; Color Urine Yellow; Glucose Urine UA Negative (Negative); Leukocyte Esterase Urine Negative (Negative); Nitrite Urine Negative (Negative); Urine Blood Negative (Negative); Urine Ketones Negative (Negative); Urine Protein Negative (Neg-Trace)
[2024-07-10 20:48] LABS: Amphetamine Screen Urine Not Detected (Not Detect); Barbiturates, Urine Not Detected (Not Detect); Benzodiazepines Screen Urine Not Detected (Not Detect); Buprenorphine Scr Not Detected (Not Detect); Cannabinoid Screen Urine POSITIVE (Not Detect); Cocaine Screen Urine Not Detected (Not Detect); Fentanyl, urine Not Detected (Not Detect); Methadone Screen, Urine Not Detected (Not Detect); Opiate Screen Urine Not Detected (Not Detect); Oxycodone Screen Urine Not Detected (Not Detect); Phencyclidine Screen Urine Not Detected (Not Detect)
[2024-07-10] MEDS: LORazepam 1 MG TABLET 2 MG PO (20:52)
--- NOTE | 2024-07-10 20:57 | PC.NURSE ---
Pt reporting feeling anxious, made aware and verbal order for PO ativan 2mg, ordered and administered.
[2024-07-10 23:37] VITALS: BP 99/66; PULSE 100; RESP 18; TEMP 36.6; O2SAT 96
[2024-07-11 03:01] VITALS: BP 108/70; PULSE 95; RESP 14; TEMP 36.9; O2SAT 94
[2024-07-11 05:41] VITALS: BP 132/96; PULSE 91; RESP 16; TEMP 36.7; O2SAT 94
--- NOTE | 2024-07-11 07:19 | PC.NURSE ---
Pt presents over to pod from ER, alert and oriented, ambulatory w/ steady gait, breathing even and unlabored. Pt reports drinking 16-18 nips a day with last drink being last night [employer]. Pt does report feelings of SI and depression, vague at this time and reports feelings of wanting to rest right now. Denies withdrawal symptoms, CIWA 2. Pt does have hx of withdrawals in past, seeking detox at this time. Denies pain, SOB or complaints.
--- NOTE | 2024-07-11 08:40 | ECG_ITS ---
Test Reason : check qt Blood Pressure : / mmHG Vent. Rate : 091 BPM Atrial Rate : 091 BPM P-R Int : 140 ms QRS Dur : 082 ms QT Int : 362 ms P-R-T Axes : 062 028 038 degrees QTc Int : 445 ms Normal sinus rhythm Normal ECG When compared with ECG of 26-JUN-2024 16:42, No significant change was found Referred By: Javier Worrell Electronically Signed By:JUAN DAVID ZAMARRIPA
--- NOTE | 2024-07-11 08:43 | PC.NURSE ---
This RN attempted to complete med rec, pt reports he has not taken any meds in many months. Reports he is hoping to get back on med plan.
[2024-07-11] MEDS: LORazepam 1 MG TABLET 2 MG PO ×2 (10:21→19:38)
--- NOTE | 2024-07-11 10:33 | PHA.MEDREC ---
Pharmacy Consult ? Medication Reconciliation Pharmacy has completed the medication reconciliation. NURSE WAS TOLD BY PT THAT HE HAS NOT TAKEN HOME MEDS IN MANY MONTHS . CLAIM HISTORY CONFIRMS THAT THE ONLY MEDICATION PATIENT HAS FILLED RECENTLY WAS A VERY SMALL SUPPLY OF LORAZEPAM EARLIER IN JUNE. PT LISTED HAVING NO KNOWN HOME MEDS.
--- NOTE | 2024-07-11 11:19 | PC.NURSE ---
Pt medicated per MAR for anxiety/ ETOH withdrawals. Reports he feels improvement after ativan.
[2024-07-11 12:26] VITALS: BP 149/100; PULSE 99; RESP 20; TEMP 37.1; O2SAT 96
[2024-07-11 13:10] VITALS: BP 163/95; PULSE 105; RESP 18; TEMP 36.8; O2SAT 97
[2024-07-11 13:20] VITALS: BMI 37.2
--- NOTE | 2024-07-11 15:44 | PC.ADMIT ---
Luis is a 49-year-old male admitted from [facility] to [facility] on a CV for treatment of MDD and alcohol use disorder. Tox screen positive for THC, ETOH 244. Pt reports drinking 16-18 nips of hard liquor a day, last drink was 3 nips prior to admission. Pt on a CIWA Q4h. Pt self-presented to the ED for worsening depression and SI [place] Pt is also seeking help for my drinking. Pt reports a recent trigger was his ex-'s father passing away who was like a dad to me. Pt also has been noncompliant with medications because I stopped taking them a while ago because I was feeling good. I know now that wasn't smart of me. I also didn't have any providers to refill them. Pt hopes to be connected with a psychiatrist and a therapist. Upon arrival to M3, pt was alert and oriented, pleasant and cooperative. Pt was tearful at times. Pt has good insight into situation and diagnosis and is willing to receive treatment. Pt reports disrupted sleep. Skin check complete, pt has a reddened rash on upper torso and back, provider aware. Pt denies SI/HI but will reach out if thoughts occur. Pt placed on 15 min safety checks.
--- NOTE | 2024-07-11 15:55 | PC.NURSE ---
Pt stated he already received flu vaccine.
--- NOTE | 2024-07-11 16:09 | P.HPPS_ITS ---
HPI Date of Service: 07/11/24 Chief Complaint: Crisis Sources of Information: patient interviewed, chart reviewed and crisis/core team assessment reviewed HPI Subjective Notes: Brooke Warning and Conditional Voluntary Narrative: Patient is a 49-year-old male with history of MDD, PTSD and alcohol use disorder who self presented to [facility] ER due to suicidal ideation secondary to increased life stressors and alcohol use. Per crisis report, patient reports he would like help with his drinking. Patient reports suicidal ideation with no plan. Patient reports multiple precipitants such as his ex [id number] passing away 2 days ago, increased depression/anxiety, and consuming alcohol on a daily basis. Patient does not have any current outpatient psychiatric providers and is not currently taking any psychiatric medications. denies HI/AH/VH. During admission assessment, patient presents alert and oriented x3. Calm, cooperative and tearful. Patient reports feeling anxious and depressed ; patient stated, I have been needing help for some time but have been putting it off. The only thing I know is to drink to not feel the pain of missing my kids. I need help to get my head back on straight . Patient reports when he was hospitalized on M5 his medications were beneficial but he was unable to continue them due to not having an outpatient provider. Patient reports drinking 18-24 nips a day and smoking marijuana daily. He denies any other substance use. Patient denies SI/HI/VH/AH. Past Psychiatric History: IP: Asmita Dewey- Jul 2022 Shoaib- Aug [id number] [address] [facility]- December 2022 Medical Evaluation Reviewed: Yes [facility] Medical History Cannabis use disorder Alcohol use disorder Major depression, recurrent Septic arthritis of elbow, right HTN (hypertension) Family History: Mother: Alcoholic. Social History: Born in [place], raised in [place]. Graduated high school 1990. Has worked in various jobs but is now disabled due to back and neck injuries. Dad when pt was 15, Mom in 2007. One brother whom he is estranged from. 28 years-, she found someone else . 3 children, 2 grandchildren Substance History: Patient reports drinking a sleeve and a half daily. Smokes marijuana daily. Trauma History: Affirms Diagnostics Vital Signs (24Hr): Vital Signs - 24 hr 07/10/24 18:58 07/10/24 20:07 07/10/24 23:37 Temperature 98 F 97.5 F 97.9 F Pulse Rate 123 H 94 100 Respiratory Rate 24 H 20 18 Blood Pressure 144/100 H 143/99 H 99/66 Pulse Oximetry 97 97 96 Oxygen Delivery Method Room Air Room Air Room Air 07/11/24 03:01 07/11/24 05:41 07/11/24 12:26 Temperature 98.4 F 98.1 F 98.7 F Pulse Rate 95 91 99 Respiratory Rate 14 16 20 Blood Pressure 108/70 132/96 H 149/100 H Pulse Oximetry 94 94 96 Oxygen Delivery Method Room Air Room Air Room Air BMI result Body Mass Index 37.2 Labs 07/10/24 19:14 07/10/24 19:14 Labs: Laboratory Results - last 48 hr 07/10/24 07/10/24 19:14 20:22 WBC 5.0 RBC 4.24 L Hgb 14.6 Hct 41.8 L MCV 98.6 H MCH 34.4 H MCHC 34.9 RDW 13.1 Plt Count 222 D MPV 9.4 Immature Gran % (Auto) 0.4 Neut % (Auto) 62.8 Lymph % (Auto) 23.3 [place] % (Auto) 9.3 Eos % (Auto) 2.8 Baso % (Auto) 1.4 Lymph # (Auto) 1.2 [place] # (Auto) 0.5 Eos # (Auto) 0.1 Baso # (Auto) 0.1 Abs Immat Gran (auto) 0.02 Absolute Neuts (auto) 3.1 Absolute Nucleated RBC 0.000 Nucleated RBC % (auto) 0.0 Sodium 140 Potassium 4.0 Chloride 105 Carbon Dioxide 22 Anion Gap 17 BUN 13 Creatinine 1.15 Estim Creat Clear Calc 96.3 Estimated GFR > 60 Random Glucose 132 H Calcium 9.2 Total Bilirubin 0.3 AST 72 H ALT 118 H Alkaline Phosphatase 76 Total Protein 7.8 Albumin 4.7 Urine Color Yellow Urine Appearance Clear Urine pH 6.0 Ur Specific [place] 1.010 Urine Protein Negative Urine Glucose (UA) Negative Urine Ketones Negative Urine Blood Negative Urine Nitrite Negative Ur Leukocyte Esterase Negative Salicylates < 5.0 L Urine Opiates Screen Not Detected Ur Buprenorphine Scrn Not Detected Ur Oxycodone Screen Not Detected Urine Methadone Screen Not Detected Urine Fentanyl Screen Not Detected Acetaminophen < 3 Ur Barbiturates Screen Not Detected Ur Phencyclidine Scrn Not Detected Ur Amphetamines Screen Not Detected U Benzodiazepines Scrn Not Detected Urine Cocaine Screen Not Detected U Marijuana (THC) Screen POSITIVE H Ethyl Alcohol 244 Meds/Allergies Meds Home Medications ?Medication ?Instructions ?Recorded ?Confirmed ?Type No Known Home Meds 07/11/24 07/11/24 History Allergies Allergies Allergy/AdvReac Type Severity Reaction Status Date / Time hydroxyzine [From Vistaril] Allergy Hives Verified 07/10/24 19:02 Mental Status Exam Mental Status Exam Narrative: Pt is alert and oriented; behavior is cooperative; dressed in casual attire; mood is described as anxious and depressed ; eye contact appropriate; Speech is normal rate, volume and not pressured; thought process is organized and goal directed; Thought content is on tx; denies SI/HI/AH/VH. Assessment & Plan Assessment & Plan (1) MDD (major depressive disorder), recurrent episode, severe: Status: Acute Code(s): F33.2 - Major depressive disorder, recurrent severe without psychotic features (2) PTSD (post-traumatic stress disorder): Status: Acute Code(s): F43.10 - Post-traumatic stress disorder, unspecified (3) Alcohol use disorder: Status: Acute Code(s): F10.90 - Alcohol use, unspecified, uncomplicated Plan Patient is a 49-year-old male with history of MDD, PTSD and alcohol use disorder who self presented to [facility] ER due to suicidal ideation secondary to increased life stressors and alcohol use. Plan: CV 15 minute safety checks CIWA; alcohol withdrawal protocol Addiction medicine consult Hospitalist consult for rash on body Review past medications: Start: Cymbalta 20mg PO daily Lisinopril 5mg PO daily Buspar 5mg PO BID Encourage groups Discharge planning Patient educated on: diagnosis, medication risk/benefits, substance abuse and therapeutic strategies Reason for continued inpatient stay Substantial Risk for: harm to self and med/psych decompensation Statement Statement: I have reviewed the history and physical and performed a pertinent examination on my patient. No changes have occurred unless specified. If the History and Physical was not performed prior to admission, the Hospitalist's service will be consulted for completing the admission physical. Time Spent With Patient Time: Total time managing care of this patient today _60___ minutes.
[2024-07-11 16:17] VITALS: BMI 37.1
[2024-07-11 16:21] VITALS: BP 149/101; PULSE 111
[2024-07-11] MEDS: DULoxetine HCl 20 MG CAPSULE.DR PO (17:06)
[2024-07-11] MEDS: lisinopriL 5 MG TABLET PO (17:06)
[2024-07-11 19:35] VITALS: BP 164/115; PULSE 90; RESP 18; TEMP 36.6; O2SAT 97
[2024-07-11] MEDS: busPIRone HCl 5 MG TABLET PO (19:38)
[2024-07-11] MEDS: traZODone HCL 50 MG TABLET PO (20:45)
[2024-07-12 08:00] VITALS: BP 161/96; PULSE 99; RESP 14; TEMP 36.4; O2SAT 98
[2024-07-12] MEDS: lisinopriL 5 MG TABLET PO (08:18)
[2024-07-12] MEDS: busPIRone HCl 5 MG TABLET PO ×2 (08:18→21:39)
[2024-07-12] MEDS: Thiamine HCL 100 MG TABLET PO (08:18)
[2024-07-12] MEDS: DULoxetine HCl 20 MG CAPSULE.DR PO (08:18)
[2024-07-12] MEDS: LORazepam 1 MG TABLET PO (08:25)
--- NOTE | 2024-07-12 08:49 | HO.PSYCHPN ---
Subjective Subjective Date of Service: 07/12/24 Reason For Visit: Crisis Subjective Notes: Conditional Voluntary Interim History: Active on unit, social with peers. attending groups. Patient reports feeling anxious and depressed ; pt stated, I'm having cravings to drink. I'm having more withdrawal symptoms today . He reports sleeping better last night. denies SI/HI/VH/AH. Increase lisinopril to 10mg PO daily d/t increased BPs; continue to monitor. Continue CIWA. Medication Compliance: Yes Side effects from medications: No Attending Groups: Yes Review of Systems Constitutional: Reports as per HPI Eyes: Reports as per HPI Reports as per HPI Cardiovascular: Reports as per HPI Respiratory: Reports as per HPI Gastrointestinal: Reports as per HPI Genitourinary: Reports as per HPI Musculoskeletal: Reports as per HPI Skin/Breast: Reports as per HPI Reports as per HPI Psychiatric: Reports as per HPI Endocrine: Reports as per HPI Hematologic/Lymphatic: Reports as per HPI Allergic/Immunologic: Reports as per HPI Mental Status Exam Mental Status Exam Narrative: Pt is alert and oriented; behavior is cooperative; dressed in casual attire; mood is described as anxious and depressed ; eye contact appropriate; Speech is normal rate, volume and not pressured; thought process is organized and goal directed; Thought content is on tx; denies SI/HI/AH/VH. Diagnostics Vital Signs (24Hr): Vital Signs - 24 hr 07/11/24 12:26 07/11/24 13:10 07/11/24 16:21 Temperature 98.7 F 98.2 F Pulse Rate 99 105 H 111 H Respiratory Rate 20 18 Blood Pressure 149/100 H 163/95 H 149/101 H Pulse Oximetry 96 97 Oxygen Delivery Method Room Air Room Air 07/11/24 19:35 07/12/24 08:00 Temperature 97.9 F 97.5 F Pulse Rate 90 99 Respiratory Rate 18 14 Blood Pressure 164/115 H 161/96 H Pulse Oximetry 97 98 Oxygen Delivery Method Room Air Room Air BMI result Body Mass Index 37.1 Labs 07/10/24 19:14 07/12/24 08:44 Labs: Laboratory Results - last 48 hr 07/10/24 07/10/24 19:14 20:22 WBC 5.0 RBC 4.24 L Hgb 14.6 Hct 41.8 L MCV 98.6 H MCH 34.4 H MCHC 34.9 RDW 13.1 Plt Count 222 D MPV 9.4 Immature Gran % (Auto) 0.4 Neut % (Auto) 62.8 Lymph % (Auto) 23.3 [place] % (Auto) 9.3 Eos % (Auto) 2.8 Baso % (Auto) 1.4 Lymph # (Auto) 1.2 [place] # (Auto) 0.5 Eos # (Auto) 0.1 Baso # (Auto) 0.1 Abs Immat Gran (auto) 0.02 Absolute Neuts (auto) 3.1 Absolute Nucleated RBC 0.000 Nucleated RBC % (auto) 0.0 Sodium 140 Potassium 4.0 Chloride 105 Carbon Dioxide 22 Anion Gap 17 BUN 13 Creatinine 1.15 Estim Creat Clear Calc 96.3 Estimated GFR > 60 Random Glucose 132 H Calcium 9.2 Total Bilirubin 0.3 AST 72 H ALT 118 H Alkaline Phosphatase 76 Total Protein 7.8 Albumin 4.7 Urine Color Yellow Urine Appearance Clear Urine pH 6.0 Ur Specific [place] 1.010 Urine Protein Negative Urine Glucose (UA) Negative Urine Ketones Negative Urine Blood Negative Urine Nitrite Negative Ur Leukocyte Esterase Negative Salicylates < 5.0 L Urine Opiates Screen Not Detected Ur Buprenorphine Scrn Not Detected Ur Oxycodone Screen Not Detected Urine Methadone Screen Not Detected Urine Fentanyl Screen Not Detected Acetaminophen < 3 Ur Barbiturates Screen Not Detected Ur Phencyclidine Scrn Not Detected Ur Amphetamines Screen Not Detected U Benzodiazepines Scrn Not Detected Urine Cocaine Screen Not Detected U Marijuana (THC) Screen POSITIVE H Ethyl Alcohol 244 Medications Medications Current Medications Acetaminophen (Acetaminophen 325 Mg Tablet) 650 mg PO Q6H PRN PRN Reason: Headache/Pain Mild Scale (1-3) Al Hydroxide/Mg Hydroxide (Magnesium Hydrox/Alum Hydrox 30 Ml Oral.Susp) 30 ml PO Q6H PRN PRN Reason: Heartburn/Nausea Buspirone HCl (Buspirone Hcl 5 Mg Tablet) 5 mg PO BID [facility] Last Admin: 07/12/24 08:18 Dose: 5 mg Duloxetine HCl (Duloxetine Hcl 20 Mg Capsule.Dr) 20 mg PO DAILY [facility] Last Admin: 07/12/24 08:18 Dose: 20 mg Ibuprofen (Ibuprofen 600 Mg Tablet) 600 mg PO Q8H PRN PRN Reason: Pain, Moderate(Pain Scale 4-6) Lisinopril (Lisinopril 5 Mg Tablet) 5 mg PO DAILY [facility]; Protocol Last Admin: 07/12/24 08:18 Dose: 5 mg Lorazepam (Lorazepam 1 Mg Tablet) 1 mg PO Q2H PRN PRN Reason: CIWA 8-11 Last Admin: 07/12/24 08:25 Dose: 1 mg Lorazepam (Lorazepam 1 Mg Tablet) 2 mg PO Q2H PRN PRN Reason: CIWA 12-15 Last Admin: 07/11/24 19:38 Dose: 2 mg Lorazepam (Lorazepam 1 Mg Tablet) 3 mg PO Q2H PRN PRN Reason: CIWA > 15, and call Magnesium Hydroxide (Milk Of Magnesia 30 Ml Oral.Susp) 30 ml PO DAILY PRN PRN Reason: Constipation Nicotine (Nicotine 21 Mg Patch.Td24) 21 mg TRANSDERMA DAILY [facility] Last Admin: 07/12/24 08:31 Dose: Not Given Nicotine Polacrilex (Nicotine Polacrilex 2 Mg Gum) 4 mg BUCCAL Q2H PRN PRN Reason: Nicotine Cravings Nicotine Polacrilex (Nicotine Polacrilex Lozenge 2 Mg Lozenge) 2 mg BUCCAL Q2H PRN PRN Reason: Nicotine Cravings Thiamine HCl (Thiamine Hcl 100 Mg Tablet) 100 mg PO DAILY [facility] Last Admin: 07/12/24 08:18 Dose: 100 mg Trazodone HCl (Trazodone Hcl 50 Mg Tablet) 50 mg PO BEDTIME MRX1 PRN PRN Reason: Insomnia Last Admin: 07/11/24 20:45 Dose: 50 mg Allergies Allergies Allergy/AdvReac Type Severity Reaction Status Date / Time hydroxyzine [From Vistaril] Allergy Hives Verified 07/10/24 19:02 Assessment & Plan Assessment & Plan (1) MDD (major depressive disorder), recurrent episode, severe: Status: Acute Code(s): F33.2 - Major depressive disorder, recurrent severe without psychotic features (2) PTSD (post-traumatic stress disorder): Status: Acute Code(s): F43.10 - Post-traumatic stress disorder, unspecified (3) Alcohol use disorder: Status: Acute Code(s): F10.90 - Alcohol use, unspecified, uncomplicated Plan Patient is a 49-year-old male with history of MDD, PTSD and alcohol use disorder who self presented to [facility] due to suicidal ideation secondary to increased life stressors and alcohol use. Plan: CV 15 minute safety checks CIWA; alcohol withdrawal protocol Addiction medicine consult Hospitalist consult for rash on body Review past medications: Start: Cymbalta 20mg PO daily Lisinopril 5mg PO daily Buspar 5mg PO BID Encourage groups Discharge planning 07/13: Active on unit, social with peers. attending groups. Patient reports feeling anxious and depressed ; pt stated, I'm having cravings to drink. I'm having more withdrawal symptoms today . He reports sleeping better last night. denies SI/HI/VH/AH. Increase lisinopril to 10mg PO daily d/t increased BPs; continue to monitor. Continue CIWA. Patient educated on: diagnosis, medication risk/benefits, substance abuse and therapeutic strategies Reason for continued inpatient stay Substantial Risk for: med/psych decompensation Time Spent With Patient Time: Total time managing care of this patient today _20___ minutes.
[2024-07-12 09:34] LABS: Alanine Aminotransferase 96 U/L (0-40); Albumin Level 4.5 g/dL (3.5-5.0); Alkaline Phosphatase 76 U/L (39-117); Anion Gap 16 (12-20); Aspartate Amino Transferase 55 U/L (5-37); Bilirubin Total 0.7 mg/dL (0.0-1.0); Blood Urea Nitrogen 13 mg/dL (9-16); Calcium 9.4 mg/dL (8.4-10.2); Carbon Dioxide 25 mmol/L (22-29); Chloride 102 mmol/L (96-108); Cholesterol 228 mg/dL (<200); Creatinine Clr Calc Pharmacy 97.8; Estimated Glomerular Filt Rate > 60; Glucose Fasting 177 mg/dL (60-99); HDL Cholesterol 71 mg/dL (>40); LDL Cholesterol Calculated 126 mg/dL (<100); Potassium 4.2 mmol/L (3.3-5.1); Sodium 139 mmol/L (135-145); Total Protein 7.3 g/dL (6.5-8.0); Triglycerides 159 mg/dL (<150)
[2024-07-12 12:20] VITALS: BP 149/92; PULSE 96; RESP 16; O2SAT 98
[2024-07-12] MEDS: Ibuprofen 600 MG TABLET PO (14:03)
[2024-07-12] MEDS: OLANZapine 5 MG TABLET PO ×2 (14:11→18:46)
--- NOTE | 2024-07-12 14:52 | MHC.RECOVRN ---
AUDIT-C Brief Intervention Pt had positive screen for unhealthy alcohol use on admission, subsequently met with t/w to discuss alcohol use and recovery supports/options. This typewriters functional tester met with patient to discuss current alcohol use and concerns related to increased risk of alcohol related problems.? Pt reports 20 nips daily x 2 weeks. Discussed how alcohol use has impacted health, including negative impact on mental health. Withdrawal History: denies hx of seizures Treatment History: denies AUD treatment, has been inpatient [facility] Supports:?roommate Discussed risk reduction strategies including drinking below the recommended limit. Provided pt with written resources including information on inpatient and outpatient treatment, DEBBIE, harm reduction, and recovery coaching. Pt is interested in naltrexone initiation, this was discussed with Stephanie Lopez, [facility]. Pt provided with t/w contact information if questions or concerns arise. Denies other questions or concerns at this time.?
[2024-07-12 15:57] VITALS: BP 160/111; PULSE 91; RESP 16; TEMP 36.9; O2SAT 98
[2024-07-12] MEDS: LORazepam 1 MG TABLET 2 MG PO ×2 (16:00→21:39)
--- NOTE | 2024-07-12 17:22 | PM.EVENT ---
Event Note Date of Service: 07/12/24 Event Note: Patient is a 49-year-old male with a PMH significant for HTN, alcohol use disorder, and depression who was admitted to [facility] for alcohol detox. Medical consult for evaluation of rash. Pt noted to have diffuse maculopapular rash on chest and back. Patient does not know how long this has been ongoing as he normally dresses in the dark, but reports someone pointed this out to him approximately 1 ago. Asymptomatic: rash is not itchy or painful. Pt also notes plaque with silvery-white scales on extensor surface of left elbow which has been unchanged for the past 2 years. Only very occasionally with mild itchiness. Previously was seen and evaluated by PCP who thought it was fungal in nature and prescribed an anti focal that did not alleviate symptoms. Patient also reports a remote hx of sun poisoning. For rashes, see pictures below. Given that chest and back rash is of an unknown duration and patient is asymptomatic, will treat conservatively for now with Eucerin lotion p.r.n. For left extensor elbow plaque concerning for psoriasis, will treat with betamethasone dipropionate augmented 0.05% topical cream Thank you for allowing us to participate in the care of this patient. Signing off at this time. Please re-consult if any acute complaints or issues arise. Time Spent With Patient Time: Total time managing care of this patient today ____ minutes.
[2024-07-12 18:47] VITALS: BP 134/96; PULSE 89
[2024-07-12 20:00] VITALS: BP 127/87; PULSE 86; RESP 16; TEMP 36.5; O2SAT 96
[2024-07-12] MEDS: Betamethasone Dip Aug 0.05% Cr 15 GM TUBE 1 APPL TOPICAL (21:46)
[2024-07-12] MEDS: traZODone HCL 50 MG TABLET PO (23:52)
[2024-07-13 07:00] VITALS: BMI 37.0
[2024-07-13 08:00] VITALS: BP 141/96; PULSE 86; RESP 16; O2SAT 99
--- NOTE | 2024-07-13 08:03 | HO.PSYCHPN ---
Subjective Subjective Date of Service: 07/13/24 Reason For Visit: Crisis Subjective Notes: Conditional Voluntary Interim History: Active on unit, social with peers. attending groups. Patient reports feeling depressed but trying to stay positive . Reports sleeping well last night, per nursing, slept 8 hours. denies SI/HI/VH/AH. Continue current tx plan. Medication Compliance: Yes Side effects from medications: No Attending Groups: Yes Review of Systems Constitutional: Reports as per HPI Eyes: Reports as per HPI Reports as per HPI Cardiovascular: Reports as per HPI Respiratory: Reports as per HPI Gastrointestinal: Reports as per HPI Genitourinary: Reports as per HPI Musculoskeletal: Reports as per HPI Skin/Breast: Reports as per HPI Reports as per HPI Psychiatric: Reports as per HPI Endocrine: Reports as per HPI Hematologic/Lymphatic: Reports as per HPI Allergic/Immunologic: Reports as per HPI Mental Status Exam Mental Status Exam Narrative: Pt is alert and oriented; behavior is cooperative; dressed in casual attire; mood is described as depressed ; eye contact appropriate; Speech is normal rate, volume and not pressured; thought process is organized and goal directed; Thought content is on tx; denies SI/HI/AH/VH. Diagnostics Vital Signs (24Hr): Vital Signs - 24 hr 07/12/24 12:20 07/12/24 15:57 07/12/24 18:47 Temperature 98.5 F Pulse Rate 96 91 89 Respiratory Rate 16 16 Blood Pressure 149/92 H 160/111 H 134/96 H Pulse Oximetry 98 98 Oxygen Delivery Method Room Air Room Air 07/12/24 20:00 Temperature 97.7 F Pulse Rate 86 Respiratory Rate 16 Blood Pressure 127/87 Pulse Oximetry 96 Oxygen Delivery Method Room Air BMI result Body Mass Index 37.1 Labs 07/10/24 19:14 07/12/24 08:44 Labs: Laboratory Results - last 48 hr 07/12/24 08:44 Sodium 139 Potassium 4.2 Chloride 102 Carbon Dioxide 25 Anion Gap 16 BUN 13 Creatinine 1.12 Estim Creat Clear Calc 97.8 Estimated GFR > 60 Fasting Glucose 177 H Calcium 9.4 Total Bilirubin 0.7 AST 55 H ALT 96 H Alkaline Phosphatase 76 Total Protein 7.3 Albumin 4.5 Triglycerides 159 H Cholesterol 228 H LDL Cholesterol, Calc 126 H HDL Cholesterol 71 Medications Medications Current Medications Acetaminophen (Acetaminophen 325 Mg Tablet) 650 mg PO Q6H PRN PRN Reason: Headache/Pain Mild Scale (1-3) Al Hydroxide/Mg Hydroxide (Magnesium Hydrox/Alum Hydrox 30 Ml Oral.Susp) 30 ml PO Q6H PRN PRN Reason: Heartburn/Nausea Betamethasone Dipropion Augmented (Betamethasone Dip Aug 0.05% Cr 15 Gm Tube) 1 appl TOPICAL BID [facility]; Protocol Stop: 07/22/24 20:59 Last Admin: 07/12/24 21:46 Dose: 1 appl Buspirone HCl (Buspirone Hcl 5 Mg Tablet) 5 mg PO BID [facility] Last Admin: 07/12/24 21:39 Dose: 5 mg Duloxetine HCl (Duloxetine Hcl 20 Mg Capsule.Dr) 20 mg PO DAILY [facility] Last Admin: 07/12/24 08:18 Dose: 20 mg Ibuprofen (Ibuprofen 600 Mg Tablet) 600 mg PO Q8H PRN PRN Reason: Pain, Moderate(Pain Scale 4-6) Last Admin: 07/12/24 14:03 Dose: 600 mg Lisinopril (Lisinopril 10 Mg Tablet) 10 mg PO DAILY [facility]; Protocol Lorazepam (Lorazepam 1 Mg Tablet) 1 mg PO Q2H PRN PRN Reason: CIWA 8-11 Last Admin: 07/12/24 08:25 Dose: 1 mg Lorazepam (Lorazepam 1 Mg Tablet) 2 mg PO Q2H PRN PRN Reason: CIWA 12-15 Last Admin: 07/12/24 21:39 Dose: 2 mg Lorazepam (Lorazepam 1 Mg Tablet) 3 mg PO Q2H PRN PRN Reason: CIWA > 15, and call Magnesium Hydroxide (Milk Of Magnesia 30 Ml Oral.Susp) 30 ml PO DAILY PRN PRN Reason: Constipation Multi-Ingred Cream/Lotion/Oil/Oint (Mineral Oil/Petrolatum,White 106 Gm Tube) 1 appl TOPICAL BID PRN; Protocol PRN Reason: Rash Nicotine (Nicotine 21 Mg Patch.Td24) 21 mg TRANSDERMA DAILY [facility] Last Admin: 07/12/24 08:31 Dose: Not Given Nicotine Polacrilex (Nicotine Polacrilex 2 Mg Gum) 4 mg BUCCAL Q2H PRN PRN Reason: Nicotine Cravings Nicotine Polacrilex (Nicotine Polacrilex Lozenge 2 Mg Lozenge) 2 mg BUCCAL Q2H PRN PRN Reason: Nicotine Cravings Olanzapine (Olanzapine 5 Mg Tablet) 5 mg PO Q4H PRN PRN Reason: agitation Last Admin: 07/12/24 18:46 Dose: 5 mg Thiamine HCl (Thiamine Hcl 100 Mg Tablet) 100 mg PO DAILY [facility] Last Admin: 07/12/24 08:18 Dose: 100 mg Trazodone HCl (Trazodone Hcl 50 Mg Tablet) 50 mg PO BEDTIME MRX1 PRN PRN Reason: Insomnia Last Admin: 07/12/24 23:52 Dose: 50 mg Allergies Allergies Allergy/AdvReac Type Severity Reaction Status Date / Time hydroxyzine [From Vistaril] Allergy Hives Verified 07/10/24 19:02 Assessment & Plan Assessment & Plan (1) MDD (major depressive disorder), recurrent episode, severe: Status: Acute Code(s): F33.2 - Major depressive disorder, recurrent severe without psychotic features (2) PTSD (post-traumatic stress disorder): Status: Acute Code(s): F43.10 - Post-traumatic stress disorder, unspecified (3) Alcohol use disorder: Status: Acute Code(s): F10.90 - Alcohol use, unspecified, uncomplicated Plan Patient is a 49-year-old male with history of MDD, PTSD and alcohol use disorder who self presented to [facility] due to suicidal ideation secondary to increased life stressors and alcohol use. Plan: CV 15 minute safety checks CIWA; alcohol withdrawal protocol Addiction medicine consult Hospitalist consult for rash on body Review past medications: Start: Cymbalta 20mg PO daily Lisinopril 5mg PO daily Buspar 5mg PO BID Encourage groups Discharge planning 07/12: Active on unit, social with peers. attending groups. Patient reports feeling anxious and depressed ; pt stated, I'm having cravings to drink. I'm having more withdrawal symptoms today . He reports sleeping better last night. denies SI/HI/VH/AH. Increase lisinopril to 10mg PO daily d/t increased BPs; continue to monitor. Continue CIWA. 07/13: Active on unit, social with peers. attending groups. Patient reports feeling depressed but trying to stay positive . Reports sleeping well last night, per nursing, slept 8 hours. denies SI/HI/VH/AH. Continue current tx plan Patient educated on: diagnosis, medication risk/benefits and therapeutic strategies Reason for continued inpatient stay Substantial Risk for: med/psych decompensation Time Spent With Patient Time: Total time managing care of this patient today _20___ minutes.
[2024-07-13] MEDS: lisinopriL 10 MG TABLET PO (08:36)
[2024-07-13] MEDS: Betamethasone Dip Aug 0.05% Cr 15 GM TUBE 1 APPL TOPICAL ×2 (08:36→21:14)
[2024-07-13] MEDS: busPIRone HCl 5 MG TABLET PO ×2 (08:36→20:15)
[2024-07-13] MEDS: DULoxetine HCl 20 MG CAPSULE.DR PO (08:36)
[2024-07-13] MEDS: Thiamine HCL 100 MG TABLET PO (08:36)
[2024-07-13] MEDS: OLANZapine 5 MG TABLET PO ×2 (08:41→16:33)
[2024-07-13] MEDS: LORazepam 1 MG TABLET PO (08:41)
[2024-07-13] MEDS: LORazepam 1 MG TABLET 2 MG PO (16:33)
[2024-07-13 20:00] VITALS: BP 126/81; PULSE 89; RESP 16; TEMP 36.9; O2SAT 97
[2024-07-13] MEDS: Mineral Oil/Petrolatum,White 106 GM Tube 1 APPL TOPICAL (20:15)
[2024-07-13] MEDS: Ibuprofen 600 MG TABLET PO (21:19)
[2024-07-13] MEDS: traZODone HCL 50 MG TABLET PO (23:23)
[2024-07-14 08:49] VITALS: BP 150/86; PULSE 102; RESP 16; TEMP 36.9; O2SAT 95
[2024-07-14 08:50] VITALS: BP 150/86
[2024-07-14] MEDS: Thiamine HCL 100 MG TABLET PO (08:50)
[2024-07-14] MEDS: lisinopriL 10 MG TABLET PO (08:50)
[2024-07-14] MEDS: busPIRone HCl 5 MG TABLET PO ×2 (08:50→21:34)
[2024-07-14] MEDS: DULoxetine HCl 20 MG CAPSULE.DR PO (08:50)
[2024-07-14] MEDS: Betamethasone Dip Aug 0.05% Cr 15 GM TUBE 1 APPL TOPICAL ×2 (09:00→21:33)
[2024-07-14] MEDS: LORazepam 1 MG TABLET PO (10:29)
--- NOTE | 2024-07-14 11:12 | HO.ADDICTCON ---
History of Present Illness Date of Service: 07/14/2024 Chief Complaint: Crisis Reason for Consult: AUD Sources of Information: patient interviewed and chart reviewed HPI Narrative: Patient is a 49 year old male currently admitted with unit with worsening depression and alcohol use disorder Seen by transmission and protection engineer earlier in admisson and expressed interest in starting Naltrexone for AUD. Seen on [facility], patient awake, alert, engaged in interview. He reports that he has been drinking alcohol for some time as a way to cope to with depressive sx, however within the last few months the amount he is consuming has increased considerably and he has been sneaking drinks in whenever I can . Reports drinking approx 15 nips daily. Identifies the holidays approaching as very challenging for him since he has not seen his sons in quite some time. He is tearful when discussing this. He denies any withdrawal sx, and none are noted during interview. LFTs elevated, but already trending down since admission Denies any other substance use In terms of treatment, patient denies any history of DEBBIE, and is motivated to trial this. Discussed dosing, goals of treatment, and possible side effects. Discussed additional recovery supports in the community--transportation is a challenge for him, but he is open to anything that can me at this point . Past Psychiatric History: IP: [facility]- Jul 2022 [facility]- Aug [id number] [facility]- December 2022 Review of Systems Constitutional: Reports as per HPI and Reports no additional constitutional complaints Diagnostics Vital Signs (24Hr): Vital Signs - 24 hr 07/13/24 20:00 07/14/24 08:49 07/14/24 08:50 Temperature 98.5 F 98.4 F Pulse Rate 89 102 H Respiratory Rate 16 16 Blood Pressure 126/81 150/86 H 150/86 H Pulse Oximetry 97 95 Oxygen Delivery Method Room Air Room Air BMI result Body Mass Index 37.0 Labs 07/10/24 19:14 07/12/24 08:44 Mental Status Exam Mental Status Exam Patient Appearance: Appropriate Level of Consciousness: Awake, Appropriate and Alert Patient Behavior: Appropriate and Talkative Medications Medications Current Medications Acetaminophen (Acetaminophen 325 Mg Tablet) 650 mg PO Q6H PRN PRN Reason: Headache/Pain Mild Scale (1-3) Al Hydroxide/Mg Hydroxide (Magnesium Hydrox/Alum Hydrox 30 Ml Oral.Susp) 30 ml PO Q6H PRN PRN Reason: Heartburn/Nausea Betamethasone Dipropion Augmented (Betamethasone Dip Aug 0.05% Cr 15 Gm Tube) 1 appl TOPICAL BID [facility]; Protocol Stop: 07/22/24 20:59 Last Admin: 07/14/24 09:00 Dose: 1 appl Buspirone HCl (Buspirone Hcl 5 Mg Tablet) 5 mg PO BID [facility] Last Admin: 07/14/24 08:50 Dose: 5 mg Duloxetine HCl (Duloxetine Hcl 20 Mg Capsule.Dr) 20 mg PO DAILY [facility] Last Admin: 07/14/24 08:50 Dose: 20 mg Ibuprofen (Ibuprofen 600 Mg Tablet) 600 mg PO Q8H PRN PRN Reason: Pain, Moderate(Pain Scale 4-6) Last Admin: 07/13/24 21:19 Dose: 600 mg Lisinopril (Lisinopril 10 Mg Tablet) 10 mg PO DAILY [facility]; Protocol Last Admin: 07/14/24 08:50 Dose: 10 mg Lorazepam (Lorazepam 1 Mg Tablet) 1 mg PO Q2H PRN PRN Reason: CIWA 8-11 Last Admin: 07/14/24 10:29 Dose: 1 mg Lorazepam (Lorazepam 1 Mg Tablet) 2 mg PO Q2H PRN PRN Reason: CIWA 12-15 Last Admin: 07/13/24 16:33 Dose: 2 mg Lorazepam (Lorazepam 1 Mg Tablet) 3 mg PO Q2H PRN PRN Reason: CIWA > 15, and call Magnesium Hydroxide (Milk Of Magnesia 30 Ml Oral.Susp) 30 ml PO DAILY PRN PRN Reason: Constipation Multi-Ingred Cream/Lotion/Oil/Oint (Mineral Oil/Petrolatum,White 106 Gm Tube) 1 appl TOPICAL BID PRN; Protocol PRN Reason: Rash Last Admin: 07/13/24 20:15 Dose: 1 appl Naltrexone HCl (Naltrexone Hcl 50 Mg Tablet) 25 mg PO DAILY [facility] Stop: 07/16/24 09:01 Nicotine (Nicotine 21 Mg Patch.Td24) 21 mg TRANSDERMA DAILY [facility] Last Admin: 07/14/24 08:50 Dose: Not Given Nicotine Polacrilex (Nicotine Polacrilex 2 Mg Gum) 4 mg BUCCAL Q2H PRN PRN Reason: Nicotine Cravings Nicotine Polacrilex (Nicotine Polacrilex Lozenge 2 Mg Lozenge) 2 mg BUCCAL Q2H PRN PRN Reason: Nicotine Cravings Olanzapine (Olanzapine 5 Mg Tablet) 5 mg PO Q4H PRN PRN Reason: agitation Last Admin: 07/13/24 16:33 Dose: 5 mg Thiamine HCl (Thiamine Hcl 100 Mg Tablet) 100 mg PO DAILY [facility] Last Admin: 07/14/24 08:50 Dose: 100 mg Trazodone HCl (Trazodone Hcl 50 Mg Tablet) 50 mg PO BEDTIME MRX1 PRN PRN Reason: Insomnia Last Admin: 07/13/24 23:23 Dose: 50 mg Allergies Allergies Allergy/AdvReac Type Severity Reaction Status Date / Time hydroxyzine [From Vistaril] Allergy Hives Verified 07/10/24 19:02 Assessment & Plan Assessment & Plan (1) Alcohol use disorder: Status: Acute Code(s): F10.90 - Alcohol use, unspecified, uncomplicated Assessment and Plan: Naltrexone 25mg X3days, then increase to 50mg daily payable representative to provide recovery resources Total time managing care of this patient today _40___ minutes. PMFSH Past Medical History Medical History Cannabis use disorder Alcohol use disorder Major depression, recurrent Septic arthritis of elbow, right HTN (hypertension) Social History Social History Household Members: Friend(s) Housing: House Housing Other:: staying w friend. looking for housing Do you presently have visiting nurse or other home services: No Alcohol intake: current Alcohol intake frequency: 3 or more drinks per day Alcohol type: hard liquor Patient Tobacco Use Status: Former Tobacco user Smoked in Last 30 Days: No Second Hand Smoke Exposure: No Use of substances other than those prescribed or required for medical reasons: No Substance Use Type: Marijuana Substance Use Frequency: Occasionally Last Used Substance: Just Prior to Admission Currently Displaying Signs/Symptoms of Drug Intoxication Withdrawal: No Any prior treatment program specific to substance use: No Have you been hit, kicked, punched, or otherwise hurt by someone within the past year? If so, by whom?: No Do you feel safe in your current relationship?: No Current Relationship Is there a partner from a previous relationship who is making you feel unsafe now?: No Are you made to feel afraid or neglected: No Advance Directives: No Advance Directives Information Provided: No Do you have thoughts of harming others: None Do you have a plan to hurt others: No Plan Recently lost weight without trying: No Nutrition Risks: No Nutritional Risk Poor oral hygiene: No service: No Current occupational status: unemployed Sexual orientation: Straight/Heterosexual
[2024-07-14] MEDS: Naltrexone HCl 50 MG TABLET 25 MG PO (12:02)
--- NOTE | 2024-07-14 13:41 | P.PNPSI_ITS ---
Subjective Subjective Date of Service: 07/14/24 Reason For Visit: Crisis Subjective Notes: Conditional Voluntary Interim History: Active on unit, social with peers. attending groups. pt tearful during 1:1. Continues to report depression despite observed laughing with peers. Pt stated, I'm trying to stay positive and go to groups but I'm depressed . denies SI/HI/VH/AH. Increase Cymbalta to 40mg PO daily Medication Compliance: Yes Side effects from medications: No Attending Groups: Yes Review of Systems Constitutional: Reports as per HPI Eyes: Reports as per HPI Reports as per HPI Cardiovascular: Reports as per HPI Respiratory: Reports as per HPI Gastrointestinal: Reports as per HPI Genitourinary: Reports as per HPI Musculoskeletal: Reports as per HPI Skin/Breast: Reports as per HPI Reports as per HPI Psychiatric: Reports as per HPI Endocrine: Reports as per HPI Hematologic/Lymphatic: Reports as per HPI Allergic/Immunologic: Reports as per HPI Mental Status Exam Mental Status Exam Narrative: Pt is alert and oriented; behavior is cooperative, tearful during assessment; dressed in casual attire; mood is described as depressed ; eye contact appropriate; Speech is normal rate, volume and not pressured; thought process is organized and goal directed; Thought content is on tx; denies SI/HI/AH/VH. Diagnostics Vital Signs (24Hr): Vital Signs - 24 hr 07/13/24 20:00 07/14/24 08:49 07/14/24 08:50 Temperature 98.5 F 98.4 F Pulse Rate 89 102 H Respiratory Rate 16 16 Blood Pressure 126/81 150/86 H 150/86 H Pulse Oximetry 97 95 Oxygen Delivery Method Room Air Room Air BMI result Body Mass Index 37.0 Labs 07/10/24 19:14 07/12/24 08:44 Medications Medications Current Medications Acetaminophen (Acetaminophen 325 Mg Tablet) 650 mg PO Q6H PRN PRN Reason: Headache/Pain Mild Scale (1-3) Al Hydroxide/Mg Hydroxide (Magnesium Hydrox/Alum Hydrox 30 Ml Oral.Susp) 30 ml PO Q6H PRN PRN Reason: Heartburn/Nausea Betamethasone Dipropion Augmented (Betamethasone Dip Aug 0.05% Cr 15 Gm Tube) 1 appl TOPICAL BID [facility]; Protocol Stop: 07/22/24 20:59 Last Admin: 07/14/24 09:00 Dose: 1 appl Buspirone HCl (Buspirone Hcl 5 Mg Tablet) 5 mg PO BID [facility] Last Admin: 07/14/24 08:50 Dose: 5 mg Duloxetine HCl (Duloxetine Hcl 20 Mg Capsule.Dr) 20 mg PO DAILY [facility] Last Admin: 07/14/24 08:50 Dose: 20 mg Ibuprofen (Ibuprofen 600 Mg Tablet) 600 mg PO Q8H PRN PRN Reason: Pain, Moderate(Pain Scale 4-6) Last Admin: 07/13/24 21:19 Dose: 600 mg Lisinopril (Lisinopril 10 Mg Tablet) 10 mg PO DAILY [facility]; Protocol Last Admin: 07/14/24 08:50 Dose: 10 mg Lorazepam (Lorazepam 1 Mg Tablet) 1 mg PO Q2H PRN PRN Reason: CIWA 8-11 Last Admin: 07/14/24 10:29 Dose: 1 mg Lorazepam (Lorazepam 1 Mg Tablet) 2 mg PO Q2H PRN PRN Reason: CIWA 12-15 Last Admin: 07/13/24 16:33 Dose: 2 mg Lorazepam (Lorazepam 1 Mg Tablet) 3 mg PO Q2H PRN PRN Reason: CIWA > 15, and call Magnesium Hydroxide (Milk Of Magnesia 30 Ml Oral.Susp) 30 ml PO DAILY PRN PRN Reason: Constipation Multi-Ingred Cream/Lotion/Oil/Oint (Mineral Oil/Petrolatum,White 106 Gm Tube) 1 appl TOPICAL BID PRN; Protocol PRN Reason: Rash Last Admin: 07/13/24 20:15 Dose: 1 appl Naltrexone HCl (Naltrexone Hcl 50 Mg Tablet) 25 mg PO DAILY [facility] Stop: 07/16/24 09:01 Last Admin: 07/14/24 12:02 Dose: 25 mg Naltrexone HCl (Naltrexone Hcl 50 Mg Tablet) 50 mg PO DAILY [facility] Nicotine (Nicotine 21 Mg Patch.Td24) 21 mg TRANSDERMA DAILY [facility] Last Admin: 07/14/24 08:50 Dose: Not Given Nicotine Polacrilex (Nicotine Polacrilex 2 Mg Gum) 4 mg BUCCAL Q2H PRN PRN Reason: Nicotine Cravings Nicotine Polacrilex (Nicotine Polacrilex Lozenge 2 Mg Lozenge) 2 mg BUCCAL Q2H PRN PRN Reason: Nicotine Cravings Olanzapine (Olanzapine 5 Mg Tablet) 5 mg PO Q4H PRN PRN Reason: agitation Last Admin: 07/13/24 16:33 Dose: 5 mg Thiamine HCl (Thiamine Hcl 100 Mg Tablet) 100 mg PO DAILY [facility] Last Admin: 07/14/24 08:50 Dose: 100 mg Trazodone HCl (Trazodone Hcl 50 Mg Tablet) 50 mg PO BEDTIME MRX1 PRN PRN Reason: Insomnia Last Admin: 07/13/24 23:23 Dose: 50 mg Allergies Allergies Allergy/AdvReac Type Severity Reaction Status Date / Time hydroxyzine [From Vistaril] Allergy Hives Verified 07/10/24 19:02 Assessment & Plan Assessment & Plan (1) MDD (major depressive disorder), recurrent episode, severe: Status: Acute Code(s): F33.2 - Major depressive disorder, recurrent severe without psychotic features (2) PTSD (post-traumatic stress disorder): Status: Acute Code(s): F43.10 - Post-traumatic stress disorder, unspecified (3) Alcohol use disorder: Status: Acute Code(s): F10.90 - Alcohol use, unspecified, uncomplicated Assessment and Plan: * Naltrexone 25mg X3days, then increase to 50mh daily * plaster applicator to provide recovery resources Plan Patient is a 49-year-old male with history of MDD, PTSD and alcohol use disorder who self presented to [facility] ER due to suicidal ideation secondary to increased life stressors and alcohol use. Plan: CV 15 minute safety checks CIWA; alcohol withdrawal protocol Addiction medicine consult Hospitalist consult for rash on body Review past medications: Start: Cymbalta 20mg PO daily Lisinopril 5mg PO daily Buspar 5mg PO BID Encourage groups Discharge planning 07/12: Active on unit, social with peers. attending groups. Patient reports feeling anxious and depressed ; pt stated, I'm having cravings to drink. I'm having more withdrawal symptoms today . He reports sleeping better last night. denies SI/HI/VH/AH. Increase lisinopril to 10mg PO daily d/t increased BPs; continue to monitor. Continue CIWA. 07/13: Active on unit, social with peers. attending groups. Patient reports feeling depressed but trying to stay positive . Reports sleeping well last night, per nursing, slept 8 hours. denies SI/HI/VH/AH. Continue current tx plan 07/14: Active on unit, social with peers. attending groups. pt tearful during 1:1. Continues to report depression despite observed laughing with peers. Pt stated, I'm trying to stay positive and go to groups but I'm depressed . denies SI/HI/VH/AH. Increase Cymbalta to 40mg PO daily Patient educated on: diagnosis and medication risk/benefits Reason for continued inpatient stay Substantial Risk for: med/psych decompensation Time Spent With Patient Time: Total time managing care of this patient today _20___ minutes.
[2024-07-14] MEDS: Mineral Oil/Petrolatum,White 106 GM Tube 1 APPL TOPICAL (16:35)
[2024-07-14 20:00] VITALS: BP 136/105; PULSE 80; RESP 16; TEMP 36.9; O2SAT 97
[2024-07-14 21:27] VITALS: BP 130/89; PULSE 82; O2SAT 94
[2024-07-14] MEDS: OLANZapine 5 MG TABLET PO (21:35)
[2024-07-14] MEDS: traZODone HCL 50 MG TABLET PO (23:16)
[2024-07-15 08:13] VITALS: BP 152/109; PULSE 99; RESP 14; TEMP 36.6; O2SAT 96
[2024-07-15] MEDS: Naltrexone HCl 50 MG TABLET 25 MG PO (08:34)
[2024-07-15] MEDS: lisinopriL 10 MG TABLET PO (08:35)
[2024-07-15] MEDS: busPIRone HCl 5 MG TABLET PO (08:35)
[2024-07-15] MEDS: DULoxetine HCl 20 MG CAPSULE.DR 40 MG PO (08:35)
[2024-07-15] MEDS: Thiamine HCL 100 MG TABLET PO (08:36)
[2024-07-15] MEDS: Betamethasone Dip Aug 0.05% Cr 15 GM TUBE 1 APPL TOPICAL ×2 (08:40→21:39)
[2024-07-15] MEDS: OLANZapine 5 MG TABLET PO ×3 (08:40→21:39)
--- NOTE | 2024-07-15 09:00 | HO.PSYCHPN ---
Subjective Subjective Date of Service: 07/15/24 Reason For Visit: Crisis Subjective Notes: Conditional Voluntary Interim History: Active on unit, social with peers. attending groups. pt tearful during 1:1. Continues to report depression and anxiety. He reports feeling irritated by female peer who attempts to get his attention. Pt requesting increase in buspar; Buspar increased to 10mg PO BID. denies SI/HI/VH/AH. Lisinopril increased to 20mg PO daily d/t continued increased BP. Nursing to monitor. Medication Compliance: Yes Side effects from medications: No Attending Groups: Yes Review of Systems Constitutional: Reports as per HPI Eyes: Reports as per HPI Reports as per HPI Cardiovascular: Reports as per HPI Respiratory: Reports as per HPI Gastrointestinal: Reports as per HPI Genitourinary: Reports as per HPI Musculoskeletal: Reports as per HPI Skin/Breast: Reports as per HPI Reports as per HPI Psychiatric: Reports as per HPI Endocrine: Reports as per HPI Hematologic/Lymphatic: Reports as per HPI Allergic/Immunologic: Reports as per HPI Mental Status Exam Mental Status Exam Narrative: Pt is alert and oriented; behavior is cooperative, tearful during assessment; dressed in casual attire; mood is described as depressed and anxious ; eye contact appropriate; Speech is normal rate, volume and not pressured; thought process is organized and goal directed; Thought content is on tx; denies SI/HI/AH/VH. Diagnostics Vital Signs (24Hr): Vital Signs - 24 hr 07/14/24 20:00 07/14/24 21:27 07/15/24 08:13 Temperature 98.4 F 97.8 F Pulse Rate 80 82 99 Respiratory Rate 16 14 Blood Pressure 136/105 H 130/89 152/109 H Pulse Oximetry 97 94 96 Oxygen Delivery Method Room Air Room Air Room Air BMI result Body Mass Index 37.0 Labs 07/10/24 19:14 07/12/24 08:44 Medications Medications Current Medications Acetaminophen (Acetaminophen 325 Mg Tablet) 650 mg PO Q6H PRN PRN Reason: Headache/Pain Mild Scale (1-3) Al Hydroxide/Mg Hydroxide (Magnesium Hydrox/Alum Hydrox 30 Ml Oral.Susp) 30 ml PO Q6H PRN PRN Reason: Heartburn/Nausea Betamethasone Dipropion Augmented (Betamethasone Dip Aug 0.05% Cr 15 Gm Tube) 1 appl TOPICAL BID [facility]; Protocol Stop: 07/22/24 20:59 Last Admin: 07/15/24 08:40 Dose: 1 appl Buspirone HCl (Buspirone Hcl 5 Mg Tablet) 5 mg PO BID [facility] Last Admin: 07/15/24 08:35 Dose: 5 mg Duloxetine HCl (Duloxetine Hcl 20 Mg Capsule.Dr) 40 mg PO DAILY [facility] Last Admin: 07/15/24 08:35 Dose: 40 mg Ibuprofen (Ibuprofen 600 Mg Tablet) 600 mg PO Q8H PRN PRN Reason: Pain, Moderate(Pain Scale 4-6) Last Admin: 07/13/24 21:19 Dose: 600 mg Lisinopril (Lisinopril 10 Mg Tablet) 10 mg PO DAILY [facility]; Protocol Last Admin: 07/15/24 08:35 Dose: 10 mg Lorazepam (Lorazepam 1 Mg Tablet) 1 mg PO Q2H PRN PRN Reason: CIWA 8-11 Last Admin: 07/14/24 10:29 Dose: 1 mg Lorazepam (Lorazepam 1 Mg Tablet) 2 mg PO Q2H PRN PRN Reason: CIWA 12-15 Last Admin: 07/13/24 16:33 Dose: 2 mg Lorazepam (Lorazepam 1 Mg Tablet) 3 mg PO Q2H PRN PRN Reason: CIWA > 15, and call Magnesium Hydroxide (Milk Of Magnesia 30 Ml Oral.Susp) 30 ml PO DAILY PRN PRN Reason: Constipation Multi-Ingred Cream/Lotion/Oil/Oint (Mineral Oil/Petrolatum,White 106 Gm Tube) 1 appl TOPICAL BID PRN; Protocol PRN Reason: Rash Last Admin: 07/14/24 16:35 Dose: 1 appl Naltrexone HCl (Naltrexone Hcl 50 Mg Tablet) 25 mg PO DAILY [facility] Stop: 07/16/24 09:01 Last Admin: 07/15/24 08:34 Dose: 25 mg Naltrexone HCl (Naltrexone Hcl 50 Mg Tablet) 50 mg PO DAILY [facility] Nicotine (Nicotine 21 Mg Patch.Td24) 21 mg TRANSDERMA DAILY [facility] Last Admin: 07/15/24 08:36 Dose: Not Given Nicotine Polacrilex (Nicotine Polacrilex 2 Mg Gum) 4 mg BUCCAL Q2H PRN PRN Reason: Nicotine Cravings Nicotine Polacrilex (Nicotine Polacrilex Lozenge 2 Mg Lozenge) 2 mg BUCCAL Q2H PRN PRN Reason: Nicotine Cravings Olanzapine (Olanzapine 5 Mg Tablet) 5 mg PO Q4H PRN PRN Reason: agitation Last Admin: 07/15/24 08:40 Dose: 5 mg Thiamine HCl (Thiamine Hcl 100 Mg Tablet) 100 mg PO DAILY [facility] Last Admin: 07/15/24 08:36 Dose: 100 mg Trazodone HCl (Trazodone Hcl 50 Mg Tablet) 50 mg PO BEDTIME MRX1 PRN PRN Reason: Insomnia Last Admin: 07/14/24 23:16 Dose: 50 mg Allergies Allergies Allergy/AdvReac Type Severity Reaction Status Date / Time hydroxyzine [From Vistaril] Allergy Hives Verified 07/10/24 19:02 Assessment & Plan Assessment & Plan (1) MDD (major depressive disorder), recurrent episode, severe: Status: Acute Code(s): F33.2 - Major depressive disorder, recurrent severe without psychotic features (2) PTSD (post-traumatic stress disorder): Status: Acute Code(s): F43.10 - Post-traumatic stress disorder, unspecified (3) Alcohol use disorder: Status: Acute Code(s): F10.90 - Alcohol use, unspecified, uncomplicated Assessment and Plan: Naltrexone 25mg X3days, then increase to 50mg daily sizer hand to provide recovery resources Plan Patient is a 49-year-old male with history of MDD, PTSD and alcohol use disorder who self presented to [facility] due to suicidal ideation secondary to increased life stressors and alcohol use. Plan: CV 15 minute safety checks CIWA; alcohol withdrawal protocol Addiction medicine consult Hospitalist consult for rash on body Review past medications: Start: Cymbalta 20mg PO daily Lisinopril 5mg PO daily Buspar 5mg PO BID Encourage groups Discharge planning 07/12: Active on unit, social with peers. attending groups. Patient reports feeling anxious and depressed ; pt stated, I'm having cravings to drink. I'm having more withdrawal symptoms today . He reports sleeping better last night. denies SI/HI/VH/AH. Increase lisinopril to 10mg PO daily d/t increased BPs; continue to monitor. Continue CIWA. 07/13: Active on unit, social with peers. attending groups. Patient reports feeling depressed but trying to stay positive . Reports sleeping well last night, per nursing, slept 8 hours. denies SI/HI/VH/AH. Continue current tx plan 07/14: Active on unit, social with peers. attending groups. pt tearful during 1:1. Continues to report depression despite observed laughing with peers. Pt stated, I'm trying to stay positive and go to groups but I'm depressed . denies SI/HI/VH/AH. Increase Cymbalta to 40mg PO daily 07/15: Active on unit, social with peers. attending groups. pt tearful during 1:1. Continues to report depression and anxiety. He reports feeling irritated by female peer who attempts to get his attention. Pt requesting increase in buspar; Buspar increased to 10mg PO BID. denies SI/HI/VH/AH. Lisinopril increased to 20mg PO daily d/t continued increased BP. Nursing to monitor. Patient educated on: diagnosis, medication risk/benefits and therapeutic strategies Reason for continued inpatient stay Substantial Risk for: med/psych decompensation Time Spent With Patient Time: Total time managing care of this patient today _20___ minutes.
[2024-07-15 12:30] VITALS: BP 160/107; PULSE 107; RESP 16; TEMP 37; O2SAT 96
[2024-07-15] MEDS: Ibuprofen 600 MG TABLET PO ×2 (15:32→23:21)
[2024-07-15 16:10] VITALS: BP 119/76; PULSE 103; RESP 16; TEMP 36.9; O2SAT 94
[2024-07-15 20:45] VITALS: BP 137/91; PULSE 87; RESP 18; TEMP 37.1; O2SAT 97
[2024-07-15] MEDS: LORazepam 0.5 MG TABLET PO (21:39)
[2024-07-15] MEDS: busPIRone HCl 10 MG TABLET PO (21:39)
[2024-07-15] MEDS: traZODone HCL 50 MG TABLET PO (23:21)
[2024-07-16] MEDS: traZODone HCL 50 MG TABLET PO ×2 (00:27→22:42)
[2024-07-16 08:00] VITALS: BP 161/94; PULSE 73; RESP 14; TEMP 36.6; O2SAT 98
[2024-07-16] MEDS: DULoxetine HCl 20 MG CAPSULE.DR 40 MG PO (08:13)
[2024-07-16] MEDS: lisinopriL 20 MG TABLET PO (08:13)
[2024-07-16] MEDS: LORazepam 0.5 MG TABLET PO ×2 (08:13→20:59)
[2024-07-16] MEDS: Naltrexone HCl 50 MG TABLET 25 MG PO (08:13)
[2024-07-16] MEDS: Betamethasone Dip Aug 0.05% Cr 15 GM TUBE 1 APPL TOPICAL ×2 (08:14→21:01)
[2024-07-16] MEDS: busPIRone HCl 10 MG TABLET PO ×2 (08:14→20:59)
[2024-07-16] MEDS: Thiamine HCL 100 MG TABLET PO (08:14)
--- NOTE | 2024-07-16 09:16 | HO.PSYCHPN ---
Subjective Subjective Date of Service: 07/16/24 Reason For Visit: Crisis Subjective Notes: Conditional Voluntary Interim History: Active on unit, social with peers. attending groups. Patient reports feeling better with the medication ; pt stated, I feel like I can think clearer. I still don't know if I want to go back home or go to a program after here . Pt reports he plans on speaking with social work tomorrow. denies SI/HI/VH/AH. Medication Compliance: Yes Side effects from medications: No Attending Groups: Yes Review of Systems Constitutional: Reports as per HPI Eyes: Reports as per HPI Reports as per HPI Cardiovascular: Reports as per HPI Respiratory: Reports as per HPI Gastrointestinal: Reports as per HPI Genitourinary: Reports as per HPI Musculoskeletal: Reports as per HPI Skin/Breast: Reports as per HPI Reports as per HPI Psychiatric: Reports as per HPI Endocrine: Reports as per HPI Hematologic/Lymphatic: Reports as per HPI Allergic/Immunologic: Reports as per HPI Mental Status Exam Mental Status Exam Narrative: Pt is alert and oriented; behavior is cooperative, calm; dressed in casual attire; mood is described as better ; eye contact appropriate; Speech is normal rate, volume and not pressured; thought process is organized and goal directed; Thought content is on tx; denies SI/HI/AH/VH. Diagnostics Vital Signs (24Hr): Vital Signs - 24 hr 07/15/24 12:30 07/15/24 16:10 07/15/24 20:45 Temperature 98.6 F 98.4 F 98.7 F Pulse Rate 107 H 103 H 87 Respiratory Rate 16 16 18 Blood Pressure 160/107 H 119/76 137/91 H Pulse Oximetry 96 94 97 Oxygen Delivery Method Room Air Room Air Room Air 07/16/24 08:00 Temperature 97.8 F Pulse Rate 73 Respiratory Rate 14 Blood Pressure 161/94 H Pulse Oximetry 98 Oxygen Delivery Method Room Air BMI result Body Mass Index 37.0 Labs 07/10/24 19:14 07/12/24 08:44 Medications Medications Current Medications Acetaminophen (Acetaminophen 325 Mg Tablet) 650 mg PO Q6H PRN PRN Reason: Headache/Pain Mild Scale (1-3) Al Hydroxide/Mg Hydroxide (Magnesium Hydrox/Alum Hydrox 30 Ml Oral.Susp) 30 ml PO Q6H PRN PRN Reason: Heartburn/Nausea Betamethasone Dipropion Augmented (Betamethasone Dip Aug 0.05% Cr 15 Gm Tube) 1 appl TOPICAL BID [facility]; Protocol Stop: 07/22/24 20:59 Last Admin: 07/16/24 08:14 Dose: 1 appl Buspirone HCl (Buspirone Hcl 10 Mg Tablet) 10 mg PO BID [facility] Last Admin: 07/16/24 08:14 Dose: 10 mg Duloxetine HCl (Duloxetine Hcl 20 Mg Capsule.Dr) 40 mg PO DAILY [facility] Last Admin: 07/16/24 08:13 Dose: 40 mg Ibuprofen (Ibuprofen 600 Mg Tablet) 600 mg PO Q8H PRN PRN Reason: Pain, Moderate(Pain Scale 4-6) Last Admin: 07/15/24 23:21 Dose: 600 mg Lisinopril (Lisinopril 20 Mg Tablet) 20 mg PO DAILY [facility]; Protocol Last Admin: 07/16/24 08:13 Dose: 20 mg Lorazepam (Lorazepam 0.5 Mg Tablet) 0.5 mg PO BID [facility] Stop: 07/16/24 21:00 Last Admin: 07/16/24 08:13 Dose: 0.5 mg Lorazepam (Lorazepam 0.5 Mg Tablet) 0.5 mg PO DAILY [facility] Stop: 07/18/24 21:00 Magnesium Hydroxide (Milk Of Magnesia 30 Ml Oral.Susp) 30 ml PO DAILY PRN PRN Reason: Constipation Multi-Ingred Cream/Lotion/Oil/Oint (Mineral Oil/Petrolatum,White 106 Gm Tube) 1 appl TOPICAL BID PRN; Protocol PRN Reason: Rash Last Admin: 07/14/24 16:35 Dose: 1 appl Naltrexone HCl (Naltrexone Hcl 50 Mg Tablet) 50 mg PO DAILY [facility] Nicotine (Nicotine 21 Mg Patch.Td24) 21 mg TRANSDERMA DAILY [facility] Last Admin: 07/16/24 08:15 Dose: Not Given Nicotine Polacrilex (Nicotine Polacrilex 2 Mg Gum) 4 mg BUCCAL Q2H PRN PRN Reason: Nicotine Cravings Nicotine Polacrilex (Nicotine Polacrilex Lozenge 2 Mg Lozenge) 2 mg BUCCAL Q2H PRN PRN Reason: Nicotine Cravings Olanzapine (Olanzapine 5 Mg Tablet) 5 mg PO Q4H PRN PRN Reason: agitation Last Admin: 07/15/24 21:39 Dose: 5 mg Thiamine HCl (Thiamine Hcl 100 Mg Tablet) 100 mg PO DAILY [facility] Last Admin: 07/16/24 08:14 Dose: 100 mg Trazodone HCl (Trazodone Hcl 50 Mg Tablet) 50 mg PO BEDTIME MRX1 PRN PRN Reason: Insomnia Last Admin: 07/16/24 00:27 Dose: 50 mg Allergies Allergies Allergy/AdvReac Type Severity Reaction Status Date / Time hydroxyzine [From Vistaril] Allergy Hives Verified 07/10/24 19:02 Assessment & Plan Assessment & Plan (1) MDD (major depressive disorder), recurrent episode, severe: Status: Acute Code(s): F33.2 - Major depressive disorder, recurrent severe without psychotic features (2) PTSD (post-traumatic stress disorder): Status: Acute Code(s): F43.10 - Post-traumatic stress disorder, unspecified (3) Alcohol use disorder: Status: Acute Code(s): F10.90 - Alcohol use, unspecified, uncomplicated Assessment and Plan: Naltrexone 25mg X3days, then increase to 50mg daily net development manager to provide recovery resources Plan Patient is a 49-year-old male with history of MDD, PTSD and alcohol use disorder who self presented to [facility] due to suicidal ideation secondary to increased life stressors and alcohol use. Plan: CV 15 minute safety checks CIWA; alcohol withdrawal protocol Addiction medicine consult Hospitalist consult for rash on body Review past medications: Start: Cymbalta 20mg PO daily Lisinopril 5mg PO daily Buspar 5mg PO BID Encourage groups Discharge planning 07/12: Active on unit, social with peers. attending groups. Patient reports feeling anxious and depressed ; pt stated, I'm having cravings to drink. I'm having more withdrawal symptoms today . He reports sleeping better last night. denies SI/HI/VH/AH. Increase lisinopril to 10mg PO daily d/t increased BPs; continue to monitor. Continue CIWA. 07/13: Active on unit, social with peers. attending groups. Patient reports feeling depressed but trying to stay positive . Reports sleeping well last night, per nursing, slept 8 hours. denies SI/HI/VH/AH. Continue current tx plan 07/14: Active on unit, social with peers. attending groups. pt tearful during 1:1. Continues to report depression despite observed laughing with peers. Pt stated, I'm trying to stay positive and go to groups but I'm depressed . denies SI/HI/VH/AH. Increase Cymbalta to 40mg PO daily 07/15: Active on unit, social with peers. attending groups. pt tearful during 1:1. Continues to report depression and anxiety. He reports feeling irritated by female peer who attempts to get his attention. Pt requesting increase in buspar; Buspar increased to 10mg PO BID. denies SI/HI/VH/AH. Lisinopril increased to 20mg PO daily d/t continued increased BP. Nursing to monitor. 07/16: Patient reports feeling better with the medication ; pt stated, I feel like I can think clearer. I still don't know if I want to go back home or go to a program after here . Pt reports he plans on speaking with social work tomorrow. denies SI/HI/VH/AH. Continue current tx plan. Patient educated on: diagnosis and medication risk/benefits Reason for continued inpatient stay Substantial Risk for: med/psych decompensation Time Spent With Patient Time: Total time managing care of this patient today _20___ minutes.
[2024-07-16] MEDS: OLANZapine 5 MG TABLET PO ×3 (09:40→18:58)
[2024-07-16 19:30] VITALS: BP 163/94; PULSE 97; TEMP 36.5; O2SAT 97
[2024-07-17] MEDS: traZODone HCL 50 MG TABLET PO ×2 (00:31→23:05)
[2024-07-17 09:24] VITALS: BP 148/98; PULSE 92; RESP 15; TEMP 37.3; O2SAT 96
[2024-07-17] MEDS: Betamethasone Dip Aug 0.05% Cr 15 GM TUBE 1 APPL TOPICAL ×2 (09:30→21:32)
[2024-07-17] MEDS: lisinopriL 20 MG TABLET PO (09:32)
[2024-07-17] MEDS: Thiamine HCL 100 MG TABLET PO (09:32)
[2024-07-17] MEDS: busPIRone HCl 10 MG TABLET PO ×2 (09:32→21:32)
[2024-07-17] MEDS: LORazepam 0.5 MG TABLET PO (09:33)
[2024-07-17] MEDS: DULoxetine HCl 20 MG CAPSULE.DR 40 MG PO (09:33)
[2024-07-17] MEDS: Naltrexone HCl 50 MG TABLET PO (09:35)
[2024-07-17] MEDS: OLANZapine 5 MG TABLET PO ×3 (09:41→18:57)
--- NOTE | 2024-07-17 19:18 | P.PNPSI_ITS ---
Subjective Subjective Date of Service: 07/17/24 Reason For Visit: Crisis Subjective Notes: Conditional Voluntary Healthcare Proxy: No Guardianship: No Medical Problems Affecting Mental Status: No Interim History: Pt known to this travel writer from previous admission. Discussed precipitants to crisis. Believes that the text he left for his sons in Mar-Apr leaving the opening to be in contact again and the lack of response was a main precipitant. Discussed some of the benefits of having this open for them if needed. Discussed inability to refill meds, find a provider and trying to manage sx without assistance. [place]k with daughter has strengthened my lifesaver and he is looking forward to spending more time with his grandchildren upon discharge. Medication Compliance: Yes Side effects from medications: No Attending Groups: Yes Review of Systems Acute medical concerns: No Mental Status Exam Mental Status Exam Patient Appearance: Appropriate Patient Orientation: Person, Place, Time and Situation Level of Consciousness: Alert Patient Behavior: Talkative and Good Eye Contact Mood Description: Appropriate and Anxious Affect Description: Appropriate and Anxious Patient Cognition Impaired: No Ability to Follow Directions: Good Speech Pattern: Spontaneous Speech Memory Description: Intact Hallucinations: None Delusions: Not Present Thought Process: Goal Oriented Thought Content: positive for Goal Oriented and positive for Suicidal Ideation (denies) Depressive Symptoms: Thoughts of /Suicide (denies) Judgement: Good Diagnostics Vital Signs (24Hr): Vital Signs - 24 hr 07/16/24 19:30 07/17/24 09:24 Temperature 97.7 F 99.1 F Pulse Rate 97 92 Respiratory Rate 15 Blood Pressure 163/94 H 148/98 H Pulse Oximetry 97 96 Oxygen Delivery Method Room Air Room Air BMI result Body Mass Index 37.0 Labs 07/10/24 19:14 07/12/24 08:44 Medications Medications Current Medications Acetaminophen (Acetaminophen 325 Mg Tablet) 650 mg PO Q6H PRN PRN Reason: Headache/Pain Mild Scale (1-3) Al Hydroxide/Mg Hydroxide (Magnesium Hydrox/Alum Hydrox 30 Ml Oral.Susp) 30 ml PO Q6H PRN PRN Reason: Heartburn/Nausea Betamethasone Dipropion Augmented (Betamethasone Dip Aug 0.05% Cr 15 Gm Tube) 1 appl TOPICAL BID [facility]; Protocol Stop: 07/22/24 20:59 Last Admin: 07/17/24 09:30 Dose: 1 appl Buspirone HCl (Buspirone Hcl 10 Mg Tablet) 10 mg PO BID [facility] Last Admin: 07/17/24 09:32 Dose: 10 mg Duloxetine HCl (Duloxetine Hcl 20 Mg Capsule.Dr) 40 mg PO DAILY [facility] Last Admin: 07/17/24 09:33 Dose: 40 mg Ibuprofen (Ibuprofen 600 Mg Tablet) 600 mg PO Q8H PRN PRN Reason: Pain, Moderate(Pain Scale 4-6) Last Admin: 07/15/24 23:21 Dose: 600 mg Lisinopril (Lisinopril 20 Mg Tablet) 20 mg PO DAILY [facility]; Protocol Last Admin: 07/17/24 09:32 Dose: 20 mg Lorazepam (Lorazepam 0.5 Mg Tablet) 0.5 mg PO DAILY [facility] Stop: 07/18/24 21:00 Last Admin: 07/17/24 09:33 Dose: 0.5 mg Magnesium Hydroxide (Milk Of Magnesia 30 Ml Oral.Susp) 30 ml PO DAILY PRN PRN Reason: Constipation Multi-Ingred Cream/Lotion/Oil/Oint (Mineral Oil/Petrolatum,White 106 Gm Tube) 1 appl TOPICAL BID PRN; Protocol PRN Reason: Rash Last Admin: 07/14/24 16:35 Dose: 1 appl Naltrexone HCl (Naltrexone Hcl 50 Mg Tablet) 50 mg PO DAILY [facility] Last Admin: 07/17/24 09:35 Dose: 50 mg Nicotine (Nicotine 21 Mg Patch.Td24) 21 mg TRANSDERMA DAILY [facility] Last Admin: 07/17/24 09:30 Dose: Not Given Nicotine Polacrilex (Nicotine Polacrilex 2 Mg Gum) 4 mg BUCCAL Q2H PRN PRN Reason: Nicotine Cravings Nicotine Polacrilex (Nicotine Polacrilex Lozenge 2 Mg Lozenge) 2 mg BUCCAL Q2H PRN PRN Reason: Nicotine Cravings Olanzapine (Olanzapine 5 Mg Tablet) 5 mg PO Q4H PRN PRN Reason: agitation Last Admin: 07/17/24 18:57 Dose: 5 mg Thiamine HCl (Thiamine Hcl 100 Mg Tablet) 100 mg PO DAILY [facility] Last Admin: 07/17/24 09:32 Dose: 100 mg Trazodone HCl (Trazodone Hcl 50 Mg Tablet) 50 mg PO BEDTIME MRX1 PRN PRN Reason: Insomnia Last Admin: 07/17/24 00:31 Dose: 50 mg Allergies Allergies Allergy/AdvReac Type Severity Reaction Status Date / Time hydroxyzine [From Vistaril] Allergy Hives Verified 07/10/24 19:02 Assessment & Plan Assessment & Plan (1) MDD (major depressive disorder), recurrent episode, severe: Status: Acute Code(s): F33.2 - Major depressive disorder, recurrent severe without psychotic features (2) PTSD (post-traumatic stress disorder): Status: Acute Code(s): F43.10 - Post-traumatic stress disorder, unspecified (3) Alcohol use disorder: Status: Acute Code(s): F10.90 - Alcohol use, unspecified, uncomplicated Assessment and Plan: * Naltrexone 25mg X3days, then increase to 50mg daily * personal care home administrator to provide recovery resources Plan Patient is a 49-year-old male with history of MDD, PTSD and alcohol use disorder who self presented to [facility] due to suicidal ideation secondary to increased life stressors and alcohol use. Plan: CV 15 minute safety checks CIWA; alcohol withdrawal protocol Addiction medicine consult Hospitalist consult for rash on body Review past medications: Start: Cymbalta 20mg PO daily Lisinopril 5mg PO daily Buspar 5mg PO BID Encourage groups Discharge planning 07/12: Active on unit, social with peers. attending groups. Patient reports feeling anxious and depressed ; pt stated, I'm having cravings to drink. I'm having more withdrawal symptoms today . He reports sleeping better last night. denies SI/HI/VH/AH. Increase lisinopril to 10mg PO daily d/t increased BPs; continue to monitor. Continue CIWA. 07/13: Active on unit, social with peers. attending groups. Patient reports feeling depressed but trying to stay positive . Reports sleeping well last night, per nursing, slept 8 hours. denies SI/HI/VH/AH. Continue current tx plan 07/14: Active on unit, social with peers. attending groups. pt tearful during 1:1. Continues to report depression despite observed laughing with peers. Pt stated, I'm trying to stay positive and go to groups but I'm depressed . denies SI/HI/VH/AH. Increase Cymbalta to 40mg PO daily 07/15: Active on unit, social with peers. attending groups. pt tearful during 1:1. Continues to report depression and anxiety. He reports feeling irritated by female peer who attempts to get his attention. Pt requesting increase in buspar; Buspar increased to 10mg PO BID. denies SI/HI/VH/AH. Lisinopril increased to 20mg PO daily d/t continued increased BP. Nursing to monitor. 07/16: Patient reports feeling better with the medication ; pt stated, I feel like I can think clearer. I still don't know if I want to go back home or go to a program after here . Pt reports he plans on speaking with social work tomorrow. denies SI/HI/VH/AH. Continue current tx plan. 07/17: Reports feeling well. Discharge is being planned with pt and team. Denies SI/HI/AH/VH. No sx of acute timothy or psychosis. Reason for continued inpatient stay Substantial Risk for: rapid decompensation Time Spent With Patient Time: Total time managing care of this patient today ____ minutes.
[2024-07-17 19:40] VITALS: BP 130/87; PULSE 85; TEMP 37; O2SAT 96
[2024-07-18] MEDS: traZODone HCL 50 MG TABLET PO ×2 (00:15→23:04)
[2024-07-18 08:00] VITALS: BP 129/81; PULSE 82; RESP 18; TEMP 36.6; O2SAT 97
[2024-07-18] MEDS: Thiamine HCL 100 MG TABLET PO (08:33)
[2024-07-18] MEDS: DULoxetine HCl 20 MG CAPSULE.DR 40 MG PO (08:33)
[2024-07-18] MEDS: lisinopriL 20 MG TABLET PO (08:33)
[2024-07-18] MEDS: busPIRone HCl 10 MG TABLET PO (08:33)
[2024-07-18] MEDS: Naltrexone HCl 50 MG TABLET PO (08:33)
[2024-07-18] MEDS: LORazepam 0.5 MG TABLET PO (08:33)
[2024-07-18] MEDS: Betamethasone Dip Aug 0.05% Cr 15 GM TUBE 1 APPL TOPICAL ×2 (08:35→21:28)
--- NOTE | 2024-07-18 10:38 | MHC.RECOVSUP ---
Tea Bag Packer Note Patient seen in [facility] Consult requested for?Recovery Supports Current substance use reported by patient: ETOH Type?Amount?16-18 Nips per day. Currently on DEBBIE or MOUD: No Plan:? Tea Bag Packer referral placed to [facility] Other: Patient expressed a desire to attend PHP at [facility] after discharge date.
[2024-07-18] MEDS: OLANZapine 5 MG TABLET PO (14:33)
[2024-07-18 20:00] VITALS: BP 129/76; PULSE 103; RESP 16; TEMP 36.8; O2SAT 96
--- NOTE | 2024-07-18 20:01 | HO.PSYCHPN ---
Subjective Subjective Date of Service: 07/18/24 Reason For Visit: Crisis Interim History: pleasant, engaging. c/o depression and anxiety, reporting higher doses of meds in the past, asking to increase regimen. cymbalta to 60 and buspar to 15 BID. per staff, stable, engaged. planning to discharge . Mental Status Exam Mental Status Exam Narrative: Pt is alert and oriented; behavior is cooperative, calm; dressed in casual attire; mood is described as better ; eye contact appropriate; Speech is normal rate, volume and not pressured; thought process is organized and goal directed; Thought content is on tx; no SI/HI/AH/VH expressed. Diagnostics Vital Signs (24Hr): Vital Signs - 24 hr 07/18/24 08:00 Temperature 98 F Pulse Rate 82 Respiratory Rate 18 Blood Pressure 129/81 Pulse Oximetry 97 Oxygen Delivery Method Room Air BMI result Body Mass Index 37.0 Labs 07/10/24 19:14 07/12/24 08:44 Medications Medications Current Medications Acetaminophen (Acetaminophen 325 Mg Tablet) 650 mg PO Q6H PRN PRN Reason: Headache/Pain Mild Scale (1-3) Al Hydroxide/Mg Hydroxide (Magnesium Hydrox/Alum Hydrox 30 Ml Oral.Susp) 30 ml PO Q6H PRN PRN Reason: Heartburn/Nausea Betamethasone Dipropion Augmented (Betamethasone Dip Aug 0.05% Cr 15 Gm Tube) 1 appl TOPICAL BID [facility]; Protocol Stop: 07/22/24 20:59 Last Admin: 07/18/24 08:35 Dose: 1 appl Buspirone HCl (Buspirone Hcl 5 Mg Tablet) 15 mg PO BID [facility] Duloxetine HCl (Duloxetine Hcl 60 Mg Capsule.Dr) 60 mg PO DAILY [facility] Ibuprofen (Ibuprofen 600 Mg Tablet) 600 mg PO Q8H PRN PRN Reason: Pain, Moderate(Pain Scale 4-6) Last Admin: 07/15/24 23:21 Dose: 600 mg Lisinopril (Lisinopril 20 Mg Tablet) 20 mg PO DAILY [facility]; Protocol Last Admin: 07/18/24 08:33 Dose: 20 mg Lorazepam (Lorazepam 0.5 Mg Tablet) 0.5 mg PO DAILY [facility] Stop: 07/18/24 21:00 Last Admin: 07/18/24 08:33 Dose: 0.5 mg Magnesium Hydroxide (Milk Of Magnesia 30 Ml Oral.Susp) 30 ml PO DAILY PRN PRN Reason: Constipation Multi-Ingred Cream/Lotion/Oil/Oint (Mineral Oil/Petrolatum,White 106 Gm Tube) 1 appl TOPICAL BID PRN; Protocol PRN Reason: Rash Last Admin: 07/14/24 16:35 Dose: 1 appl Naltrexone HCl (Naltrexone Hcl 50 Mg Tablet) 50 mg PO DAILY [facility] Last Admin: 07/18/24 08:33 Dose: 50 mg Nicotine (Nicotine 21 Mg Patch.Td24) 21 mg TRANSDERMA DAILY [facility] Last Admin: 07/18/24 08:33 Dose: Not Given Nicotine Polacrilex (Nicotine Polacrilex 2 Mg Gum) 4 mg BUCCAL Q2H PRN PRN Reason: Nicotine Cravings Nicotine Polacrilex (Nicotine Polacrilex Lozenge 2 Mg Lozenge) 2 mg BUCCAL Q2H PRN PRN Reason: Nicotine Cravings Olanzapine (Olanzapine 5 Mg Tablet) 5 mg PO Q4H PRN PRN Reason: agitation Last Admin: 07/18/24 14:33 Dose: 5 mg Thiamine HCl (Thiamine Hcl 100 Mg Tablet) 100 mg PO DAILY [facility] Last Admin: 07/18/24 08:33 Dose: 100 mg Trazodone HCl (Trazodone Hcl 50 Mg Tablet) 50 mg PO BEDTIME MRX1 PRN PRN Reason: Insomnia Last Admin: 07/18/24 00:15 Dose: 50 mg Allergies Allergies Allergy/AdvReac Type Severity Reaction Status Date / Time hydroxyzine [From Vistaril] Allergy Hives Verified 07/10/24 19:02 Assessment & Plan Assessment & Plan (1) MDD (major depressive disorder), recurrent episode, severe: Status: Acute Code(s): F33.2 - Major depressive disorder, recurrent severe without psychotic features (2) PTSD (post-traumatic stress disorder): Status: Acute Code(s): F43.10 - Post-traumatic stress disorder, unspecified (3) Alcohol use disorder: Status: Acute Code(s): F10.90 - Alcohol use, unspecified, uncomplicated Assessment and Plan: Naltrexone 25mg X3days, then increase to 50mg daily signals analyst to provide recovery resources Plan Patient is a 49-year-old male with history of MDD, PTSD and alcohol use disorder who self presented to [facility] due to suicidal ideation secondary to increased life stressors and alcohol use. Plan: CV 15 minute safety checks CIWA; alcohol withdrawal protocol Addiction medicine consult Hospitalist consult for rash on body Review past medications: Start: Cymbalta 20mg PO daily Lisinopril 5mg PO daily Buspar 5mg PO BID Encourage groups Discharge planning 07/12: Active on unit, social with peers. attending groups. Patient reports feeling anxious and depressed ; pt stated, I'm having cravings to drink. I'm having more withdrawal symptoms today . He reports sleeping better last night. denies SI/HI/VH/AH. Increase lisinopril to 10mg PO daily d/t increased BPs; continue to monitor. Continue CIWA. 07/13: Active on unit, social with peers. attending groups. Patient reports feeling depressed but trying to stay positive . Reports sleeping well last night, per nursing, slept 8 hours. denies SI/HI/VH/AH. Continue current tx plan 07/14: Active on unit, social with peers. attending groups. pt tearful during 1:1. Continues to report depression despite observed laughing with peers. Pt stated, I'm trying to stay positive and go to groups but I'm depressed . denies SI/HI/VH/AH. Increase Cymbalta to 40mg PO daily 07/15: Active on unit, social with peers. attending groups. pt tearful during 1:1. Continues to report depression and anxiety. He reports feeling irritated by female peer who attempts to get his attention. Pt requesting increase in buspar; Buspar increased to 10mg PO BID. denies SI/HI/VH/AH. Lisinopril increased to 20mg PO daily d/t continued increased BP. Nursing to monitor. 07/16: Patient reports feeling better with the medication ; pt stated, I feel like I can think clearer. I still don't know if I want to go back home or go to a program after here . Pt reports he plans on speaking with social work tomorrow. denies SI/HI/VH/AH. Continue current tx plan. 07/17: Reports feeling well. Discharge is being planned with pt and team. Denies SI/HI/AH/VH. No sx of acute timothy or psychosis. 07/18: increase cymbalta to 60 daily and buspar to 15 BID per pt request, for depression and anxiety. discharge . Reason for continued inpatient stay Substantial Risk for: inability to function and rapid decompensation Time Spent With Patient Time: Total time managing care of this patient today __25__ minutes.
[2024-07-18] MEDS: busPIRone HCl 5 MG TABLET 15 MG PO (21:28)
[2024-07-19 07:49] VITALS: BP 151/92; PULSE 80; RESP 16; TEMP 36.6; O2SAT 97
[2024-07-19] MEDS: Betamethasone Dip Aug 0.05% Cr 15 GM TUBE 1 APPL TOPICAL ×2 (08:34→20:54)
[2024-07-19] MEDS: Thiamine HCL 100 MG TABLET PO (08:35)
[2024-07-19] MEDS: lisinopriL 20 MG TABLET PO (08:35)
[2024-07-19] MEDS: DULoxetine HCl 60 MG CAPSULE.DR PO (08:35)
[2024-07-19] MEDS: Naltrexone HCl 50 MG TABLET PO (08:35)
[2024-07-19] MEDS: busPIRone HCl 5 MG TABLET 15 MG PO ×2 (08:35→20:52)
--- NOTE | 2024-07-19 09:23 | P.PNPSI_ITS ---
Subjective Subjective Date of Service: 07/19/24 Reason For Visit: Crisis Subjective Notes: Conditional Voluntary Interim History: Active on unit, social with peers. attending groups. Pt reports feeling really good today; pt stated, I'm feeling ready to go home tomorrow . denies SI/HI/VH/AH. Pt reports he plans on following up with outpatient providers. Medication Compliance: Yes Side effects from medications: No Attending Groups: Yes Review of Systems Constitutional: Reports as per HPI Eyes: Reports as per HPI Reports as per HPI Cardiovascular: Reports as per HPI Respiratory: Reports as per HPI Gastrointestinal: Reports as per HPI Genitourinary: Reports as per HPI Musculoskeletal: Reports as per HPI Skin/Breast: Reports as per HPI Reports as per HPI Psychiatric: Reports as per HPI Endocrine: Reports as per HPI Hematologic/Lymphatic: Reports as per HPI Allergic/Immunologic: Reports as per HPI Mental Status Exam Mental Status Exam Narrative: Pt is alert and oriented; behavior is cooperative and calm; dressed in casual attire; mood is described as good ; eye contact appropriate; Speech is normal rate, volume and not pressured; thought process is organized; Thought content is on tx; denies SI/HI/VH/AH. Diagnostics Vital Signs (24Hr): Vital Signs - 24 hr 07/18/24 20:00 07/19/24 07:49 Temperature 98.2 F 97.9 F Pulse Rate 103 H 80 Respiratory Rate 16 16 Blood Pressure 129/76 151/92 H Pulse Oximetry 96 97 Oxygen Delivery Method Room Air Room Air BMI result Body Mass Index 37.0 Labs 07/10/24 19:14 07/12/24 08:44 Medications Medications Current Medications Acetaminophen (Acetaminophen 325 Mg Tablet) 650 mg PO Q6H PRN PRN Reason: Headache/Pain Mild Scale (1-3) Al Hydroxide/Mg Hydroxide (Magnesium Hydrox/Alum Hydrox 30 Ml Oral.Susp) 30 ml PO Q6H PRN PRN Reason: Heartburn/Nausea Betamethasone Dipropion Augmented (Betamethasone Dip Aug 0.05% Cr 15 Gm Tube) 1 appl TOPICAL BID [facility]; Protocol Stop: 07/22/24 20:59 Last Admin: 07/19/24 08:34 Dose: 1 appl Buspirone HCl (Buspirone Hcl 5 Mg Tablet) 15 mg PO BID [facility] Last Admin: 07/19/24 08:35 Dose: 15 mg Duloxetine HCl (Duloxetine Hcl 60 Mg Capsule.Dr) 60 mg PO DAILY [facility] Last Admin: 07/19/24 08:35 Dose: 60 mg Ibuprofen (Ibuprofen 600 Mg Tablet) 600 mg PO Q8H PRN PRN Reason: Pain, Moderate(Pain Scale 4-6) Last Admin: 07/15/24 23:21 Dose: 600 mg Lisinopril (Lisinopril 20 Mg Tablet) 20 mg PO DAILY [facility]; Protocol Last Admin: 07/19/24 08:35 Dose: 20 mg Magnesium Hydroxide (Milk Of Magnesia 30 Ml Oral.Susp) 30 ml PO DAILY PRN PRN Reason: Constipation Multi-Ingred Cream/Lotion/Oil/Oint (Mineral Oil/Petrolatum,White 106 Gm Tube) 1 appl TOPICAL BID PRN; Protocol PRN Reason: Rash Last Admin: 07/14/24 16:35 Dose: 1 appl Naltrexone HCl (Naltrexone Hcl 50 Mg Tablet) 50 mg PO DAILY [facility] Last Admin: 07/19/24 08:35 Dose: 50 mg Nicotine (Nicotine 21 Mg Patch.Td24) 21 mg TRANSDERMA DAILY [facility] Last Admin: 07/19/24 08:38 Dose: Not Given Nicotine Polacrilex (Nicotine Polacrilex 2 Mg Gum) 4 mg BUCCAL Q2H PRN PRN Reason: Nicotine Cravings Nicotine Polacrilex (Nicotine Polacrilex Lozenge 2 Mg Lozenge) 2 mg BUCCAL Q2H PRN PRN Reason: Nicotine Cravings Olanzapine (Olanzapine 5 Mg Tablet) 5 mg PO Q4H PRN PRN Reason: agitation Last Admin: 07/18/24 14:33 Dose: 5 mg Thiamine HCl (Thiamine Hcl 100 Mg Tablet) 100 mg PO DAILY [facility] Last Admin: 07/19/24 08:35 Dose: 100 mg Trazodone HCl (Trazodone Hcl 50 Mg Tablet) 50 mg PO BEDTIME MRX1 PRN PRN Reason: Insomnia Last Admin: 07/18/24 23:04 Dose: 50 mg Allergies Allergies Allergy/AdvReac Type Severity Reaction Status Date / Time hydroxyzine [From Vistaril] Allergy Hives Verified 07/10/24 19:02 Assessment & Plan Assessment & Plan (1) MDD (major depressive disorder), recurrent episode, severe: Status: Acute Code(s): F33.2 - Major depressive disorder, recurrent severe without psychotic features (2) PTSD (post-traumatic stress disorder): Status: Acute Code(s): F43.10 - Post-traumatic stress disorder, unspecified (3) Alcohol use disorder: Status: Acute Code(s): F10.90 - Alcohol use, unspecified, uncomplicated Assessment and Plan: * Naltrexone 25mg X3days, then increase to 50mg daily * associate professor of management to provide recovery resources Plan Patient is a 49-year-old male with history of MDD, PTSD and alcohol use disorder who self presented to [facility] ER due to suicidal ideation secondary to increased life stressors and alcohol use. Plan: CV 15 minute safety checks CIWA; alcohol withdrawal protocol Addiction medicine consult Hospitalist consult for rash on body Review past medications: Start: Cymbalta 20mg PO daily Lisinopril 5mg PO daily Buspar 5mg PO BID Encourage groups Discharge planning 07/12: Active on unit, social with peers. attending groups. Patient reports feeling anxious and depressed ; pt stated, I'm having cravings to drink. I'm having more withdrawal symptoms today . He reports sleeping better last night. denies SI/HI/VH/AH. Increase lisinopril to 10mg PO daily d/t increased BPs; continue to monitor. Continue CIWA. 07/13: Active on unit, social with peers. attending groups. Patient reports feeling depressed but trying to stay positive . Reports sleeping well last night, per nursing, slept 8 hours. denies SI/HI/VH/AH. Continue current tx plan 07/14: Active on unit, social with peers. attending groups. pt tearful during 1:1. Continues to report depression despite observed laughing with peers. Pt stated, I'm trying to stay positive and go to groups but I'm depressed . denies SI/HI/VH/AH. Increase Cymbalta to 40mg PO daily 07/15: Active on unit, social with peers. attending groups. pt tearful during 1:1. Continues to report depression and anxiety. He reports feeling irritated by female peer who attempts to get his attention. Pt requesting increase in buspar; Buspar increased to 10mg PO BID. denies SI/HI/VH/AH. Lisinopril increased to 20mg PO daily d/t continued increased BP. Nursing to monitor. 07/16: Patient reports feeling better with the medication ; pt stated, I feel like I can think clearer. I still don't know if I want to go back home or go to a program after here . Pt reports he plans on speaking with social work tomorrow. denies SI/HI/VH/AH. Continue current tx plan. 07/17: Reports feeling well. Discharge is being planned with pt and team. Denies SI/HI/AH/VH. No sx of acute timothy or psychosis. 07/18: increase cymbalta to 60 daily and buspar to 15 BID per pt request, for depression and anxiety. discharge . 07/19: Active on unit, social with peers. attending groups. Pt reports feeling really good today; pt stated, I'm feeling ready to go home tomorrow . denies SI/HI/VH/AH. Pt reports he plans on following up with outpatient providers. Patient educated on: diagnosis and medication risk/benefits Reason for continued inpatient stay Substantial Risk for: stable for discharge Time Spent With Patient Time: Total time managing care of this patient today _20___ minutes.
[2024-07-19] MEDS: OLANZapine 5 MG TABLET PO ×2 (14:52→20:53)
[2024-07-19 20:00] VITALS: BP 155/93; PULSE 99; RESP 18; TEMP 37.1; O2SAT 95
[2024-07-19] MEDS: traZODone HCL 50 MG TABLET PO (22:51)
[2024-07-20 07:30] VITALS: BP 144/99; PULSE 100; RESP 18; TEMP 36.4; O2SAT 98
[2024-07-20 08:29] VITALS: BP 144/99
[2024-07-20] MEDS: DULoxetine HCl 60 MG CAPSULE.DR PO (08:29)
[2024-07-20] MEDS: Naltrexone HCl 50 MG TABLET PO (08:29)
[2024-07-20] MEDS: Thiamine HCL 100 MG TABLET PO (08:29)
[2024-07-20] MEDS: lisinopriL 20 MG TABLET PO (08:29)
[2024-07-20] MEDS: busPIRone HCl 5 MG TABLET 15 MG PO (08:29)
[2024-07-20] MEDS: Betamethasone Dip Aug 0.05% Cr 15 GM TUBE 1 APPL TOPICAL (08:30)
--- NOTE | 2024-07-20 09:03 | PM.PSYDC ---
DS: Providers Provider Date of Service: 07/20/24 Date of admission: 07/11/24 11:27 Date of discharge: 07/20/24 Primary care physician: Unknown Physician Admitting clinician: Lizet Calhoun Attending physician on admission: Yoav Connelly Consults: 07/11/24 15:43 Addiction Medicine Routine Consulting Provider: Addiction Covering Reason for consultation: positive audit C screening 07/11/24 16:09 Consult to Hospitalist Routine Comment: Consulting Provider[place] [facility] Reason For Exam: rash all over body Attending physician on discharge: Yoav Connelly Discharging clinician: Lizet Calhoun DS: Diagnosis Discharge Diagnosis (1) MDD (major depressive disorder), recurrent episode, severe: Status: Acute (2) PTSD (post-traumatic stress disorder): Status: Acute (3) Alcohol use disorder: Status: Acute DS: Medications Discharge Medications Home Medications: Home Medications ?Medication ?Instructions ?Recorded ?Confirmed No Known Home Meds 07/11/24 07/11/24 Previous Rx's ?Medication ?Instructions ?Recorded betamethasone, augmented 0.05 % 1 appl topical BID 3 days #15 grams 07/19/24 topical cream buspirone 15 mg tablet 15 mg PO BID 30 days #60 tabs 07/19/24 duloxetine 60 mg capsule,delayed 60 mg PO DAILY 30 days #30 caps 07/19/24 release lisinopril 20 mg tablet 20 mg PO DAILY 30 days #30 tabs 07/19/24 naltrexone 50 mg tablet 50 mg PO DAILY 30 days #30 tabs 07/19/24 Mental Status Exam Mental Status Exam Narrative: Pt is alert and oriented; behavior is cooperative and calm; dressed in casual attire; mood is described as good ; eye contact appropriate; Speech is normal rate, volume and not pressured; thought process is organized; Thought content is on tx; denies SI/HI/VH/AH. DS: Summary Hospital Course Hospital Course: Patient is a 49-year-old male with history of MDD, PTSD and alcohol use disorder who self presented [place] [facility] due to suicidal ideation secondary to increased life stressors and alcohol use. Per crisis report, patient reports he would like help with his drinking. Patient reports suicidal ideation with no plan. Patient reports multiple precipitants such as his ex [id number] passing away 2 days ago, increased depression/anxiety, and consuming alcohol on a daily basis. Patient does not have any current outpatient psychiatric providers and is not currently taking any psychiatric medications. denies HI/AH/VH. During admission assessment, patient presents alert and oriented x3. Calm, cooperative and tearful. Patient reports feeling anxious and depressed ; patient stated, I have been needing help for some time but have been putting it off. The only thing I know is to drink to not feel the pain of missing my kids. I need help to get my head back on straight . Patient reports when he was hospitalized on M5 his medications were beneficial but he was unable to continue them due to not having an outpatient provider. Patient reports drinking 18-24 nips a day and smoking marijuana daily. He denies any other substance use. Patient denies SI/HI/VH/AH. Plan: CV 15 minute safety checks CIWA; alcohol withdrawal protocol Addiction medicine consult Hospitalist consult for rash on body Review past medications: Start: Cymbalta 20mg PO daily Lisinopril 5mg PO daily Buspar 5mg PO BID Encourage groups Discharge planning Active on unit, social with peers. attending groups. Patient reports feeling anxious and depressed ; pt stated, I'm having cravings to drink. I'm having more withdrawal symptoms today . He reports sleeping better last night. denies SI/HI/VH/AH. Increase lisinopril to 10mg PO daily d/t increased BPs; continue to monitor. Continue CIWA. Active on unit, social with peers. attending groups. Patient reports feeling depressed but trying to stay positive . Reports sleeping well last night, per nursing, slept 8 hours. denies SI/HI/VH/AH. Continue current tx plan Active on unit, social with peers. attending groups. pt tearful during 1:1. Continues to report depression despite observed laughing with peers. Pt stated, I'm trying to stay positive and go to groups but I'm depressed . denies SI/HI/VH/AH. Increase Cymbalta to 40mg PO daily Active on unit, social with peers. attending groups. pt tearful during 1:1. Continues to report depression and anxiety. He reports feeling irritated by female peer who attempts to get his attention. Pt requesting increase in buspar; Buspar increased to 10mg PO BID. denies SI/HI/VH/AH. Lisinopril increased to 20mg PO daily d/t continued increased BP. Nursing to monitor. Patient reports feeling better with the medication ; pt stated, I feel like I can think clearer. I still don't know if I want to go back home or go to a program after here . Pt reports he plans on speaking with social work tomorrow. denies SI/HI/VH/AH. Continue current tx plan. Reports feeling well. Discharge is being planned with pt and team. Denies SI/HI/AH/VH. No sx of acute timothy or psychosis. increase cymbalta to 60 daily and buspar to 15 BID per pt request, for depression and anxiety. discharge . Active on unit, social with peers. attending groups. Pt reports feeling really good today; pt stated, I'm feeling ready to go home tomorrow . denies SI/HI/VH/AH. Pt reports he plans on following up with outpatient providers. Time spent discussing smoking cessation with patient: 3 to 10 minutes Status at Discharge Cognitive/behavioral status at discharge: Patient was interviewed prior to discharge and found to be fully oriented and without SI or HI. Patient has insight and demonstrates good judgment in terms of wanting to pursue treatment. Patient has a safety plan that includes presenting to the closest ER or calling 911 if feeling unsafe. Functional status at discharge: independent ambulation Overall status at discharge: patient is back to baseline Time Spent with Patient Time attestation: Total time managing care of this patient today _10___ minutes. Time spent: Less than 30 minutes Discharge Plan Discharge Anticipated Discharge Date/Time: 07/20/24 10:00 Patient Disposition: Home, Self-Care Discharge Diagnosis: MDD, PTSD, Alcohol use d/o Referrals: Migdalia Rojas (Therapy) [Other] - 07/24/24 10:00 am (IN OFFICE APPOINTMENT) Benjamin Daniel (Psychiatry) [Other] - 08/24/24 12:00 pm (IN OFFICE APPOINTMENT) [facility] ([facility] [Other] - 07/20/24 10:15 am (*This appointment is for Naltrexone. ) [facility] [Provider Group] - 1 Week (07-19-24 [facility] was added to patients chart. Please call [phone] to schedule your follow up appt.) Discharge Medications: New buspirone 15 mg tablet 15 mg PO BID 30 Days Qty: 60 0RF lisinopril 20 mg Tablet 20 mg PO DAILY 30 Days Qty: 30 0RF Protocol: Hold for SBP< HOLD for SBP < : 90 duloxetine 60 mg Capsule,Delayed Release(Dr/Ec) 60 mg PO DAILY 30 Days Qty: 30 0RF betamethasone, augmented 0.05 % Cream 1 appl topical BID 3 Days Qty: 15 0RF Protocol: Apply to: Apply to: Plaque on left elbow naltrexone 50 mg Tablet 50 mg PO DAILY 30 Days Qty: 30 0RF No Action No Known Home Meds Discharge Orders: Discharge Order (Routine); Ordered 07/20/24 Ordered By: Lizet Calhoun Diet: Regular diet Activity on Discharge: As tolerated Stand Alone Forms: Patient Portal Discharge page, Community Support Print Language: Sinhala Care Plan Goals: Maintain mood and safe behaviors Take medications as prescribed Continue to pursue sobriety Practice coping skills Continue with outpatient providers and reach out to them as needed Health Concerns: Mood stability and behaviors Sobriety Plan of Treatment: Follow up with your PCP, psychiatric provider and other outpatient providers regarding above concerns Take medications as prescribed Assessment: Patient was interviewed prior to discharge and found to be fully oriented and without SI or HI. Patient has insight and demonstrates good judgment in terms of wanting to pursue treatment. Patient has a safety plan that includes presenting to the closest ER or calling 911 if feeling unsafe. Discharge Date/Time: 07/20/24 10:20
--- NOTE | 2024-07-20 13:28 | PC.NURSE ---
Patient easily engaged. Reports mood is anxious, however, believes this is appropriate response. Denies SI/HI plan or intent. Motivated for sobriety and continued out patient care. Discharge paperwork reviewed with patient reports understanding. Discharge follow up appointment reviewed reports understanding. Discharge medication reviewed reports understanding. All belongings taken with patient. Crisis numbers provided. Escorted to [facility].
== END 2024-07-20 10:20 | disposition home or self-care (01) | DRG 885 ==
LOC: HO.ED 07-11 12:04 → HO.PADLT16 07-11 12:50
PROVIDERS: Physician Assistant Medical; Admitting Provider Registered Nurse; Emergency Provider Emergency Medicine; Responsible Provider Registered Nurse; Visit Provider Psychiatry & Neurology Psychiatry
DX: F33.2 Major depressive disorder, recurrent severe without psychotic features (principal); R45.851 Suicidal ideations; F43.10 Post-traumatic stress disorder, unspecified; I10 Essential (primary) hypertension; F10.20 Alcohol dependence, uncomplicated; Y90.8 Blood alcohol level of 240 mg/100 ml or more; Z63.4 Disappearance and death of family member; Z87.891 Personal history of nicotine dependence; Z79.899 Other long term (current) drug therapy
CPT/HCPCS: 36415; 80053; 80061; 80143; 80179; 80307; 81003; 85025; 93005; 99285; S9485

== ENCOUNTER → 2024-07-11 08:40 | Outpatient (BNV) | payer MEDICARE, SELFPAY | PROVIDERS: Admitting Provider Registered Nurse; Emergency Provider Emergency Medicine; Responsible Provider Registered Nurse; Visit Provider Internal Medicine | DX: I45.81 Long QT syndrome (principal) | CPT/HCPCS: 93010 ==

== ENCOUNTER → 2024-07-11 11:27 | Outpatient (BNV) | payer MEDICARE, SELFPAY | PROVIDERS: Admitting Provider Registered Nurse; Emergency Provider Emergency Medicine; Responsible Provider Registered Nurse; Visit Provider Nurse Practitioner Psychiatric/Mental Health | DX: F10.90 Alcohol use, unspecified, uncomplicated (principal) | CPT/HCPCS: 99499 ==

== ENCOUNTER → 2024-07-11 11:27 | Outpatient (BNV) | payer MEDICARE, SELFPAY | PROVIDERS: Admitting Provider Registered Nurse; Emergency Provider Emergency Medicine; Responsible Provider Registered Nurse; Visit Provider Registered Nurse | DX: F33.2 Major depressive disorder, recurrent severe without psychotic features (principal); F43.11 Post-traumatic stress disorder, acute; F10.90 Alcohol use, unspecified, uncomplicated | CPT/HCPCS: 90792; 99231; 99232; 99238 ==

== ENCOUNTER 2024-08-02 13:24 | Outpatient (AMB) | payer MEDICARE, SELFPAY ==
[2024-08-02 13:38] VITALS: BP 125/85; PULSE 75; RESP 22; O2SAT 95
--- NOTE | 2024-08-02 13:38 | A.OFFVISCC_ITS ---
Vital Signs 08/02/24 13:38 BP 125/85 Blood Pressure Location Rt radial Position Sitting Respiration 22 H Pulse 75 Pulse Oximetry (%) 95 Oxygen Delivery Method Room Air Intake Visit Reasons: MAT Office Allergies hydroxyzine [From Vistaril] Allergy (Verified 07/10/24 19:02) Hives HPI HPI MAT Office: Details: Patient presents for follow up and continuation of treatment following inpatient psychiatric admission Seen by this account underwriter and initiated on treatment for AUD during hospitalization Naltrexone 50mg--tolerating medication, denies any side effects Last drink July 07 Reports that keeping busy and working on his mental health is most important in relapse prevention Lives with individuals who are supportive PCP at [facility] --last appt yesterday Therapist and psychiatrist will be there as well. Psychiatrist appt on 08/24/2024 Therapy appt upcoming Review of Systems Const Reports as per HPI and Reports no additional complaints Physical Exam Vital Signs: Last Vital Signs Pulse 75 08/02/24 13:38 Resp 22 H 08/02/24 13:38 BP 125/85 08/02/24 13:38 Pulse Ox 95 08/02/24 13:38 Oxygen Delivery Method Room Air 08/02/24 13:38 Const General: cooperative, healthy appearing and well groomed Orientation/consciousness: patient oriented x3 Limitations: no limitations Neuro General: patient oriented x3 Psych Speech and movement: Normal speech and movement present Affect: normal affect Attitude: cooperative Thought process: Normal thought process present Thought content: Normal thought content present Insight: Good insight present (Psych) Judgement: Good judgement present (Psych) Assessment & Plan Assessment & Plan (1) Alcohol use disorder: Code(s): F10.90 - Alcohol use, unspecified, uncomplicated Category: Medical Plan: * continue naltrexone * refilled BH meds as he will be out for 5 days before he sees new provider * considering consolidating his care with psychiatrist--scheduled followup appt but unsure of he will keep it * relapse prevention discussion Medications: New trazodone 100 mg PO BEDTIME 21 tabs 0RF PFSH Medical History Cannabis use disorder Alcohol use disorder Major depression, recurrent Septic arthritis of elbow, right HTN (hypertension) Social History Household Members: Friend(s) Housing: House Housing Other:: staying w friend. looking for housing Do you presently have visiting nurse or other home services: No Alcohol intake: current Alcohol intake frequency: 3 or more drinks per day Alcohol type: hard liquor Patient Tobacco Use Status: Former Tobacco user Second Hand Smoke Exposure: No Substance Use Type: Marijuana service: No Current occupational status: unemployed Sexual orientation: Straight/Heterosexual Social History: Born in [place], raised in [place]. Graduated high school 1990. Has worked in various jobs but is now disabled due to back and neck injuries. Dad when pt was 15, Mom in 2007. One brother whom he is estranged from. 28 years-, she found someone else . 3 child tamir, 2 grandchildren Substance History: Patient reports drinking a sleeve and a half daily. Smokes marijuana daily. Trauma History: Affirms
== END 2024-08-02 14:09 | disposition home or self-care (01) ==
PROVIDERS: Visit Provider Nurse Practitioner Psychiatric/Mental Health
DX: F10.90 Alcohol use, unspecified, uncomplicated (principal)
CPT/HCPCS: 99214

== ENCOUNTER → 2024-08-02 13:24 | Outpatient (BNVA) | payer MEDICARE, SELFPAY | PROVIDERS: Visit Provider Nurse Practitioner Psychiatric/Mental Health | DX: F10.90 Alcohol use, unspecified, uncomplicated (principal) | CPT/HCPCS: 99212 ==

== ENCOUNTER 2025-01-12 09:14 | Outpatient (AMB) | payer MEDICARE, MEDICAID, SELFPAY ==
--- NOTE | 2025-01-12 09:36 | A.OFFPC_ITS ---
Vital Signs 01/12/25 09:37 Height 5 ft 6 in Weight 226 lb BMI 36.5 BP 140/90 H Respiration 16 Pulse 80 Pulse Source Pulse Oximeter Temp 98.0 F Temp Source Temporal Artery Scan Pulse Oximetry (%) 98 Oxygen Delivery Method Room Air Intake Visit Reasons: Establish Care Guest Services Associate Required: No Accompanied by: Self / Same As Patient Allergies hydroxyzine [From Vistaril] Allergy (Verified 01/12/25 10:03) Hives Medication List - Last Reconciled 01/12/25 by Shauna Taylor PA-C atorvastatin 10 mg PO DAILY betamethasone, augmented 0.05 % 1 appl See Protocol topical BID 3 days buspirone 15 mg PO BID clonazepam 0.5 mg PO BID PRN duloxetine 20 mg PO QAM duloxetine 40 mg PO BID naltrexone 50 mg PO DAILY 30 days trazodone 100 mg PO BEDTIME Tobacco use date assessed: 01/12/25 Dental Screening Dental Screen Date: 01/12/25 Did you have a dental visit in the last 12 months?: Yes Did you have a dental problem in the last 6 months where you did not have access to dental care?: No Was dental information given to patient?: Patient has dentist (has upcoming appointment ) HPI Establish Care HPI Details The patient is a 49-year-old male presenting with a need to establish a new primary care provider, for medication refills and chronic condition management, focusing on hypertension, depression, and anxiety. His hypertension was previously managed with Lisinopril up to 40 mg, with current blood pressure noted at 140/90. He experiences symptom alleviation with Duloxetine for depression and anxiety when compliant, but recent lapses have led to mild depressive episodes. New Hyperlipidemia management includes initiating atorvastatin, following recent high cholesterol findings. For Alcohol Use Disorder, he effectively uses Naltrexone to aid in remaining abstinent, having notably decreased alcohol intake since starting the regimen. Past opioid management has been replaced with cannabis, which he finds beneficial for pain and inflammation without the use in the current opioid crisis landscape. There is left ear hearing loss and Tinnitus needing ENT evaluation due to suspected structural changes or damage identified. He reports rectal bleeding linked to possible constipation with no familial colon cancer history but has a familial predisposition to cervical cancer via his mother. Social History - Employment: Attempting to attain part- time work through a specific program due to reduced income support. - [facility]: [facility]; income limitations were noted. - Family: Has three children and two gra ndchildren. - Substance Use: Past issues with alcoho l now managed with Naltrexone; utilizes cannabis for pain and inflammation. - Weight Loss: Noted a 40 lb weight loss associated with cessation of heavy alcohol use. - Nutrition and Activity: Implied dietar y adaptations following instructions regarding cholesterol and exercise limitations acknowledged with cannabis use for relaxation (e.g., video delio). [facility] Medical History (Updated 01/12/25 @ 11:36 by Shauna Taylor PA-C) Severe obesity with body mass index (BMI) of 36.0 to 36.9 with serious moe rbidity Pure hypercholesterolemia, unspecified High triglycerides Hyperlipidemia LDL goal <100 Decreased hearing of left ear Encounter for screening for malignant neoplasm of colon Establishing care with new doctor, encounter for Alcohol dependence Suicidal ideation Cannabis use disorder Alcohol use disorder Major depression, recurrent Septic arthritis of elbow, right HTN (hypertension) Family History Mother Cervical cancer Father Heart attack Social History Household Members: Friend(s) Housing: House Do you presently have visiting nurse or other home services: No Alcohol intake: current Alcohol intake frequency: holidays/special occasions only Alcohol type: beer Patient Tobacco Use Status: Former Tobacco user Second Hand Smoke Exposure: No Substance Use Type: Marijuana service: No Current occupational status: disabled Sexual orientation: Straight/Heterosexual Cognitive needs: No Hearing needs: No Vision needs: Yes (rx glasses) Questionnaire PHQ-9 Over the last 2 weeks, how often have you been bothered by any of the following problems? 1. Little interest or pleasure in doing things: more than half the days 2. Feeling down, depressed, or hopeless: more than half the days 3. Trouble falling or staying asleep, or sleeping too much: more than half the days 4. Feeling tired or having little energy: nearly every day 5. Poor appetite or overeating: nearly every day 6. Feeling bad about yourself - or that you are a failure or have let yourself or your family down: several days 7. Trouble concentrating on things, such as reading the newspaper or watching television: nearly every day 8. Moving or speaking so slowly that other people could have noticed. Or the opposite - being so fidgety or restless that you have been moving around a lot more than usual: not at all 9. Thoughts that you would be better off or of hurting yourself in some way: not at all Total score: 16 Depression Screening Interpretation: Positive Depression Screening Done: Yes 08530 - PHQ-9 Billing: Yes Source: Developed by Drs. Eric Starks, Kaitlynn Mcpherson, Tristen Hernandez and colleagues, with an educational yumi from [id number]. Thrive Questionnaire Date Thrive assessed: 07/12/24 AUDIT C Alcohol Use Questionnaire (AUDIT-C) 1. How often do you have a drink containing alcohol?: Monthly or less 2. How many drinks containing alcohol do you have on a typical day when you are drinking?: 1 or 2 3. How often do you have six or more drinks on one occasion?: Never Total Score: 1 Score Reviewed/Action Taken: Yes CARA-7 AMB Questionnaire CARA-7 Date CARA - 7 assessed: 01/12/25 Feeling nervous, anxious, or on edge: 2 = More than half the days Not being able to stop or control worryin = Nearly every day Worrying too much about different things: 3 = Nearly every day Trouble relaxin = More than half the days Being so restless that it is hard to sit still: 1 = Several days Becoming easily annoyed or irritable: 3 = Nearly every day Feeling afraid as if something awful might happen: 0 = Not at all Total CARA-7 score (0-4 normal; 5-9 mild; 10-14 moderate; 15-21 severe): 14 Source: Developed by Drs. Eric Starks, Kaitlynn Mcpherson, Tristen Hernandez and colleagues, with an educational yumi from [employer]. CARA-7 Assessment Billing CARA-7 Assessment Tool: CARA-7 Assessment 73972 Review of Systems Const Details: - Cardiovascular: Reports history of high blood pressure. - Musculoskeletal: Reports some benefit from cannabis for inflammation. - Psychiatric: Reports depression and anxiety; denies suicidal ideation. - Ear, Nose, Throat: Reports tinnitus and reduced hearing on the left side. - Gastrointestinal: Reports occasional rectal bleeding. - Substance Use: Reports past alcohol dependency, currently abstinent. Physical exam (Primary Care) Vital Signs: Last Vital Signs Temp 98.0 F 01/12/25 09:37 Pulse 80 01/12/25 09:37 Resp 16 01/12/25 09:37 BP 140/90 H 01/12/25 09:37 Pulse Ox 98 01/12/25 09:37 Oxygen Delivery Method Room Air 01/12/25 09:37 Care Plan Goal for BP management: <140/90 be restarted on lisinopril although will start at 10 mg not the 40 mg as patient has not been on blood pressure medications for quite some time BMI result Body Mass Index 36.5 BMI Assessment/Plan discussion: High BMI High, discussed plan: lifestyle, weight reduction, dietary, physical activity and alcohol moderation Tobacco/Smoking Status: Tobacco use Status Tobacco use date assessed 01/12/25 01/12/25 09:56 Patient Tobacco Use Status Former Tobacco user 01/12/25 09:56 PHQ-9: PHQ-9 Score PHQ-9: Total score 16 01/12/25 09:56 Depression Screening Interpretation: Positive Thrive Assessment: Date of Thrive Assessment Date Thrive assessed 07/12/24 01/12/25 09:56 Const Other: Appearance: Alert. Oriented X3. No acute distress. Head: Normal external exam. Normocephalic. Atraumatic. Eyes: Pupils are equal, round, and reactive to light. Extraocular movements intact. Conjunctiva and sclera normal. Eyelids normal. Ears: Left ear canal is deeper and possibly abnormal, with muffled hearing noted. Right ear canal normal. Tympanic membranes normal. Throat: Pharynx normal. Uvula midline. Moist mucous membranes. Neck: Normal inspection. Neck supple. Full range of motion. No adenopathy. Thyroid Normal. No meningeal signs. No neck mass noted. Cardiovascular: Normal heart rate and rhythm. Heart sound normal. No murmurs noted. Pulses normal throughout. Respiratory: No respiratory distress. Painless inspiration. Breath sounds normal. No wheezes/rales/rhonchi noted. Chest nontender. No accessory muscle usage noted or decreased air movement noted. Abdomen: Soft and nontender. Bowel sounds normal in all 4 quadrants. No distention noted. No organomegaly noted. No visible injury noted. Back: No costovertebral angle tenderness. Full range of motion noted. Skin: Skin warm and dry. Normal skin color. Normal skin turgor. No rashes/lesions/lacerations noted. Extremities: No lower extremity edema. Extremities exhibit normal range of motion. Extremities nontender. Neuro: Oriented X 3. No motor deficit. No sensory deficit. Reflexes normal. Coding Level of Care Code New Pt Level 4 (18879) Complex EM visit Add On G2211 Diagnoses Establishing care with new doctor, encounter for Z76.89 PTSD (post-traumatic stress disorder) F43.10 MDD (major depressive disorder), recurrent episode, severe F33.2 Cannabis use disorder F12.90 Alcohol use disorder F10.90 Encounter for screening for malignant neoplasm of colon Z12.11 HTN (hypertension) I10 Hyperlipidemia LDL goal <100 E78.5 High triglycerides E78.1 Pure hypercholesterolemia, unspecified E78.00 Severe obesity with body mass index (BMI) of 36.0 to 36.9 with serious comorbidity E66.01; Z68.36 Decreased hearing of left ear H91.92 Additional Codes PHQ-9 - 63937 - PHQ-9 Billing: Yes ([id number]) CARA-7 Assessment Billing - CARA-7 Assessment Tool: CARA-7 Assessment 51105 ([id number]) Assessment & Plan Assessment & Plan (1) Establishing care with new doctor, encounter for: Code(s): Z76.89 - Persons encountering health services in other specified circumstances Category: Medical (2) PTSD (post-traumatic stress disorder): Code(s): F43.10 - Post-traumatic stress disorder, unspecified Category: Medical Plan: Continued Duloxetine 80 mg daily split into 40 mg dosages twice daily; continuation due to noted partial efficacy. Condition is chronic and stable continue to monitor. (3) MDD (major depressive disorder), recurrent episode, severe: Code(s): F33.2 - Major depressive disorder, recurrent severe without psychotic features Category: Medical Plan: Continued Duloxetine 80 mg daily split into 40 mg dosages twice daily; continuation due to noted partial efficacy. Condition is chronic and stable continue to monitor. (4) Cannabis use disorder: Code(s): F12.90 - Cannabis use, unspecified, uncomplicated Category: Medical Plan: Condition is chronic and stable continue to monitor. (5) Alcohol use disorder: Code(s): F10.90 - Alcohol use, unspecified, uncomplicated Category: Medical Plan: Continued with Naltrexone to support abstinence from alcohol. Condition is chronic and stable continue to monitor. (6) Encounter for screening for malignant neoplasm of colon: Code(s): Z12.11 - Encounter for screening for malignant neoplasm of colon Category: Medical Plan: Will refer patient for colon cancer screening. Reports history of intermittent rectal bleeding may be related to straining/hemorrhoid/constipation. No acute symptoms at this time. (7) HTN (hypertension): Code(s): I10 - Essential (primary) hypertension Category: Medical Plan: Initiated Lisinopril 10 mg daily with a follow-up in one month to assess blood pressure control and compliance. Condition is chronic and stable continue to monitor. (8) Hyperlipidemia LDL goal <100: Code(s): E78.5 - Hyperlipidemia, unspecified Category: Medical Plan: Atorvastatin was initiated following new hyperlipidemia diagnosis. Patient to continue atorvastatin as prescribed by his prior PCP 10 mg daily. Condition is chronic and stable continue to monitor. (9) High triglycerides: Code(s): E78.1 - Pure hyperglyceridemia Category: Medical Plan: Atorvastatin was initiated following new hyperlipidemia diagnosis. Patient to continue atorvastatin as prescribed by his prior PCP 10 mg daily. Condition is chronic and stable continue to monitor. (10) Pure hypercholesterolemia, unspecified: Code(s): E78.00 - Pure hypercholesterolemia, unspecified Category: Medical Plan: Atorvastatin was initiated following new hyperlipidemia diagnosis. Patient to continue atorvastatin as prescribed by his prior PCP 10 mg daily. Condition is chronic and stable continue to monitor. (11) Severe obesity with body mass index (BMI) of 36.0 to 36.9 with serious com orbidity: Code(s): E66.01 - Morbid (severe) obesity due to excess calories; Z68.36 - Body mass index [BMI] 36.0-36.9, adult Category: Medical Plan: Patient has improved diet and exercise regimen. Condition is chronic and stable continue to monitor. (12) Decreased hearing of left ear: Code(s): H91.92 - Unspecified hearing loss, left ear Category: Medical Plan: Referral to ENT for comprehensive examination. Plan Plan Patient was informed and verbally consented to the use of an ambient scribe for clinic note documentation during this visit. 1. Essential Hypertension Initiated Lisinopril 10 mg daily with a follow-up in one month to assess blood pressure control and compliance. 2. Major Depressive Disorder And Generalized Anxiety Disorder Continued Duloxetine 80 mg daily split into 40 mg dosages twice daily; continuation due to noted partial efficacy. 3. Hyperlipidemia Atorvastatin was initiated following new hyperlipidemia diagnosis. 4. Alcohol Use Disorder Continued with Naltrexone to support abstinence from alcohol. 5. Tinnitus And Hearing Loss, Left Ear Referral to ENT for comprehensive examination. 6. Insomnia Continued Clonazepam for insomnia as previously prescribed. During our consultation, we discussed several management strategies for the patient's existing health conditions. The attempt to better manage Essential Hypertension involved returning the patient to Lisinopril therapy, albeit beginning with a lower dose to monitor tolerance. We have also addressed symptom control for Major Depressive Disorder and Anxiety through Duloxetine, with considerations for dose adjustments aligning with insurance guidelines. For his new Hyperlipidemia diagnosis, the patient has been advised to start Atorvastatin while continuing to abstain from alcohol to maintain his recovery progress with Naltrexone. An ENT evaluation was considered appropriate following a detailed discussion on managing his previous ear issues. We determined the need for regular follow-ups to assess efficacy for conditions in need of ongoing targeted management. Screening scheduled for colonoscopy should provide clarity on gastrointestinal symptoms recently noted. Blood work will also be instrumental in ongoing evaluations and health maintenance. Orders: Orders C Reactive Protein Today Z00.00 - Encounter for general adult medical examination without abnormal findings Lipid Panel Today Z00.00 - Encounter for general adult medical examination without abnormal findings PSA,Total (Free>4and<10) Today Z00.00 - Encounter for general adult medical examination without abnormal findings Magnesium Today Z00.00 - Encounter for general adult medical examination without abnormal findings Vitamin B12 and Folate Today Z00.00 - Encounter for general adult medical examination without abnormal findings Complete Blood Count Auto Diff Today Z00.00 - Encounter for general adult medical examination without abnormal findings Comprehensive [place]. Panel Fast Today Z00.00 - Encounter for general adult medical examination without abnormal findings Hemoglobin A1c Today Z00.00 - Encounter for general adult medical examination without abnormal findings Liver Panel Today Z00.00 - Encounter for general adult medical examination without abnormal findings TSH reflex Free T4 Today Z00.00 - Encounter for general adult medical examination without abnormal findings Vitamin D 25-OH Total Today Z00.00 - Encounter for general adult medical examination without abnormal findings Referrals Gastroenterology Referral Z12.11 - Encounter for screening for malignant sukumar plasm of colon Psychiatry Referral F32.A - Depression, unspecified Ear/Nose/Throat Referral H91.92 - Unspecified hearing loss, left ear Medications: New lisinopril 10 mg PO DAILY 90 tabs 1RF atorvastatin 10 mg PO DAILY 90 tabs 1RF clonazepam 0.5 mg PO BID 30 days PRN 60 tabs 1RF anxiety duloxetine 80 mg (2 x 40 mg) PO ONCE 90 days 180 caps 1RF Refilled naltrexone 50 mg PO DAILY 30 days 90 tabs 1RF trazodone 100 mg PO BEDTIME 90 tabs 1RF Patient Instructions: - Take Lisinopril 10 mg each day; follow up in one month for blood pressure check. - Continue Duloxetine 40 mg tablets, two a day. - Start taking Atorvastatin for cholesterol as prescribed. - Remain abstinent from alcohol, continue using Naltrexone for support. - Attend ENT consultation for the left ear hearing concerns. - Monitor blood pressure regularly, bring readings to the next appointment. - Look out for any issues with medications, seek help if experiencing severe side effects. - Follow up with planned colonoscopy for rectal bleeding evaluation. - Conduct blood tests before the next visit at the discussed location for comprehensive review.
[2025-01-12 09:37] VITALS: BP 140/90; PULSE 80; RESP 16; TEMP 36.7; O2SAT 98; BMI 36.5
== END 2025-01-12 10:30 | disposition home or self-care (01) ==
LOC: HO.HMCSH 09:14
PROVIDERS: PCP Internal Medicine; Visit Provider Physician Assistant Medical
DX: Z76.89 Persons encountering health services in other specified circumstances (principal); F43.10 Post-traumatic stress disorder, unspecified; F33.2 Major depressive disorder, recurrent severe without psychotic features; F12.90 Cannabis use, unspecified, uncomplicated; F10.90 Alcohol use, unspecified, uncomplicated; Z12.11 Encounter for screening for malignant neoplasm of colon; I10 Essential (primary) hypertension; E78.5 Hyperlipidemia, unspecified; E78.1 Pure hyperglyceridemia; E78.00 Pure hypercholesterolemia, unspecified; E66.01 Morbid (severe) obesity due to excess calories; Z68.36 Body mass index [BMI] 36.0-36.9, adult; H91.92 Unspecified hearing loss, left ear

== ENCOUNTER → 2025-01-12 09:14 | Outpatient (BNVA) | payer MEDICARE, MEDICAID, SELFPAY | PROVIDERS: PCP Internal Medicine; Visit Provider Physician Assistant Medical | DX: Z76.89 Persons encountering health services in other specified circumstances (principal); F43.10 Post-traumatic stress disorder, unspecified; F33.2 Major depressive disorder, recurrent severe without psychotic features; F12.90 Cannabis use, unspecified, uncomplicated; F10.90 Alcohol use, unspecified, uncomplicated; I10 Essential (primary) hypertension; E78.1 Pure hyperglyceridemia; E78.00 Pure hypercholesterolemia, unspecified; E66.01 Morbid (severe) obesity due to excess calories; Z68.36 Body mass index [BMI] 36.0-36.9, adult; H91.92 Unspecified hearing loss, left ear; G47.00 Insomnia, unspecified; Z79.899 Other long term (current) drug therapy; Z13.31 Encounter for screening for depression; Z13.30 Encounter for screening examination for mental health and behavioral disorders, unspecified | CPT/HCPCS: 96127; 99202 ==

== ENCOUNTER 2025-02-19 13:04 | Outpatient (AMB) | payer MEDICARE, MEDICAID, SELFPAY ==
[2025-02-19 13:26] VITALS: BP 116/70; PULSE 74; RESP 16; TEMP 36.6; O2SAT 97; BMI 33.6
--- NOTE | 2025-02-19 13:26 | A.OFFPC_ITS ---
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 Accompanied by: Self / Same As Patient Allergies hydroxyzine (From Vistaril) Allergy (Verified 02/19/25 13:41) Hives Medication List - Last Reconciled 02/19/25 by Shauna Taylor PA-C atorvastatin 10 mg PO DAILY betamethasone, augmented 0.05 % 1 appl See Protocol topical BID 3 days buspirone 15 mg PO BID clonazepam 0.5 mg PO BID PRN 30 days duloxetine 80 mg (2 x 40 mg) PO ONCE 90 days lisinopril 10 mg PO DAILY naltrexone 50 mg PO DAILY 30 days trazodone 100 mg PO BEDTIME Tobacco use date assessed: 01/12/25 Dental Screening Dental Screen Date: 01/12/25 Did you have a dental visit in the last 12 months?: Yes Did you have a dental problem in the last 6 months where you did not have access to dental care?: No Was dental information given to patient?: Patient has dentist (has upcoming appointment ) HPI Annual Physical HPI Details The patient is a 49-year-old male presenting for an annual physical examination. The patient reports dizziness upon standing, lasting about 10 seconds, with a spinning sensation. He has no recent head injuries or illnesses, and previous evaluations noted different sized ear canals, possibly contributing to vertigo. The patient is on medication for anxiety and depression, including buspirone, clonazepam, and duloxetine, and adheres to his regimen without needing refills currently. Anemia was noted in past blood work, linked to prior alcohol use, with liver enzymes AST and ALT previously elevated but improving with reduced alcohol consumption. The patient manages hyperlipidemia with atorvastatin and has lost 20 pounds recently through dietary changes, including reducing sugary drinks and eating more fruits, leading to improved cholesterol levels. Social History - Exercise: Engages in weight management through dietary changes, including reducing sugary drinks and increasing fruit intake. - Substance Use: Previously consumed alc ohol, contributing to anemia and elevated liver enzymes, but has since reduced intake. [facility] Medical History (Updated 02/19/25 @ 14:10 by Shauna Taylor PA-C) Preventative health care Hyperlipidemia Elevated liver enzymes Anemia Anxiety and depression Vertigo Annual physical exam Severe obesity with body mass index (BMI) of 36.0 to 36.9 with serious comorbidity Pure hypercholesterolemia, unspecified High triglycerides Hyperlipidemia LDL goal <100 Decreased hearing of left ear Encounter for screening for malignant neoplasm of colon Establishing care with new doctor, encounter for Alcohol dependence Suicidal ideation Cannabis use disorder Alcohol use disorder Major depression, recurrent Septic arthritis of elbow, right HTN (hypertension) Family History Mother Cervical cancer Father Heart attack Social History Household Members: Friend(s) Housing: House Do you presently have visiting nurse or other home services: No Alcohol intake: current Alcohol intake frequency: holidays/special occasions only Alcohol type: beer Patient Tobacco Use Status: Former Tobacco user Second Hand Smoke Exposure: No Substance Use Type: Marijuana service: No Current occupational status: disabled Sexual orientation: Straight/Heterosexual Cognitive needs: No Hearing needs: No Vision needs: Yes (rx glasses) Questionnaire PHQ-9 Over the last 2 weeks, how often have you been bothered by any of the following problems? 1. Little interest or pleasure in doing things: more than half the days 2. Feeling down, depressed, or hopeless: more than half the days 3. Trouble falling or staying asleep, or sleeping too much: more than half the days 4. Feeling tired or having little energy: nearly every day 5. Poor appetite or overeating: nearly every day 6. Feeling bad about yourself - or that you are a failure or have let yourself or your family down: several days 7. Trouble concentrating on things, such as reading the newspaper or watching television: nearly every day 8. Moving or speaking so slowly that other people could have noticed. Or the opposite - being so fidgety or restless that you have been moving around a lot more than usual: not at all 9. Thoughts that you would be better off or of hurting yourself in some way: not at all Total score: 16 Depression Screening Interpretation: Positive Depression Screening Done: Yes 09058 - PHQ-9 Billing: Yes Source: Developed by Drs. Eric Starks, Kaitlynn Mcpherson, Tristen Hernandez and colleagues, with an educational yumi from [employer]. Thrive Questionnaire Date Thrive assessed: 07/12/24 I am a: Patient What is your living situation today?: I have a steady place to live Within the past 12 months, did the food you bought not last and you didn't have the money to get more?: Never true Within the past 12 months, did you worry whether your food would run out before you got money to buy more?: Never true Do you have trouble paying for medicines?: No Do you have trouble getting transportation to medical appointments?: No Do you have trouble paying your heating and electricity bill?: No Do you have trouble taking care of your child, family member or friend?: No Do you have trouble with day-to-day activities such as bathing, preparing meals, shopping, managing finances, etc.?: No Are you currently unemployed and looking for a job?: No Are you interested in more education?: No Please select the resources that you would like help with: None Currently or been in a relationship where the following occur: No concerns reported THRIVE Score: 0 AUDIT C Alcohol Use Questionnaire (AUDIT-C) 1. How often do you have a drink containing alcohol?: Monthly or less 2. How many drinks containing alcohol do you have on a typical day when you are drinking?: 1 or 2 3. How often do you have six or more drinks on one occasion?: Never Total Score: 1 Score Reviewed/Action Taken: Yes CARA-7 AMB Questionnaire CARA-7 Date CARA - 7 assessed: 01/12/25 Feeling nervous, anxious, or on edge: 2 = More than half the days Not being able to stop or control worryin = Nearly every day Worrying too much about different things: 3 = Nearly every day Trouble relaxin = More than half the days Being so restless that it is hard to sit still: 1 = Several days Becoming easily annoyed or irritable: 3 = Nearly every day Feeling afraid as if something awful might happen: 0 = Not at all Total CARA-7 score (0-4 normal; 5-9 mild; 10-14 moderate; 15-21 severe): 14 Source: Developed by Saleem Meloet [place], Tristen Hernandez and colleagues, with an educational yumi from [employer]. CARA-7 Assessment Billing CARA-7 Assessment Tool: CARA-7 Assessment 69588 Review of Systems Const Details: - Neurological: Reports dizziness upon standing, lasting about 10 seconds, with a spinning sensation. Denies recent head injury or illness. - Musculoskeletal: Reports spasms in the lumbar region, specifically at L4-L5. - Psychiatric: Reports anxiety and depression, currently managed with medication. Physical exam (Primary Care) Vital Signs: Last Vital Signs Temp 97.8 F 02/19/25 13:26 Pulse 74 02/19/25 13:26 Resp 16 02/19/25 13:26 BP 116/70 02/19/25 13:26 Pulse Ox 97 02/19/25 13:26 Oxygen Delivery Method Room Air 02/19/25 13:26 Care Plan Goal for BP management: <140/90 at Goal BMI result Body Mass Index 33.6 BMI Assessment/Plan discussion: High BMI High, discussed plan: lifestyle, weight reduction, dietary, physical activity and alcohol moderation Tobacco/Smoking Status: Tobacco use Status Tobacco use date assessed 01/12/25 02/19/25 13:37 Patient Tobacco Use Status Former Tobacco user 02/19/25 13:37 PHQ-9: PHQ-9 Score PHQ-9: Total score 16 02/19/25 13:37 Depression Screening Interpretation: Positive Thrive Assessment: Date of Thrive Assessment Date Thrive assessed 07/12/24 02/19/25 13:37 Currently or been in a relationship where the following occur: No concerns reported Const Other: Appearance: Alert. Oriented X3. No acute distress. Head: Normal external exam. Normocephalic. Atraumatic. Eyes: Pupils are equal, round, and reactive to light. Extraocular movements intact. Conjunctiva and sclera normal. Eyelids normal. Ears: External auditory canal normal. Tympanic membranes normal. Patient reports dizziness when getting up, possibly related to ear canal size difference or vertigo. Throat: Pharynx normal. Uvula midline. Moist mucous membranes. Neck: Normal inspection. Neck supple. Full range of motion. No adenopathy. Thyroid Normal. No meningeal signs. No neck mass noted. Cardiovascular: Normal heart rate and rhythm. Heart sound normal. No murmurs noted. Pulses normal throughout. Respiratory: No respiratory distress. Painless inspiration. Breath sounds normal. No wheezes/rales/rhonchi noted. Chest nontender. No accessory muscle usage noted or decreased air movement noted. Abdomen: Soft and nontender. Bowel sounds normal in all 4 quadrants. No distention noted. No organomegaly noted. No visible injury noted. Back: No costovertebral angle tenderness. Full range of motion noted. Reports spasms in L4-L5 region, possibly requiring therapy or traction. Skin: Skin warm and dry. Normal skin color. Normal skin turgor. No rashes/lesions/lacerations noted. Extremities: No lower extremity edema. Extremities exhibit normal range of motion. Extremities nontender. Reports knee injury from fall, no head injury noted. Neuro: Oriented X 3. No motor deficit. No sensory deficit. Reflexes normal. Reports dizziness lasting about 10 seconds when getting up, possibly related to vertigo. No weakness or numbness on one side of the body. Results Reviewed Results Reviewed: - Labs: Previous blood work indicated anemia and elevated liver enzymes (AST and ALT). - Labs: Triglycerides were 159 mg/dL, total cholesterol 228 mg/dL, and LDL 126 mg/dL. Coding Level of Care Code Est Pt Level 4 (42620) Est Pt Prev Care 40-64y(10477) Diagnoses Annual physical exam Z00.00 Vertigo R42 Anxiety and depression F41.9; F32.A Anemia D64.9 Elevated liver enzymes R74.8 Hyperlipidemia E78.5 [facility] health care Z00.00 Additional Codes CARA-7 Assessment Billing - CARA-7 Assessment Tool: CARA-7 Assessment 50015 ([id number]) PHQ-9 - 72647 - PHQ-9 Billing: Yes ([id number]) Assessment & Plan Assessment & Plan (1) Annual physical exam: Code(s): Z00.00 - Encounter for general adult medical examination without abnormal findings Category: Medical (2) Vertigo: Code(s): R42 - Dizziness and giddiness Category: Medical Plan: The patient experiences dizziness upon standing, likely related to vertigo due to different sized ear canals. No recent head injuries or illnesses were reported. Management includes monitoring symptoms and considering further evaluation if symptoms persist or worsen. (3) Anxiety and depression: Code(s): F41.9 - Anxiety disorder, unspecified; F32.A - Depression, unspecified Category: Medical Plan: The patient is currently on medication for anxiety, including buspirone and clonazepam, and reports adherence to the regimen. No changes in medication are required at this time. Condition is chronic and stable continue to monitor. (4) Anemia: Code(s): D64.9 - Anemia, unspecified Category: Medical Plan: Previous blood work indicated anemia, likely related to past alcohol consumption. Monitoring of hemoglobin levels is recommended, with lifestyle modifications to reduce alcohol intake. Condition is chronic and stable will continue to monitor. (5) Elevated liver enzymes: Code(s): R74.8 - Abnormal levels of other serum enzymes Category: Medical Plan: The patient's liver enzymes AST and ALT were previously elevated but have shown improvement with reduced alcohol intake. Continued monitoring and lifestyle modifications are advised to maintain liver health. Condition is chronic and stable will continue to monitor. (6) Hyperlipidemia: Code(s): E78.5 - Hyperlipidemia, unspecified Category: Medical Plan: The patient manages hyperlipidemia with atorvastatin and has achieved significant weight loss through dietary changes. Continued adherence to medication and lifestyle modifications are recommended to maintain improved cholesterol levels. Condition is chronic and stable will continue to monitor. (7) Preventative health care: Code(s): Z00.00 - Encounter for general adult medical examination without abnormal findings Category: Medical Plan: The patient is advised to schedule a colonoscopy at his convenience as part of routine preventative care. Condition is chronic and stable will continue to monitor. Plan Plan Patient was informed and verbally consented to the use of an ambient scribe for clinic note documentation during this visit. 1. Vertigo The patient experiences dizziness upon standing, likely related to vertigo due to different sized ear canals. No recent head injuries or illnesses were reported. Management includes monitoring symptoms and considering further evaluation if symptoms persist or worsen. 2. Anxiety The patient is currently on medication for anxiety, including buspirone and clonazepam, and reports adherence to the regimen. No changes in medication are required at this time. 3. Depression The patient is on duloxetine for depression and adheres to the medication regimen. No changes in medication are needed currently. 4. Anemia Previous blood work indicated anemia, likely related to past alcohol consumption. Monitoring of hemoglobin levels is recommended, with lifestyle modifications to reduce alcohol intake. 5. Elevated Liver Enzymes The patient's liver enzymes AST and ALT were previously elevated but have shown improvement with reduced alcohol intake. Continued monitoring and lifestyle modifications are advised to maintain liver health. 6. Hyperlipidemia The patient manages hyperlipidemia with atorvastatin and has achieved significant weight loss through dietary changes. Continued adherence to medication and lifestyle modifications are recommended to maintain improved cholesterol levels. 7. Preventative Care: Colonoscopy The patient is advised to schedule a colonoscopy at his convenience as part of routine preventative care. During the visit, we discussed the patient's dizziness, likely related to vertigo, and the importance of monitoring symptoms. We reviewed the patient's medication regimen for anxiety and depression, confirming adherence and no need for changes. We also addressed previous lab results, including anemia and elevated liver enzymes, emphasizing lifestyle modifications to improve these conditions. The patient was advised to continue managing hyperlipidemia with atorvastatin and dietary changes. A colonoscopy was recommended as part of routine preventative care. Patient Instructions: - Monitor dizziness symptoms and seek further evaluation if they persist or worsen. - Continue taking medications for anxiety and depression as prescribed. - Maintain lifestyle changes to support liver health and manage anemia, including reducing alcohol intake. - Adhere to atorvastatin regimen and continue dietary changes to manage cholesterol levels. - Schedule a colonoscopy at your convenience for preventative care.
== END 2025-02-19 13:58 | disposition home or self-care (01) ==
PROVIDERS: PCP Internal Medicine; Visit Provider Physician Assistant Medical
DX: Z00.00 Encounter for general adult medical examination without abnormal findings (principal); R42 Dizziness and giddiness; F41.9 Anxiety disorder, unspecified; F32.A Depression, unspecified; D64.9 Anemia, unspecified; R74.8 Abnormal levels of other serum enzymes; E78.5 Hyperlipidemia, unspecified

== ENCOUNTER → 2025-02-19 13:04 | Outpatient (BNVA) | payer MEDICARE, MEDICAID, SELFPAY | PROVIDERS: PCP Internal Medicine; Visit Provider Physician Assistant Medical | DX: Z00.00 Encounter for general adult medical examination without abnormal findings (principal); R42 Dizziness and giddiness; F41.9 Anxiety disorder, unspecified; F32.A Depression, unspecified; D64.9 Anemia, unspecified; E78.5 Hyperlipidemia, unspecified; R74.8 Abnormal levels of other serum enzymes | CPT/HCPCS: 96127; 99396 ==

== ENCOUNTER 2025-05-25 13:06 | Outpatient (REF) | payer MEDICARE, MEDICAID, SELFPAY ==
[2025-05-25 16:29] LABS: MANUAL DIFF FLAG NO
[2025-05-25 16:42] LABS: Hematocrit 41.5 % (42.0-52.0); Hemoglobin 13.9 g/dl (14.0-18.0); Imm Gran Abs Auto 0.01 X10*3/uL (0.00-0.03); Imm Gran Pct Auto 0.2 % (0.0-0.4); Lymphocytes Absolute Auto 1.1 X10*3/uL (1.2-4.9); Mean Corpuscular HGB Conc 33.5 g/dl (31.0-36.0); Mean Corpuscular Hemoglobin 32.5 pg (27.0-33.0); Mean Corpuscular Volume 97.0 fL (80.0-98.0); NRBC Abs Auto 0.000 X10*3/uL (0.0-0.012); NRBC Pct Auto 0.0 /100WBC (0.0-0.2); Platelet Count 226 X10*3/uL (160-400); Red Blood Count 4.28 X10*6/uL (4.60-5.80); White Blood Count 4.0 X10*3/uL (4.8-10.8)
[2025-05-25 17:06] LABS: Alanine Aminotransferase 21 U/L (0-40); Albumin Level 4.7 g/dL (3.5-5.0); Alkaline Phosphatase 54 U/L (39-117); Anion Gap 14 (12-20); Aspartate Amino Transferase 26 U/L (5-37); Blood Urea Nitrogen 9 mg/dL (9-16); Calcium 8.8 mg/dL (8.4-10.2); Carbon Dioxide 26 mmol/L (22-29); Chloride 103 mmol/L (96-108); Cholesterol 172 mg/dL (<200); Estimated Glomerular Filt Rate > 60; HDL Cholesterol 86 mg/dL (>40); Magnesium 1.9 mg/dL (1.6-2.6); Potassium 4.2 mmol/L (3.3-5.1); Sodium 139 mmol/L (135-145); Total Protein 7.1 g/dL (6.5-8.0); Triglycerides 62 mg/dL (<150)
[2025-05-25 17:30] LABS: PSA,Total (Free>4and<10) 1.13 ng/mL (0.00-4.00)
[2025-05-25 17:43] LABS: Folate 3.8 ng/mL (> or = 4.0); Vitamin B12 323 pg/mL (200-900)
== END 2025-05-25 13:07 | disposition home or self-care (01) ==
LOC: HO.HMGCLDS 13:06
PROVIDERS: PCP Physician Assistant Medical; Visit Provider Physician Assistant Medical
DX: Z00.00 Encounter for general adult medical examination without abnormal findings (principal); Z12.5 Encounter for screening for malignant neoplasm of prostate; Z13.29 Encounter for screening for other suspected endocrine disorder; Z13.1 Encounter for screening for diabetes mellitus; Z13.6 Encounter for screening for cardiovascular disorders
CPT/HCPCS: 36415; 80053; 80061; 80076; 82248; 82306; 82607; 82746; 83036; 83735; 84153; 84443; 85025; 86140

== ENCOUNTER 2025-05-29 10:11 | Outpatient (AMB) | payer MEDICARE, MEDICAID, SELFPAY ==
[2025-05-29 10:20] VITALS: BP 130/86; PULSE 89; RESP 16; TEMP 36.5; O2SAT 95; BMI 32.3
--- NOTE | 2025-05-29 10:20 | MHC.PC.OV ---
Vital Signs 05/29/25 10:20 Height 5 ft 6 in Weight 200 lb 6 oz BMI 32.3 BP 130/86 Blood Pressure Location Rt brachial Position Sitting Respiration 16 Pulse 89 Pulse Source Pulse Oximeter Temp 97.7 F Temp Source Temporal Artery Scan Pulse Oximetry (%) 95 Oxygen Delivery Method Room Air Intake Visit Reasons: 3 month follow up Schedule Announcer Required: No Accompanied by: Self / Same As Patient Allergies hydroxyzine (From Vistaril) Allergy (Verified 05/29/25 10:39) Hives Medication List - Last Reconciled 05/29/25 by Shauna Taylor PA-C atorvastatin 10 mg PO DAILY betamethasone, augmented 0.05 % 1 appl See Protocol topical BID 3 days buspirone 15 mg PO BID 90 days clonazepam 0.5 mg PO BID PRN 30 days duloxetine 80 mg (2 x 40 mg) PO ONCE 90 days lisinopril 10 mg PO DAILY multivitamin 1 tab PO DAILY naltrexone 50 mg PO DAILY 30 days trazodone 100 mg PO BEDTIME Tobacco use date assessed: 05/29/25 Dental Screening Dental Screen Date: 05/29/25 Did you have a dental visit in the last 12 months?: Yes Did you have a dental problem in the last 6 months where you did not have access to dental care?: Yes Was dental information given to patient?: Patient has dentist HPI 3 month follow up HPI Details The patient is a 50-year-old male presenting for a three-month follow-up visit. The patient has a history of chronic leukopenia, with fluctuations in white blood cell count since 2022, alternating between low and normal levels. Currently, the white blood cell count is low at 4.0,000, but platelet counts remain normal, reducing concerns for malignancy. The patient also exhibits mild anemia, with hemoglobin levels slightly below normal at 13.9 g/dL, which may be influenced by dietary factors or alcohol consumption. The patient reports minimal alcohol intake and is actively adjusting his diet, although he is not consuming sufficient iron-rich foods. The patient has been managing hyperlipidemia effectively with atorvastatin, resulting in significant improvements in cholesterol levels. His triglycerides have decreased from 159 mg/dL to 62 mg/dL, and total cholesterol has reduced from 228 mg/dL to 172 mg/dL. The patient's LDL cholesterol has improved from 126 mg/dL to 74 mg/dL, and HDL cholesterol has increased from 71 mg/dL to 86 mg/dL. Preventative care measures include a planned colon cancer screening using Cologuard, as the patient has no family history of colorectal cancer and no high-risk factors. Social History - Exercise: The patient is actively engaged in weight management, having reduced weight from 260 lbs to 200 lbs. - Alcohol Consumption: Reports minimal alcohol intake. - Family Status: The patient enjoys spending time with grandchildren, which positively impacts his well-being. [facility] Medical History (Updated 05/29/25 @ 11:01 by Shauna Taylor PA-C) Chronic leukopenia Lower back pain Preventative health care Hyperlipidemia Elevated liver enzymes Anemia Anxiety and depression Vertigo Annual physical exam Severe obesity with body mass index (BMI) of 36.0 to 36.9 with serious comorbidity Pure hypercholesterolemia, unspecified High triglycerides Hyperlipidemia LDL goal <100 Decreased hearing of left ear Encounter for screening for malignant neoplasm of colon Establishing care with new doctor, encounter for Alcohol dependence Suicidal ideation Cannabis use disorder Alcohol use disorder Major depression, recurrent Septic arthritis of elbow, right HTN (hypertension) Family History Mother Cervical cancer Father Heart attack Social History Household Members: Friend(s) Housing: House Do you presently have visiting nurse or other home services: No Alcohol intake: current Alcohol intake frequency: holidays/special occasions only Alcohol type: beer Patient Tobacco Use Status: Former Tobacco user Second Hand Smoke Exposure: No Substance Use Type: Marijuana service: No Current occupational status: disabled Sexual orientation: Straight/Heterosexual Cognitive needs: Yes (cane occasionally) Hearing needs: No Vision needs: Yes (rx glasses) Questionnaire PHQ-9 Over the last 2 weeks, how often have you been bothered by any of the following problems? 1. Little interest or pleasure in doing things: several days 2. Feeling down, depressed, or hopeless: several days 3. Trouble falling or staying asleep, or sleeping too much: several days 4. Feeling tired or having little energy: more than half the days 5. Poor appetite or overeating: several days 6. Feeling bad about yourself - or that you are a failure or have let yourself or your family down: not at all 7. Trouble concentrating on things, such as reading the newspaper or watching television: several days 8. Moving or speaking so slowly that other people could have noticed. Or the opposite - being so fidgety or restless that you have been moving around a lot more than usual: not at all 9. Thoughts that you would be better off or of hurting yourself in some way: not at all Total score: 7 Depression Screening Interpretation: Positive Depression Screening Follow-up: Existing condition and Declines treatment Depression Screening Done: Yes 72257 - PHQ-9 Billing: Yes Source: Developed by Drs. Eric Starks, Kaitlynn Mcpherson, Tristen Hernandez and colleagues, with an educational yumi from [employer]. Thrive Questionnaire Date Thrive assessed: 05/29/25 I am a: Patient What is your living situation today?: I have a steady place to live Within the past 12 months, did the food you bought not last and you didn't have the money to get more?: Never true Within the past 12 months, did you worry whether your food would run out before you got money to buy more?: Never true Do you have trouble paying for medicines?: No Do you have trouble getting transportation to medical appointments?: No Do you have trouble paying your heating and electricity bill?: No Do you have trouble taking care of your child, family member or friend?: No Do you have trouble with day-to-day activities such as bathing, preparing meals, shopping, managing finances, etc.?: No Are you currently unemployed and looking for a job?: No Are you interested in more education?: No Please select the resources that you would like help with: None Currently or been in a relationship where the following occur: No concerns reported THRIVE Score: 0 AUDIT C Alcohol Use Questionnaire (AUDIT-C) 1. How often do you have a drink containing alcohol?: Monthly or less 2. How many drinks containing alcohol do you have on a typical day when you are drinking?: 1 or 2 3. How often do you have six or more drinks on one occasion?: Never Total Score: 1 Score Reviewed/Action Taken: Yes CARA-7 AMB Questionnaire CARA-7 Date CARA - 7 assessed: 05/29/25 Feeling nervous, anxious, or on edge: 2 = More than half the days Not being able to stop or control worryin = Nearly every day Worrying too much about different things: 3 = Nearly every day Trouble relaxin = More than half the days Being so restless that it is hard to sit still: 1 = Several days Becoming easily annoyed or irritable: 3 = Nearly every day Feeling afraid as if something awful might happen: 0 = Not at all Total CARA-7 score (0-4 normal; 5-9 mild; 10-14 moderate; 15-21 severe): 14 Source: Developed by Drs. Eric Starks, Kaitlynn Mcpherson, Tristen Hernandez and colleagues, with an educational yumi from [employer]. CARA-7 Assessment Billing CARA-7 Assessment Tool: CARA-7 Assessment 28108 Review of Systems Const Details: - Hematologic: Reports no black or bloody stools. - Neurological: Reports dizziness upon standing quickly. Denies visual changes, numbness, or weakness. - Musculoskeletal: Reports normal back condition, with occasional sciatica exacerbated by weather changes. All systems reviewed & are unremarkable except as noted in HPI and below Physical exam (Primary Care) Vital Signs: Last Vital Signs Temp 97.7 F 05/29/25 10:20 Pulse 89 05/29/25 10:20 Resp 16 05/29/25 10:20 BP 130/86 05/29/25 10:20 Pulse Ox 95 05/29/25 10:20 Oxygen Delivery Method Room Air 05/29/25 10:20 Care Plan Goal for BP management: <140/90 at Goal BMI result Body Mass Index 32.3 BMI Assessment/Plan discussion: High BMI High, discussed plan: lifestyle, weight reduction, dietary, physical activity, alcohol moderation and other Tobacco/Smoking Status: Tobacco use Status Tobacco use date assessed 05/29/25 05/29/25 10:29 Patient Tobacco Use Status Former Tobacco user 05/29/25 10:29 PHQ-9: PHQ-9 Score PHQ-9: Total score 16 05/29/25 10:29 Depression Screening Interpretation: Positive Depression Screening Follow-up: Existing condition and Declines treatment Thrive Assessment: Date of Thrive Assessment Date Thrive assessed 05/29/25 05/29/25 10:29 Currently or been in a relationship where the following occur: No concerns reported Const Other: Appearance: Alert. Oriented X3. No acute distress. Head: Normal external exam. Normocephalic. Atraumatic. Eyes: Pupils are equal, round, and reactive to light. Extraocular movements intact. Conjunctiva and sclera normal. Eyelids normal. Throat: Pharynx normal. Uvula midline. Moist mucous membranes. Neck: Normal inspection. Neck supple. Full range of motion. Cardiovascular: Normal heart rate and rhythm. Heart sound normal. No murmurs noted. Pulses normal throughout. Respiratory: No respiratory distress. Painless inspiration. Breath sounds normal. No wheezes/rales/rhonchi noted. Chest nontender. No accessory muscle usage noted or decreased air movement noted. Abdomen: Soft and nontender. No distention noted. No organomegaly noted. Back: Full range of motion noted. Skin: Skin warm and dry. Normal skin color. Extremities: Extremities exhibit normal range of motion. Neuro: Oriented X 3. No motor deficit. No sensory deficit. Reflexes normal. Results Reviewed Results Reviewed: - Labs: White blood cell count low at 4.0,000; hemoglobin at 13.9 g/dL; triglycerides decreased from 159 mg/dL to 62 mg/dL; total cholesterol reduced from 228 mg/dL to 172 mg/dL; LDL cholesterol improved from 126 mg/dL to 74 mg/dL; HDL cholesterol increased from 71 mg/dL to 86 mg/dL. Coding Level of Care Code Est Pt Level 4 (30613) Complex EM visit Add On G2211 Diagnoses Chronic leukopenia D72.819 Anemia D64.9 Hyperlipidemia E78.5 [facility] Z00.00 Additional Codes CARA-7 Assessment Billing - CARA-7 Assessment Tool: CARA-7 Assessment 00379 ([id number]) PHQ-9 - 89723 - PHQ-9 Billing: Yes ([id number]) Assessment & Plan Assessment & Plan (1) Chronic leukopenia: Code(s): D72.819 - Decreased white blood cell count, unspecified Category: Medical Plan: The patient's chronic leukopenia will continue to be monitored, given the fluctuating white blood cell counts, with no immediate intervention required as platelet counts remain normal, reducing concerns for malignancy. (2) Anemia: Code(s): D64.9 - Anemia, unspecified Category: Medical Plan: The mild anemia will be managed through dietary modifications to increase iron intake, as the patient reports minimal alcohol consumption and no gastrointestinal bleeding. (3) Hyperlipidemia: Code(s): E78.5 - Hyperlipidemia, unspecified Category: Medical Plan: The patient will continue atorvastatin therapy, which has significantly improved lipid profiles, with follow-up lipid panels to monitor ongoing efficacy. (4) Preventative health care: Code(s): Z00.00 - Encounter for general adult medical examination without abnormal findings Category: Medical Plan: The patient will undergo colon cancer screening using Cologuard, given the absence of family history and high-risk factors, with follow-up based on results. Plan Plan Patient was informed and verbally consented to the use of an ambient scribe for clinic note documentation during this visit. 1. Chronic Leukopenia The patient's chronic leukopenia will continue to be monitored, given the fluctuating white blood cell counts, with no immediate intervention required as platelet counts remain normal, reducing concerns for malignancy. 2. Anemia The mild anemia will be managed through dietary modifications to increase iron intake, as the patient reports minimal alcohol consumption and no gastrointestinal bleeding. 3. Hyperlipidemia The patient will continue atorvastatin therapy, which has significantly improved lipid profiles, with follow-up lipid panels to monitor ongoing efficacy. 4. Preventative Care: Colon Cancer Screening With Stool Test (Cologuard) The patient will undergo colon cancer screening using Cologuard, given the absence of family history and high-risk factors, with follow-up based on results. During the visit, we discussed the patient's chronic leukopenia and anemia, emphasizing the importance of monitoring and dietary adjustments to manage these conditions. We reviewed the significant improvements in lipid profiles due to atorvastatin therapy and encouraged continued adherence to the medication. Preventative care was addressed with a plan for colon cancer screening using Cologuard, considering the patient's low-risk profile. Orders: Referrals Cologuard Test Z12.11 - Encounter for screening for malignant neoplasm of colon, Z12.12 - Encounter for screening for malignant neoplasm of rectum Medications: New sildenafil (Viagra) administer 30 minutes to 4 hours before activity 25 mg (1/4 x 100 mg) PO DAILY PRN 20 tabs 6RF sexual activity Patient Instructions: - Continue taking atorvastatin as prescribed to maintain improved cholesterol levels. - Increase dietary intake of iron-rich foods to address mild anemia. - Undergo colon cancer screening with Cologuard as planned. - Monitor for any new symptoms or changes in health and report them promptly.
== END 2025-05-29 10:50 | disposition home or self-care (01) ==
LOC: HO.HMCSH 10:12
PROVIDERS: PCP Physician Assistant Medical; Visit Provider Physician Assistant Medical
DX: D72.819 Decreased white blood cell count, unspecified (principal); D64.9 Anemia, unspecified; E78.5 Hyperlipidemia, unspecified; Z00.00 Encounter for general adult medical examination without abnormal findings

== ENCOUNTER → 2025-05-29 10:11 | Outpatient (BNVA) | payer MEDICARE, MEDICAID, SELFPAY | PROVIDERS: PCP Physician Assistant Medical; Visit Provider Physician Assistant Medical | DX: I10 Essential (primary) hypertension (principal); D72.819 Decreased white blood cell count, unspecified; D64.9 Anemia, unspecified; E78.5 Hyperlipidemia, unspecified; Z79.899 Other long term (current) drug therapy | CPT/HCPCS: 96127; 99212 ==